=== PATIENT | female | born 1950 | race African-American/Black ===

== ENCOUNTER 2016-07-05 00:57 | Inpatient (IN) | payer OTHER ==
--- NOTE | 2016-07-05 02:02 | PDOC ---
History of Present Illness - General History Source: Patient Exam Limitations: No Limitations - History of Present Illness Initial Comments: 07/05/16 02:30 The patient is a 66 year old female with a significant past medical history of asthma, HTN, diabetes, and HLD who presents to the ED with complaints of shortness of breath since earlier today. The patient reports a sudden onset of sharp right arm pain that is radiating to her right shoulder around 6 pm earlier today. She reports she developed shortness of breath, coughing and wheezing. Patient reports her asthma symptoms typically flare up during this time of the year. Patient reports she is complaint with her medications. Denies fevers or chills. Denies palpitations. Denies abdominal pain, nausea, vomiting, or diarrhea. Denies any other symptoms. 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 Denies smoking or alcohol use. PMD: Dr. Harris <Portia Williamson - Last Filed: 07/05/16 02:29> <Nancy England - Last Filed: 07/06/16 06:27> - General Chief Complaint: Wheezing Stated Complaint: WHEEZING/ASTHMA Time Seen by Provider: 07/05/16 01:17 Past History <Portia Williamson - Last Filed: 07/05/16 02:29> - Past Medical History Asthma: Yes Diabetes: Yes HTN: Yes Hypercholesterolemia: Yes Suicide Attempt (Hx): No - Surgical History Abdominal Surgery: Yes (fibroids, btl) Appendectomy: Yes - Immunization History Immunization Up to Date: Yes - Psycho/Social/Smoking Cessation Hx Anxiety: Yes Suicidal Ideation: No Smoking Status: Yes Smoking History: Unknown if ever smoked Have you smoked in the past 12 months: No Number of Cigarettes Smoked Daily: 0 If you are a former smoker, when did you quit?: 15 YEARS Cigars Per Day: 0 Information on smoking cessation initiated: No Hx Alcohol Use: No Drug/Substance Use Hx: No Hx Substance Use Treatment: No <Nancy England - Last Filed: 07/06/16 06:27> - Past Medical History Allergies/Adverse Reactions: Allergies Allergy/AdvReac Type Severity Reaction Status Date / Time No Known Allergies Allergy Verified 07/05/16 01:18 Home Medications: Ambulatory Orders Albuterol 0.083% Nebulizer Aleksandra [Ventolin 0.083% Nebulizer Soln -] [facility] NEB QIDR #0 vial 06/13/13 Metformin HCl [Glucophage -] 1,000 mg PO BIDAC #0 tablet 06/13/13 Valsartan [Diovan] 320 mg PO DAILY #0 tablet 06/13/13 Olmesartan Medoxomil [Benicar -] 20 mg PO DAILY 01/03/14 Montelukast Na [Singulair -] 10 mg PO HS #30 tablet 01/12/14 Diazepam [Valium] 5 mg PO BID #12 tablet MDD 2 05/16/15 Oxycodone HCl/Acetaminophen [Percocet 5-325 mg Tablet] 1 - 2 tab PO Q6H PRN #16 tab MDD 4 05/16/15 Review of Systems - Review of Systems Able to Perform ROS?: Yes Comments:: 07/05/16 02:30 CONSTITUTIONAL: Absent: fever, chills, diaphoresis, generalized weakness, malaise, loss of appetite HEENT: Absent: rhinorrhea, nasal congestion, throat pain, throat swelling, difficulty swallowing, mouth swelling, ear pain, eye pain, visual Changes CARDIOVASCULAR: Absent: chest pain, syncope, palpitations, irregular heart rate, lightheadedness , peripheral edema RESPIRATORY: + shortness of breath, cough, wheezing Absent: dyspnea with exertion, orthopnea, wheezing, stridor, hemoptysis GASTROINTESTINAL: Absent: abdominal pain, abdominal distension, nausea, vomiting, diarrhea, constipation, melena, hematochezia GENITOURINARY: Absent: dysuria, frequency, urgency, hesitancy, hematuria, flank pain, genital pain MUSCULOSKELETAL: + arm pain Absent: joint swelling SKIN: Absent: rash, itching, pallor HEMATOLOGIC/IMMUNOLOGIC: Absent: easy bleeding, easy bruising, lymphadenopathy, frequent infections ENDOCRINE: Absent: unexplained weight gain, unexplained weight loss, heat intolerance, cold intolerance NEUROLOGIC: Absent: headache, focal weakness or paresthesias, dizziness, unsteady gait, seizure, mental status changes, bladder or bowel incontinence PSYCHIATRIC: Absent: anxiety, depression, suicidal or homicidal ideation, hallucinations. All Other Systems: Reviewed and Negative <Portia Williamson - Last Filed: 07/05/16 02:29> *Physical Exam - Vital Signs Last Vital Signs Temp Pulse Resp BP Pulse Ox 97.7 F 62 22 123/96 100 07/05/16 01:15 07/05/16 01:15 07/05/16 01:15 07/05/16 01:15 07/05/16 01:15 - Physical Exam Comments: 07/05/16 02:30 GENERAL: Well developed, well nourished. Awake and alert. No acute distress. HEENT: Normocephalic, atraumatic. PERRLA, EOMI. No conjunctival pallor. Sclera are non- icteric. Moist mucous membranes. Oropharynx is clear. NECK: Supple. Full ROM. No JVD. Carotid pulses 2+ and symmetric, without bruits. No thyromegaly. NCo lymphadenopathy. CARDIOVASCULAR: Regular rate and rhythm. No murmurs, rubs, or gallops. Distal pulses are 2+ and symmetric. PULMONARY: No evidence of respiratory distress. Lungs clear to auscultation bilaterally. No wheezing, rales or rhonchi. ABDOMINAL: Soft. Non-tender. Non-distended. No rebound or guarding. No organomegaly. Normoactive bowel sounds. MUSCULOSKELETAL Normal range of motion at all joints. No bony deformities or tenderness. No CVA tenderness. EXTREMITIES: No cyanosis. No clubbing. No edema. No calf tenderness. SKIN: Warm and dry. Normal capillary refill. No rashes. No jaundice. NEUROLOGICAL: Alert, awake, appropriate. Cranial nerves 2-12 intact. No deficits to light touch and temperature in face, upper extremities and lower extremities. No motor deficits in the in face, upper extremities and lower extremities. Normoreflexic in the upper and lower extremities. Normal speech. Toes are down- going bilaterally. Gait is normal without ataxia. PSYCHIATRIC: Cooperative. Good eye contact. Appropriate mood and affect. <Portia Williamson - Last Filed: 07/05/16 02:29> - Vital Signs Last Vital Signs Temp Pulse Resp BP Pulse Ox 97.7 F 62 22 123/96 100 07/05/16 01:15 07/05/16 01:15 07/05/16 01:15 07/05/16 01:15 07/05/16 01:15 <Nancy England - Last Filed: 07/06/16 06:27> Heart Score/ECG Review - History History: Moderately suspicious - Electrocardiogram EKG: Non specific repolarization disturbance - Age Age: 45-65 - Risk Factors Risk Factors Heart Score: Yes Hx Hypercholesterolemia, Yes Hx Hypertension, Yes Hx Diabetes, Yes Hx Obesity Based on the list above the patient has:: >/=3 risk factors or Hx atherosclerotic disease - Troponin Troponin: </= normal limit - Score Heart Score - Total: 5 <Nancy England - Last Filed: 07/06/16 06:27> ED Treatment Course - LABORATORY CBC & Chemistry Diagram: 07/05/16 05:57 07/05/16 05:57 <Nancy England - Last Filed: 07/06/16 06:27> Medical Decision Making - Medical Decision Making 07/05/16 06:05 Patient Name: Diana Renee THIS IS A PRELIMINARYREPORT FROM IMAGING GLACIOLOGIST EXAM: X-ray chest IMAGES: 2 INDICATION: Asthma DATE OF SERVICE: 2016-07-05 02 :37:02.0 COMPARISON: none FINDINGS: The cardiomediastinal silhouette is normal. The lungs are clear. The bones and soft tissues are normal IMPRESSION : Normal chest. THIS DOCUMENT HAS BEEN ELECTRONICALLY SIGNED 07/06/16 06:23 Pt admitted for SOB; she has a hx of asthma, but she also complains of right arm pain and CP. SHe has HTN and DM and HLD and she is morbidly obese and she is 66 yo. She will be admitted to telemetry. <Nancy England - Last Filed: 07/06/16 06:27> *DC/Admit/Observation/Transfer - Attestations Scribe Attestion: 07/05/16 02:30 Documentation prepared by Portia Williamson, acting as biomedical field service engineer for Nancy England MD <Portia Williamson - Last Filed: 07/05/16 02:29> - Discharge Dispostion Admit: Yes <Nancy England - Last Filed: 07/06/16 06:27> Diagnosis at time of Disposition: Asthma exacerbation, Chest pain, Right arm pain, Severe persistent asthma with exacerbation, Morbid exogenous obesity, Diabetes - Discharge Dispostion Condition at time of disposition: Stable - Referrals - Patient Instructions - Post Discharge Activity
[2016-07-05] MEDS ORDERED: ALBUTEROL SO4 2.5/IPRATROPIUM 0.5 INH SOL 3 ML VIAL.NEB. NEB ONE ×3 (02:47→19:23)
[2016-07-05] MEDS ORDERED: predniSONE 20 MG TABLET (UD) PO ONE (03:02)
[2016-07-05] MEDS ORDERED: predniSONE 20 MG TABLET (UD) ONE (03:18)
[2016-07-05 06:13] LABS: BASOPHIL 0.4 % (0-2.0); EOSINOPHIL 1.8 % (0-4.5); MCH 28.7 pg (25.7-33.7); MCHC 32.6 g/dl (32.0-36.0); MEAN CELL VOLUME 87.9 fl (80-96); MEAN PLT VOLUME 9.9 fl (7.5-11.1); PLATELET COUNT 171 K/MM3 (134-434); RDW 14.4 % (11.6-15.6); WHITE BLOOD COUNT 10.1 K/mm3 (4.0-10.0)
[2016-07-05 06:33] LABS: INR 1.06 (0.82-1.09); PROTHROMBIN TIME (PATIENT) 11.7 SEC (9.98-11.88)
[2016-07-05 06:40] LABS: ALBUMIN 3.7 g/dl (3.4-5.0); ANION GAP 9 (8-16); BILIRUBIN,TOTAL 0.5 mg/dL (0.2-1.0); CALCIUM 9.1 mg/dL (8.5-10.1); CO2 27 mmol/L (21-32); CREATININE 0.8 mg/dL (0.55-1.02); GLUCOSE,RANDOM 299 mg/dL (74-106); SGPT/ALT 21 U/L (12-78); TOT PROT 7.3 g/dl (6.4-8.2)
[2016-07-05 06:42] LABS: ALK PHOS 75 U/L (45-117); TROPONIN I < 0.02 ng/ml (0.00-0.05)
[2016-07-05 06:48] LABS: SGOT/AST 25 U/L (15-37)
[2016-07-05] MEDS: ALBUTEROL SO4 2.5/IPRATROPIUM 0.5 INH SOL 3 ML VIAL.NEB. NEB PRN ×2 (08:50→19:34)
[2016-07-05] MEDS ORDERED: OLMESARTAN MEDOXOMIL PO SCH (10:00)
[2016-07-05] MEDS ORDERED: methylPREDNISolone NA SUCC 125 MG/2 ML VIAL IVPB SCH (10:00)
[2016-07-05] MEDS ORDERED: HEPARIN NA (PORCINE) 5,000 UNITS/ML 1ML VIAL SQ SCH (10:00)
[2016-07-05] MEDS ORDERED: methylPREDNISolone NA SUCC 125 MG/2 ML VIAL IVPB ONE (10:15)
[2016-07-05] MEDS ORDERED: VALSARTAN 80 MG TABLET (UD) ONE (11:08)
[2016-07-05] MEDS ORDERED: HEPARIN NA (PORCINE) 5,000 UNITS/ML 1ML VIAL ONE (11:08)
[2016-07-05] MEDS ORDERED: INSULIN REGULAR HUMAN 100 UNITS/ML *VIAL ONE ×2 (11:10→17:19)
[2016-07-05] MEDS: VALSARTAN 160 MG TABLET (UD) PO SCH (11:10)
[2016-07-05] MEDS: INSULIN SLIDING SCALE (NOVOLOG) 1 VIAL SQ SCH ×3 (11:10→22:41)
[2016-07-05 12:15] VITALS: BMI 34.4
--- NOTE | 2016-07-05 13:04 | HP ---
CHIEF COMPLAINT: Tingling right arm PCP: Dr. Harris HISTORY OF PRESENT ILLNESS: Patient is a 66 year old female with a PMHx of HTN, DMII, and asthma who presents for right arm/shoulder pain and "tingling" sensation that radiates to the chest associated with shortness of breath that started yesterday evening. Patient reports she was unable to hold her cup from the pain, which prompted this hospital visit. She is unable to lift her arm fully without severe pain. She reports having similar episodes in the past but with her left arm for which she is going to physical therapy for. Patient then states her shortness of breath increased from the pain, which is related to her asthma. When evaluating the patient she began to have shortness of breath, wheezing and cough for which a DuoNeb, EKG, Steroids, and repeat cardiac enzymes were done. DuoNebs alleviated the shortness of breath soon after. Otherwise, patient denies fever, chills, nausea, vomiting, abdominal pain, dizziness. In the ED she was noted to have some wheezing and was given asthma medication. Her chest pain was evaluated with EKG which showed junctional rhythm at [address] or T-wave changes and no changes in comparison to the prior EKG of March 2010. Troponin 2 was negative. Chest x-ray showed no acute changes. ER course was notable for: (1) Chest x-ray (2) Duoneb (3) Prednisone Recent Travel: None PAST MEDICAL HISTORY: HTN, HLD, DMII, Asthma PAST SURGICAL HISTORY: Tubal Ligation Social History: Smoking: Denies Alcohol: Denies Drugs: Denies Family History: Mother- HTN and DM Allergies: No Known Allergies Allergy (Verified 07/05/16 01:18) HOME MEDICATIONS: Home Medications Medication Instructions Recorded Albuterol 0.083% Nebulizer Aleksandra 1 neb NEB QIDR #0 vial 06/13/13 [Ventolin 0.083% Nebulizer Soln -] Metformin HCl [Glucophage -] 1,000 mg PO BIDAC #0 tablet 06/13/13 Valsartan [Diovan] 320 mg PO DAILY #0 tablet 06/13/13 Olmesartan Medoxomil [Benicar -] 20 mg PO DAILY 01/03/14 Montelukast Na [Singulair -] 10 mg PO HS #30 tablet 01/12/14 Diazepam [Valium] 5 mg PO BID #12 tablet MDD 2 05/16/15 Oxycodone HCl/Acetaminophen 1 - 2 tab PO Q6H PRN #16 tab MDD 4 05/16/15 [Percocet 5-325 mg Tablet] REVIEW OF SYSTEMS CONSTITUTIONAL: Absent: fever, chills, diaphoresis, generalized weakness, malaise, loss of appetite, weight change HEENT: Absent: rhinorrhea, nasal congestion, throat pain, throat swelling, difficulty swallowing, mouth swelling, ear pain, eye pain, visual changes CARDIOVASCULAR: chest pain Absent: syncope, palpitations, irregular heart rate, lightheadedness, peripheral edema RESPIRATORY: cough, shortness of breath, wheezing Absent: dyspnea with exertion, orthopnea, stridor, hemoptysis GASTROINTESTINAL: Absent: abdominal pain, abdominal distension, nausea, vomiting, diarrhea, constipation, melena, hematochezia GENITOURINARY: Absent: dysuria, frequency, urgency, hesitancy, hematuria, flank pain, genital pain MUSCULOSKELETAL: back pain Absent: myalgia, arthralgia, joint swelling, neck pain SKIN: Absent: rash, itching, pallor HEMATOLOGIC/IMMUNOLOGIC: Absent: easy bleeding, easy bruising, lymphadenopathy, frequent infections ENDOCRINE: Absent: unexplained weight gain, unexplained weight loss, heat intolerance, cold intolerance NEUROLOGIC: Absent: headache, focal weakness or paresthesias, dizziness, unsteady gait, seizure, mental status changes, bladder or bowel incontinence PSYCHIATRIC: Absent: anxiety, depression, suicidal or homicidal ideation, hallucinations. PHYSICAL EXAMINATION Vital Signs - 24 hr 07/05/16 07/05/16 07/05/16 07:25 11:10 12:04 Temperature 98 F 98 F Pulse Rate 76 Pulse Rate [ 62 76 Apical] Respiratory 19 17 18 Rate Blood Pressure 141/85 Blood Pressure 120/69 141/85 [Left Arm] O2 Sat by Pulse 97 96 96 Oximetry (%) GENERAL: Awake, alert, and fully oriented. HEAD: Normal with no signs of trauma. EYES: PERRL, EOMI, sclera anicteric, conjunctival injections. EARS, NOSE, THROAT: Moist mucous membranes. NECK: Supple without lymphadenopathy, JVD, or masses. LUNGS: Scattered expiratory wheezing, L>R lung base with no crackles. No accessory muscle use. HEART: Regular rate and rhythm, normal S1 and S2 without murmur, rub or gallop. ABDOMEN: Soft, nontender, not distended, normoactive bowel sounds, no guarding, no rebound, no masses. MUSCULOSKELETAL: Decreased ROM of right shoulder with pain when elevating the right arm and with extension. UPPER EXTREMITIES: No peripheral edema. LOWER EXTREMITIES: Swelling of bilateral legs with no erythema or edema. Right cali tenderness upon palpation, NEUROLOGICAL: Cranial nerves II-XII intact. motor strength 5/5 throughout, sensory intact throughout. No cerebellar deficits. Normal speech. SKIN: Warm, dry, normal turgor, no rashes or lesions noted, normal capillary refill. Laboratory Results - last 24 hr 07/05/16 07/05/16 09:09 10:37 POC Glucometer [id number] Troponin I < 0.02 Chest X-ray (07/05/16): No acute pathology EKG (07/05/16): Junctional Rhythm @60 BPM, (-) ST-T changes ASSESSMENT/PLAN: Patient is a 66 year old female with a PMHx of HTN, DM II, and asthma who presents for right arm pain with tingling sensations and moderate asthma exacerbation. Patient admitted for further monitoring and management. Asthma Exacerbation -Continue DuoNeb Q4H PRN -Continue Singulair 10mg PO HS -Prednisone 40mg daily -Oxygen PRN Right Arm Pain and Numbness with Chest Pain -R/O neurological origin or event vs. cardiac origin vs Arthritis -Brain MRI ordered due to patients risk factors of stroke including HTN and DMII. -Right shoulder x-ray ordered -Troponins negative x3 -EKG tomorrow -Lipid panel ordered -ECHO ordered -Tylenol 650mg Q6H PRN for pain HTN -Continue Benicar 20mg daily -Continue Diovan 320mg daily DMII -ISS -BGM F/E/N -On no fluids -Electrolytes wnl -Sodium and diabetes controlled diet Prophylaxis -Lovenox 40mg Disposition -Awaiting MRI Visit type - Emergency Visit Emergency Visit: Yes ED Registration Date: 07/05/16 Care time: The patient presented to the Emergency Department on the above date and was hospitalized for further evaluation of their emergent condition. - New Patient This patient is new to me today: Yes Date on this admission: 07/05/16 - Critical Care Critical Care patient: No NIH Stroke Scale - Initial Evaluation Level of consciousness: Alert Ask patient the month and their age: Answers both correctly Ask patient to open & close eyes; make fist and let go: Obeys both correctly Best gaze (horizontal eye movement): Normal Visual field testing: No visual field loss Facial paresis (Show teeth/raise eyebrows/close eyes tight): Normal symmetrical movement Motor Function: Left Arm: Normal Motor Function: Right Arm: Normal (extends arm 90 (or 45) degrees for 10 seconds without drift Motor Function: Left Leg: Normal (extends leg 30 degrees for 5 seconds without drift) Motor Function: Right Leg: Normal (extends leg 30 degrees for 5 seconds without drift) Limb Ataxia: No ataxia Sensory(Use pinprick test arms,legs,trunk,face/side to side): Normal Best language (Describe picture, name items, read sentences): No Aphasia Dysarthria (read several words): Normal articulation Extinction and Inattention: No abnormality - Total Score NIH Stroke Scale Score: 0
--- NOTE | 2016-07-05 15:17 | PN ---
Teaching Attending Note Name of Resident: Gracie Ramos ATTENDING PHYSICIAN STATEMENT I saw and evaluated the patient. I reviewed the resident's note and discussed the case with the resident. I agree with the resident's findings and plan as documented. SUBJECTIVE: 66-year-old female with a history of asthma, hypertension, diabetes , and hyperlipidemia. Patient presents complaining of onset yesterday of shortness of breath, chest pain, and right shoulder pain with movement associated with tingling in the fingers. Patient was concerned about the right arm symptoms more than anything else so she came to the ED. In the ED she was noted to have some wheezing and was given asthma medication. Her chest pain was evaluated with EKG which showed junctional rhythm at [address] or T-wave changes and no changes in comparison to the prior EKG of March 2010. Troponin 2 was negative. Chest x-ray showed no acute changes. OBJECTIVE: Patient is awake, alert, and fully oriented. She continues to have some chest pain in the mid chest. She also is complaining of right shoulder pain which is exacerbated with elevating the right arm. She is unable to elevate her right arm above her shoulder due to severe pain with extension. Lungs are mostly clear with occasional scattered expiratory wheezes. Heart is regular rhythm without gallop or murmur. Abdomen is obese and benign. Extremities are without clubbing or cyanosis. There is no edema. There is mild right cail tenderness in the pretibial region on palpation. There are no cords or erythema. Detailed neurological examination shows normal mental status, normal cranial nerves, normal motor strength, sensation, no cerebellar deficits. Right arm elevation is limited by arthritic pain in the right shoulder. Laboratory studies are notable for negative troponin, glucose of 299, EKG with possibly junctional rhythm versus normal sinus rhythm at 60 without acute ischemic changes. Chest x-ray is unremarkable. ASSESSMENT AND PLAN: Patient presents with mild asthma exacerbation. She will be given prednisone 40 mg daily along with albuterol and ipratropium nebulizer treatment. Right shoulder pain and numbness in the right arm is consistent with osteoarthritis of the right shoulder. Right shoulder x-rays ordered. Patient will be given Tylenol as needed. Given the complaints of numbness and the multiple positive stroke risk factors, although the likely explanation for her right arm and shoulder symptoms are musculoskeletal in nature, MRI will be ordered to rule out acute neurological event. Patient will be treated with aspirin and a statin. DVT prophylaxis ordered.
[2016-07-05] MEDS ORDERED: LORAZEPAM CARPU-JECT 2 MG/ML DISP.SYRIN IVPUSH ONE (17:16)
[2016-07-05] MEDS ORDERED: ACETAMINOPHEN 325 MG TABLET (FP) PO PRN (17:43)
[2016-07-05] MEDS ORDERED: INSULIN (NOVOLOG) ASPART 100 UNITS/ML 10ML VIAL SQ ONE (18:57)
[2016-07-05 22:19] LABS: TROPONIN I < 0.02 ng/ml (0.00-0.05)
[2016-07-05] MEDS: MONTELUKAST NA 10 MG TABLET PO SCH (22:41)
[2016-07-06] MEDS: INSULIN SLIDING SCALE (NOVOLOG) 1 VIAL SQ SCH ×5 (06:29→23:06)
[2016-07-06 08:30] LABS: MCH 25.1 pg (25.7-33.7); MCHC 31.5 g/dl (32.0-36.0); MEAN CELL VOLUME 79.5 fl (80-96); MEAN PLT VOLUME 8.8 fl (7.5-11.1); PLATELET COUNT 277 K/MM3 (134-434); RDW 22.5 % (11.6-15.6); WHITE BLOOD COUNT 10.2 K/mm3 (4.0-10.0)
[2016-07-06] MEDS: VALSARTAN 160 MG TABLET (UD) PO SCH (09:41)
[2016-07-06] MEDS: ASPIRIN COATED 81 MG TABLET.EC PO SCH (09:41)
[2016-07-06] MEDS: ENOXAPARIN NA (PORCINE) 40 MG/0.4 ML DISP.SYRIN SQ SCH (09:41)
[2016-07-06] MEDS: predniSONE 20 MG TABLET (UD) PO SCH (09:41)
[2016-07-06 09:59] LABS: MCH 28.7 pg (25.7-33.7); MCHC 32.5 g/dl (32.0-36.0); MEAN CELL VOLUME 88.4 fl (80-96); MEAN PLT VOLUME 9.8 fl (7.5-11.1); PLATELET COUNT 192 K/MM3 (134-434); RDW 14.3 % (11.6-15.6)
[2016-07-06 10:28] LABS: CALCIUM 9.5 mg/dL (8.5-10.1); COCKROFT - GAULT 117.6145
[2016-07-06 10:30] LABS: CHOLESTEROL 267 mg/dL (50-200); LDL CHOLESTEROL (ONLY SJRH) 202 mg/dL (5-100)
--- NOTE | 2016-07-06 12:57 | PN ---
Physical Exam: SUBJECTIVE: Patient seen and examined. She complains of severe pain and numbness of her right arm. She is having difficulty moving the arm. Pain starts in her right neck. She denies recent trauma. She has chronic low back pain secondary to a pinched nerve. OBJECTIVE: Vital Signs Period Temp Pulse Resp BP Sys/Linares Pulse Ox Last 24 Hr 97.5 F-97.8 F 61-84 18-20 111-148/67-89 95-100 GENERAL: The patient is awake, alert, and fully oriented, in moderate distress. LUNGS: Few wheezes bilaterally. HEART: Regular rate and rhythm, S1, S2 without murmur, rub or gallop. ABDOMEN: Obese, soft, nontender, nondistended, normoactive bowel sounds, no guarding, no rebound, no hepatosplenomegaly, no masses. EXTREMITIES: 2+ pulses, warm, well-perfused, no edema. Tenderness over right upper arm, right shoulder and posterior right neck. Hand grasp decreased on right. Unable to raise right arm. Laboratory Results - last 24 hr 07/05/16 07/05/16 07/06/16 18:48 21:00 02:04 WBC RBC Hgb Hct MCV MCHC RDW Plt Count MPV Sodium Potassium Chloride Carbon Dioxide Anion Gap BUN Creatinine POC Glucometer > 400 306 Random Glucose Hemoglobin A1c % Calcium Creatine Kinase 109 Troponin I < 0.02 Triglycerides Cholesterol Total LDL Cholesterol HDL Cholesterol 07/06/16 07/06/16 07/06/16 06:05 07:10 09:45 WBC 10.2 H RBC 2.58 L D Hgb 6.5 L* D Hct 20.5 L D MCV 79.5 L MCHC 31.5 L RDW 22.5 H D Plt Count 277 D MPV 8.8 D Sodium 138 Potassium 4.1 Chloride 100 Carbon Dioxide 27 Anion Gap 11 BUN 23 H D Creatinine 1.0 D POC Glucometer 288 Random Glucose 341 H* Hemoglobin A1c % Calcium 9.5 Creatine Kinase Troponin I Triglycerides Cholesterol Total LDL Cholesterol HDL Cholesterol 07/06/16 07/06/16 07/06/16 09:45 09:45 09:46 WBC RBC Hgb Hct MCV MCHC RDW Plt Count MPV Sodium Potassium Chloride Carbon Dioxide Anion Gap BUN Creatinine POC Glucometer 317 Random Glucose Hemoglobin A1c % 9.7 H D Calcium Creatine Kinase Troponin I Triglycerides 190 H D Cholesterol 267 H D Total LDL Cholesterol 202 H HDL Cholesterol 62 H 07/06/16 10:00 WBC 15.0 H D RBC 4.53 D Hgb 13.0 D Hct 40.1 D MCV 88.4 MCHC 32.5 RDW 14.3 D Plt Count 192 D MPV 9.8 D Sodium Potassium Chloride Carbon Dioxide Anion Gap BUN Creatinine POC Glucometer Random Glucose Hemoglobin A1c % Calcium Creatine Kinase Troponin I Triglycerides Cholesterol Total LDL Cholesterol HDL Cholesterol Active Medications Generic Name Dose Route Start Last Admin Trade Name Freq PRN Reason Stop Dose Admin Acetaminophen 650 mg 07/05/16 17:43 07/06/16 09:40 Tylenol - PO 650 mg Q6H PRN Administration FEVER OR PAIN Albuterol/Ipratropium 1 amp 07/05/16 08:45 07/05/16 19:34 Duoneb - NEB 1 amp Q4H PRN Administration SHORTNESS OF BREATH Aspirin 81 mg 07/06/16 10:00 07/06/16 09:41 Ecotrin - PO 81 mg DAILY KRYSTLE Administration Enoxaparin Sodium 40 mg 07/06/16 10:00 07/06/16 09:41 Lovenox - SQ 40 mg DAILY KRYSTLE Administration Insulin Aspart 1 vial 07/06/16 06:00 07/06/16 09:50 Novolog Vial Sliding Scale - SQ 10 units Q4HPO KRYSTLE Administration Protocol Montelukast Sodium 10 mg 07/05/16 22:00 07/05/16 22:41 Singulair - PO 10 mg HS KRYSTLE Administration Prednisone 40 mg 07/06/16 10:00 07/06/16 09:41 Deltasone - PO 40 mg DAILY KRYSTLE Administration Valsartan 320 mg 07/05/16 10:00 07/06/16 09:41 Diovan - PO 320 mg DAILY KRYSTLE Administration ASSESSMENT/PLAN: This is a 66-year-old woman with a history of HTN, type 2 DM, asthma who presented to the ER with SOB and right arm pain. 1. Acute asthma exacerbation - Continue Prednisone, Singulair, DuoNeb as needed 2. Right arm pain and numbness - Possible cervical radiculopathy - X-rays show old deformity with progressive degenerative changes - Flexeril, Ultram as needed - MRI of C-spine 3. HTN -Continue Diovan 4. Type 2 diabetes mellitus - Continue Novolog sliding scale Visit type - Emergency Visit Emergency Visit: Yes ED Registration Date: 07/05/16 Care time: The patient presented to the Emergency Department on the above date and was hospitalized for further evaluation of their emergent condition. - New Patient This patient is new to me today: Yes Date on this admission: 07/06/16 - Critical Care Critical Care patient: No - Discharge Referral Referred to [facility] No
[2016-07-06] MEDS ORDERED: traMADol HCL 50 MG TABLET PO PRN (12:58)
[2016-07-06] MEDS ORDERED: LORAZEPAM CARPU-JECT 2 MG/ML DISP.SYRIN IVPUSH ONE (13:00)
[2016-07-06] MEDS ORDERED: CYCLOBENZAPRINE HCL 10 MG TABLET (FP) PO ONE (14:00)
[2016-07-06] MEDS: MONTELUKAST NA 10 MG TABLET PO SCH (23:03)
[2016-07-07] MEDS: INSULIN SLIDING SCALE (NOVOLOG) 1 VIAL SQ SCH ×6 (03:34→22:26)
--- NOTE | 2016-07-07 07:55 | EKG ---
Test Reason : Blood Pressure : / mmHG Vent. Rate : 060 BPM Atrial Rate : 060 BPM P-R Int : 000 ms QRS Dur : 080 ms QT Int : 420 ms P-R-T Axes : 000 058 094 degrees QTc Int : 420 ms POOR DATA QUALITY, INTERPRETATION MAY BE ADVERSELY AFFECTED LIKELY SINUS RHYTHM LOW VOLTAGE QRS SEPTAL INFARCT (CITED ON OR BEFORE 27-JUN-2009) ABNORMAL ECG WHEN COMPARED WITH ECG OF 22-MAR-2015 20:32, PREMATURE VENTRICULAR COMPLEXES ARE NO LONGER PRESENT Reconfirmed by POLI JEWELL, JOSE L ([id number]) on 07/07/2016 8:01:18 AM Referred By: Confirmed By:JOSE L ASHTON MD
--- NOTE | 2016-07-07 07:59 | EKG ---
Test Reason : Blood Pressure : / mmHG Vent. Rate : 062 BPM Atrial Rate : 062 BPM P-R Int : 152 ms QRS Dur : 094 ms QT Int : 412 ms P-R-T Axes : 071 080 099 degrees QTc Int : 418 ms SINUS RHYTHM WITH OCCASIONAL PREMATURE VENTRICULAR COMPLEXES SEPTAL INFARCT (CITED ON OR BEFORE 27-JUN-2009) ABNORMAL ECG WHEN COMPARED WITH ECG OF 05-JUL-2016 02:33, PREMATURE VENTRICULAR COMPLEXES ARE NOW PRESENT Confirmed by JOSE L ASHTON MD ([id number]) on 07/07/2016 7:58:32 AM Referred By: Evelina GANT Confirmed By:JOSE L ASHTON MD
[2016-07-07 08:18] LABS: BASOPHIL 0.4 % (0-2.0); EOSINOPHIL 0.2 % (0-4.5); MCH 28.9 pg (25.7-33.7); MCHC 32.8 g/dl (32.0-36.0); MEAN PLT VOLUME 9.5 fl (7.5-11.1); NEUTROPHILS 74.3 % (42.8-82.8); PLATELET COUNT 171 K/MM3 (134-434); RDW 14.4 % (11.6-15.6); WHITE BLOOD COUNT 12.8 K/mm3 (4.0-10.0)
[2016-07-07 08:46] LABS: CALCIUM 9.1 mg/dL (8.5-10.1)
[2016-07-07 08:47] LABS: COCKROFT - GAULT 147.016; CREATININE 0.8 mg/dL (0.55-1.02)
--- NOTE | 2016-07-07 10:28 | PN ---
Teaching Attending Note Name of Resident: Gracie Ramos ATTENDING PHYSICIAN STATEMENT I saw and evaluated the patient. I reviewed the resident's note and discussed the case with the resident. I agree with the resident's findings and plan as documented. SUBJECTIVE: Patient's right arm is better. No new complaints. OBJECTIVE: Vital Signs Period Temp Pulse Resp BP Sys/Linares Pulse Ox Last 24 Hr 97.7 F-98.1 F 65-89 16-18 105-153/44-86 98 LUNGS: Few wheezes bilaterally. HEART: Regular rate and rhythm, S1, S2 without murmur, rub or gallop. ABDOMEN: Obese, soft, nontender, nondistended, normoactive bowel sounds, no guarding, no rebound, no hepatosplenomegaly, no masses. EXTREMITIES: 2+ pulses, warm, well-perfused, no edema. ASSESSMENT AND PLAN: This is a 66-year-old woman with a history of HTN, type 2 DM, asthma who presented to the ER with SOB and right arm pain. 1. Acute asthma exacerbation - Continue Prednisone, Singulair, DuoNeb as needed 2. Right arm pain and numbness - Possible cervical radiculopathy - X-rays show old deformity with progressive degenerative changes - Flexeril, Ultram as needed - MRI of C-spine ordered 3. HTN -Continue Diovan 4. Type 2 diabetes mellitus - Continue Novolog sliding scale
[2016-07-07] MEDS: VALSARTAN 160 MG TABLET (UD) PO SCH ×2 (10:47→14:43)
[2016-07-07] MEDS: ASPIRIN COATED 81 MG TABLET.EC PO SCH (10:49)
[2016-07-07] MEDS: predniSONE 20 MG TABLET (UD) PO SCH (10:49)
[2016-07-07] MEDS: ENOXAPARIN NA (PORCINE) 40 MG/0.4 ML DISP.SYRIN SQ SCH ×2 (10:49→11:59)
[2016-07-07] MEDS: ALBUTEROL SO4 2.5/IPRATROPIUM 0.5 INH SOL 3 ML VIAL.NEB. NEB PRN ×3 (11:07→23:35)
--- NOTE | 2016-07-07 12:23 | PN ---
Progress Note (short form) - Note Progress Note: PULMONARY CONSULTATION DICTATED 07/07/16 IMP CHRONIC PERSISTENT ASTHMA WITH ACUTE EXACERBATION RECENT URI R SHOULDER PAIN LIKELY OSAS MORBID OBESITY HTN DM PLAN PREDNISONE TAPER INHALED BRONCHODILATORS MONITOR PEAK FLOW PFTS OUTPATIENT SLEEP STUDIES OUTPATIENT ANALGESICS CONSIDER ORTHOPEDIC EVALUATION DR BUTLER Problem List - Problems (1) Asthma exacerbation Code(s): J45.901 - UNSPECIFIED ASTHMA WITH (ACUTE) EXACERBATION (2) Chest pain Code(s): R07.9 - CHEST PAIN, UNSPECIFIED (3) Right arm pain Code(s): M79.601 - PAIN IN RIGHT ARM (4) Diabetes Code(s): E11.9 - TYPE 2 DIABETES MELLITUS WITHOUT COMPLICATIONS (5) Morbid exogenous obesity Code(s): E66.01 - MORBID (SEVERE) OBESITY DUE TO EXCESS CALORIES
[2016-07-07] MEDS: BUDESONIDE/FORMETEROL FUMARATE 160/4.5 mcg INHALER IH SCH ×2 (14:42→22:25)
--- NOTE | 2016-07-07 15:18 | PN ---
Physical Exam: SUBJECTIVE: Patient seen and examined by me at bedside. No overnight events noted. Patient offers no complaints and reports her right arm is much better today as well as her breathing. Otherwise, patient denies fever, chills, nausea , vomiting, abdominal pain, chest pain, palpitations, headaches. OBJECTIVE: Vital Signs Period Temp Pulse Resp BP Sys/Linares Pulse Ox Last 24 Hr 98.1 F-98.5 F 55-89 16-24 104-129/44-69 98-98 GENERAL: Awake, alert, and fully oriented. LUNGS: Scattered expiratory wheezing, L>R lung base with no crackles. No accessory muscle use. HEART: Regular rate and rhythm, normal S1 and S2 without murmur, rub or gallop. ABDOMEN: Soft, nontender, not distended, normoactive bowel sounds, no guarding, no rebound, no masses. MUSCULOSKELETAL: Decreased ROM of right shoulder with pain when elevating the right arm (improved) UPPER EXTREMITIES: No peripheral edema. LOWER EXTREMITIES: Swelling of bilateral legs with no erythema or edema. Laboratory Results - last 24 hr 07/06/16 07/06/16 07/07/16 16:53 23:05 03:33 WBC RBC Hgb Hct MCV MCHC RDW Plt Count MPV Neutrophils % Lymphocytes % Monocytes % Eosinophils % Basophils % Sodium Potassium Chloride Carbon Dioxide Anion Gap BUN Creatinine POC Glucometer 267 252 238 Random Glucose Calcium 07/07/16 07/07/16 07/07/16 05:45 07:10 07:10 WBC 12.8 H RBC 4.26 Hgb 12.3 Hct 37.5 MCV 88.0 MCHC 32.8 RDW 14.4 Plt Count 171 MPV 9.5 Neutrophils % 74.3 Lymphocytes % 20.6 Monocytes % 4.5 Eosinophils % 0.2 D Basophils % 0.4 Sodium 141 Potassium 4.1 Chloride 101 Carbon Dioxide 30 Anion Gap 10 BUN 19 H Creatinine 0.8 POC Glucometer 219 Random Glucose 227 H D Calcium 9.1 07/07/16 10:43 WBC RBC Hgb Hct MCV MCHC RDW Plt Count MPV Neutrophils % Lymphocytes % Monocytes % Eosinophils % Basophils % Sodium Potassium Chloride Carbon Dioxide Anion Gap BUN Creatinine POC Glucometer 271 Random Glucose Calcium Active Medications Generic Name Dose Route Start Last Admin Trade Name Freq PRN Reason Stop Dose Admin Acetaminophen 650 mg 07/05/16 17:43 07/06/16 09:40 Tylenol - PO 650 mg Q6H PRN Administration FEVER OR PAIN Albuterol/Ipratropium 1 amp 07/05/16 08:45 07/07/16 11:07 Duoneb - NEB 1 amp Q4H PRN Administration SHORTNESS OF BREATH Aspirin 81 mg 07/06/16 10:00 07/07/16 10:49 Ecotrin - PO 81 mg DAILY KRYSTLE Administration Budesonide/Formoterol Fumarate 2 puff 07/07/16 13:30 07/07/16 14:42 Symbicort 160/4.5mcg - IH 2 puff BID KRYSTLE Administration Enoxaparin Sodium 40 mg 07/06/16 10:00 07/07/16 11:59 Lovenox - SQ 40 mg DAILY KRYSTLE Administration Insulin Aspart 1 vial 07/06/16 06:00 07/07/16 14:40 Novolog Vial Sliding Scale - SQ 8 units Q4HPO KRYSTLE Administration Protocol Lorazepam 1 mg 07/06/16 13:00 Ativan Injection - IVPUSH 07/06/16 13:01 ONCE ONE Montelukast Sodium 10 mg 07/05/16 22:00 07/06/16 23:03 Singulair - PO 10 mg HS KRYSTLE Administration Prednisone 40 mg 07/06/16 10:00 07/07/16 10:49 Deltasone - PO 40 mg DAILY KRYSTLE Administration Tramadol HCl 50 mg 07/06/16 12:58 Ultram - PO Q6H PRN PAIN Valsartan 320 mg 07/05/16 10:00 07/07/16 10:47 Diovan - PO Not Given DAILY [facility] IMAGES: Chest X-ray (07/05/16): No acute pathology EKG (07/05/16): Junctional Rhythm @60 BPM, (-) ST-T changes ASSESSMENT/PLAN: Patient is a 66 year old female with a PMHx of HTN, DM II, and asthma who presents for right arm pain with tingling sensations and moderate asthma exacerbation. Patient admitted for further monitoring and management. Asthma Exacerbation -Continue DuoNeb Q4H PRN -Continue Singulair 10mg PO HS -Prednisone 40mg daily -Oxygen PRN -Pulmonology consult appreciated. Will begin Symbicort Right Arm Pain and Numbness with Chest Pain- improved -R/O neurological origin or event vs. cardiac origin vs Arthritis -Brain MRI negative -Right shoulder x-ray negative -Troponins negative x3 -Flexeril and Ultram given with significant relief -Tylenol 650mg Q6H PRN for pain HTN -Continue Benicar 20mg daily -Continue Diovan 320mg daily DMII -ISS -BGM F/E/N -On no fluids -Electrolytes wnl -Sodium and diabetes controlled diet Prophylaxis -Lovenox 40mg Disposition -Likely remain one more day. Patient continues to have wheezing and coughing. Visit type - Emergency Visit Emergency Visit: Yes ED Registration Date: 07/05/16 Care time: The patient presented to the Emergency Department on the above date and was hospitalized for further evaluation of their emergent condition. - New Patient This patient is new to me today: No - Critical Care Critical Care patient: No
[2016-07-07] MEDS ORDERED: PT OWN MED DRAWER 7, Y5N ONE ×2 (16:04→22:09)
--- NOTE | 2016-07-07 17:36 | CONS ---
DATE OF CONSULTATION: 07/07/2016 REFERRING PHYSICIAN: Giovanni Dove M.D. HISTORY OF PRESENT ILLNESS: The patient is a 66-year-old black female with a past medical history of chronic persistent asthma, type 2 diabetes mellitus, hypertension, history of smoking approximately 1 Port-A-Cath per day for approximately 3 years, quit 5 years ago. Admitted to [facility] with complaint of increasing shortness of breath, cough, bronchospasm, as well as right shoulder tingling sensation in the right chest and right arm. Patient thinks she had recent URI at which time as her symptoms worsened. She also complained of difficulty moving her right arm secondary to severe pain. She apparently has similar episodes in the past with the left arm. She went to physical therapy with improvement. Patient therefore has history of chronic asthma, use of inhaled bronchodilator a few times a week. She has been intubated. There is no history of occupational exposure to chemicals or fumes. Patient also complains of excessive daytime sleepiness. She does not know whether or not she snores. There is no history of recent travel. There is no history of hemoptysis. PAST MEDICAL HISTORY: Again, includes chronic asthma, type 2 diabetes mellitus, and hypertension. REVIEW OF SYSTEMS: Positive dyspnea. Positive cough. Positive bronchospasm. Positive right arm pain. Right shoulder pain and numbness. CURRENT MEDICATIONS: Include prednisone 40 mg daily, Tylenol, Diovan, Lovenox, DuoNeb, Singulair, Ecotrin, and Ultram. PHYSICAL EXAMINATION: General: The patient is an obese female, awake, alert, in no acute distress. Vital signs: She is currently afebrile. Blood pressure 110/53, respiratory rate 20, O2 saturation is 98%. HEENT: Head is normocephalic, atraumatic. Neck: Supple. Heart: Regular. S1, S2. Chest: Clear. Abdomen: Soft. Bowel sounds positive. Extremities: No cyanosis, edema. LABORATORY: WBC 12.8, hemoglobin 12.3, hematocrit 37.5, platelet count of 171,000. INR is 1.06. BUN 19, creatinine 0.8. Chest x-ray, no infiltrates, no effusions. IMPRESSION: 1. Chronic asthma mild exacerbation as the patient secondary to upper respiratory infection. 2. Right shoulder pain, possibly arthritic, possibly cervical. 3. Morbid obesity. 4. Likely obstructive sleep apnea syndrome. 5. Type 2 diabetes mellitus. 6. Hypertension. PLAN: Continue prednisone. Symbicort 2 puffs q.12 hours. PFTs as outpatient. Consider sleep studies as outpatient. Weight reduction. Consider orthopedic evaluation. JE BUTLER M.D. MARCELINO/[id number]
[2016-07-07] MEDS: MONTELUKAST NA 10 MG TABLET PO SCH (22:25)
[2016-07-08] MEDS: guaiFENesin/D-METHORPHAN HB 10 ML UNIT-DOSE CUPS PO PRN ×3 (01:02→22:26)
[2016-07-08] MEDS: INSULIN SLIDING SCALE (NOVOLOG) 1 VIAL SQ SCH ×5 (04:40→22:27)
[2016-07-08] MEDS: ALBUTEROL SO4 2.5/IPRATROPIUM 0.5 INH SOL 3 ML VIAL.NEB. NEB PRN (06:47)
[2016-07-08] MEDS ORDERED: INSULIN (NOVOLOG) ASPART 100 UNITS/ML 10ML VIAL ONE ×3 (07:01→18:53)
[2016-07-08 08:12] LABS: MCH 29.5 pg (25.7-33.7); MCHC 33.5 g/dl (32.0-36.0); MEAN CELL VOLUME 87.8 fl (80-96); MEAN PLT VOLUME 9.2 fl (7.5-11.1); PLATELET COUNT 160 K/MM3 (134-434); RDW 14.2 % (11.6-15.6); WHITE BLOOD COUNT 10.9 K/mm3 (4.0-10.0)
[2016-07-08] MEDS ORDERED: INSULIN DETEMIR 100 UNITS/ML MDV SQ ONE ×3 (09:02→18:53)
[2016-07-08] MEDS ORDERED: PT OWN MED DRAWER 7, Y5N ONE ×3 (09:24→21:28)
[2016-07-08] MEDS: ASPIRIN COATED 81 MG TABLET.EC PO SCH (09:28)
[2016-07-08] MEDS: ENOXAPARIN NA (PORCINE) 40 MG/0.4 ML DISP.SYRIN SQ SCH (09:28)
[2016-07-08] MEDS: predniSONE 20 MG TABLET (UD) PO SCH (09:28)
[2016-07-08] MEDS: BUDESONIDE/FORMETEROL FUMARATE 160/4.5 mcg INHALER IH SCH ×2 (09:28→22:27)
[2016-07-08] MEDS: VALSARTAN 160 MG TABLET (UD) PO SCH (09:28)
--- NOTE | 2016-07-08 11:51 | PN ---
Progress Note, Physician History of Present Illness: pulmonary alert,feeling better,less dyspneic,+cough - Current Medication List Current Medications: Active Medications Acetaminophen (Tylenol -) 650 mg PO Q6H PRN PRN Reason: FEVER OR PAIN Last Admin: 07/06/16 09:40 Dose: 650 mg Albuterol/Ipratropium (Duoneb -) 1 amp NEB Q4H PRN PRN Reason: SHORTNESS OF BREATH Last Admin: 07/08/16 06:47 Dose: 1 amp Aspirin (Ecotrin -) 81 mg PO DAILY [facility] Last Admin: 07/08/16 09:28 Dose: 81 mg Budesonide/Formoterol Fumarate (Symbicort 160/4.5mcg -) 2 puff IH BID [facility] Last Admin: 07/08/16 09:28 Dose: 2 puff Enoxaparin Sodium (Lovenox -) 40 mg SQ DAILY [facility] Last Admin: 07/08/16 09:28 Dose: 40 mg Guaifenesin (Robitussin Dm -) 5 ml PO Q4H PRN PRN Reason: COUGH Last Admin: 07/08/16 09:27 Dose: 5 ml Insulin Aspart (Novolog Vial Sliding Scale -) 1 vial SQ Q4HPO [facility] PRN Reason: Protocol Last Admin: 07/08/16 10:53 Dose: 8 units Lorazepam (Ativan Injection -) 1 mg IVPUSH ONCE ONE Stop: 07/06/16 13:01 Montelukast Sodium (Singulair -) 10 mg PO HS [facility] Last Admin: 07/07/16 22:25 Dose: 10 mg Prednisone (Deltasone -) 40 mg PO DAILY [facility] Last Admin: 07/08/16 09:28 Dose: 40 mg Tramadol HCl (Ultram -) 50 mg PO Q6H PRN PRN Reason: PAIN Valsartan (Diovan -) 320 mg PO DAILY [facility] Last Admin: 07/08/16 09:28 Dose: Not Given - Objective Vital Signs: Vital Signs Temperature 97.7 F 07/08/16 09:17 Pulse Rate 60 07/08/16 09:17 Respiratory Rate 24 07/08/16 09:17 Blood Pressure 107/65 07/08/16 09:17 O2 Sat by Pulse Oximetry (%) 95 07/07/16 21:00 Constitutional: Yes: Well Nourished, Calm Eyes: Yes: WNL HENT: Yes: WNL Neck: Yes: WNL Cardiovascular: Yes: Regular Rate and Rhythm, S1, S2 Respiratory: Yes: Wheezes (increased bettye wheezies) Gastrointestinal: Yes: Normal Bowel Sounds, Soft Extremities: Yes: WNL Edema: No Labs: CBC, BMP 07/08/16 07:00 07/07/16 07:10 INR, PTT INR 1.06 (0.82-1.09) 07/05/16 05:57 Problem List - Problems (1) Asthma exacerbation Code(s): J45.901 - UNSPECIFIED ASTHMA WITH (ACUTE) EXACERBATION (2) Chest pain Code(s): R07.9 - CHEST PAIN, UNSPECIFIED (3) Right arm pain Code(s): M79.601 - PAIN IN RIGHT ARM (4) Diabetes Code(s): E11.9 - TYPE 2 DIABETES MELLITUS WITHOUT COMPLICATIONS (5) Morbid exogenous obesity Code(s): E66.01 - MORBID (SEVERE) OBESITY DUE TO EXCESS CALORIES Assessment/Plan IMP CHRONIC PERSISTENT ASTHMA WITH ACUTE EXACERBATION RECENT URI R SHOULDER PAIN LIKELY OSAS MORBID OBESITY HTN DM PLAN INCREASE PREDNISONE TO 60 MG DAILY INHALED BRONCHODILATORS SPIRIVA MONITOR PEAK FLOW PFTS OUTPATIENT SLEEP STUDIES OUTPATIENT ANALGESICS DR BUTLER Problem List - Problems (1) Asthma exacerbation Code(s): J45.901 - UNSPECIFIED ASTHMA WITH (ACUTE) EXACERBATION (2) Chest pain Code(s): R07.9 - CHEST PAIN, UNSPECIFIED (3) Right arm pain Code(s): M79.601 - PAIN IN RIGHT ARM (4) Diabetes Code(s): E11.9 - TYPE 2 DIABETES MELLITUS WITHOUT COMPLICATIONS (5) Morbid exogenous obesity Code(s): E66.01 - MORBID (SEVERE) OBESITY DUE TO EXCESS CALORIES
[2016-07-08] MEDS ORDERED: predniSONE 20 MG TABLET (UD) PO SCH (11:52)
[2016-07-08] MEDS ORDERED: ALBUTEROL SO4 0.083% IH SOL 2.5 MG/3 ML VIAL.NEB. NEB PRN (11:52)
--- NOTE | 2016-07-08 13:42 | PN ---
Teaching Attending Note Name of Resident: Gracie Ramos ATTENDING PHYSICIAN STATEMENT I saw and evaluated the patient. I reviewed the resident's note and discussed the case with the resident. I agree with the resident's findings and plan as documented. SUBJECTIVE:continues to have dyspnea but improved. continues to have productive cough of white sputum. states she has not ambulated past bathroom. denies CP, fever,chills, N/V/C/D. claims medication compliance with diabetic meds. OBJECTIVE: Last Vital Signs Temp Pulse Resp BP Pulse Ox 97.7 F 72 24 114/57 95 07/08/16 09:17 07/08/16 12:17 07/08/16 12:17 07/08/16 12:17 07/07/16 21:00 General NAD CV S1 S2 RRR no murmur/rub/gallop Lungs wheezing diffuse upper lobes, no crackles ABdomen obese soft NT/ND ASSESSMENT AND PLAN: 66 yo F with PMH HTN, type 2 DM, asthma who presented to the ER with SOB and right arm pain. 1. Acute asthma exacerbation- overall improved however pulmonary evaluated and wanted to increase prednisone today and monitor. also started spiriva. will need outpatient PFT and pulmonary follow up. 2. Right arm pain and numbness- Brain MRI negative. MRI c-spine pending. symptoms resolved. possibly due to steroid for asthma. cont flexeril, ultram. 3. DM- A1c 9.7. start levemir 5 units this AM. diabetic teaching on insulin use. monitor sugars. 4. HTN-controlled. Continue Diovan 5. Morbid obesity- BMI 41. bariatric referral as outpatient 6. DVT ppx- lovenox 7. d/c planning tomorrow pending improvement in breathing
--- NOTE | 2016-07-08 14:12 | PN ---
Physical Exam: SUBJECTIVE: Patient seen and examined by me at bedside. No overnight events noted. Patient reports she still has some short of breath but is much better than yesterday. She complains of a productive cough with white sputum. Patient also states her right arm is much better and is able to move it around more. Otherwise, patient denies fever, chills, nausea, vomiting, abdominal pain , chest pain, palpitations. OBJECTIVE: Vital Signs Period Temp Pulse Resp BP Sys/Linares Pulse Ox Last 24 Hr 97.5 F-98.3 F 60-72 18-24 102-116/57-69 95 GENERAL: Awake, alert, and fully oriented. LUNGS: Scattered expiratory wheezing with no crackles. No accessory muscle use. HEART: Regular rate and rhythm, normal S1 and S2 without murmur, rub or gallop. ABDOMEN: Soft, nontender, not distended, normoactive bowel sounds, no guarding, no rebound, no masses. MUSCULOSKELETAL: Improving range of motion of right arm LOWER EXTREMITIES: Nonpitting edema and swelling of bilateral lower legs. Laboratory Results - last 24 hr 07/05/16 07/05/16 07/05/16 16:59 21:09 22:39 WBC RBC Hgb Hct MCV MCHC RDW Plt Count MPV POC Glucometer > 400 490 416 07/07/16 07/07/16 07/07/16 14:39 17:46 21:19 WBC RBC Hgb Hct MCV MCHC RDW Plt Count MPV POC Glucometer 289 302 333 07/08/16 07/08/16 07/08/16 06:01 07:00 10:52 WBC 10.9 H RBC 4.33 Hgb 12.8 Hct 38.1 MCV 87.8 MCHC 33.5 RDW 14.2 Plt Count 160 MPV 9.2 POC Glucometer 239 297 Active Medications Generic Name Dose Route Start Last Admin Trade Name Freq PRN Reason Stop Dose Admin Acetaminophen 650 mg 07/05/16 17:43 07/06/16 09:40 Tylenol - PO 650 mg Q6H PRN Administration FEVER OR PAIN Albuterol Sulfate 1 amp 07/08/16 11:52 Ventolin 0.083% Nebulizer Soln - NEB Q4H PRN SHORT OF BREATH/WHEEZING Aspirin 81 mg 07/06/16 10:00 07/08/16 09:28 Ecotrin - PO 81 mg DAILY KRYSTLE Administration Budesonide/Formoterol Fumarate 2 puff 07/07/16 13:30 07/08/16 09:28 Symbicort 160/4.5mcg - IH 2 puff BID KRYSTLE Administration Enoxaparin Sodium 40 mg 07/06/16 10:00 07/08/16 09:28 Lovenox - SQ 40 mg DAILY KRYSTLE Administration Guaifenesin 5 ml 07/08/16 00:28 07/08/16 09:27 Robitussin Dm - PO 5 ml Q4H PRN Administration COUGH Insulin Aspart 1 vial 07/08/16 16:30 Novolog Vial Sliding Scale - SQ ACHS [facility] Protocol Lorazepam 1 mg 07/06/16 13:00 Ativan Injection - IVPUSH 07/06/16 13:01 ONCE ONE Montelukast Sodium 10 mg 07/05/16 22:00 07/07/16 22:25 Singulair - PO 10 mg HS KRYSTLE Administration Prednisone 60 mg 07/08/16 11:52 Deltasone - PO DAILY [facility] Tiotropium [place] 1 puff 07/08/16 12:00 Spiriva - IH DAILY KRYSTLE Tramadol HCl 50 mg 07/06/16 12:58 Ultram - PO Q6H PRN PAIN Valsartan 320 mg 07/05/16 10:00 07/08/16 09:28 Diovan - PO Not Given DAILY [facility] IMAGES: Chest X-ray (07/05/16): No acute pathology EKG (07/05/16): Junctional Rhythm @60 BPM, (-) ST-T changes ASSESSMENT/PLAN: Patient is a 66 year old female with a PMHx of HTN, DM II, and asthma who presents for right arm pain with tingling sensations and moderate asthma exacerbation. Patient admitted for further monitoring and management. Asthma Exacerbation -Continues to have worsening wheezing -Prednisone increased to 60mg daily, as per Pulmonology -Continue Symbicort for inhaled corticosteroids and long acting B2 agonist -Begin Spiriva for long acting anticholinergic bronchodilater -Continue DuoNeb Q4H PRN -Continue Singulair 10mg PO HS -Oxygen PRN Right Arm Pain and Numbness with Chest Pain- improved -Improving likely secondary to steroids. -R/O neurological origin or event vs. cardiac origin vs Arthritis -Brain MRI negative -Right shoulder x-ray negative -Troponins negative x3 -Flexeril and Ultram given with significant relief -Tylenol 650mg Q6H PRN for pain -Physical therapy HTN -Continue Benicar 20mg daily -Continue Diovan 320mg daily DMII -A1C 9.7% -Continues to have increasing glucose levels -Started on Levemir 5 units in the morning -ISS -BGM F/E/N -On no fluids -Electrolytes wnl -Sodium and diabetes controlled diet Prophylaxis -Lovenox 40mg Disposition -Wheezing increased. Scheduled for C-spine today Visit type - Emergency Visit Emergency Visit: Yes ED Registration Date: 07/05/16 Care time: The patient presented to the Emergency Department on the above date and was hospitalized for further evaluation of their emergent condition. - New Patient This patient is new to me today: No - Critical Care Critical Care patient: No
[2016-07-08] MEDS: TIOTROPIUM BROMIDE 18 MCG/INH (DEVICE W/ 5 CAPSULES) IH SCH (14:29)
[2016-07-08] MEDS: MONTELUKAST NA 10 MG TABLET PO SCH (22:27)
[2016-07-09] MEDS: INSULIN SLIDING SCALE (NOVOLOG) 1 VIAL SQ SCH ×2 (06:46→11:50)
[2016-07-09 08:23] LABS: MCH 29.1 pg (25.7-33.7); MEAN CELL VOLUME 88.2 fl (80-96); MEAN PLT VOLUME 9.4 fl (7.5-11.1); PLATELET COUNT 147 K/MM3 (134-434); RDW 14.1 % (11.6-15.6); WHITE BLOOD COUNT 11.3 K/mm3 (4.0-10.0)
[2016-07-09] MEDS: INSULIN DETEMIR 100 UNITS/ML MDV SQ SCH ×2 (08:43→10:00)
[2016-07-09] MEDS ORDERED: PT OWN MED DRAWER 7, Y5N ONE (09:12)
[2016-07-09] MEDS: VALSARTAN 160 MG TABLET (UD) PO SCH (09:19)
[2016-07-09] MEDS: ASPIRIN COATED 81 MG TABLET.EC PO SCH (09:20)
[2016-07-09] MEDS: guaiFENesin/D-METHORPHAN HB 10 ML UNIT-DOSE CUPS PO PRN (09:20)
[2016-07-09] MEDS: BUDESONIDE/FORMETEROL FUMARATE 160/4.5 mcg INHALER IH SCH (09:21)
[2016-07-09] MEDS: TIOTROPIUM BROMIDE 18 MCG/INH (DEVICE W/ 5 CAPSULES) IH SCH (09:24)
--- NOTE | 2016-07-09 10:23 | PN ---
Teaching Attending Note Name of Resident: Gracie Ramos ATTENDING PHYSICIAN STATEMENT I saw and evaluated the patient. I reviewed the resident's note and discussed the case with the resident. I agree with the resident's findings and plan as documented. SUBJECTIVE:states breathing has improved. cough resolved. denies Cp, SOB,fever, chills, N/V/C/D, no numbness OBJECTIVE: Last Vital Signs Temp Pulse Resp BP Pulse Ox 98.0 F 60 20 125/72 98 07/09/16 06:47 07/09/16 06:47 07/09/16 06:47 07/09/16 06:47 07/08/16 21:00 General NAD CV S1 S2 RRR no murmur/rub/gallop Lungs wheezing diffuse upper lobes, no crackles ABdomen obese soft NT/ND ASSESSMENT AND PLAN: 66 yo F with PMH HTN, type 2 DM, asthma who presented to the ER with SOB and right arm pain. 1. Acute asthma exacerbation- improved. on prednisone 60mg. will titrate down by 10mg every 3 days. evalaution by pulmonary once down to 20mg for further instruction on titration. on spiriva. educated this is maintenance and needs to be taken daily despite symptoms. will need outpatient PFT and pulmonary follow up. 2. Right arm pain and numbness- Brain MRI negative. unable to do MRI cspine due to pt does not fit in machine. symptoms now resolved likely due to steroid use. cont PT outpatient. consider open MRI as outpatient if symptoms return. 3. DM- A1c 9.7. sugars improved. will d/c on levemir 5 units AM. and iss. educated on need to monitor sugars closely. need to f/u with PMD in 2-3 days for further adjustment to insulin. stressed importance of glucose control and symptoms of hypoglycemia to monitor for. will need A1c testing in 3 months 4. HTN-controlled. Continue Diovan 5. reduced EF- no hx of cardiac event, unknown recent echo. will need to follow up with PMD for referral to cardiology if this is new finding. last echo here performed in 2013. on arb/asa no signs of volume overload. 6. Morbid obesity- BMI 41. bariatric referral as outpatient, stressed importance of lifestyle modifications and that she may benefit from bariatric surgery. 7. DVT ppx- lovenox 8. d/c home with medication changes as instructed. stressed importance of medication compliance and appropriate follow up. all questions answered. verbalized understanding and agreement.
[2016-07-09 10:31] VITALS: BP 114/70; PULSE 64; TEMP 98.2
--- NOTE | 2016-07-09 10:37 | DS ---
Physical Exam: SUBJECTIVE: Patient seen and examined by me at bedside. Patient reports feeling much better today and has no difficulty breathing. She still complains of a cough and would like a nebulizer. She states her arm is much better and is able to move it around without difficulty or pain. Otherwise, patient denies fever, chills, nausea, vomiting, abdominal pain, chest pain, palpitations, headaches. OBJECTIVE: Vital Signs Period Temp Pulse Resp BP Sys/Linares Pulse Ox Last 24 Hr 98.0 F-98.4 F 60-73 20-24 114-150/57-89 98-98 PHYSICAL EXAM GENERAL: Awake, alert, and fully oriented. LUNGS: Expiratory wheezing in bilateral upper bases with no crackles. No accessory muscle use. HEART: Regular rate and rhythm, normal S1 and S2 without murmur, rub or gallop. ABDOMEN: Soft, nontender, not distended, normoactive bowel sounds, no guarding, no rebound, no masses. MUSCULOSKELETAL: Improving range of motion of right arm LOWER EXTREMITIES: Swelling of bilateral lower legs. LABS Laboratory Results - last 24 hr 07/08/16 07/08/16 07/08/16 10:52 17:29 17:31 WBC RBC Hgb Hct MCV MCHC RDW Plt Count MPV POC Glucometer 297 413 446 07/08/16 07/09/16 07/09/16 22:25 06:43 07:30 WBC 11.3 H RBC 4.20 Hgb 12.2 Hct 37.0 MCV 88.2 MCHC 33.0 RDW 14.1 Plt Count 147 MPV 9.4 POC Glucometer 300 215 07/09/16 08:20 WBC RBC Hgb Hct MCV MCHC RDW Plt Count MPV POC Glucometer 204 IMAGES: Chest X-ray (07/05/16): No acute pathology Right Shoulder X-ray (07/05/16): No acute fracture or dislocation BRAIN MRI (07/05/16): No ischemia, infarct, or hemorrhage EKG (07/05/16): Junctional Rhythm @60 BPM, (-) ST-T changes HOSPITAL COURSE: Patient is a 66 year old female with a PMHx of HTN, DM II, and asthma who presented for right arm pain with tingling sensations and moderate asthma exacerbation. Patient reports the shortness of breath and cough began within 24 hours of presentation and believes it's asthma exacerbation. She reports only taking albuterol and has no other medications. She states she has been using the inhaler more often. Patient also reports having severe right arm pain to the point she could not carry a cup, which prompted this hospital visit. Patient admitted for asthma exacerbation and right arm pain to rule out cardiac or neurological origin. MRI of the brain was negative, troponins were negative and EKG revealed no infarction. Patient was given DuoNeb with significant relief of symptoms. However, her arm pain was still persistent. Shoulder X-ray was done and negative for any fractures or dislocations. Patient was started on Prednisone by pulmonology for her asthma exacerbation, which helped with her right arm symptoms. Patient was scheduled for a C-Spine MRI to rule out radiculopathy but was unable to be done due to her size. However , patient was given one dose of Ultram and Flexeril and had relief of symptoms. Yesterday, patient's wheezing increased and her prednisone was increased from 40mg to 60mg. Patient was started on Spiriva and Symbicort by pulmonology. Patient's symptoms improved significantly today. Patient was also found to have an A1C of 9.7% during her hospital course and was placed on Levemir 5 units in the morning. Had a long discussion on diet and weight loss. Patient was informed that a Glucometer will be prescribed as well as a novolog pen and Levemir. Patient was instructed on how to use it and to keep a log of her glucose readings. Patient was also recommended to follow up with the general repairer, PCP, and bariatrics doctor. A course of Prednisone was also sent over and for her to complete it as instructed. Patient stable for discharge. Date of Admission:07/05/16 Date of Discharge: 07/09/16 Minutes to complete discharge: 45 Discharge Summary Reason For Visit: ASTHMA, RIGHT ARM PAIN Current Active Problems Asthma exacerbation (Acute) Chest pain (Acute) Right arm pain (Acute) Severe persistent asthma with exacerbation (Acute) Diabetes (Chronic) Morbid exogenous obesity (Chronic) Condition: Stable - Instructions Diet, Activity, Other Instructions: -You were admitted for asthma exacerbation and right arm pain. -You will need to follow up with your Photostat Operator, Dr. Pulido, for a pulmonary function test -You are started on two new medications, Spiriva and Symbicort. You should take those medications everyday regardless if you are feeling good. -You will be taking steroids and a prescription will be sent. Once you start taking 20mg for three days, you should see the general repairer, Dr. Pulido -Your arm pain might be due to arthritis or a problem with your back. You will need to make an appointment with your primary care doctor and schedule an open MRI done as well as physical therapy. Take Tylenol as needed for the pain. -A packet will be sent with you about nutrition and diet. It is very important you maintain a healthy diet and exercise. A referral for Bariatrics will be given to you in the packer dried beef for Dr. Malagon. -You will also be prescribed a Glucometer with strips to check your sugars three times a day. Document your sugars and the amount the insulin you take three times a day. Bring this log with you to your next doctors appointment. You will also take long acting insulin (levemir) 5 units every morning when you wake up. You will also be sent home with an insulin sliding scale pen. Please follow up with your primary care doctor by thursday (07/14/16) for adjustment -If you have severe shortness of breath, return to the emergency department. Prednisone instructions: 6 10mg tablets once a day for three days then 5 10mg tables once a day for three days then 4 10mg tablets once a day for three days then 3 10mg tablets once a day for three days then 2 10mg tablets once a day for three days then 1 10mg tablet once a day for three days Insulin Sliding Scale Instruction: Blood Sugar Level Dose to administer in Units <200 0 201-250 2 251-300 4 301-350 6 351-400 8 >400 10 Referrals: Saurabh Harris MD [Primary Care Provider] - Ruel Pulido MD [Staff Physician] - Adán Malagon MD [Staff Physician] - Disposition: HOME - Home Medications Comprehensive Discharge Medication List: Ambulatory Orders Albuterol 0.083% Nebulizer Aleksandra [Ventolin 0.083% Nebulizer Soln -] 1 neb NEB QIDR #0 vial 06/13/13 Metformin HCl [Glucophage -] 1,000 mg PO BIDAC #0 tablet 06/13/13 Valsartan [Diovan] 320 mg PO DAILY #0 tablet 06/13/13 Olmesartan Medoxomil [Benicar -] 20 mg PO DAILY 01/03/14 Montelukast Na [Singulair -] 10 mg PO HS #30 tablet 01/12/14 Diazepam [Valium] 5 mg PO BID #12 tablet MDD 2 05/16/15 Oxycodone HCl/Acetaminophen [Percocet 5-325 mg Tablet] 1 - 2 tab PO Q6H PRN #16 tab MDD 4 05/16/15 Budesonide/Formeterol Fumarate [SYMBICORT 160/4.5mcg -] 2 puff IH BID #1 inhaler 07/09/16 Insulin (Levemir) [Levemir Vial] 5 units SQ ACBK #1 ml 07/09/16 Insulin Sliding Scale [Novolog Vial Sliding Scale -] 2 units SQ ACHS #1 pen Miscellaneous Medical Supply [Glucometer Device] 1 each .ROUTE ASDIR #1 kit Miscellaneous Medical Supply [Glucometer Test Strips #100] 1 each .ROUTE ASDIR # 1 box 07/09/16 Tiotropium [place] [Spiriva] 1 puff IH DAILY #1 inh 07/09/16 This patient is new to me today: No Emergency Visit: Yes ED Registration Date: 07/05/16 Care time: The patient presented to the Emergency Department on the above date and was hospitalized for further evaluation of their emergent condition. Critical Care patient: No - Discharge Referral Referred to [facility] Med P.C.: No
[2016-07-09] MEDS ORDERED: INSULIN (NOVOLOG) ASPART 100 UNITS/ML 10ML VIAL ONE (11:47)
[2016-07-09] MEDS: ENOXAPARIN NA (PORCINE) 40 MG/0.4 ML DISP.SYRIN SQ SCH (11:48)
== END 2016-07-09 11:54 | disposition home or self-care (01) | DRG 202 ==
LOC: JERFT 00:57 → JERBED 07:05 → UNDOADMIN 07:17 → J5S 20:58
PROVIDERS: ADMIT Internal Medicine; ATTEND Internal Medicine
DX: J45.51 Severe persistent asthma with (acute) exacerbation (principal); Z68.41 Body mass index [BMI] 40.0-44.9, adult; E66.01 Morbid (severe) obesity due to excess calories; I10 Essential (primary) hypertension; E11.9 Type 2 diabetes mellitus without complications; Z87.891 Personal history of nicotine dependence; E78.5 Hyperlipidemia, unspecified; R07.89 Other chest pain; M19.011 Primary osteoarthritis, right shoulder; G47.33 Obstructive sleep apnea (adult) (pediatric)
CPT/HCPCS: 36415; 70551-TC; 71020-TC; 73030-TC-RT; 80048; 80053; 80061; 82550; 83036; 83721; 83880; 84484; 85025; 85027; 85610; 93005; 93010; 93306-TC; 93971-TC; 94640; 97116-GP; 97161; 99284-25; J1644

== ENCOUNTER → 2016-07-19 | Emergency (ER) | payer OTHER ==
[~2016-07-19] MED LIST: ALBUTEROL SO4 2.5/IPRATROPIUM 0.5 INH SOL 3 ML VIAL.NEB. NEB ONE; DEXAMETHASONE SOD PHOSPHATE 10 MG/1 ML VIAL ONE; FUROSEMIDE 40 MG/4 ML INJECTABLE VIAL IVPB SCH; FUROSEMIDE 40 MG/4 ML INJECTABLE VIAL IVPUSH ONE; FUROSEMIDE 40 MG/4 ML INJECTABLE VIAL ONE; MAGNESIUM SULF 50% (8.12 MEQ/2 ML-1 GM VIAL) IVPB ONE; MAGNESIUM SULF 50% (8.12 MEQ/2 ML-1 GM VIAL) ONE; OXYCODONE/APAP 5/325MG COMBO TABLET ONE; OXYCODONE/APAP 5/325MG COMBO TABLET PO ONE
[2016-07-19 04:06] VITALS: BMI 36.5
--- NOTE | 2016-07-19 04:41 | PDOC ---
History of Present Illness - General History Source: Patient Exam Limitations: No Limitations - History of Present Illness Initial Comments: 07/19/16 04:56 The patient is a 66 year old female with a significant past medical history of asthma, HTN, diabetes, and HLD who presents to the ED with complains of shortness of breath for several weeks. The patient was recently seen in the ED on 07/05/16 for similar symptoms. Patient reports progressively worsening shortness of breath, wheezing and cough since her last ED visit. Patient states her symptoms feel similar to an asthma exacerbation. Denies fevers or chills. Denies nausea, vomiting, or diarrhea. Denies dysuria or changes in urinary output. Denies palpitations. Denies headache. Denies any other symptoms. 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 Denies smoking, alcohol, or drug use. PMD: Dr. Harris <Portia Williamson - Last Filed: 07/19/16 04:55> <Nancy England - Last Filed: 07/20/16 02:11> - General Chief Complaint: Shortness of Breath Stated Complaint: DIFFICULTY BREATHING Time Seen by Provider: 07/19/16 04:09 Past History <Portia Williamson - Last Filed: 07/19/16 04:55> - Past Medical History Asthma: Yes Diabetes: Yes HTN: Yes Hypercholesterolemia: Yes Suicide Attempt (Hx): No - Surgical History Abdominal Surgery: Yes (fibroids, btl) Appendectomy: Yes - Immunization History Immunization Up to Date: Yes - Psycho/Social/Smoking Cessation Hx Anxiety: Yes Suicidal Ideation: No Smoking Status: Yes Smoking History: Never smoked Have you smoked in the past 12 months: No Number of Cigarettes Smoked Daily: 0 If you are a former smoker, when did you quit?: 15 YEARS Cigars Per Day: 0 Information on smoking cessation initiated: No Hx Alcohol Use: No Drug/Substance Use Hx: No Substance Use Type: None Hx Substance Use Treatment: No <Nancy England - Last Filed: 07/20/16 02:11> - Past Medical History Allergies/Adverse Reactions: Allergies Allergy/AdvReac Type Severity Reaction Status Date / Time No Known Allergies Allergy Verified 07/19/16 04:04 Home Medications: Ambulatory Orders Valsartan [Diovan] 320 mg PO DAILY #0 tablet 06/13/13 Olmesartan Medoxomil [Benicar -] 20 mg PO DAILY 01/03/14 Aspirin Coated [Ecotrin -] 81 mg PO DAILY tab 07/09/16 Budesonide/Formeterol Fumarate [SYMBICORT 160/4.5mcg -] 2 puff IH BID #1 inhaler 07/09/16 Insulin (Levemir) [Levemir Flexpen -] 5 units SQ AM #1 pen 07/09/16 Insulin Aspart [Novolog Flexpen] See Protocol SQ TIDCM #1 insuln.pen 07/09/16 Miscellaneous Medical Supply [Glucometer Device] 1 each .ROUTE ASDIR #1 kit Miscellaneous Medical Supply [Glucometer Test Strips #100] 1 each .ROUTE ASDIR # 1 box 07/09/16 Prednisone 10 mg PO ONCE #63 tablet 07/09/16 Tiotropium [place] [Spiriva] 1 puff IH DAILY #1 inh 07/09/16 Albuterol 0.083% Nebulizer Aleksandra [Ventolin 0.083% Nebulizer Soln -] 1 neb NEB Q6H PRN #30 vial 07/19/16 Albuterol Sulfate 0.5% [Ventolin 0.5% Nebulizing Soln. -] 1 neb IH QID PRN #30 vial 07/19/16 Albuterol Sulfate Inhaler - [Ventolin HFA Inhaler -] 1 - 2 inh PO Q4H PRN #1 inhaler 07/19/16 Prednisone [Deltasone -] 40 mg PO DAILY #8 tablet 07/19/16 Review of Systems - Review of Systems Able to Perform ROS?: Yes Comments:: 07/19/16 04:56 CONSTITUTIONAL: Absent: fever, chills, diaphoresis, generalized weakness, malaise, loss of appetite HEENT: Absent: rhinorrhea, nasal congestion, throat pain, throat swelling, difficulty swallowing, mouth swelling, ear pain, eye pain, visual Changes CARDIOVASCULAR: Absent: chest pain, syncope, palpitations, irregular heart rate, lightheadedness , peripheral edema RESPIRATORY: + shortness of breath, cough, wheezing Absent: dyspnea with exertion, orthopnea, stridor, hemoptysis GASTROINTESTINAL: Absent: abdominal pain, abdominal distension, nausea, vomiting, diarrhea, constipation, melena, hematochezia GENITOURINARY: Absent: dysuria, frequency, urgency, hesitancy, hematuria, flank pain, genital pain MUSCULOSKELETAL: Absent: myalgia, arthralgia, joint swelling SKIN: Absent: rash, itching, pallor HEMATOLOGIC/IMMUNOLOGIC: Absent: easy bleeding, easy bruising, lymphadenopathy, frequent infections ENDOCRINE: Absent: unexplained weight gain, unexplained weight loss, heat intolerance, cold intolerance NEUROLOGIC: Absent: headache, focal weakness or paresthesias, dizziness, unsteady gait, seizure, mental status changes, bladder or bowel incontinence PSYCHIATRIC: Absent: anxiety, depression, suicidal or homicidal ideation, hallucinations. All Other Systems: Reviewed and Negative <Portia Williamson - Last Filed: 07/19/16 04:55> *Physical Exam - Vital Signs Last Vital Signs Temp Pulse Resp BP Pulse Ox 98.3 F 109 H 24 130/71 97 07/19/16 04:04 07/19/16 04:04 07/19/16 04:04 07/19/16 04:04 07/19/16 04:04 - Physical Exam Comments: 07/19/16 04:56 GENERAL: Well developed, well nourished. Awake and alert. No acute distress. HEENT: Normocephalic, atraumatic. PERRLA, EOMI. No conjunctival pallor. Sclera are non- icteric. Moist mucous membranes. Oropharynx is clear. NECK: Supple. Full ROM. No JVD. Carotid pulses 2+ and symmetric, without bruits. No thyromegaly. NCo lymphadenopathy. CARDIOVASCULAR: Regular rate and rhythm. No murmurs, rubs, or gallops. Distal pulses are 2+ and symmetric. PULMONARY: + crackles and rales throughout ABDOMINAL: Soft. Non-tender. Non-distended. No rebound or guarding. No organomegaly. Normoactive bowel sounds. MUSCULOSKELETAL Normal range of motion at all joints. No bony deformities or tenderness. No CVA tenderness. EXTREMITIES: + pitting edema in the lower extremity bilaterally. No cyanosis. No clubbing. No calf tenderness. SKIN: Warm and dry. Normal capillary refill. No rashes. No jaundice. NEUROLOGICAL: Alert, awake, appropriate. Cranial nerves 2-12 intact. No deficits to light touch and temperature in face, upper extremities and lower extremities. No motor deficits in the in face, upper extremities and lower extremities. Normoreflexic in the upper and lower extremities. Normal speech. Toes are down- going bilaterally. Gait is normal without ataxia. PSYCHIATRIC: Cooperative. Good eye contact. Appropriate mood and affect. <Portia Williamson - Last Filed: 07/19/16 04:55> - Vital Signs Last Vital Signs Temp Pulse Resp BP Pulse Ox 98.3 F 109 H 24 130/71 97 07/19/16 04:04 07/19/16 04:04 07/19/16 04:04 07/19/16 04:04 07/19/16 04:04 <Nancy England - Last Filed: 07/20/16 02:11> ED Treatment Course - LABORATORY CBC & Chemistry Diagram: 07/19/16 05:25 07/19/16 05:25 - RADIOLOGY Radiology Studies Ordered: Category Date Time Status CHEST X-RAY PORTABLE* [RAD] Stat Radiology 07/19/16 03:40 Taken <Nancy England - Last Filed: 07/20/16 02:11> Medical Decision Making - Medical Decision Making 07/19/16 06:54 Pt come with SOB. Tachycardia, rales bilaterally, crackles bilaterally. Pt has a low BP. I treated with lasix 20mg, and albuterol IV. Pt was given steroids in the ambulance en route to the ER. However in the ER she has awful breath sounds bilaterally. She whinks it is due tot he pollen. She has pitting edema of the legs bilaterally. Pt was placed on BiPAP for comfort. Pt has a slightly elevated WBC count. She has a BNP of only 21. Pt has normal chemistries, exceot for uncontrolled blood sugar. She will be admitted for her SOB and for a pulmonology consult. Pt's CXR shows cardiomegaly and congestive changes bilaterally; however CXR is a portable. Hospitalist is requesting a PA lateral before they consider admitting the patient. Pt will be signed out to the day team. <Nancy England - Last Filed: 07/20/16 02:11> *DC/Admit/Observation/Transfer - Attestations Scribe Attestion: 07/19/16 04:56 Documentation prepared by Portia Williamson, acting as medical instrument technician for Nancy England MD <Portia Williamson - Last Filed: 07/19/16 04:55> <Nancy England - Last Filed: 07/20/16 02:11> Diagnosis at time of Disposition: Asthma, Bronchitis - Discharge Dispostion Disposition: HOME Condition at time of disposition: Improved - Prescriptions Prescriptions: Prednisone [Deltasone -] 40 mg PO DAILY #8 tablet Albuterol 0.083% Nebulizer Aleksandra [Ventolin 0.083% Nebulizer Soln -] 1 neb NEB Q6H PRN #30 vial PRN Reason: Shortness Of Breath Albuterol Sulfate 0.5% [Ventolin 0.5% Nebulizing Soln. -] 1 neb IH QID PRN #30 vial PRN Reason: Shortness Of Breath Albuterol Sulfate Inhaler - [Ventolin HFA Inhaler -] 1 - 2 inh PO Q4H PRN #1 inhaler PRN Reason: Shortness Of Breath - Referrals Referrals: Saurabh Harris MD [Primary Care Provider] - - Patient Instructions Printed Discharge Instructions: DI for Asthma -- Adult, DI for Acute Bronchitis Additional Instructions: Return to the emergency department immediately with ANY new, persistent or worsening symptoms. You MUST call and follow up with your doctor tomorrow for further evaluation of your symptoms. Results were discussed with you. Please make sure your doctor reviews the results of your emergency evaluation. If you had any xrays during your visit, it was read preliminarily by myself, a Radiologist will review it and if there are any additional findings we will call you. Print Language: MALTESE
[2016-07-19 05:38] LABS: BASOPHIL 0.6 % (0-2.0); EOSINOPHIL 0.8 % (0-4.5); MCH 28.4 pg (25.7-33.7); MCHC 32.4 g/dl (32.0-36.0); MEAN CELL VOLUME 87.6 fl (80-96); MEAN PLT VOLUME 9.7 fl (7.5-11.1); NEUTROPHILS 83.4 % (42.8-82.8); PLATELET COUNT 163 K/MM3 (134-434); RDW 14.3 % (11.6-15.6); WHITE BLOOD COUNT 10.3 K/mm3 (4.0-10.0)
[2016-07-19 05:39] LABS: URINE APPEARANCE SLCLOUDY; URINE BILIRUBIN NEGATIVE (NEGATIVE); URINE BLOOD NEGATIVE (NEGATIVE); URINE COLOR YELLOW; URINE GLUCOSE (UA) 3+ (NEGATIVE); URINE KETONE TRACE (NEGATIVE); URINE LEUK ESTERASE NEGATIVE (NEGATIVE); URINE NITRITE NEGATIVE (NEGATIVE); URINE PROTEIN NEGATIVE (NEGATIVE); URINE UROBILINOGEN NEGATIVE E.U./dl (0.2-1.0)
[2016-07-19 05:59] LABS: INR 0.96 (0.82-1.09); PROTHROMBIN TIME (PATIENT) 10.6 SEC (9.98-11.88)
[2016-07-19 06:22] LABS: ALBUMIN 3.9 g/dl (3.4-5.0); ANION GAP 13 (8-16); BILIRUBIN,TOTAL 0.4 mg/dL (0.2-1.0); CALCIUM 9.4 mg/dL (8.5-10.1); CO2 25 mmol/L (21-32); SGOT/AST 12 U/L (15-37); SGPT/ALT 22 U/L (12-78); TOT PROT 7.1 g/dl (6.4-8.2)
[2016-07-19 06:24] LABS: ALK PHOS 71 U/L (45-117); TROPONIN I < 0.02 ng/ml (0.00-0.05)
[2016-07-19 06:26] LABS: GLUCOSE,RANDOM 341 mg/dL (74-106)
--- NOTE | 2016-07-19 09:24 | PDOC ---
*Physical Exam - Vital Signs Last Vital Signs Temp Pulse Resp BP Pulse Ox 98.2 F 79 20 125/68 97 07/19/16 07:10 07/19/16 07:10 07/19/16 07:10 07/19/16 07:10 07/19/16 07:10 ED Treatment Course - LABORATORY CBC & Chemistry Diagram: 07/19/16 05:25 07/19/16 05:25 - ADDITIONAL ORDERS Additional order review: Laboratory Results 07/19/16 07/19/16 07/19/16 05:25 05:25 05:25 INR 0.96 Sodium 136 Potassium 3.9 Chloride 98 Carbon Dioxide 25 Anion Gap 13 BUN 16 Creatinine 1.0 D Creat Clearance w eGFR 55.82 Random Glucose 341 H* D Calcium 9.4 Total Bilirubin 0.4 AST 12 L D ALT 22 Alkaline Phosphatase 71 Creatine Kinase 74 Troponin I < 0.02 B-Natriuretic Peptide 21.28 Total Protein 7.1 Albumin 3.9 Urine Color Urine Appearance Urine pH Urine Protein Urine Glucose (UA) Urine Ketones Urine Blood Urine Nitrite Urine Bilirubin Urine Urobilinogen Ur Leukocyte Esterase 07/19/16 05:25 INR Sodium Potassium Chloride Carbon Dioxide Anion Gap BUN Creatinine Creat Clearance w eGFR Random Glucose Calcium Total Bilirubin AST ALT Alkaline Phosphatase Creatine Kinase Troponin I B-Natriuretic Peptide Total Protein Albumin Urine Color Yellow Urine Appearance Slcloudy Urine pH 5.0 Urine Protein Negative Urine Glucose (UA) 3+ H Urine Ketones Trace H Urine Blood Negative Urine Nitrite Negative Urine Bilirubin Negative Urine Urobilinogen Negative Ur Leukocyte Esterase Negative 07/19/16 05:25 RBC 4.56 MCV 87.6 MCHC 32.4 RDW 14.3 MPV 9.7 Neutrophils % 83.4 H Lymphocytes % 13.2 D Monocytes % 2.0 L Eosinophils % 0.8 D Basophils % 0.6 - Medications Given in the ED: ED Medications Discontinued Medications Generic Name Dose Route Start Last Admin Trade Name Freq PRN Reason Stop Dose Admin Furosemide 40 mg 07/19/16 04:41 07/19/16 05:01 Lasix Injection - IVPUSH 07/19/16 04:42 Not Given ONCE ONE Magnesium Sulfate 2 gm 07/19/16 06:49 07/19/16 07:09 Magnesium Sulfate IVPB 07/19/16 06:50 2 gm ONCE ONE Administration Medical Decision Making - Medical Decision Making 07/19/16 09:24 The pt was signed out to me from Dr. England at approximately 7am 66y F hx of asthma htn, dm, hl, presents with sob/cough productive of whiish sputum for appprox 1-2 weeks. Pt denies any fever/chills, nasal congestion, chest pain. Pt does note that her sypmtoms are worse during the spring/seasonal changes. On exam the pt in n oacute distress with wheezing b/l, with scant rales. Pts labs reviewed unremarkable. pt feeling improved vitals normal sat normal. suspect her sypmtoms secondary to bronchitis/asthma exacerbation. will dc the pt with pmd fu return precautions were discussed. PMD: Dr. Harris I discussed the physical exam findings, ancillary test results and final diagnoses with the patient. I answered all of the patient's questions. The patient was satisfied with the care received and felt comfortable with the discharge plan and treatment plan. The patient will call their primary care physician within 24 hours to arrange follow-up and will return to the Emergency Department with any new, persistent or worsening symptoms. *DC/Admit/Observation/Transfer Diagnosis at time of Disposition: Bronchitis Asthma Qualifiers: Asthma severity: unspecified severity Asthma complication type: with acute exacerbation Qualified Code(s): J45.901 - Unspecified asthma with (acute) exacerbation - Discharge Dispostion Disposition: HOME Condition at time of disposition: Improved Admit: No - Prescriptions Prescriptions: Prednisone [Deltasone -] 40 mg PO DAILY #8 tablet Albuterol 0.083% Nebulizer Aleksandra [Ventolin 0.083% Nebulizer Soln -] 1 neb NEB Q6H PRN #30 vial PRN Reason: Shortness Of Breath Albuterol Sulfate 0.5% [Ventolin 0.5% Nebulizing Soln. -] 1 neb IH QID PRN #30 vial PRN Reason: Shortness Of Breath Albuterol Sulfate Inhaler - [Ventolin HFA Inhaler -] 1 - 2 inh PO Q4H PRN #1 inhaler PRN Reason: Shortness Of Breath - Referrals Referrals: Saurabh Harris MD [Primary Care Provider] - - Patient Instructions Printed Discharge Instructions: DI for Asthma -- Adult, DI for Acute Bronchitis Additional Instructions: Return to the emergency department immediately with ANY new, persistent or worsening symptoms. You MUST call and follow up with your doctor tomorrow for further evaluation of your symptoms. Results were discussed with you. Please make sure your doctor reviews the results of your emergency evaluation. If you had any xrays during your visit, it was read preliminarily by myself, a Radiologist will review it and if there are any additional findings we will call you. Print Language: [place]ESE
[2016-07-19 09:42] VITALS: BP 144/88; PULSE 78; TEMP 97.9
--- NOTE | 2016-07-19 15:26 | EKG ---
Test Reason : Blood Pressure : / mmHG Vent. Rate : 076 BPM Atrial Rate : 076 BPM P-R Int : 168 ms QRS Dur : 078 ms QT Int : 392 ms P-R-T Axes : 115 044 088 degrees QTc Int : 441 ms POOR DATA QUALITY, INTERPRETATION MAY BE ADVERSELY AFFECTED NORMAL SINUS RHYTHM LOW VOLTAGE QRS SEPTAL INFARCT (CITED ON OR BEFORE 27-JUN-2009) ABNORMAL ECG WHEN COMPARED WITH ECG OF 06-JUL-2016 10:53, PREMATURE VENTRICULAR COMPLEXES ARE NO LONGER PRESENT Confirmed by MERY JEWELL, EMILIANO ([id number]) on 07/19/2016 3:26:24 PM Referred By: Confirmed By:EMILIANO ORDONEZ MD
== END | disposition home or self-care (01) ==
LOC: JER 03:39
PROC: 3E033GC Introduction of Other Therapeutic Substance into Peripheral Vein, Percutaneous Approach (ICD-10-PCS; principal; 2016-07-19)
DX: J45.901 Unspecified asthma with (acute) exacerbation (principal); I10 Essential (primary) hypertension; E11.9 Type 2 diabetes mellitus without complications; E78.5 Hyperlipidemia, unspecified; F41.9 Anxiety disorder, unspecified; Z79.82 Long term (current) use of aspirin; Z79.4 Long term (current) use of insulin
CPT/HCPCS: 36415; 71010-TC; 71020-TC; 80053; 81003; 82550; 83880; 84484; 85025; 85610; 93005; 93010; 99283-25

== ENCOUNTER 2016-08-20 23:59 | Emergency (ER) | payer OTHER ==
[2016-08-21 00:06] VITALS: TEMP 97.6; BMI 44.3
[2016-08-21] MEDS ORDERED: ASPIRIN 81 MG CHEWABLE TABLETS PO ONE (00:16)
--- NOTE | 2016-08-21 00:16 | PDOC ---
History of Present Illness - General History Source: Patient Exam Limitations: No Limitations - History of Present Illness Initial Comments: 08/21/16 00:29 The patient is a 66 year old female with significant past medical history of hypertension, hyperlipidemia, diabetes, and asthma who presents to the ED for midsternal chest pain prior to arrival. Patient reports she was in her usual state of health when she developed chest pain, which she describes as nonradiating, 10/10, and sharp radiating down the left arm. She reports associated SOB. Denies lightheadedness, diaphoresis, jaw pain, leg swelling, nausea, or vomiting. States she does not follow up with cardio. The patient denies fever, chills, cough, abdominal pain, and diarrhea. Allergies: NKDA Social History: No alcohol, tobacco, or drug use reported. Past Surgical History: appendectomy, tubal ligation PCP: Dr. Saurabh Harris <Corrie Dunbar - Last Filed: 08/21/16 04:34> - General History Source: Patient <Tommy Rangel - Last Filed: 08/21/16 05:02> - General Chief Complaint: Chest Pain Stated Complaint: CHEST PAIN Time Seen by Provider: 08/21/16 00:12 Past History <Corrie Dunbar - Last Filed: 08/21/16 04:34> - Past Medical History Asthma: Yes Diabetes: Yes HTN: Yes Hypercholesterolemia: Yes Suicide Attempt (Hx): No - Surgical History Abdominal Surgery: Yes (fibroids, TUBAL LIGATION) Appendectomy: Yes - Immunization History Immunization Up to Date: Yes - Psycho/Social/Smoking Cessation Hx Anxiety: No Suicidal Ideation: No Smoking Status: Yes Smoking History: Never smoked Have you smoked in the past 12 months: No Number of Cigarettes Smoked Daily: 0 If you are a former smoker, when did you quit?: 15 YEARS Cigars Per Day: 0 Information on smoking cessation initiated: No Hx Alcohol Use: No Drug/Substance Use Hx: No Substance Use Type: None Hx Substance Use Treatment: No <Tommy Rangel - Last Filed: 08/21/16 05:02> - Past Medical History Allergies/Adverse Reactions: Allergies Allergy/AdvReac Type Severity Reaction Status Date / Time No Known Allergies Allergy Verified 08/21/16 03:29 Home Medications: Ambulatory Orders Valsartan [Diovan] 320 mg PO DAILY #0 tablet 06/13/13 Olmesartan Medoxomil [Benicar -] 20 mg PO DAILY 01/03/14 Aspirin Coated [Ecotrin -] 81 mg PO DAILY tab 07/09/16 Budesonide/Formeterol Fumarate [SYMBICORT 160/4.5mcg -] 2 puff IH BID #1 inhaler 07/09/16 Insulin (Levemir) [Levemir Flexpen -] 5 units SQ AM #1 pen 07/09/16 Insulin Aspart [Novolog Flexpen] See Protocol SQ TIDCM #1 insuln.pen 07/09/16 Miscellaneous Medical Supply [Glucometer Device] 1 each .ROUTE ASDIR #1 kit Miscellaneous Medical Supply [Glucometer Test Strips #100] 1 each .ROUTE ASDIR # 1 box 07/09/16 Tiotropium [place] [Spiriva] 1 puff IH DAILY #1 inh 07/09/16 Albuterol 0.083% Nebulizer Aleksandra [Ventolin 0.083% Nebulizer Soln -] 1 neb NEB Q6H PRN #30 vial 07/19/16 Albuterol Sulfate 0.5% [Ventolin 0.5% Nebulizing Soln. -] 1 neb IH QID PRN #30 vial 07/19/16 Albuterol Sulfate Inhaler - [Ventolin HFA Inhaler -] 1 - 2 inh PO Q4H PRN #1 inhaler 07/19/16 Clindamycin HCl [Cleocin HCl] 300 mg PO Q8H #30 capsule 08/09/16 Oxycodone HCl/Acetaminophen [Percocet 5-325 mg Tablet] 1 tab PO Q6H PRN #8 tablet MDD 4 tab 08/09/16 Review of Systems - Review of Systems Able to Perform ROS?: Yes Comments:: 08/21/16 00:30 CONSTITUTIONAL: Absent: fever, no chills, no fatigue EYES: Absent: visual changes ENT: Absent: ear pain, no sore throat CARDIOVASCULAR: +chest pain radiating down left arm Absent: no palpitations RESPIRATORY: +SOB Absent: cough GI: Absent: abdominal pain, no nausea, no vomiting, no constipation, no diarrhea GENITOURINARY: Absent: dysuria, no frequency, no hematuria MUSCULOSKELETAL: Absent: back pain, no arthralgia SKIN: Absent: rash NEURO: Absent: headache <Corrie Dunbar - Last Filed: 08/21/16 04:34> *Physical Exam - Vital Signs Last Vital Signs Temp Pulse Resp BP Pulse Ox 97.6 F 91 H 18 155/82 100 08/21/16 00:04 08/21/16 00:04 08/21/16 00:04 08/21/16 00:04 08/21/16 00:04 - Physical Exam Comments: 08/21/16 00:30 GENERAL: Well-appearing, well-nourished. No apparent distress. HEENT: Normocephalic, atraumatic. PERRL, EOM intact. CARDIOVASCULAR: Regular rate and rhythm. No murmurs, rubs, or gallops. Distal pulses are 2+ and symmetric. PULMONARY: No evidence of respiratory distress. Decreased breath sounds bilaterally. No wheezing, rales or rhonchi. No conversational dyspnea. No retractions. ABDOMEN: Soft, non-distended, non-tender. EXTREMITIES: Normal ROM in all four extremities. No gross deformities. SKIN: Warm, dry. No rash NEUROLOGICAL: No focal neurological deficits. <Corrie Dunbar - Last Filed: 08/21/16 04:34> - Vital Signs Last Vital Signs Temp Pulse Resp BP Pulse Ox 97.6 F 91 H 18 155/82 100 08/21/16 00:04 08/21/16 00:04 08/21/16 00:04 08/21/16 00:04 08/21/16 00:04 <Tommy Rangel - Last Filed: 08/21/16 05:02> Heart Score/ECG Review - ECG Impressions Comment:: 08/21/16 00:30 NSR @73bpm Low voltage QRS Cannot r/o anteroseptal infarct, age undetermined Abnormal ECG 08/21/16 04:34 NSR @65bpm Low voltage QRS Cannot r/o anteroseptal infarct, age undetermined Abnormal ECG <Corrie Dunbar - Last Filed: 08/21/16 04:34> ED Treatment Course - LABORATORY CBC & Chemistry Diagram: 08/21/16 00:35 08/21/16 04:01 <Corrie Dunbar - Last Filed: 08/21/16 04:34> - LABORATORY CBC & Chemistry Diagram: 08/21/16 00:35 08/21/16 04:01 <Tommy Rangel - Last Filed: 08/21/16 05:02> Medical Decision Making - Medical Decision Making 08/21/16 05:01 Dr. Rangel: The scribe's documentation has been prepared under my direction and personally reviewed by me in its entirery. I confirm that the note above accurately reflects all work, treatment, procedures, and medical decision making performed by me. <Tommy Rangel - Last Filed: 08/21/16 05:02> *DC/Admit/Observation/Transfer - Attestations Scribe Attestion: 08/21/16 00:31 Documentation prepared by Corrie Dunbar, acting as medical office assistant for Tommy Rangel MD/DO. <Corrie Dunbar - Last Filed: 08/21/16 04:34> - Discharge Dispostion Admit: No <Tommy Rangel - Last Filed: 08/21/16 05:02> Diagnosis at time of Disposition: Chest pain - Discharge Dispostion Disposition: HOME Condition at time of disposition: Stable - Referrals Referrals: Saurabh Harris MD [Primary Care Provider] - Adán Blanton MD [Staff Physician] - - Patient Instructions Printed Discharge Instructions: DI for Chest Pain Additional Instructions: Please follow up with your doctor or the doctor referred to you here in the ER. Continue all your medications. REturn if any problems
[2016-08-21] MEDS ORDERED: NITROGLYCERIN 2% OINTMENT - 1GM PACKET TD ONE ×2 (00:17→00:36)
[2016-08-21] MEDS ORDERED: ALBUTEROL SO4 0.083% IH SOL 2.5 MG/3 ML VIAL.NEB. NEB ONE (00:27)
[2016-08-21] MEDS ORDERED: ASPIRIN 81 MG CHEWABLE TABLETS ONE (00:36)
[2016-08-21 00:44] LABS: BASOPHIL 0.9 % (0-2.0); EOSINOPHIL 2.4 % (0-4.5); MCH 28.3 pg (25.7-33.7); MCHC 32.4 g/dl (32.0-36.0); MEAN CELL VOLUME 87.3 fl (80-96); MEAN PLT VOLUME 9.3 fl (7.5-11.1); NEUTROPHILS 69.2 % (42.8-82.8); PLATELET COUNT 192 K/MM3 (134-434); RDW 14.4 % (11.6-15.6); WHITE BLOOD COUNT 8.8 K/mm3 (4.0-10.0)
[2016-08-21 01:05] LABS: INR 1.02 (0.82-1.09); PROTHROMBIN TIME (PATIENT) 11.2 SEC (9.98-11.88)
[2016-08-21 01:15] LABS: ALBUMIN 3.2 g/dl (3.4-5.0); ANION GAP 8 (8-16); BILIRUBIN,TOTAL 0.6 mg/dL (0.2-1.0); CALCIUM 8.8 mg/dL (8.5-10.1); CO2 30 mmol/L (21-32); SGPT/ALT 19 U/L (12-78)
[2016-08-21 01:18] LABS: ALK PHOS 79 U/L (45-117); TROPONIN I 0.02 ng/ml (0.00-0.05)
[2016-08-21 01:19] LABS: MAGNESIUM 1.9 mg/dL (1.8-2.4); SGOT/AST 19 U/L (15-37)
[2016-08-21 01:21] LABS: GLUCOSE,RANDOM 305 mg/dL (74-106)
[2016-08-21] MEDS ORDERED: INSULIN REGULAR HUMAN 100 UNITS/ML *VIAL SQ ONE (01:41)
[2016-08-21 03:13] VITALS: BP 186/82; PULSE 72
[2016-08-21 04:29] LABS: ANION GAP 8 (8-16); CALCIUM 9.4 mg/dL (8.5-10.1); CO2 29 mmol/L (21-32); CREATININE 0.8 mg/dL (0.55-1.02); GLUCOSE,RANDOM 256 mg/dL (74-106)
[2016-08-21 04:32] LABS: TROPONIN I 0.02 ng/ml (0.00-0.05)
[2016-08-21] MEDS ORDERED: IBUPROFEN 400 MG TABLET (FP) PO ONE (05:08)
--- NOTE | 2016-08-21 13:09 | EKG ---
Test Reason : Blood Pressure : / mmHG Vent. Rate : 073 BPM Atrial Rate : 073 BPM P-R Int : 148 ms QRS Dur : 088 ms QT Int : 410 ms P-R-T Axes : 082 076 045 degrees QTc Int : 451 ms NORMAL SINUS RHYTHM LOW VOLTAGE QRS CANNOT RULE OUT ANTEROSEPTAL INFARCT (CITED ON OR BEFORE 27-JUN-2009) ABNORMAL ECG WHEN COMPARED WITH ECG OF 19-JUL-2016 05:17, QUESTIONABLE CHANGE IN INITIAL FORCES OF ANTERIOR LEADS NONSPECIFIC T WAVE ABNORMALITY NO LONGER EVIDENT IN LATERAL LEADS Confirmed by SANJUANA RHODES MD ([id number]) on 08/21/2016 1:08:52 PM Referred By: Confirmed By:SANJUANA RHODES MD
--- NOTE | 2016-08-21 15:45 | EKG ---
Test Reason : Blood Pressure : / mmHG Vent. Rate : 065 BPM Atrial Rate : 065 BPM P-R Int : 148 ms QRS Dur : 086 ms QT Int : 428 ms P-R-T Axes : 023 046 068 degrees QTc Int : 445 ms NORMAL SINUS RHYTHM LOW VOLTAGE QRS CANNOT RULE OUT ANTEROSEPTAL INFARCT (CITED ON OR BEFORE 27-JUN-2009) ABNORMAL ECG WHEN COMPARED WITH ECG OF 21-AUG-2016 00:07, NO SIGNIFICANT CHANGE WAS FOUND Confirmed by SANJUANA RHODES MD ([id number]) on 08/21/2016 3:44:45 PM Referred By: Confirmed By:SANJUANA RHODES MD
== END 2016-08-21 05:06 | disposition home or self-care (01) ==
LOC: JER 23:59
PROC: 3E0F7GC Introduction of Other Therapeutic Substance into Respiratory Tract, Via Natural or Artificial Opening (ICD-10-PCS; principal; 2016-08-20)
PROC: 3E033VG Introduction of Insulin into Peripheral Vein, Percutaneous Approach (ICD-10-PCS; 2016-08-20)
DX: R07.89 Other chest pain (principal); J45.909 Unspecified asthma, uncomplicated; I10 Essential (primary) hypertension; E11.9 Type 2 diabetes mellitus without complications; Z79.4 Long term (current) use of insulin; E78.00 Pure hypercholesterolemia, unspecified
CPT/HCPCS: 36415; 71010-TC; 80048; 80053; 82550; 83735; 84484; 85025; 85610; 93005; 93010; 99283-25

== ENCOUNTER 2016-08-22 11:59 | Emergency (ER) | payer OTHER ==
[2016-08-22 12:07] VITALS: BMI 35.4
--- NOTE | 2016-08-22 12:29 | PDOC ---
Attending Attestation - Resident Resident Name: Giovanni Cross - HPI HPI: 08/22/16 14:18 Pt presents to the ED complaining of a two day history of back and chest pain that is worse with movement of her arms or twisting movements of the chest. - Physicial Exam PE: 08/22/16 14:23 Patient appears comfortable on exam. EKG is normal. - Medical Decision Making 08/22/16 14:24 Pt presents to the ED complaining of a two day history of chest pain made worse with twisting movements of the chest. No signs of ischemia on the EKG. Troponin negative. Presents to the ED again today after coming yesterday because the pain is persistent. Troponin is negative again today. Pain is very atypical of ACS, and is most likely muscular. Will give pain control and discharge home.
[2016-08-22] MEDS ORDERED: KETOROLAC TROMETHAMINE 30 MG/1 ML VIAL IVPUSH ONE (12:37)
--- NOTE | 2016-08-22 12:48 | PDOC ---
History of Present Illness - General Chief Complaint: Chest Pain Stated Complaint: CHEST PAIN Time Seen by Provider: 08/22/16 12:09 History Source: Patient Exam Limitations: No Limitations - History of Present Illness Initial Comments: 08/22/16 12:40 The patient is a 66F with a PMH of HTN, hyperlipidemia, DM, and asthma who is presenting to the ED with back pain which radiates to her chest and arms. The patient presented to the ED yesterday with the same complaints. A workup was negative and she was discharged. She states the pain started 1 week ago and has been gradual in onset and worsening since it's onset. She was watching her grandchildren when this pain started. She describes the pain as originating in her back and then radiating to her chest and down her L arm. She describes the pain as sharp, with no alleviating factors except leaning forward. This pain has never happened before. She has a boyfriend who was sick with pneumonia and she has been [place] the prison a lot recently. ROS+: sweating, night sweats (baseline), SOB, CP, cough w/ white sputum production, numbness/tingling in feet (baseline) ROS-: palpitations, fever, chills, nausea, vomiting, weight change, change in appetite, rash, dysuria, vaginal discharge, hematochezia, throat pain, sinuses, headache Social: Does not smoke, drink, use drugs Allergies: NKDA Past History - Past Medical History Allergies/Adverse Reactions: Allergies Allergy/AdvReac Type Severity Reaction Status Date / Time No Known Allergies Allergy Verified 08/22/16 12:04 Home Medications: Ambulatory Orders Valsartan [Diovan] 320 mg PO DAILY #0 tablet 06/13/13 Olmesartan Medoxomil [Benicar -] 20 mg PO DAILY 01/03/14 Aspirin Coated [Ecotrin -] 81 mg PO DAILY tab 07/09/16 Budesonide/Formeterol Fumarate [SYMBICORT 160/4.5mcg -] 2 puff IH BID #1 inhaler 07/09/16 Insulin (Levemir) [Levemir Flexpen -] 5 units SQ AM #1 pen 07/09/16 Insulin Aspart [Novolog Flexpen] See Protocol SQ TIDCM #1 insuln.pen 07/09/16 Miscellaneous Medical Supply [Glucometer Device] 1 each .ROUTE ASDIR #1 kit Miscellaneous Medical Supply [Glucometer Test Strips #100] 1 each .ROUTE ASDIR # 1 box 07/09/16 Tiotropium [place] [Spiriva] 1 puff IH DAILY #1 inh 07/09/16 Albuterol 0.083% Nebulizer Aleksandra [Ventolin 0.083% Nebulizer Soln -] 1 neb NEB Q6H PRN #30 vial 07/19/16 Albuterol Sulfate 0.5% [Ventolin 0.5% Nebulizing Soln. -] 1 neb IH QID PRN #30 vial 07/19/16 Albuterol Sulfate Inhaler - [Ventolin HFA Inhaler -] 1 - 2 inh PO Q4H PRN #1 inhaler 07/19/16 Clindamycin HCl [Cleocin HCl] 300 mg PO Q8H #30 capsule 08/09/16 Oxycodone HCl/Acetaminophen [Percocet 5-325 mg Tablet] 1 tab PO Q6H PRN #8 tablet MDD 4 tab 08/09/16 Ibuprofen 800 mg PO TID #30 tablet 08/21/16 Asthma: Yes Diabetes: Yes (niddm) HTN: Yes Hypercholesterolemia: Yes Suicide Attempt (Hx): No - Surgical History Abdominal Surgery: Yes (fibroids, TUBAL LIGATION) Appendectomy: Yes - Immunization History Immunization Up to Date: Yes - Psycho/Social/Smoking Cessation Hx Anxiety: No Suicidal Ideation: No Smoking Status: Yes Smoking History: Never smoked Have you smoked in the past 12 months: No Number of Cigarettes Smoked Daily: 0 If you are a former smoker, when did you quit?: 15 YEARS Cigars Per Day: 0 Information on smoking cessation initiated: No Hx Alcohol Use: No Drug/Substance Use Hx: No Substance Use Type: None Hx Substance Use Treatment: No Review of Systems - Review of Systems Able to Perform ROS?: Yes Is the patient limited Somali proficient: No Constitutional: Yes: Diaphoresis (baseline), Night Sweats (baseline). No: Chills, Fever, Loss of Appetite, Unintentional Wgt. Loss HEENTM: No: Throat Pain, Throat Swelling Respiratory: Yes: Cough, Productive cough (white sputum) Cardiac (ROS): Yes: Chest Pain. No: Palpitations ABD/GI: No: Nausea, Vomiting : No: Burning, Dysuria, Discharge, Frequency Musculoskeletal: Yes: Back Pain (L scapula) Integumentary: No: Bruising, Rash Neurological: Yes: Numbness, Tingling. No: Headache *Physical Exam - Vital Signs Last Vital Signs Temp Pulse Resp BP Pulse Ox 98.3 F 73 16 129/73 98 08/22/16 12:04 08/22/16 12:13 08/22/16 12:13 08/22/16 12:13 08/22/16 12:13 Heart Score/ECG Review - History History: Slightly suspicious - Electrocardiogram EKG: Normal - Age Age: 45-65 - Risk Factors Risk Factors Heart Score: Yes Hx Hypercholesterolemia, Yes Hx Hypertension, Yes Hx Diabetes, No Smoking History - Troponin Troponin: </= normal limit - ECG Intrepretation Rhythm: Regular Rhythm - [place]: Normal - ECG Impressions Normal ECG: Yes Non-specific ST Elevation: No Ischemic Changes: No ED Treatment Course - LABORATORY CBC & Chemistry Diagram: 08/22/16 12:55 08/22/16 12:55 - RADIOLOGY Radiology Studies Ordered: Category Date Time Status CHEST PA & LAT [RAD] Stat Radiology 08/22/16 12:37 Ordered Medical Decision Making - Medical Decision Making 08/22/16 12:49 Patient is a 66F with a PMH of HTN, hyperlipidemia, DM, and asthma who presents for a second day to the ED with CP. The pain starts in her back and radiates to her chest and down her L arm. On the differential is viral pericarditis, pneumonia, ACS. I have ordered an EKG, CBC, CMP, and toradol. 08/22/16 13:54 Patient's EKG does not show an DEBORAH. It is low voltage but does not show anything concerning. All labs WNL including troponins. I checked on the patient and she states that she feels much better after the toradol. 08/22/16 13:56 CXR shows no acute process. 08/22/16 14:43 Spoken with patient, she will fill the script that was sent yesterday and she is ready for discharge. *DC/Admit/Observation/Transfer Diagnosis at time of Disposition: Back pain - Discharge Dispostion Disposition: HOME Condition at time of disposition: Improved Admit: No - Patient Instructions Additional Instructions: Please return if symptoms change, worsen, or other symptoms arise. Please fill prescription, take it as needed and as prescribed. - Attestations Physician Attestion: 08/22/16 14:46 I, Dr. Giovanni Cross, attest that this document has been prepared under my direction and personally reviewed by me in its entirety. I further attest, that it accurately reflects all work, treatment, procedures and medical decision -making performed by me.
[2016-08-22 13:06] LABS: MCH 28.5 pg (25.7-33.7); MCHC 32.6 g/dl (32.0-36.0); MEAN CELL VOLUME 87.3 fl (80-96); MEAN PLT VOLUME 9.1 fl (7.5-11.1); PLATELET COUNT 191 K/MM3 (134-434); RDW 14.5 % (11.6-15.6); WHITE BLOOD COUNT 7.7 K/mm3 (4.0-10.0)
[2016-08-22 13:30] LABS: ALBUMIN 3.1 g/dl (3.4-5.0); ANION GAP 8 (8-16); BILIRUBIN,TOTAL 0.4 mg/dL (0.2-1.0); CALCIUM 8.7 mg/dL (8.5-10.1); CO2 28 mmol/L (21-32); CREATININE 0.7 mg/dL (0.55-1.02); GLUCOSE,RANDOM 257 mg/dL (74-106); SGOT/AST 13 U/L (15-37); SGPT/ALT 16 U/L (12-78); TOT PROT 6.2 g/dl (6.4-8.2)
[2016-08-22 13:31] LABS: ALK PHOS 74 U/L (45-117)
[2016-08-22] MEDS ORDERED: OXYCODONE/APAP 5/325MG COMBO TABLET PO ONE (14:03)
[2016-08-22] MEDS ORDERED: OXYCODONE/APAP 5/325MG COMBO TABLET ONE (14:16)
[2016-08-22 15:05] VITALS: BP 131/73; PULSE 62; TEMP 98.6
--- NOTE | 2016-08-27 14:54 | EKG ---
Test Reason : Blood Pressure : / mmHG Vent. Rate : 072 BPM Atrial Rate : 072 BPM P-R Int : 156 ms QRS Dur : 080 ms QT Int : 400 ms P-R-T Axes : 085 060 063 degrees QTc Int : 438 ms NORMAL SINUS RHYTHM LOW VOLTAGE QRS SEPTAL INFARCT (CITED ON OR BEFORE 27-JUN-2009) ABNORMAL ECG WHEN COMPARED WITH ECG OF 21-AUG-2016 04:08, QUESTIONABLE CHANGE IN INITIAL FORCES OF ANTERIOR LEADS Confirmed by MCKENNA FERRARI MD ([id number]) on 08/27/2016 2:54:13 PM Referred By: Confirmed By:MCKENNA FERRARI MD
== END 2016-08-22 15:08 | disposition home or self-care (01) ==
LOC: JER 11:59
PROC: 3E0333Z Introduction of Anti-inflammatory into Peripheral Vein, Percutaneous Approach (ICD-10-PCS; principal; 2016-08-22)
DX: R07.89 Other chest pain (principal); I10 Essential (primary) hypertension; E11.9 Type 2 diabetes mellitus without complications; Z79.4 Long term (current) use of insulin; E78.5 Hyperlipidemia, unspecified; J45.909 Unspecified asthma, uncomplicated
CPT/HCPCS: 36415; 71020-TC; 80053; 84484; 85027; 93005; 93010; 96374; 99282-25

== ENCOUNTER 2016-11-18 16:01 | Emergency (ER) | payer OTHER ==
[2016-11-18 16:05] VITALS: BP 160/75; PULSE 81; TEMP 98.3; BMI 35.4
--- NOTE | 2016-11-18 17:58 | PDOC ---
History of Present Illness - General Chief Complaint: Pain, Acute Stated Complaint: LT SIDE PAIN/Flank Time Seen by Provider: 11/18/16 17:51 - History of Present Illness Initial Comments: 11/18/16 17:55 Patient is a 66 y.o. female with a PMH of Asthma, HTN and NIDDM who presents with 2 day h/o of R sided flank pain that radiates into her groin. Patient notes she was [place] when she first noticed the "sharp, 11/18" pain. Patient states Motrin provided no relief and she cannot identify any triggering factors. Patient endorses nausea but denies any vomiting, chest pain , shortness of breath, fevers or chills. NKDA Surgical: Tubal Ligation, Appendectomy (childhood) Social: denies nicotine, denies alcohol, denies recreational drug use PMD: Dr. Montes Past History - Past Medical History Allergies/Adverse Reactions: Allergies Allergy/AdvReac Type Severity Reaction Status Date / Time No Known Allergies Allergy Verified 11/18/16 16:05 Home Medications: Ambulatory Orders Valsartan [Diovan] 320 mg PO DAILY #0 tablet 06/13/13 Olmesartan Medoxomil [Benicar -] 20 mg PO DAILY 01/03/14 Budesonide/Formeterol Fumarate [SYMBICORT 160/4.5mcg -] 2 puff IH BID #1 inhaler 07/09/16 Miscellaneous Medical Supply [Glucometer Device] 1 each .ROUTE ASDIR #1 kit Miscellaneous Medical Supply [Glucometer Test Strips #100] 1 each .ROUTE ASDIR # 1 box 07/09/16 Tiotropium [place] [Spiriva] 1 puff IH DAILY #1 inh 07/09/16 Albuterol 0.083% Nebulizer Aleksandra [Ventolin 0.083% Nebulizer Soln -] 1 neb NEB Q6H PRN #30 vial 07/19/16 Albuterol Sulfate 0.5% [Ventolin 0.5% Nebulizing Soln. -] 1 neb IH QID PRN #30 vial 07/19/16 Albuterol Sulfate Inhaler - [Ventolin HFA Inhaler -] 1 - 2 inh PO Q4H PRN #1 inhaler 07/19/16 Clindamycin HCl [Cleocin HCl] 300 mg PO Q8H #30 capsule 08/09/16 Oxycodone HCl/Acetaminophen [Percocet 5-325 mg Tablet] 1 tab PO Q6H PRN #8 tablet MDD 4 tab 08/09/16 Ibuprofen 800 mg PO TID #30 tablet 08/21/16 Asthma: Yes Diabetes: Yes HTN: Yes Hypercholesterolemia: Yes - Surgical History Abdominal Surgery: Yes (fibroids, TUBAL LIGATION) Appendectomy: Yes - Immunization History Immunization Up to Date: Yes - Suicide/Smoking/Psychosocial Hx Smoking Status: Yes Smoking History: Never smoked Have you smoked in the past 12 months: No Number of Cigarettes Smoked Daily: 0 If you are a former smoker, when did you quit?: 15 YEARS Cigars Per Day: 0 Information on smoking cessation initiated: No Hx Alcohol Use: No Drug/Substance Use Hx: No Substance Use Type: None Hx Substance Use Treatment: No Review of Systems - Review of Systems Constitutional: No: Chills, Fever Cardiac (ROS): No: Chest Pain, Lightheadedness, Palpitations ABD/GI: Yes: Constipated, Nausea. No: Diarrhea, Vomiting : No: Burning, Dysuria All Other Systems: Reviewed and Negative *Physical Exam - Vital Signs Last Vital Signs Temp Pulse Resp BP Pulse Ox 98.3 F 81 19 160/75 99 11/18/16 16:04 11/18/16 16:04 11/18/16 16:04 11/18/16 16:04 11/18/16 16:04 - Physical Exam General Appearance: Yes: Nourished, Obese Neck: positive: Trachea midline, Supple Respiratory/Chest: positive: Lungs Clear, Normal Breath Sounds, Dullness Cardiovascular: positive: Regular Rhythm, S1, S2 Gastrointestinal/Abdominal: positive: Normal Bowel Sounds, Tender (Diffuse Abdominal TTP), Soft, Other (Positive Sonographic Wells's) Musculoskeletal: positive: CVA Tenderness (R). negative: CVA Tenderness (L) Neurologic: positive: Fully Oriented, Alert ED Treatment Course - LABORATORY CBC & Chemistry Diagram: 11/18/16 18:30 11/18/16 18:30 Medical Decision Making - Medical Decision Making 11/18/16 17:59 Patient is a 66 y.o. female who presents with acute onset on R sided flank pain. Initial DDx includes ovarian torsion vs. cholelithiasis/cholecystitis vs. nephrolithiasis PLAN: 1. CBC, CMP 2. UA 3. Lipase 4. Bedside U/S 5. Pain control with Dilaudid 11/18/16 19:02 CBC shows no leukocytosis. Bedside U/S shows no nephrolithiasis, no hydronephrosis, no appreciable cholelithiasis, normal sized CBD CMP pending - possible CT Abdomen/Pelvis Patient signed out to Dr. Amandeep Gannon (EM Resident) and Dr. Kat Guan 11/18/16 19:09 *DC/Admit/Observation/Transfer Diagnosis at time of Disposition: Abdominal pain - Referrals Referrals: Saurabh Harris MD [Primary Care Provider] -
[2016-11-18] MEDS ORDERED: HYDROmorphone HCL CARPU-JECT 1 MG/1 ML DISP.SYRIN IVPUSH ONE (18:09)
[2016-11-18] MEDS ORDERED: SODIUM CHLORIDE 0.9% 1000 ML INFUS.BAG IV ONE (18:10)
[2016-11-18 18:44] LABS: EOSINOPHIL 1.1 % (0-4.5); MCHC 33.2 g/dl (32.0-36.0); MEAN CELL VOLUME 87.4 fl (80-96); MEAN PLT VOLUME 10.5 fl (7.5-11.1); NEUTROPHILS 63.8 % (42.8-82.8); PLATELET COUNT 182 K/MM3 (134-434); RDW 15.1 % (11.6-15.6); WHITE BLOOD COUNT 8.8 K/mm3 (4.0-10.0)
[2016-11-18 18:45] LABS: URINE APPEARANCE CLOUDY; URINE BILIRUBIN NEGATIVE (NEGATIVE); URINE BLOOD NEGATIVE (NEGATIVE); URINE COLOR YELLOW; URINE GLUCOSE (UA) 3+ (NEGATIVE); URINE KETONE TRACE (NEGATIVE); URINE NITRITE NEGATIVE (NEGATIVE); URINE UROBILINOGEN NEGATIVE mg/dL (0.2-1.0)
[2016-11-18] MEDS ORDERED: HYDROmorphone HCL CARPU-JECT 2 MG/1 ML DISP.SYRIN ONE (18:45)
[2016-11-18 18:49] LABS: URINE PROTEIN 2+ (NEGATIVE)
[2016-11-18 18:55] LABS: URINE BACTERIA RARE /hpf (NONE SEEN); URINE HYALINE CAST 2 /lpf; URINE MUCUS RARE; URINE RBC 1 /hpf (0-3); URINE WBC 1 /hpf (3-5)
--- NOTE | 2016-11-18 19:16 | PDOC ---
*Physical Exam - Vital Signs Last Vital Signs Temp Pulse Resp BP Pulse Ox 98.3 F 81 19 160/75 99 11/18/16 16:04 11/18/16 16:04 11/18/16 16:04 11/18/16 16:04 11/18/16 16:04 - Physical Exam Comments: 11/18/16 19:49 General Appearance: Nourished. No Apparent Distress Neck: No Cervical Lymphadenopathy Respiratory/Chest: Lungs Clear, Normal Breath Sounds. No Crackles, Rales, Rhonchi, Wheezing Cardiovascular: Regular Rhythm, Regular Rate. No Murmur, Gallops, Rubs Gastrointestinal/Abdominal: Normal Bowel Sounds, Soft. Diffuse tenderness to palpation. No Guarding, Rebound, Musculoskeletal: No CVA Tenderness Extremity: Normal Capillary Refill Integumentary: Normal Color, Dry, Warm Neurologic: Fully Oriented, Alert, Normal Mood/Affect, Normal Response, ED Treatment Course - LABORATORY CBC & Chemistry Diagram: 11/18/16 18:30 11/18/16 18:30 - ADDITIONAL ORDERS Additional order review: Laboratory Results 11/18/16 18:02 Urine Color Yellow Urine Appearance Cloudy Urine pH 5.0 Urine Protein 2+ H Urine Glucose (UA) 3+ H Urine Ketones Trace H Urine Blood Negative Urine Nitrite Negative Urine Bilirubin Negative Urine Urobilinogen Negative Urine RBC 1 Urine WBC 1 Ur Epithelial Cells Moderate Urine Bacteria Rare Hyaline Casts 2 Urine Mucus Rare 11/18/16 18:30 RBC 4.63 MCV 87.4 MCHC 33.2 RDW 15.1 MPV 10.5 D Neutrophils % 63.8 Lymphocytes % 27.6 D Monocytes % 6.5 Eosinophils % 1.1 Basophils % 1.0 - Medications Given in the ED: ED Medications Discontinued Medications Generic Name Dose Route Start Last Admin Trade Name Freq PRN Reason Stop Dose Admin Hydromorphone HCl 0.5 mg 11/18/16 18:09 11/18/16 18:50 Dilaudid Injection - IVPUSH 11/18/16 18:10 0.5 mg ONCE ONE Administration Sodium Chloride 1,000 ml 11/18/16 18:10 11/18/16 18:36 Normal Saline - IV 11/18/16 18:11 1,000 ml ONCE ONE Administration Progress Note - Progress Note Progress Note: Received sign out from Dr. Birch. The patient is a 66 year old female with a history of Asthma, HTN and NIDDM who presents with 2 day h/o of R sided flank pain that radiates into her groin. Labs are currently pending. CT abdomen pelvis after lab results are back. Dispo pending ct. *DC/Admit/Observation/Transfer Diagnosis at time of Disposition: Abdominal pain - Referrals Referrals: Saurabh Harris MD [Primary Care Provider] - - Patient Instructions - Post Discharge Activity
[2016-11-18 19:30] LABS: ALBUMIN 3.8 g/dl (3.4-5.0); ANION GAP 9 (8-16); CALCIUM 9.4 mg/dL (8.5-10.1); CO2 27 mmol/L (21-32); CREATININE 1.1 mg/dL (0.55-1.02); GLUCOSE,RANDOM 195 mg/dL (74-106); SGPT/ALT 22 U/L (12-78)
[2016-11-18 19:33] LABS: TOT PROT 7.6 g/dl (6.4-8.2)
[2016-11-18 19:34] LABS: ALK PHOS 84 U/L (45-117); BILIRUBIN,TOTAL 0.7 mg/dL (0.2-1.0); SGOT/AST 39 U/L (15-37)
[2016-11-18 22:22] LABS: URINE LEUK ESTERASE Negative (NEGATIVE)
--- NOTE | 2016-11-19 02:04 | PDOC ---
Attending Attestation - Resident Resident Name: Glenroy Gannon - ED Attending Attestation I have performed the following: I have examined & evaluated the patient, The case was reviewed & discussed with the resident, I agree w/resident's findings & plan, Exceptions are as noted - HPI HPI: 11/19/16 02:03 1 day of right sided abd pain with no fever,no cills,no diarrhea,no vomiting - Physicial Exam PE: 11/19/16 02:04 obese 66 yo female p/w right sided abdpain HEENT wnl lungs cta b/l cvs [id number] abdominal exam- protuberant, pain to palpation in right suprapubic area neruo ambulatory,alert and conversant - Medical Decision Making 11/19/16 02:07 ct scan of abd/pelvis -no acute abdominal pathology labs reviewed,normal cbc,no UTI,chemistry revealed [id number] pt discharged to follow up with PCP
--- NOTE | 2016-11-19 02:10 | PDOC ---
*Physical Exam - Vital Signs Last Vital Signs Temp Pulse Resp BP Pulse Ox 98.3 F 81 19 160/75 99 11/18/16 16:04 11/18/16 16:04 11/18/16 16:04 11/18/16 16:04 11/18/16 16:04 ED Treatment Course - LABORATORY CBC & Chemistry Diagram: 11/18/16 18:30 11/18/16 18:30 - ADDITIONAL ORDERS Additional order review: Laboratory Results 11/19/16 11/18/16 11/18/16 00:20 18:30 18:30 Sodium 136 Potassium 5.2 H D Chloride 100 Carbon Dioxide 27 Anion Gap 9 BUN 16 D Creatinine 1.1 H D Creat Clearance w eGFR 50.01 Random Glucose 195 H D Lactic Acid 1.1 1.1 Calcium 9.4 Total Bilirubin 0.7 D AST 39 H D ALT 22 D Alkaline Phosphatase 84 Total Protein 7.6 D Albumin 3.8 D Lipase 95 Urine Color Urine Appearance Urine pH Ur Specific [place] Urine Protein Urine Glucose (UA) Urine Ketones Urine Blood Urine Nitrite Urine Bilirubin Urine Urobilinogen Ur Leukocyte Esterase Urine RBC Urine WBC Ur Epithelial Cells Urine Bacteria Hyaline Casts Urine Mucus 11/18/16 18:02 Sodium Potassium Chloride Carbon Dioxide Anion Gap BUN Creatinine Creat Clearance w eGFR Random Glucose Lactic Acid Calcium Total Bilirubin AST ALT Alkaline Phosphatase Total Protein Albumin Lipase Urine Color Yellow Urine Appearance Cloudy Urine pH 5.0 Ur Specific [place] 1.020 Urine Protein 2+ H Urine Glucose (UA) 3+ H Urine Ketones Trace H Urine Blood Negative Urine Nitrite Negative Urine Bilirubin Negative Urine Urobilinogen Negative Ur Leukocyte Esterase Negative Urine RBC 1 Urine WBC 1 Ur Epithelial Cells Moderate Urine Bacteria Rare Hyaline Casts 2 Urine Mucus Rare 11/18/16 18:30 RBC 4.63 MCV 87.4 MCHC 33.2 RDW 15.1 MPV 10.5 D Neutrophils % 63.8 Lymphocytes % 27.6 D Monocytes % 6.5 Eosinophils % 1.1 Basophils % 1.0 - RADIOLOGY Radiology Studies Ordered: Category Date Time Status ABDOMEN & PELVIS CT WITH CONTR [CT] Stat CT Scan 11/18/16 19:40 Completed TRANSVAGINAL ULTRASOUND US [US] Stat Ultrasound 11/19/16 00:03 Taken - Medications Given in the ED: ED Medications Discontinued Medications Generic Name Dose Route Start Last Admin Trade Name Freq PRN Reason Stop Dose Admin Hydromorphone HCl 0.5 mg 11/18/16 18:09 11/18/16 18:50 Dilaudid Injection - IVPUSH 11/18/16 18:10 0.5 mg ONCE ONE Administration Sodium Chloride 1,000 ml 11/18/16 18:10 11/18/16 18:36 Normal Saline - IV 11/18/16 18:11 1,000 ml ONCE ONE Administration *DC/Admit/Observation/Transfer Diagnosis at time of Disposition: Abdominal pain Qualifiers: Abdominal location: right lower quadrant Qualified Code(s): R10.31 - Right lower quadrant pain; R10.31 - Right lower quadrant pain - Discharge Dispostion Disposition: HOME Condition at time of disposition: Stable - Referrals Referrals: Saurabh Harris MD [Primary Care Provider] - - Patient Instructions Printed Discharge Instructions: DI for Abdominal Pain-Adult Additional Instructions: please follow up with your primary physician - Post Discharge Activity
== END 2016-11-19 02:23 | disposition home or self-care (01) ==
LOC: JER 16:01
PROC: 3E033NZ Introduction of Analgesics, Hypnotics, Sedatives into Peripheral Vein, Percutaneous Approach (ICD-10-PCS; principal; 2016-11-18)
PROC: 3E0337Z Introduction of Electrolytic and Water Balance Substance into Peripheral Vein, Percutaneous Approach (ICD-10-PCS; 2016-11-18)
DX: R10.31 Right lower quadrant pain (principal); I10 Essential (primary) hypertension; E11.9 Type 2 diabetes mellitus without complications; E78.00 Pure hypercholesterolemia, unspecified; J45.909 Unspecified asthma, uncomplicated
CPT/HCPCS: 36415; 74177-TC; 76830-TC; 80053; 81003; 81015; 83605; 83690; 85025; 99282-25; 99283-25

== ENCOUNTER 2016-11-19 11:25 | Emergency (ER) | payer OTHER ==
[2016-11-19 11:59] VITALS: BMI 37.5
[2016-11-19] MEDS ORDERED: traMADol HCL 50 MG TABLET PO ONE (12:07)
[2016-11-19] MEDS ORDERED: LIDOCAINE 5% TOPICAL PATCH TP ONE (12:08)
[2016-11-19] MEDS ORDERED: traMADol HCL 50 MG TABLET ONE (12:16)
[2016-11-19] MEDS ORDERED: LIDOCAINE 5% TOPICAL PATCH ONE (12:17)
--- NOTE | 2016-11-19 12:25 | PDOC ---
History of Present Illness - General History Source: Patient - History of Present Illness Timing/Duration: reports: constant Quality: reports: severe Abdominal Pain Onset Location: reports: flank <KrystinAutumn - Last Filed: 11/19/16 18:35> <Poonam Garcia - Last Filed: 11/21/16 07:24> - General Chief Complaint: Pain, Acute Stated Complaint: ABD PAIN Time Seen by Provider: 11/19/16 11:48 Past History - Past Medical History Asthma: Yes Diabetes: Yes HTN: Yes Hypercholesterolemia: Yes - Surgical History Abdominal Surgery: Yes (fibroids, TUBAL LIGATION) Appendectomy: Yes - Immunization History Immunization Up to Date: Yes - Suicide/Smoking/Psychosocial Hx Smoking Status: Yes Smoking History: Former smoker Have you smoked in the past 12 months: No Number of Cigarettes Smoked Daily: 0 If you are a former smoker, when did you quit?: 15 YEARS Cigars Per Day: 0 Information on smoking cessation initiated: No Hx Alcohol Use: No Drug/Substance Use Hx: No Substance Use Type: None Hx Substance Use Treatment: No <Autumn Mcclelland - Last Filed: 11/19/16 18:35> <Poonam Garcia - Last Filed: 11/21/16 07:24> - Past Medical History Allergies/Adverse Reactions: Allergies Allergy/AdvReac Type Severity Reaction Status Date / Time No Known Allergies Allergy Verified 11/19/16 11:59 Home Medications: Ambulatory Orders Valsartan [Diovan] 320 mg PO DAILY #0 tablet 06/13/13 Olmesartan Medoxomil [Benicar -] 20 mg PO DAILY 01/03/14 Budesonide/Formeterol Fumarate [SYMBICORT 160/4.5mcg -] 2 puff IH BID #1 inhaler 07/09/16 Miscellaneous Medical Supply [Glucometer Device] 1 each .ROUTE ASDIR #1 kit Miscellaneous Medical Supply [Glucometer Test Strips #100] 1 each .ROUTE ASDIR # 1 box 07/09/16 Tiotropium [place] [Spiriva] 1 puff IH DAILY #1 inh 07/09/16 Albuterol 0.083% Nebulizer Aleksandra [Ventolin 0.083% Nebulizer Soln -] 1 neb NEB Q6H PRN #30 vial 07/19/16 Albuterol Sulfate 0.5% [Ventolin 0.5% Nebulizing Soln. -] 1 neb IH QID PRN #30 vial 07/19/16 Albuterol Sulfate Inhaler - [Ventolin HFA Inhaler -] 1 - 2 inh PO Q4H PRN #1 inhaler 07/19/16 Clindamycin HCl [Cleocin HCl] 300 mg PO Q8H #30 capsule 08/09/16 Oxycodone HCl/Acetaminophen [Percocet 5-325 mg Tablet] 1 tab PO Q6H PRN #8 tablet MDD 4 tab 08/09/16 Ibuprofen 800 mg PO TID #30 tablet 08/21/16 Oxycodone HCl/Acetaminophen [Percocet 5-325 mg Tablet] 1 tab PO Q4H #20 tablet MDD 6 tabs 11/19/16 Review of Systems - Review of Systems Constitutional: No: Chills, Fever ABD/GI: Yes: Nausea. No: Constipated, Diarrhea, Vomiting : Yes: Flank Pain. No: Dysuria, Hematuria <Autumn Mcclelland - Last Filed: 11/19/16 18:35> *Physical Exam - Vital Signs Last Vital Signs Temp Pulse Resp BP Pulse Ox 98.2 F 74 18 115/68 97 11/19/16 11:25 11/19/16 11:25 11/19/16 11:25 11/19/16 11:25 11/19/16 11:25 - Physical Exam General Appearance: Yes: Appropriately Dressed, Mild Distress HEENT: positive: Normal Voice Neck: positive: Supple Respiratory/Chest: negative: Respiratory Distress Gastrointestinal/Abdominal: positive: Tender (to R flank and R mid back ), Soft Extremity: positive: Normal Inspection Integumentary: positive: Dry, Warm Neurologic: positive: Fully Oriented, Alert, Normal Mood/Affect <Autumn Mcclelland - Last Filed: 11/19/16 18:35> - Vital Signs Last Vital Signs Temp Pulse Resp BP Pulse Ox 97.9 F 79 16 113/68 95 11/19/16 19:07 11/19/16 19:07 11/19/16 19:07 11/19/16 19:07 11/19/16 19:07 <Poonam Garcia - Last Filed: 11/21/16 07:24> ED Treatment Course - LABORATORY CBC & Chemistry Diagram: 11/19/16 16:28 11/19/16 16:28 <Autumn Mcclelland - Last Filed: 11/19/16 18:35> - LABORATORY CBC & Chemistry Diagram: 11/19/16 16:28 11/19/16 16:28 - ADDITIONAL ORDERS Additional order review: 11/19/16 16:28 RBC 4.75 MCV 87.5 MCHC 32.5 RDW 15.1 MPV 10.1 Neutrophils % 63.1 Lymphocytes % 27.8 Monocytes % 6.4 Eosinophils % 1.8 Basophils % 0.9 - Medications Given in the ED: ED Medications Discontinued Medications Generic Name Dose Route Start Last Admin Trade Name Afia PRN Reason Stop Dose Admin Hydromorphone HCl 1 mg 11/19/16 17:27 11/19/16 18:13 Dilaudid Injection - IVPB 11/19/16 17:28 1 mg ONCE ONE Administration Lidocaine 1 patch 11/19/16 12:08 11/19/16 12:15 Lidoderm Patch - TP 11/19/16 12:09 1 patch ONCE ONE Administration Morphine Sulfate 4 mg 11/19/16 14:05 11/19/16 14:13 Morphine Injection - IM 11/19/16 14:06 4 mg ONCE ONE Administration Ondansetron HCl 4 mg 11/19/16 18:51 11/19/16 18:50 Zofran Injection IVPUSH 11/19/16 18:52 4 mg ONCE ONE Administration Tramadol HCl 50 mg 11/19/16 12:07 11/19/16 12:15 Ultram - PO 11/19/16 12:08 50 mg ONCE ONE Administration <Poonam Garcia - Last Filed: 11/21/16 07:24> Medical Decision Making - Medical Decision Making 11/19/16 12:15 66-year-old morbidly obese female, history of edu-fmeodef-otluwalci diabetes, hypertension, asthma, fibroids, chronic LBP, who presents with severe right flank pain that started 3 days ago, and associated with nausea. No vomiting, dysuria, hematuria, change in bowel movements, fever or chills. Patient was seen in ED last night and had unremarkable labs with normal transvaginal ultrasound and CT with IV contrast. 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 Unclear source of pain at this time as workup including ultrasound and CT last night in ED were unremarkable. Will repeat labs at this time and discuss further management with ED attending 11/19/16 17:39 Labs unremarkable. Pt continues to v/o pain. Do not see need for imaging today in ED as recent imaging negative. If unable to control pain, will discuss w/ admitting team 11/19/16 17:43 11/19/16 17:43 11/19/16 18:40 Pt reports improvement with dilaudid and states she feels well enough to be discharged. Will dc with pain control and encourage PMD follow-up this week 11/19/16 18:41 <Autumn Mcclelland - Last Filed: 11/19/16 18:35> *DC/Admit/Observation/Transfer <Autumn Mcclelland - Last Filed: 11/19/16 18:35> - Attestations Physician Attestion: I reviewed the case with the mid-level practitioner and agree with the mid- level practitioner's assessment, diagnosis and disposition. <Poonam Garcia - Last Filed: 11/21/16 07:24> Diagnosis at time of Disposition: Flank pain - Discharge Dispostion Disposition: HOME Condition at time of disposition: Improved - Prescriptions Prescriptions: Oxycodone HCl/Acetaminophen [Percocet 5-325 mg Tablet] 1 tab PO Q4H #20 tablet MDD 6 tabs - Referrals Referrals: Saurabh Harris MD [Primary Care Provider] - - Patient Instructions Printed Discharge Instructions: DI for Flank Pain Additional Instructions: The cause of your right side pain is unclear at this time as extensive workup did not reveal clear source Take medication as prescribed and follow-up with your PMD
[2016-11-19] MEDS ORDERED: morphine CARPU-JECT 4 MG/1 ML DISP.SYRIN IM ONE (14:05)
[2016-11-19] MEDS ORDERED: morphine CARPU-JECT 2 MG/1 ML DISP.SYRIN ONE (14:10)
[2016-11-19 16:42] LABS: BASOPHIL 0.9 % (0-2.0); EOSINOPHIL 1.8 % (0-4.5); MCH 28.4 pg (25.7-33.7); MCHC 32.5 g/dl (32.0-36.0); MEAN CELL VOLUME 87.5 fl (80-96); MEAN PLT VOLUME 10.1 fl (7.5-11.1); NEUTROPHILS 63.1 % (42.8-82.8); PLATELET COUNT 162 K/MM3 (134-434); RDW 15.1 % (11.6-15.6); WHITE BLOOD COUNT 7.5 K/mm3 (4.0-10.0)
[2016-11-19 17:08] LABS: ALBUMIN 3.7 g/dl (3.4-5.0); ANION GAP 8 (8-16); BILIRUBIN,TOTAL 0.9 mg/dL (0.2-1.0); CALCIUM 9.5 mg/dL (8.5-10.1); CO2 29 mmol/L (21-32); CREATININE 0.8 mg/dL (0.55-1.02); GLUCOSE,RANDOM 158 mg/dL (74-106); SGPT/ALT 20 U/L (12-78); TOT PROT 7.3 g/dl (6.4-8.2)
[2016-11-19 17:09] LABS: ALK PHOS 82 U/L (45-117)
[2016-11-19 17:12] LABS: SGOT/AST 22 U/L (15-37)
[2016-11-19] MEDS ORDERED: HYDROmorphone HCL CARPU-JECT 2 MG/1 ML DISP.SYRIN IVPB ONE (17:27)
[2016-11-19 17:31] LABS: URINE APPEARANCE SLCLOUDY; URINE BILIRUBIN NEGATIVE (NEGATIVE); URINE BLOOD NEGATIVE (NEGATIVE); URINE COLOR YELLOW; URINE GLUCOSE (UA) 3+ (NEGATIVE); URINE KETONE 1+ (NEGATIVE); URINE NITRITE NEGATIVE (NEGATIVE); URINE PROTEIN NEGATIVE (NEGATIVE); URINE UROBILINOGEN NEGATIVE mg/dL (0.2-1.0)
[2016-11-19] MEDS ORDERED: HYDROmorphone HCL CARPU-JECT 1 MG/1 ML DISP.SYRIN ONE (18:10)
[2016-11-19] MEDS ORDERED: ONDANSETRON 4 MG/2 ML VIAL IVPUSH ONE (18:51)
[2016-11-19] MEDS ORDERED: ONDANSETRON 4 MG/2 ML VIAL ONE (18:52)
[2016-11-19 19:08] VITALS: BP 113/68; PULSE 79; TEMP 97.9
[2016-11-19 20:29] LABS: URINE LEUK ESTERASE Negative (NEGATIVE)
[2016-11-19] MEDS ORDERED: LIDOCAINE PATCH REMOVAL MC SCH (22:00)
== END 2016-11-19 19:08 | disposition home or self-care (01) ==
LOC: JER 11:25
PROC: 3E033NZ Introduction of Analgesics, Hypnotics, Sedatives into Peripheral Vein, Percutaneous Approach (ICD-10-PCS; principal; 2016-11-19)
PROC: 3E033GC Introduction of Other Therapeutic Substance into Peripheral Vein, Percutaneous Approach (ICD-10-PCS; 2016-11-19)
PROC: 3E023NZ Introduction of Analgesics, Hypnotics, Sedatives into Muscle, Percutaneous Approach (ICD-10-PCS; 2016-11-19)
DX: R10.9 Unspecified abdominal pain (principal); I10 Essential (primary) hypertension; E11.9 Type 2 diabetes mellitus without complications; J45.909 Unspecified asthma, uncomplicated; E78.00 Pure hypercholesterolemia, unspecified; Z87.891 Personal history of nicotine dependence
CPT/HCPCS: 36415; 80053; 81003; 85025; 99283-25

== ENCOUNTER 2016-11-28 03:10 | Emergency (ER) | payer OTHER ==
--- NOTE | 2016-11-28 03:18 | PDOC ---
History of Present Illness - General Chief Complaint: Pain Stated Complaint: ABDOMINAL PAIN Time Seen by Provider: 11/28/16 03:12 History Source: Patient - History of Present Illness Initial Comments: 11/28/16 03:25 66 year old female history soi-bjrafek-gdvrsfnzh diabetes, hypertension, asthma , fibroids, chronic LBP, who presents with reports intermittent right flank pain severe in nature radiating to the right groin. Denies urinary symptoms, vomiting and diarrhea. Denies fever. Patient reports slight nausea. Past History - Past Medical History Allergies/Adverse Reactions: Allergies Allergy/AdvReac Type Severity Reaction Status Date / Time No Known Allergies Allergy Verified 11/28/16 03:18 Home Medications: Ambulatory Orders Valsartan [Diovan] 320 mg PO DAILY #0 tablet 06/13/13 Olmesartan Medoxomil [Benicar -] 20 mg PO DAILY 01/03/14 Budesonide/Formeterol Fumarate [SYMBICORT 160/4.5mcg -] 2 puff IH BID #1 inhaler 07/09/16 Miscellaneous Medical Supply [Glucometer Device] 1 each .ROUTE ASDIR #1 kit Miscellaneous Medical Supply [Glucometer Test Strips #100] 1 each .ROUTE ASDIR # 1 box 07/09/16 Tiotropium [place] [Spiriva] 1 puff IH DAILY #1 inh 07/09/16 Albuterol 0.083% Nebulizer Aleksandra [Ventolin 0.083% Nebulizer Soln -] 1 neb NEB Q6H PRN #30 vial 07/19/16 Albuterol Sulfate 0.5% [Ventolin 0.5% Nebulizing Soln. -] 1 neb IH QID PRN #30 vial 07/19/16 Albuterol Sulfate Inhaler - [Ventolin HFA Inhaler -] 1 - 2 inh PO Q4H PRN #1 inhaler 07/19/16 Clindamycin HCl [Cleocin HCl] 300 mg PO Q8H #30 capsule 08/09/16 Oxycodone HCl/Acetaminophen [Percocet 5-325 mg Tablet] 1 tab PO Q6H PRN #8 tablet MDD 4 tab 08/09/16 Ibuprofen 800 mg PO TID #30 tablet 08/21/16 Oxycodone HCl/Acetaminophen [Percocet 5-325 mg Tablet] 1 tab PO Q4H #20 tablet MDD 6 tabs 11/19/16 Asthma: Yes Diabetes: Yes HTN: Yes Hypercholesterolemia: Yes - Surgical History Abdominal Surgery: Yes (fibroids, TUBAL LIGATION) Appendectomy: Yes - Immunization History Immunization Up to Date: Yes - Suicide/Smoking/Psychosocial Hx Smoking Status: Yes Smoking History: Never smoked Have you smoked in the past 12 months: No Number of Cigarettes Smoked Daily: 0 If you are a former smoker, when did you quit?: 15 YEARS Cigars Per Day: 0 Information on smoking cessation initiated: No Hx Alcohol Use: No Drug/Substance Use Hx: No Substance Use Type: None Hx Substance Use Treatment: No Review of Systems - Review of Systems Able to Perform ROS?: Yes Is the patient limited Georgian proficient: No Constitutional: No: Symptoms Reported, See HPI, Chills, Diaphoresis, Fever, Loss of Appetite, Malaise, Night Sweats, Weakness, Weight Stable, Unintentional Wgt. Loss, Unexplained wgt Loss, Other ABD/GI: Yes: Nausea. No: Symptoms Reported, See HPI, Abdominal Distended, Abd. Pain w/ defecation, Blood Streaked Bowels, Constipated, Diarrhea, Difficulty Swallowing, Poor Appetite, Poor Fluid Intake, Rectal Bleeding, Vomiting, Indigestion, Abdominal cramping, Tarry Stools, Other : Yes: Flank Pain (right ). No: Symptoms Reported, See HPI, Burning, Dysuria , Discharge, Frequency, Hematuria, Incontinence, Pain, Urgency, Testicular Mass , Testicular Swelling, Lesions, Testicular Pain, Other *Physical Exam - Vital Signs Last Vital Signs Temp Pulse Resp BP Pulse Ox 98.0 F 66 18 136/90 99 11/28/16 03:13 11/28/16 03:13 11/28/16 03:13 11/28/16 03:13 11/28/16 03:13 - Physical Exam General Appearance: Yes: Appropriately Dressed Cardiovascular: positive: Regular Rhythm, Regular Rate Gastrointestinal/Abdominal: positive: Normal Bowel Sounds, Tender (right side/ groin tenderness), Soft Musculoskeletal: positive: CVA Tenderness (R) Extremity: positive: Normal Inspection, Normal Range of Motion Integumentary: positive: Normal Color, Dry, Warm Neurologic: positive: Fully Oriented, Alert, Normal Mood/Affect ED Treatment Course - LABORATORY CBC & Chemistry Diagram: 11/28/16 03:50 11/28/16 02:50 Medical Decision Making - Medical Decision Making 11/28/16 05:51 a: ABDOMINAL PAIN p: MESENTERIC ADENITIS: ctap CBC CMP UA UCX *DC/Admit/Observation/Transfer Diagnosis at time of Disposition: Mesenteric lymphadenitis - Discharge Dispostion Disposition: HOME - Referrals Referrals: Saurabh Harris MD [Primary Care Provider] - Call tomorrow - Patient Instructions Printed Discharge Instructions: DI for Mesenteric Adenitis-Adult Additional Instructions: DRINK PLENTY OF FLUIDS GIVE IBUPROFEN EVERY 6 HOURS NEEDED FOR PAIN.
[2016-11-28 03:34] VITALS: BP 136/90; PULSE 66; TEMP 98; BMI 37.5
[2016-11-28] MEDS ORDERED: KETOROLAC TROMETHAMINE 30 MG/1 ML VIAL IVPUSH ONE (03:40)
[2016-11-28] MEDS ORDERED: METOCLOPRAMIDE HCL INJECTION 10 MG/2 ML VIAL IVPUSH ONE (03:40)
[2016-11-28] MEDS ORDERED: SODIUM CHLORIDE 0.9% 1000 ML INFUS.BAG IV ONE (03:40)
[2016-11-28] MEDS ORDERED: KETOROLAC TROMETHAMINE 30 MG/1 ML VIAL ONE (03:46)
[2016-11-28] MEDS ORDERED: METOCLOPRAMIDE HCL INJECTION 10 MG/2 ML VIAL ONE (03:46)
--- NOTE | 2016-11-28 04:43 | PDOC ---
*Physical Exam - Vital Signs Last Vital Signs Temp Pulse Resp BP Pulse Ox 98.0 F 66 18 136/90 99 11/28/16 03:13 11/28/16 03:13 11/28/16 03:13 11/28/16 03:13 11/28/16 03:13 ED Treatment Course - Medications Given in the ED: ED Medications Discontinued Medications Generic Name Dose Route Start Last Admin Trade Name Freq PRN Reason Stop Dose Admin Ketorolac Tromethamine 30 mg 11/28/16 03:40 11/28/16 04:04 Toradol Injection - IVPUSH 11/28/16 03:41 30 mg ONCE ONE Administration Metoclopramide HCl 10 mg 11/28/16 03:40 11/28/16 04:04 Reglan Injection - IVPUSH 11/28/16 03:41 10 mg ONCE ONE Administration Sodium Chloride 1,000 ml 11/28/16 03:40 11/28/16 04:04 Normal Saline - IV 11/28/16 03:41 1,000 ml ONCE ONE Administration Medical Decision Making - Medical Decision Making 11/28/16 04:42 agree with care from EMERSON Guan
[2016-11-28 05:14] LABS: BASOPHIL 0.7 % (0-2.0); EOSINOPHIL 2.8 % (0-4.5); MCH 28.8 pg (25.7-33.7); MCHC 33.1 g/dl (32.0-36.0); MEAN PLT VOLUME 10.5 fl (7.5-11.1); NEUTROPHILS 63.2 % (42.8-82.8); PLATELET COUNT 171 K/MM3 (134-434); RDW 14.6 % (11.6-15.6); WHITE BLOOD COUNT 7.1 K/mm3 (4.0-10.0)
[2016-11-28 05:14] LABS: URINE APPEARANCE CLOUDY; URINE BILIRUBIN NEGATIVE (NEGATIVE); URINE BLOOD NEGATIVE (NEGATIVE); URINE COLOR YELLOW; URINE GLUCOSE (UA) 3+ (NEGATIVE); URINE KETONE NEGATIVE (NEGATIVE); URINE NITRITE NEGATIVE (NEGATIVE); URINE PROTEIN NEGATIVE (NEGATIVE); URINE UROBILINOGEN NEGATIVE mg/dL (0.2-1.0)
[2016-11-28 05:37] LABS: ALBUMIN 3.7 g/dl (3.4-5.0); ALK PHOS 75 U/L (45-117); ANION GAP 11 (8-16); BILIRUBIN,TOTAL 0.5 mg/dL (0.2-1.0); CALCIUM 9.4 mg/dL (8.5-10.1); CO2 28 mmol/L (21-32); CREATININE 0.9 mg/dL (0.55-1.02); GLUCOSE,RANDOM 220 mg/dL (74-106); SGOT/AST 13 U/L (15-37); SGPT/ALT 18 U/L (12-78); TOT PROT 6.6 g/dl (6.4-8.2)
[2016-11-28 09:01] LABS: URINE LEUK ESTERASE Negative (NEGATIVE)
== END 2016-11-28 06:09 | disposition home or self-care (01) ==
LOC: JER 03:10
PROC: 3E0333Z Introduction of Anti-inflammatory into Peripheral Vein, Percutaneous Approach (ICD-10-PCS; principal; 2016-11-28)
PROC: 3E033GC Introduction of Other Therapeutic Substance into Peripheral Vein, Percutaneous Approach (ICD-10-PCS; 2016-11-28)
DX: I88.0 Nonspecific mesenteric lymphadenitis (principal); I10 Essential (primary) hypertension; E11.9 Type 2 diabetes mellitus without complications; Z79.84 Long term (current) use of oral hypoglycemic drugs; E78.00 Pure hypercholesterolemia, unspecified; J45.909 Unspecified asthma, uncomplicated; M54.5 Low back pain; G89.29 Other chronic pain
CPT/HCPCS: 36415; 74176-TC; 80053; 81003; 85025; 87086; 96374; 96375; 99282-25

== ENCOUNTER 2016-12-24 09:30 | Day surgery (SDC) | payer OTHER ==
[2016-12-17 19:10] VITALS: BMI 34.4
[2016-12-24] MEDS ORDERED: PROPOFOL 20 ML ONE ×2 (09:51)
[2016-12-24 09:59] VITALS: TEMP 97.6
[2016-12-24 11:33] VITALS: BP 113/76; PULSE 75
--- NOTE | 2016-12-29 13:54 | PATH ---
Surgical Pathology Report Patient Name: [facility]. Rec. #: [id number] /Age/Gender: 1950 (Age: 66) / F Account: [id number] Location: Taken: 12/24/2016 Received: 12/24/2016 Reported: 12/29/2016 Physicians: Britney Cifuentes M.D. Specimen(s) Received CECAL VALVE Clinical History Rule out colon cancer Lipomatous valve Final Diagnosis CECAL VALVE, BIOPSY: COLONIC MUCOSA SHOWING MILD SURFACE HYPERPLASTIC CHANGE AND BENIGN/REACTIVE LYMPHOID AGGREGATE. Electronically Signed Barbie Correa M.D. Gross Description Received in formalin, labeled "cecal valve" is a lopez, irregular portion of soft tissue measuring 0.3 cm. in greatest dimension. The specimen is submitted in toto in one cassette. 12/25/201612/25/2016
== END 2016-12-24 11:30 | disposition home or self-care (01) ==
LOC: FASU-ENDO 09:30
PROVIDERS: ATTEND Internal Medicine Gastroenterology
PROC: 0DBC8ZX Excision of Ileocecal Valve, Via Natural or Artificial Opening Endoscopic, Diagnostic (ICD-10-PCS; principal; 2016-12-24 10:25)
DX: Z12.11 Encounter for screening for malignant neoplasm of colon (principal); K57.30 Diverticulosis of large intestine without perforation or abscess without bleeding; K64.2 Third degree hemorrhoids; K63.89 Other specified diseases of intestine
CPT/HCPCS: 88305-TC

== ENCOUNTER 2017-07-30 01:08 | Inpatient (IN) | payer OTHER ==
--- NOTE | 2017-07-30 01:15 | PDOC ---
History of Present Illness - General History Source: Patient, Old Records Exam Limitations: No Limitations - History of Present Illness Initial Comments: 07/30/17 01:33 The patient is a 67 year old female brought via EMS from home, with a significant past medical history of HTN, HLD, asthma and diabetes, who presents to the emergency department complaining of shortness of breath for the last couple of days that has exacerbated today. She reports that she has been hospitalized before for her asthma exacerbation but denies any history of intubation. She denies any steroid use. EMS gave the patient 2 breathing treatments on route to the ED. The patient notes that she has been using nebulizers at home. She also reports cough with white phlegm production, chest tightness and sore throat associated with her chief complaints. The patient denies headache or dizziness. Denies fever, chills, nausea, vomiting , diarrhea and constipation. Allergies: None Past surgical history: Fibroid removal and tubal ligation. Social History: No alcohol, tobacco or drug use reported <Tommy Hutchinson - Last Filed: 07/30/17 01:33> <Manjula Guardado - Last Filed: 07/30/17 01:42> - General Stated Complaint: SHORTNESS OF BREATH Time Seen by Provider: 07/30/17 01:14 Past History <Tommy Hutchinson - Last Filed: 07/30/17 01:33> - Past Medical History Asthma: Yes Cancer: No Cardiac Disorders: No CVA: No COPD: No CHF: No Dementia: No Diabetes: Yes GI Disorders: Yes (pain) Disorders: No HTN: Yes Hypercholesterolemia: Yes Liver Disease: No Seizures: No Thyroid Disease: No - Surgical History Abdominal Surgery: Yes (fibroids, TUBAL LIGATION) Appendectomy: Yes Cardiac Surgery: No Cholecystectomy: No Lung Surgery: No Neurologic Surgery: No Orthopedic Surgery: No - Immunization History Immunization Up to Date: Yes - Suicide/Smoking/Psychosocial Hx Smoking Status: Yes Smoking History: Former smoker Have you smoked in the past 12 months: No Number of Cigarettes Smoked Daily: 0 If you are a former smoker, when did you quit?: 15 YEARS Cigars Per Day: 0 Hx Alcohol Use: No Drug/Substance Use Hx: No Substance Use Type: None Hx Substance Use Treatment: No <Manjula Guardado - Last Filed: 07/30/17 01:42> - Past Medical History Allergies/Adverse Reactions: Allergies Allergy/AdvReac Type Severity Reaction Status Date / Time No Known Allergies Allergy Verified 07/30/17 01:19 Home Medications: Ambulatory Orders Budesonide/Formeterol Fumarate [SYMBICORT 160/4.5mcg -] 2 puff IH BID #1 inhaler 07/09/16 Tiotropium [place] [Spiriva] 1 puff IH DAILY #1 inh 07/09/16 Albuterol Sulfate Inhaler - [Ventolin HFA Inhaler -] 1 - 2 inh PO Q4H PRN #1 inhaler 07/19/16 Atorvastatin Ca [Lipitor] 1 tab PO DAILY 12/17/16 Sitagliptin Phosphate [Januvia] 100 mg PO DAILY 12/17/16 Review of Systems - Review of Systems Able to Perform ROS?: Yes Comments:: 07/30/17 01:26 GENERAL/CONSTITUTIONAL: No fever or chills. No weakness. HEAD, EYES, EARS, NOSE AND THROAT: (+) Sore throat. No change in vision. No ear pain or discharge. GASTROINTESTINAL: No nausea, vomiting, diarrhea or constipation. GENITOURINARY: No dysuria, frequency, or change in urination. CARDIOVASCULAR: (+) chest pain and shortness of breath. RESPIRATORY: (+) cough, wheezing. No hemoptysis. MUSCULOSKELETAL: No joint or muscle swelling or pain. No neck or back pain. SKIN: No rash NEUROLOGIC: No headache, vertigo, loss of consciousness, or change in strength/ sensation. ENDOCRINE: No increased thirst. No abnormal weight change. HEMATOLOGIC/LYMPHATIC: No anemia, easy bleeding, or history of blood clots. ALLERGIC/IMMUNOLOGIC: No hives or skin allergy. <Tommy Hutchinson - Last Filed: 07/30/17 01:33> *Physical Exam - Vital Signs Last Vital Signs Temp Pulse Resp BP Pulse Ox 97.9 F 73 24 110/75 100 07/30/17 01:19 07/30/17 01:19 07/30/17 01:19 07/30/17 01:19 07/30/17 01:19 - Physical Exam Comments: 07/30/17 01:27 Constitutional: Awake, alert, oriented. No acute distress. Head: Normocephalic. Atraumatic Eyes: PERRL. EOMI. Conjunctivae are not pale. ENT: Mucous membranes are moist and intact. Posterior pharynx without exudates or erythema. Uvula midline. Neck: Supple. Full ROM. No lymphadenopathy. Cardiovascular: Regular rate. Regular rhythm. S1, S2 regular. Distal pulses are 2+ and symmetric. Pulmonary/Chest: (+) Coarse breath sounds, ronchi wheezing. Abdominal: Soft and non-distended. There is no tenderness. No rebound, guarding or rigidity. No organomegaly. No palpable masses. Good bowel sounds. Back: No CVA tenderness. Musculoskeletal: No edema. No cyanosis. No clubbing. Full range of motion in all extremities. Nocalf tenderness. Radial/pedal pulses are intact and 2+ bilaterally Skin: Skin is warm and dry. No petechiae. No purpura. Neurological: Alert and oriented to person, place, and time. Cranial nerves II -XII are grossly intact. Normal speech. Strength is grossly symmetric. No sensory deficits. Psychiatric: Good eye contact. Normal interaction, affect and behavior. <Tommy Hutchinson - Last Filed: 07/30/17 01:33> Medical Decision Making - Medical Decision Making 07/30/17 01:29 a/p: 67yo female with SOB since thursday -feels similar to asthma exacerbation -using nebs/inhalers at home without relief -no fevers, but has a cough that is productive -diffuse wheezing, rhonchi on exam -received 2 duonebs in the field and 10 decadron -still with a productive cough, will send labs, ekg, cxr - will moniotor and reasesess 07/30/17 01:41 pt will be signed out to the oncoming ED physician pending labs, ekg, cxr - re- evaluation <Manjula Guardado - Last Filed: 07/30/17 01:42> *DC/Admit/Observation/Transfer - Attestations Scribe Attestion: 07/30/17 01:28 Documentation prepared by Tommy Hutchinson, acting as medical driver for Manjula Guardado DO <Tommy Hutchinson - Last Filed: 07/30/17 01:33> - Attestations Physician Attestion: 07/30/17 01:31 I, Dr. Manjula Guardado, DO, attest that this document has been prepared under my direction and personally reviewed by me in its entirety. I further attest, that it accurately reflects all work, treatment, procedures and medical decision -making performed by me. <Manjula Guardado - Last Filed: 07/30/17 01:42> Diagnosis at time of Disposition: Morbid exogenous obesity, Chest pain, Asthma exacerbation
[2017-07-30] MEDS ORDERED: SODIUM CHLORIDE 0.9% 1000 ML INFUS.BAG IV ONE (01:21)
[2017-07-30] MEDS ORDERED: ALBUTEROL SO4 2.5/IPRATROPIUM 0.5 INH SOL 3 ML VIAL.NEB. NEB ONE ×5 (01:21→09:42)
[2017-07-30] MEDS ORDERED: AZITHROMYCIN IVPB 500 MG in DEXTROSE 5%-WATER - 250 ML IVPB ONE (01:22)
[2017-07-30] MEDS ORDERED: MAGNESIUM SULF 50% (8.12 MEQ/2 ML-1 GM VIAL) IVPB ONE (01:22)
[2017-07-30] MEDS ORDERED: DEXAMETHASONE SOD PHOSPHATE 10 MG/1 ML VIAL ONE (01:23)
[2017-07-30 01:32] VITALS: BMI 34.4
[2017-07-30 01:59] LABS: BASO % 1.2 % (0-2.0); EOS % 3.7 % (0-4.5); HEMATOCRIT 37.3 % (32.4-45.2); HEMOGLOBIN 12.3 GM/dL (10.7-15.3); LYMPH % 30.1 % (8-40); MEAN CELL VOLUME 87.9 fl (80-96); MEAN PLT VOLUME 9.5 fl (7.5-11.1); MONO % 7.4 % (3.8-10.2); NEUT % 57.6 % (42.8-82.8); PLATELET COUNT 186 K/MM3 (134-434); RBC 4.24 M/mm3 (3.60-5.2); RDW 13.7 % (11.6-15.6); VENOUS PC02 48.3 mmHg (38-52); VENOUS PH 7.31 (7.32-7.42); VENOUS PO2 47.6 mmHg (28-48); WHITE BLOOD COUNT 9.1 K/mm3 (4.0-10.0)
[2017-07-30] MEDS ORDERED: MAGNESIUM 1GM/D5W - 1 GM/100 ML IVPB IVPB ONE (02:00)
[2017-07-30] MEDS ORDERED: AZITHROMYCIN IVPB 250 ML IVPB ONE (02:00)
[2017-07-30 02:30] LABS: ALBUMIN 3.3 g/dl (3.4-5.0); ANION GAP 7 (8-16); BILIRUBIN,TOTAL 0.4 mg/dL (0.2-1.0); BLOOD UREA NITROGEN 13 mg/dL (7-18); CALCIUM 9.1 mg/dL (8.5-10.1); CHLORIDE 100 mmol/L (98-107); CO2 29 mmol/L (21-32); GLUCOSE,RANDOM 309 mg/dL (74-106); SGPT/ALT 20 U/L (12-78); SODIUM 136 mmol/L (136-145); TOT PROT 7.1 g/dl (6.4-8.2)
[2017-07-30 02:33] LABS: ALK PHOS 85 U/L (45-117)
[2017-07-30 02:55] LABS: POTASSIUM 4.1 mmol/L (3.5-5.1); SGOT/AST 19 U/L (15-37)
[2017-07-30] MEDS ORDERED: ALBUTEROL SO4 2.5/IPRATROPIUM 0.5 INH SOL 3 ML VIAL.NEB. NEB STA (03:02)
--- NOTE | 2017-07-30 04:16 | PDOC ---
*Physical Exam - Vital Signs Last Vital Signs Temp Pulse Resp BP Pulse Ox 97.9 F 73 24 110/75 100 07/30/17 01:19 07/30/17 01:19 07/30/17 01:19 07/30/17 01:19 07/30/17 01:19 ED Treatment Course - LABORATORY CBC & Chemistry Diagram: 07/30/17 01:46 07/30/17 01:46 - ADDITIONAL ORDERS Additional order review: Laboratory Results 07/30/17 07/30/17 01:46 01:46 VBG pH 7.31 L POC VBG pCO2 48.3 POC VBG pO2 47.6 Mixed VBG HCO3 23.7 Sodium 136 Potassium 4.1 Chloride 100 Carbon Dioxide 29 Anion Gap 7 L BUN 13 Creatinine 1.0 Creat Clearance w eGFR 55.64 Random Glucose 309 H* Calcium 9.1 Magnesium 2.0 Total Bilirubin 0.4 AST 19 ALT 20 Alkaline Phosphatase 85 Creatine Kinase 117 Troponin I < 0.02 Total Protein 7.1 Albumin 3.3 L 07/30/17 01:46 RBC 4.24 MCV 87.9 MCHC 33.0 RDW 13.7 MPV 9.5 Neutrophils % 57.6 Lymphocytes % 30.1 Monocytes % 7.4 Eosinophils % 3.7 Basophils % 1.2 - Medications Given in the ED: ED Medications Discontinued Medications Generic Name Dose Route Start Last Admin Trade Name Afia PRN Reason Stop Dose Admin Albuterol/Ipratropium 1 amp 07/30/17 01:21 07/30/17 02:03 Duoneb - NEB 07/30/17 01:22 1 amp ONCE ONE Administration Albuterol/Ipratropium 1 amp 07/30/17 03:02 07/30/17 03:18 Duoneb - NEB 07/30/17 03:03 1 amp ONCE STA Administration Azithromycin 500 mg/ Dextrose 250 mls @ 250 mls/hr 07/30/17 01:22 07/30/17 02 :27 IVPB 07/30/17 02:21 250 mls/hr ONCE ONE Administration Magnesium Sulfate 1 gm 07/30/17 01:22 07/30/17 02:06 Magnesium Sulfate IVPB 07/30/17 01:23 1 gm ONCE ONE Administration Sodium Chloride 1,000 ml 07/30/17 01:21 07/30/17 02:03 Normal Saline - IV 07/30/17 01:22 1,000 ml ONCE ONE Administration *DC/Admit/Observation/Transfer Diagnosis at time of Disposition: Morbid exogenous obesity, Chest pain, Asthma exacerbation - Discharge Dispostion Condition at time of disposition: Stable Decision to Admit order: Yes - Referrals Referrals: Saurabh Harris MD [Primary Care Provider] - - Patient Instructions - Post Discharge Activity
--- NOTE | 2017-07-30 05:02 | PN ---
Teaching Attending Note Name of Resident: Min Roberts ATTENDING PHYSICIAN STATEMENT I saw and evaluated the patient. I reviewed the resident's note and discussed the case with the resident. I agree with the resident's findings and plan as documented. SUBJECTIVE: Patient is a 67 year old female brought via EMS from home, with a significant past medical history of HTN, HLD, asthma and diabetes, who presents to the emergency department complaining of shortness of breath for the last couple of days that has exacerbated today. She says her windows at home are being replaced and that she inhaled a lot of dust. She reports that she has been hospitalized before for her asthma exacerbation but denies any history of intubation. She denies any steroid use. EMS gave the patient 2 breathing treatments on route to the ED. The patient notes that she has been using nebulizers at home. She also reports cough with yellow sputum, chest tightness and sore throat. OBJECTIVE: Alert and in mild respiratory distress; wheezing. Vital Signs Period Temp Pulse Resp BP Sys/Linares Pulse Ox Last 24 Hr 97.9 F 73 24 110/75 100 HEENT: No Jaundice, eye redness or discharge, PERRLA, EOMI. Normocephalic, atraumatic. External ears are normal and hearing is grossly intact. No nasal discharge. Neck: Supple, nontender. No palpable adenopathy or thyromegaly. No JVD Chest: Prolonged expiration. Diminished breath sounds and expiratory wheezing. Clear to percussion. Heart: Regular. No S3, rub or murmur Abdomen: Not distended, soft, nontender and no HSM. No rebound or guarding. Normoactive bowel sounds. Ext: Peripheral pulses intact. Left leg edema. Skin: Warm and dry. No petechiae, rash or ecchymosis. Neuro: Alert. Oriented x3. CN 2-12 grossly intact. Sensation grossly intact in all four extremities and DTR are symmetric. Home Medications Medication Instructions Recorded Budesonide/Formeterol Fumarate 2 puff IH BID #1 inhaler 07/09/16 [SYMBICORT 160/4.5mcg -] Tiotropium [place] [Spiriva] 1 puff IH DAILY #1 inh 07/09/16 Albuterol Sulfate Inhaler - 1 - 2 inh PO Q4H PRN #1 inhaler 07/19/16 [Ventolin HFA Inhaler -] Atorvastatin Ca [Lipitor] 1 tab PO DAILY 12/17/16 Sitagliptin Phosphate [Januvia] 100 mg PO DAILY 12/17/16 Abnormal Lab Results 07/30/17 07/30/17 01:46 01:46 VBG pH 7.31 L Anion Gap 7 L Random Glucose 309 H* Albumin 3.3 L ASSESSMENT AND PLAN: 1. Asthma Exacerbation - Likely precipitated by environmental irritants. However CXR shows possible RLL infiltrate. Will treat with Duoneb q4 hours, Dulera q 12 hours, Spiriva q 12 hours round the clock for first 24 hours and PRN thereafter. Solumedrol 60mg q 8hours. IV Rocephin and Azithromycin. Will get an EKG. 2. DM - Implement sliding scale insulin for better glucose control. 3. Left leg edema - Will get left leg doppler. 4. DVT prophylaxis - Heparin 5000u sq tid. 5. Advance directives - Full code
--- NOTE | 2017-07-30 06:28 | HP ---
CHIEF COMPLAINT: SOB PCP: Dr. Montes HISTORY OF PRESENT ILLNESS: The patient is a 67 yo f w/ PMH HTN, HLD, Asthma, DM who comes into the ED c/o a 5 day hx of progressive cough, sore throat and SOB. The patient was in her usual state of health until 5 days ago, when the windows in her apartment were changed. Since then, she developed a cough and sore throat, then progressive SOB. The cough is productive of yellow sputum. The SOB is associated with a chest tightness. The patient has been compliant with her home medications which have not provided her any relief. She endorses being hospitalized last year for an asthma exacerbation, but denies ever being intubated. Patient denies chest pain, headaches, fever, chills. Patient received 2 nebulizers and 10mg decadron from EMS. ER course was notable for: (1) duonebs x4 (2) magnesium x1 (3) cxr with possible consolidation on the right and congestive changes b/l Recent Travel: none PAST MEDICAL HISTORY: see hpi PAST SURGICAL HISTORY: Tubal ligation appendectomy Social History: Smoking: former smoker, quit 15 yrs ago Alcohol: denies Drugs: denies Family History: non-contributory Allergies No Known Allergies Allergy (Verified 07/30/17 01:19) HOME MEDICATIONS: Home Medications Medication Instructions Recorded Budesonide/Formeterol Fumarate 2 puff IH BID #1 inhaler 07/09/16 [SYMBICORT 160/4.5mcg -] Tiotropium [place] [Spiriva] 1 puff IH DAILY #1 inh 07/09/16 Albuterol Sulfate Inhaler - 1 - 2 inh PO Q4H PRN #1 inhaler 07/19/16 [Ventolin HFA Inhaler -] Atorvastatin Ca [Lipitor] 1 tab PO DAILY 12/17/16 Sitagliptin Phosphate [Januvia] 100 mg PO DAILY 12/17/16 REVIEW OF SYSTEMS CONSTITUTIONAL: Absent: fever, chills, diaphoresis, generalized weakness, malaise, loss of appetite, weight change HEENT: Absent: rhinorrhea, nasal congestion, throat pain, throat swelling, difficulty swallowing, mouth swelling, ear pain, eye pain, visual changes CARDIOVASCULAR: Absent: chest pain, syncope, palpitations, irregular heart rate, lightheadedness , peripheral edema RESPIRATORY: Absent: orthopnea, stridor, hemoptysis GASTROINTESTINAL: Absent: abdominal pain, abdominal distension, nausea, vomiting, diarrhea, constipation, melena, hematochezia GENITOURINARY: Absent: dysuria, frequency, urgency, hesitancy, hematuria, flank pain, genital pain MUSCULOSKELETAL: Absent: myalgia, arthralgia, joint swelling, back pain, neck pain SKIN: Absent: rash, itching, pallor HEMATOLOGIC/IMMUNOLOGIC: Absent: easy bleeding, easy bruising, lymphadenopathy, frequent infections ENDOCRINE: Absent: unexplained weight gain, unexplained weight loss, heat intolerance, cold intolerance NEUROLOGIC: Absent: headache, focal weakness or paresthesias, dizziness, unsteady gait, seizure, mental status changes, bladder or bowel incontinence PSYCHIATRIC: Absent: anxiety, depression, suicidal or homicidal ideation, hallucinations. PHYSICAL EXAMINATION Vital Signs - 24 hr 07/30/17 01:19 Temperature 97.9 F Pulse Rate 73 Respiratory 24 Rate Blood Pressure 110/75 O2 Sat by Pulse 100 Oximetry (%) GENERAL: Awake, alert, and fully oriented, in no acute distress. HEAD: Normal with no signs of trauma. EYES: Pupils equal, round and reactive to light, extraocular movements intact, sclera anicteric, conjunctiva clear. No lid lag. EARS, NOSE, THROAT: oropharynx clear without exudates. Moist mucous membranes. NECK: Normal range of motion, supple without lymphadenopathy, JVD, or masses. LUNGS: Breath sounds equal, decreased air entry bilaterally with scant expiratory wheezes in all lung arango. HEART: Regular rate and rhythm, normal S1 and S2 without murmur, rub or gallop. ABDOMEN: Soft, nontender, not distended, normoactive bowel sounds, no guarding, no rebound, no masses. No hepatomegaly or splenomegaly. LOWER EXTREMITIES: 2+ pulses, warm, well-perfused. No calf tenderness. 1+ edema on LLE. NEUROLOGICAL: Cranial nerves II-X intact. Normal speech. PSYCHIATRIC: Cooperative. Good eye contact. Appropriate mood and affect. SKIN: Warm, dry, normal turgor, no rashes or lesions noted, normal capillary refill. Laboratory Results - last 24 hr 07/30/17 07/30/17 07/30/17 01:46 01:46 01:46 WBC 9.1 RBC 4.24 Hgb 12.3 Hct 37.3 MCV 87.9 MCH 29.0 MCHC 33.0 RDW 13.7 Plt Count 186 MPV 9.5 Absolute Neuts (auto) 5.2 Neutrophils % 57.6 Lymphocytes % 30.1 Monocytes % 7.4 Eosinophils % 3.7 Basophils % 1.2 Nucleated RBC % 0 VBG pH 7.31 L POC VBG pCO2 48.3 POC VBG pO2 47.6 Mixed VBG HCO3 23.7 Sodium 136 Potassium 4.1 Chloride 100 Carbon Dioxide 29 Anion Gap 7 L BUN 13 Creatinine 1.0 Creat Clearance w eGFR 55.64 Random Glucose 309 H* Calcium 9.1 Magnesium 2.0 Total Bilirubin 0.4 AST 19 ALT 20 Alkaline Phosphatase 85 Creatine Kinase 117 Troponin I < 0.02 Total Protein 7.1 Albumin 3.3 L ASSESSMENT/PLAN: The patient is a 67 yo f w/ PMH Asthma and DM who comes in complaining of a 5 day history of progressive cough, ,sore throat, chest pain and SOB. #SOB and cough likely 2/2 acute asthma exacerbation in the setting of possible atypical pneumonia. -CXR with some congestive changes which may represent atypical infection -Cough productive of yellow sputum -duonebs standing Q4h -solu-medrol 60mg Q8H -azithromycin 500mg daily -rocephin 1g daily #DM -tight glycemic control needed in the setting of steriod use -BGM ACHS -ISS ACHS #FEN -no fluids indicated -lytes WNL -diabetic diet #prophy -heparin SQ 5k units TID #Dispo -admit for observation Visit type - Emergency Visit Emergency Visit: Yes ED Registration Date: 07/30/17 Care time: The patient presented to the Emergency Department on the above date and was hospitalized for further evaluation of their emergent condition. - New Patient This patient is new to me today: Yes Date on this admission: 07/30/17 - Critical Care Critical Care patient: No Hospitalist Screening - Colonoscopy Questionnaire Colonoscopy Questionnaire: Colonoscopy Questionnaire - Patient: 50 - 75 years old and never had a screening colonoscopy: Unknown History of colon or rectal polyps, or CA: Unknown History of IBD, Crohn's disease or UC: Unknown History of abdominal radiation therapy as a child: Unknown - Relative: 1 with colon or rectal CA, or polyps at age 60 or younger: Unknown Colon or rectal CA diagnosed at age 45 or younger: Unknown Multiple relatives with colon or rectal CA: Unknown - Outcome: Screening Result: Negative Screen
[2017-07-30] MEDS ORDERED: ALBUTEROL SO4 2.5/IPRATROPIUM 0.5 INH SOL 3 ML VIAL.NEB. NEB SCH (06:30)
[2017-07-30] MEDS ORDERED: cefTRIAXone SODIUM 1 GM VIAL ONE (06:50)
[2017-07-30] MEDS ORDERED: methylPREDNISolone NA SUCC 40 MG/1 ML VIAL ONE (06:50)
[2017-07-30] MEDS ORDERED: HEPARIN NA (PORCINE) 5,000 UNITS/ML 1ML VIAL ONE (06:50)
[2017-07-30] MEDS: HEPARIN NA (PORCINE) 5,000 UNITS/ML 1ML VIAL SQ SCH ×3 (07:00→22:24)
[2017-07-30] MEDS: CEFTRIAXONE 1 GM in DEXTROSE 5%-WATER - 50 ML IVPB SCH (07:00)
[2017-07-30] MEDS: methylPREDNISolone NA SUCC 125 MG/2 ML VIAL IVPUSH SCH ×3 (07:00→22:26)
[2017-07-30] MEDS: INSULIN SLIDING SCALE (NOVOLOG) 1 VIAL SQ SCH ×4 (08:05→22:35)
--- NOTE | 2017-07-30 09:12 | PN ---
Teaching Attending Note Name of Resident: Nilda Thompson ATTENDING PHYSICIAN STATEMENT I saw and evaluated the patient. I reviewed the resident's note and discussed the case with the resident. I agree with the resident's findings and plan as documented. SUBJECTIVE: Patient continues to wheeze, feels better. OBJECTIVE: Vital Signs Temperature 97.7 F 07/30/17 06:35 Pulse Rate 84 07/30/17 06:35 Respiratory Rate 16 07/30/17 06:35 Blood Pressure 107/56 07/30/17 06:35 O2 Sat by Pulse Oximetry (%) 97 07/30/17 06:35 CBCD WBC 9.1 K/mm3 (4.0-10.0) 07/30/17 01:46 RBC 4.24 M/mm3 (3.60-5.2) 07/30/17 01:46 Hgb 12.3 GM/dL (10.7-15.3) 07/30/17 01:46 Hct 37.3 % (32.4-45.2) 07/30/17 01:46 MCV 87.9 fl (80-96) 07/30/17 01:46 MCHC 33.0 g/dl (32.0-36.0) 07/30/17 01:46 RDW 13.7 % (11.6-15.6) 07/30/17 01:46 Plt Count 186 K/MM3 (134-434) 07/30/17 01:46 MPV 9.5 fl (7.5-11.1) 07/30/17 01:46 CMP Sodium 136 mmol/L (136-145) 07/30/17 01:46 Potassium 4.1 mmol/L (3.5-5.1) 07/30/17 01:46 Chloride 100 mmol/L (98-107) 07/30/17 01:46 Carbon Dioxide 29 mmol/L (21-32) 07/30/17 01:46 Anion Gap 7 (8-16) L 07/30/17 01:46 BUN 13 mg/dL (7-18) 07/30/17 01:46 Creatinine 1.0 mg/dL (0.55-1.02) 07/30/17 01:46 Creat Clearance w eGFR 55.64 (>60) 07/30/17 01:46 Random Glucose 309 mg/dL (74-106) H* 07/30/17 01:46 Calcium 9.1 mg/dL (8.5-10.1) 07/30/17 01:46 Total Bilirubin 0.4 mg/dL (0.2-1.0) 07/30/17 01:46 AST 19 U/L (15-37) 07/30/17 01:46 ALT 20 U/L (12-78) 07/30/17 01:46 Alkaline Phosphatase 85 U/L (45-117) 07/30/17 01:46 Total Protein 7.1 g/dl (6.4-8.2) 07/30/17 01:46 Albumin 3.3 g/dl (3.4-5.0) L 07/30/17 01:46 CARDIAC ENZYMES Creatine Kinase 117 IU/L (26-192) 07/30/17 01:46 Troponin I < 0.02 ng/ml (0.00-0.05) 07/30/17 01:46 Current Medications Generic Name Dose Route Start Last Admin Trade Name Afia PRN Reason Stop Dose Admin Albuterol/Ipratropium 1 amp 07/30/17 10:00 Duoneb - NEB Q4HPO KRYSTLE Atorvastatin Calcium 40 mg 07/30/17 22:00 Lipitor - PO HS KRYSTLE Budesonide/Formoterol Fumarate 2 puff 07/30/17 10:00 Symbicort 160/4.5mcg - IH BID KRYSTLE Heparin Sodium (Porcine) 5,000 unit 07/30/17 06:30 07/30/17 07:00 Heparin - SQ 5,000 unit TID KRYSTLE Administration Azithromycin 250 mg/ Dextrose 250 mls @ 250 mls/hr 07/31/17 00:00 IVPB DAILY@0000 KRYSTLE Ceftriaxone Sodium 1 gm/ 50 mls @ 100 mls/hr 07/30/17 06:45 07/30/17 07:00 Dextrose IVPB 100 mls/hr DAILY [facility] Administration Protocol Insulin Aspart 1 vial 07/30/17 07:00 07/30/17 08:05 Novolog Vial Sliding Scale - SQ Not Given ACHS [facility] Protocol Methylprednisolone Sodium Succinate 60 mg 07/30/17 06:15 07/30/17 07:00 Solu-Medrol - IVPUSH 60 mg TID KRYSTLE Administration Tiotropium [place] 1 puff 07/30/17 10:00 Spiriva - IH DAILY [facility] Home Medications Medication Instructions Recorded Budesonide/Formeterol Fumarate 2 puff IH BID #1 inhaler 07/09/16 [SYMBICORT 160/4.5mcg -] Tiotropium [place] [Spiriva] 1 puff IH DAILY #1 inh 07/09/16 Albuterol Sulfate Inhaler - 1 - 2 inh PO Q4H PRN #1 inhaler 07/19/16 [Ventolin HFA Inhaler -] Atorvastatin Ca [Lipitor] 1 tab PO DAILY 12/17/16 Sitagliptin Phosphate [Januvia] 100 mg PO DAILY 12/17/16 PE: as per resident's note Chest: positive for expiratory wheeze BL ASSESSMENT AND PLAN: he patient is a 67 yo f w/ PMH Asthma and DM who comes in complaining of a 5 day history of progressive cough, ,sore throat, chest pain and SOB. #Acute exacerbation of Asthma continue spiriva, solu medrol IV 60mg q8h, symbicort, zithro IV, Rocephin IV #DM: BGms and Sliding scale #HLD : On lipitor continue DVT Px: heparin SQ #Dispo: will change to inpatient
[2017-07-30] MEDS: ALBUTEROL SO4 2.5/IPRATROPIUM 0.5 INH SOL 3 ML VIAL.NEB. NEB SCH ×4 (09:46→21:23)
[2017-07-30] MEDS ORDERED: INSULIN (NOVOLOG) ASPART 100 UNITS/ML 10ML VIAL ONE ×2 (11:33→20:13)
--- NOTE | 2017-07-30 11:46 | EKG ---
Test Reason : Blood Pressure : / mmHG Vent. Rate : 080 BPM Atrial Rate : 080 BPM P-R Int : 158 ms QRS Dur : 100 ms QT Int : 390 ms P-R-T Axes : 041 055 081 degrees QTc Int : 449 ms NORMAL SINUS RHYTHM LOW VOLTAGE QRS SEPTAL INFARCT (CITED ON OR BEFORE 27-JUN-2009) ABNORMAL ECG WHEN COMPARED WITH ECG OF 30-JUL-2017 01:44, SINUS RHYTHM HAS REPLACED JUNCTIONAL RHYTHM Confirmed by SANJUANA RHODES MD ([id number]) on 07/30/2017 11:46:11 AM Referred By: JOSE COLLINS DR Confirmed By:SANJUANA RHODES MD
--- NOTE | 2017-07-30 11:51 | EKG ---
Test Reason : Blood Pressure : / mmHG Vent. Rate : 075 BPM Atrial Rate : 074 BPM P-R Int : 000 ms QRS Dur : 086 ms QT Int : 388 ms P-R-T Axes : 000 058 097 degrees QTc Int : 433 ms POOR DATA QUALITY, INTERPRETATION MAY BE ADVERSELY AFFECTED SINUS RHYTHM LOW VOLTAGE QRS SEPTAL INFARCT (CITED ON OR BEFORE 27-JUN-2009) ABNORMAL ECG Confirmed by CARMELO JEWELL, SANJUANA ([id number]) on 07/30/2017 11:51:38 AM Referred By: Confirmed By:SANJUANA RHODES MD
[2017-07-30] MEDS: BUDESONIDE/FORMETEROL FUMARATE 160/4.5 mcg INHALER IH SCH ×2 (17:28→22:26)
[2017-07-30] MEDS: TIOTROPIUM BROMIDE 18 MCG CAPSULES IH SCH (17:29)
--- NOTE | 2017-07-30 17:46 | PN ---
Physical Exam: SUBJECTIVE: Patient seen and examined at bedside. States that her windows were replaced recently, causing increased amount of dust which exacerbated her asthma. It is worse in the summertime. Pt does peak flow at home with her aid, but does not know her baseline. As per pt, she has had an aid at home over the past two weeks d/t dizziness with ambulation. Still with productive cough. Otherwise, denies FUENTES, fever, chills, chest pain, or changes in urinary or bowel function. OBJECTIVE: Vital Signs Period Temp Pulse Resp BP Sys/Linares Pulse Ox Last 24 Hr 97.7 F-97.9 F 73-84 16-24 107-120/56-78 97-100 GENERAL: The patient is awake, alert, and fully oriented, in no acute distress. HEAD: Normal with no signs of trauma. EYES: PERRL, extraocular movements intact, sclera anicteric, conjunctiva clear. ENT: Ears normal, nares patent, oropharynx clear without exudates, moist mucous membranes. NECK: Trachea midline, supple. LUNGS: +with air entry, however diffuse wheezes. without crackles or rhonchi. no accessory m usage. HEART: Regular rate and rhythm, S1, S2 without murmur, rub or gallop. ABDOMEN: Soft, obese, nontender, nondistended, normoactive bowel sounds, no guarding, no rebound EXTREMITIES: 2+ pt pulses, warm, well-perfused, +diffuse tenderness - LLE NEUROLOGICAL: Cranial nerves II through XII grossly intact. 5/5 motor strength in upper and lower extremities. diminished sensation in lower extremities PSYCH: Normal mood, normal affect. SKIN: Warm, dry, normal turgor Laboratory Results - last 24 hr 07/30/17 07/30/17 07/30/17 01:46 01:46 01:46 WBC 9.1 RBC 4.24 Hgb 12.3 Hct 37.3 MCV 87.9 MCH 29.0 MCHC 33.0 RDW 13.7 Plt Count 186 MPV 9.5 Absolute Neuts (auto) 5.2 Neutrophils % 57.6 Lymphocytes % 30.1 Monocytes % 7.4 Eosinophils % 3.7 Basophils % 1.2 Nucleated RBC % 0 VBG pH 7.31 L POC VBG pCO2 48.3 POC VBG pO2 47.6 Mixed VBG HCO3 23.7 Sodium 136 Potassium 4.1 Chloride 100 Carbon Dioxide 29 Anion Gap 7 L BUN 13 Creatinine 1.0 Creat Clearance w eGFR 55.64 POC Glucometer Random Glucose 309 H* Calcium 9.1 Magnesium 2.0 Total Bilirubin 0.4 AST 19 ALT 20 Alkaline Phosphatase 85 Creatine Kinase 117 Troponin I < 0.02 Total Protein 7.1 Albumin 3.3 L Active Medications Generic Name Dose Route Start Last Admin Trade Name Freq PRN Reason Stop Dose Admin Albuterol/Ipratropium 1 amp 07/30/17 10:00 07/30/17 15:00 Duoneb - NEB 1 amp Q4HPO KRYSTLE Administration Atorvastatin Calcium 40 mg 07/30/17 22:00 Lipitor - PO HS KRYSTLE Budesonide/Formoterol Fumarate 2 puff 07/30/17 10:00 07/30/17 17:28 Symbicort 160/4.5mcg - IH 2 puff BID KRYSTLE Administration Heparin Sodium (Porcine) 5,000 unit 07/30/17 06:30 07/30/17 14:55 Heparin - SQ 5,000 unit TID KRYSTLE Administration Azithromycin 250 mg/ Dextrose 250 mls @ 250 mls/hr 07/31/17 00:00 IVPB DAILY@0000 KRYSTLE Ceftriaxone Sodium 1 gm/ 50 mls @ 100 mls/hr 07/30/17 06:45 07/30/17 07:00 Dextrose IVPB 100 mls/hr DAILY [facility] Administration Protocol Insulin Aspart 1 vial 07/30/17 07:00 07/30/17 17:30 Novolog Vial Sliding Scale - SQ 10 unit ACHS K[facility]STLE Administration Protocol Methylprednisolone Sodium Succinate 60 mg 07/30/17 06:15 07/30/17 14:55 Solu-Medrol - IVPUSH 60 mg TID KRYSTLE Administration Tiotropium [place] 1 puff 07/30/17 10:00 07/30/17 17:29 Spiriva - IH 1 puff DAILY [facility]LE Administration TESTS 07/30/17: CXR: since 08/12/16, weaker inspiration with prominent mediastinum and central congestive changes 07/30/17: Duplex: no evidence of DVT in LLE ASSESSMENT/PLAN: 67 y/o F w/ PMH Asthma and DM who presents with five day history of progressive cough, ,sore throat, chest pain and SOB. #Acute asthma exacerbation -triggered by dust, summer weather, allergies -currently sat high 90's without NC 02 -continue duonebs q4h -solu-medrol 60mg IVP TID -continue spiriva 1 puff IH daily -symbicort 2 puff IH BID -monitor peak flow #CAP -pt currently does not meet sepsis, no tachy, afebrile, without white count -continue CAP tx: zithromax 250mg IVPB qd, rocephin 1g IVPB qd (Day1) #DM -tight glycemic control d/t steroid use -BGM ACHS -ISS ACHS #F/E/N -no fluids indicated -continue to follow lytes -diabetic diet #PPX -heparin SQ 5000 U SQ TID #Dispo -changed to inpatient status Visit type - Emergency Visit Emergency Visit: No - New Patient This patient is new to me today: Yes Date on this admission: 07/30/17 - Critical Care Critical Care patient: No
[2017-07-30] MEDS ORDERED: INSULIN (NOVOLOG) ASPART 100 UNITS/ML 10ML VIAL SQ ONE (20:04)
[2017-07-30] MEDS ORDERED: PT OWN MED DRAWER 7, Y5N ONE (21:18)
[2017-07-30 22:02] LABS: ANION GAP 13 (8-16); BLOOD UREA NITROGEN 30 mg/dL (7-18); CALCIUM 9.2 mg/dL (8.5-10.1); CHLORIDE 98 mmol/L (98-107); CO2 24 mmol/L (21-32); CREATININE 1.6 mg/dL (0.55-1.02); SODIUM 135 mmol/L (136-145)
[2017-07-30 22:06] LABS: POTASSIUM 4.3 mmol/L (3.5-5.1)
[2017-07-30 22:08] LABS: GLUCOSE,RANDOM 424 mg/dL (74-106)
[2017-07-30] MEDS: ATORVASTATIN CA 40 MG TABLET (FP) PO SCH (22:24)
[2017-07-30] MEDS: SODIUM CHLORIDE 1,000 ML IV SCH (22:35)
[2017-07-31] MEDS: AZITHROMYCIN IVPB 250 MG in DEXTROSE 5%-WATER - 250 ML IVPB SCH ×2 (00:16→23:52)
[2017-07-31] MEDS: ALBUTEROL SO4 2.5/IPRATROPIUM 0.5 INH SOL 3 ML VIAL.NEB. NEB SCH ×3 (03:05→10:55)
[2017-07-31] MEDS: INSULIN SLIDING SCALE (NOVOLOG) 1 VIAL SQ SCH ×4 (06:24→21:50)
[2017-07-31] MEDS: methylPREDNISolone NA SUCC 125 MG/2 ML VIAL IVPUSH SCH (06:25)
[2017-07-31] MEDS: HEPARIN NA (PORCINE) 5,000 UNITS/ML 1ML VIAL SQ SCH ×3 (06:26→21:50)
[2017-07-31 07:49] LABS: BASO % 0.1 % (0-2.0); HEMATOCRIT 34.7 % (32.4-45.2); HEMOGLOBIN 11.4 GM/dL (10.7-15.3); LYMPH % 5.6 % (8-40); MCH 28.8 pg (25.7-33.7); MCHC 32.8 g/dl (32.0-36.0); MEAN CELL VOLUME 87.8 fl (80-96); MEAN PLT VOLUME 10.5 fl (7.5-11.1); MONO % 1.9 % (3.8-10.2); NEUT % 92.4 % (42.8-82.8); PLATELET COUNT 190 K/MM3 (134-434); RBC 3.95 M/mm3 (3.60-5.2); RDW 13.7 % (11.6-15.6)
[2017-07-31 08:30] LABS: ANION GAP 12 (8-16); BLOOD UREA NITROGEN 31 mg/dL (7-18); CALCIUM 9.1 mg/dL (8.5-10.1); CHLORIDE 99 mmol/L (98-107); CO2 26 mmol/L (21-32); CREATININE 1.1 mg/dL (0.55-1.02); POTASSIUM 4.5 mmol/L (3.5-5.1); SODIUM 137 mmol/L (136-145)
[2017-07-31 08:43] LABS: GLUCOSE,RANDOM 380 mg/dL (74-106)
[2017-07-31 09:01] LABS: PLATELET ESTIMATE NORMAL
[2017-07-31] MEDS ORDERED: cefTRIAXone SODIUM 1 GM VIAL ONE (09:28)
[2017-07-31] MEDS ORDERED: DEXTROSE 5%-WATER - 50 ML IVPB ONE (09:29)
[2017-07-31] MEDS: BUDESONIDE/FORMETEROL FUMARATE 160/4.5 mcg INHALER IH SCH ×2 (09:30→21:49)
[2017-07-31] MEDS: TIOTROPIUM BROMIDE 18 MCG CAPSULES IH SCH (09:30)
[2017-07-31] MEDS: CEFTRIAXONE 1 GM in DEXTROSE 5%-WATER - 50 ML IVPB SCH (09:31)
[2017-07-31] MEDS ORDERED: methylPREDNISolone NA SUCC 125 MG/2 ML VIAL IVPUSH SCH (10:45)
[2017-07-31 11:59] LABS: PHOSPHOROUS 3.6 mg/dL (2.5-4.9)
[2017-07-31 12:04] LABS: MAGNESIUM 2.4 mg/dL (1.8-2.4)
[2017-07-31] MEDS: SODIUM CHLORIDE 1,000 ML IV SCH ×2 (12:22→22:02)
--- NOTE | 2017-07-31 13:09 | PN ---
Progress Note (short form) - Note Progress Note: PULMONARY CONSULTATION DICTATED 07/31/17 IMP CHRONIC PERSISTENT ASTHMA WITH ACUTE EXACERBATION HTN DM HLD LIKELY OSAS OBESITY PLAN IV STEROIDS INHALED BRONCHODILATORS,INHALED STEROIDS O2 MONITOR PEAK FLOW PFTS OUTPATIENT FORMAL SLEEP STUDIES OUTPATIENT SLEEP SCREEN CONSIDER DISCONTINUE ABX DR BUTLER Problem List - Problems (1) Asthma exacerbation Code(s): J45.901 - UNSPECIFIED ASTHMA WITH (ACUTE) EXACERBATION (2) Morbid exogenous obesity Code(s): E66.01 - MORBID (SEVERE) OBESITY DUE TO EXCESS CALORIES (3) Diabetes Code(s): E11.9 - TYPE 2 DIABETES MELLITUS WITHOUT COMPLICATIONS Qualifiers: Diabetes mellitus type: type 2 Diabetes mellitus nursing home insulin use: without vermin exterminator use Diabetes mellitus complication status: without complication Qualified Code(s): E11.9 - Type 2 diabetes mellitus without complications (4) HTN (hypertension) Code(s): I10 - ESSENTIAL (PRIMARY) HYPERTENSION
--- NOTE | 2017-07-31 13:16 | PN ---
<Nilda Thompson - Last Filed: 07/31/17 16:53> Physical Exam: SUBJECTIVE: Patient seen and examined at bedside. Overnight, pt with peak flow 250, 280. States that she feels well with less wheezing. Visited by son this AM. Has been OOB. Denies FUENTES, fever, chills, or changes in urinary or bowel function. OBJECTIVE: Vital Signs Period Temp Pulse Resp BP Sys/Linares Pulse Ox Last 24 Hr 97.6 F-98.3 F 72-85 20-20 113-147/60-80 96-96 GENERAL: Pleasant. awake, alert, and fully oriented, in no acute distress. HEAD: Normal with no signs of trauma. EYES: PERRL, extraocular movements intact, sclera anicteric, conjunctiva clear. ENT: Ears normal, nares patent, oropharynx clear without exudates, moist mucous membranes. NECK: Trachea midline, supple. LUNGS:+good air entry, still with wheezing however improved from yesterday HEART: Regular rate and rhythm, S1, S2 without murmur, rub or gallop. ABDOMEN: Soft, obese, nontender, nondistended, normoactive bowel sounds, no guarding, no rebound EXTREMITIES: 2+ pt pulses, warm, well-perfused, no edema. NEUROLOGICAL: Cranial nerves II through XII grossly intact. 5/5 motor strength in upper and lower extremities. PSYCH: Normal mood, normal affect. SKIN: Warm, dry, normal turgor Laboratory Results 07/31/17 07/31/17 06:16 06:16 WBC 15.0 H D Hgb 11.4 Hct 34.7 Plt Count 190 Sodium 137 Potassium 4.5 Chloride 99 Carbon Dioxide 26 BUN 31 H Creatinine 1.1 H Random Glucose 380 H* Active Medications Generic Name Dose Route Start Last Admin Trade Name Freq PRN Reason Stop Dose Admin Albuterol Sulfate 1 amp 07/31/17 13:11 Ventolin 0.083% Nebulizer Soln - NEB Q4H PRN SHORT OF BREATH/WHEEZING Atorvastatin Calcium 40 mg 07/30/17 22:00 07/30/17 22:24 Lipitor - PO 40 mg HS KRYSTLE Administration Budesonide/Formoterol Fumarate 2 puff 07/30/17 10:00 07/31/17 09:30 Symbicort 160/4.5mcg - IH 2 puff BID KRYSTLE Administration Heparin Sodium (Porcine) 5,000 unit 07/30/17 06:30 07/31/17 06:26 Heparin - SQ 5,000 unit TID KRYSTLE Administration Azithromycin 250 mg/ Dextrose 250 mls @ 250 mls/hr 07/31/17 00:00 07/31/17 00 :16 IVPB 250 mls/hr DAILY@0000 KRYSTLE Administration Ceftriaxone Sodium 1 gm/ 50 mls @ 100 mls/hr 07/30/17 06:45 07/31/17 09:31 Dextrose IVPB 100 mls/hr DAILY KRYSTLE Administration Protocol Sodium Chloride 1,000 mls @ 100 mls/hr 07/30/17 22:30 07/31/17 12:22 Normal Saline - IV 100 mls/hr ASDIR KRYSTLE Administration Insulin Aspart 1 vial 07/30/17 07:00 07/31/17 12:21 Novolog Vial Sliding Scale - SQ 10 unit ACHS KRYSTLE Administration Protocol Methylprednisolone Sodium Succinate 40 mg 07/31/17 15:00 Solu-Medrol - IVPUSH Q6H-IV KRYSTLE Tiotropium [place] 1 puff 07/30/17 10:00 07/31/17 09:30 Spiriva - IH 1 puff DAILY KRYSTLE Administration TESTS 07/30/17: CXR: since 08/12/16, weaker inspiration with prominent mediastinum and central congestive changes 07/30/17: Duplex: no evidence of DVT in LLE ASSESSMENT/PLAN: 67 y/o F w/ PMH Asthma and DM who presents with five day history of progressive cough, ,sore throat, chest pain and SOB. #Acute asthma exacerbation -improving, with better air entry today. less wheezing -currently sat high 90's without NC 02 -continue duonebs q4h -solu-medrol 40mg IVP TID (tapered from 60 TID) -continue spiriva 1 puff IH daily -symbicort 2 puff IH BID -monitor peak flow -Pulm on board: Dr. Pulido #CAP -continue CAP tx: zithromax 250mg IVPB qd, rocephin 1g IVPB qd (Day2) #DM -tight glycemic control d/t steroid use -BGM ACHS -ISS ACHS #F/E/N -no fluids indicated -continue to follow lytes -diabetic diet #PPX -heparin SQ 5000 U SQ TID #Dispo continued monitoring on med-surg will need outpt sleep study, PFTs Visit type - Emergency Visit Emergency Visit: No - New Patient This patient is new to me today: No - Critical Care Critical Care patient: No <Manuel Cabrera - Last Filed: 07/31/17 19:36> Physical Exam: Agree with the resident's plan. appreciate pulmonary consult, will taper steroid dose form 60-->40mg Vital Signs Temperature 97.7 F 07/31/17 18:00 Pulse Rate 82 07/31/17 18:00 Respiratory Rate 20 07/31/17 18:00 Blood Pressure 104/65 07/31/17 18:00 O2 Sat by Pulse Oximetry (%) 97 07/31/17 10:00 CBCD WBC 15.0 K/mm3 (4.0-10.0) H D 07/31/17 06:16 RBC 3.95 M/mm3 (3.60-5.2) 07/31/17 06:16 Hgb 11.4 GM/dL (10.7-15.3) 07/31/17 06:16 Hct 34.7 % (32.4-45.2) 07/31/17 06:16 MCV 87.8 fl (80-96) 07/31/17 06:16 MCHC 32.8 g/dl (32.0-36.0) 07/31/17 06:16 RDW 13.7 % (11.6-15.6) 07/31/17 06:16 Plt Count 190 K/MM3 (134-434) 07/31/17 06:16 MPV 10.5 fl (7.5-11.1) D 07/31/17 06:16 CMP Sodium 137 mmol/L (136-145) 07/31/17 06:16 Potassium 4.5 mmol/L (3.5-5.1) 07/31/17 06:16 Chloride 99 mmol/L (98-107) 07/31/17 06:16 Carbon Dioxide 26 mmol/L (21-32) 07/31/17 06:16 Anion Gap 12 (8-16) 07/31/17 06:16 BUN 31 mg/dL (7-18) H 07/31/17 06:16 Creatinine 1.1 mg/dL (0.55-1.02) H 07/31/17 06:16 Creat Clearance w eGFR 49.85 (>60) 07/31/17 06:16 Random Glucose 380 mg/dL (74-106) H* 07/31/17 06:16 Calcium 9.1 mg/dL (8.5-10.1) 07/31/17 06:16 Total Bilirubin 0.4 mg/dL (0.2-1.0) 07/30/17 01:46 AST 19 U/L (15-37) 07/30/17 01:46 ALT 20 U/L (12-78) 07/30/17 01:46 Alkaline Phosphatase 85 U/L (45-117) 07/30/17 01:46 Total Protein 7.1 g/dl (6.4-8.2) 07/30/17 01:46 Albumin 3.3 g/dl (3.4-5.0) L 07/30/17 01:46 CARDIAC ENZYMES Creatine Kinase 117 IU/L (26-192) 07/30/17 01:46 Troponin I < 0.02 ng/ml (0.00-0.05) 07/30/17 01:46 Current Medications Generic Name Dose Route Start Last Admin Trade Name Freq PRN Reason Stop Dose Admin Albuterol Sulfate 1 amp 07/31/17 13:11 07/31/17 16:27 Ventolin 0.083% Nebulizer Soln - NEB 1 amp Q4H PRN Administration SHORT OF BREATH/WHEEZING Atorvastatin Calcium 40 mg 07/30/17 22:00 07/30/17 22:24 Lipitor - PO 40 mg HS KRYSTLE Administration Budesonide/Formoterol Fumarate 2 puff 07/30/17 10:00 07/31/17 09:30 Symbicort 160/4.5mcg - IH 2 puff BID KRYSTLE Administration Heparin Sodium (Porcine) 5,000 unit 07/30/17 06:30 07/31/17 14:39 Heparin - SQ 5,000 unit TID KRYSTLE Administration Azithromycin 250 mg/ Dextrose 250 mls @ 250 mls/hr 07/31/17 00:00 07/31/17 00 :16 IVPB 250 mls/hr DAILY@0000 KRYSTLE Administration Ceftriaxone Sodium 1 gm/ 50 mls @ 100 mls/hr 07/30/17 06:45 07/31/17 09:31 Dextrose IVPB 100 mls/hr DAILY KRYSTLE Administration Protocol Sodium Chloride 1,000 mls @ 100 mls/hr 07/30/17 22:30 07/31/17 12:22 Normal Saline - IV 100 mls/hr ASDIR KRYSTLE Administration Insulin Aspart 1 vial 07/30/17 07:00 07/31/17 17:06 Novolog Vial Sliding Scale - SQ 10 unit ACHS KRYSTLE Administration Protocol Methylprednisolone Sodium Succinate 40 mg 07/31/17 15:00 07/31/17 14:39 Solu-Medrol - IVPUSH 40 mg Q6H-IV KRYSTLE Administration Tiotropium [place] 1 puff 07/30/17 10:00 07/31/17 09:30 Spiriva - IH 1 puff DAILY KRYSTLE Administration Home Medications Medication Instructions Recorded Budesonide/Formeterol Fumarate 2 puff IH BID #1 inhaler 07/09/16 [SYMBICORT 160/4.5mcg -] Tiotropium [place] [Spiriva] 1 puff IH DAILY #1 inh 07/09/16 Albuterol Sulfate Inhaler - 1 - 2 inh PO Q4H PRN #1 inhaler 07/19/16 [Ventolin HFA Inhaler -] Atorvastatin Ca [Lipitor] 1 tab PO DAILY 12/17/16 Sitagliptin Phosphate [Januvia] 100 mg PO DAILY 12/17/16
--- NOTE | 2017-07-31 13:30 | CONS ---
DATE OF CONSULTATION: 07/31/2017 REFERRING PHYSICIAN: Manuel Cabrera MD HISTORY: The patient is a 67-year-old black female with a past medical history of chronic asthma for approximately 10 years maintained on albuterol inhaler, hyperlipidemia, hypertension, diabetes, morbid obesity, likely obstructive sleep apnea, nonsmoker admitted to [facility] with the complaint of increasing shortness of breath, cough, and bronchospasm. The patient states that she was doing well until recently when they started cleaning windows. She states the dust increase caused her to have increasing shortness of breath and bronchospasm. Despite taking her inhalers, the symptoms worsened at which time she presented to the emergency room. In the ER, she was treated with inhaled bronchodilators and steroids and transferred up to the medical floor for further management. The patient, as stated before, has a history of chronic asthma. She states that she uses her inhaled bronchodilator on a daily basis and has frequent nocturnal symptoms. She is not maintained on inhaled corticosteroids. She has never been intubated, but she has been hospitalized in the past secondary to asthma exacerbation. She denies any history of occupational exposure to chemicals or fumes. There is no history of smoking. There is no history of substance abuse. She also states that she is a heavy snorer and has daytime sleepiness, and she occasionally wakes up at nighttime gasping for air. She denies any history of DVT or PE in the past. There is no history of hemoptysis. PAST MEDICAL HISTORY: Again, includes hypertension, hyperlipidemia, asthma, diabetes, likely obstructive sleep apnea. MEDICATIONS: Prior to admission include Symbicort, Spiriva, , Lipitor, and Januvia. Current medications include Symbicort, Solu-Medrol, Zithromax, ceftriaxone, heparin, Spiriva, DuoNeb, normal saline, Lipitor, and NovoLog. REVIEW OF SYSTEMS: Positive for shortness of breath, positive for cough, positive for bronchospasm, positive orthopnea. No fever, no chills, no hemoptysis, no abdominal pain. PHYSICAL EXAMINATION: General: The patient is an obese female awake and alert in no acute distress. Vital Signs: She is afebrile. Blood pressure 124/68, respiratory rate 20. HEENT: Normocephalic and atraumatic. Neck: Supple. Heart: Regular with S1, S2. Chest: Bilateral expiratory and inspiratory wheezes throughout. Abdomen: Soft. Bowel sounds are positive. Extremities: There is some mild edema. No cyanosis. LABORATORIES: WBC 15, hemoglobin 11.4, hematocrit 34.7 with a platelet count of 190,000. Venous blood gas: PH 7.31, PCO2 of 48, PO2 of 47. Chemistry: BUN 31, creatinine 1.1. Chest x-ray reveals no infiltrates and no effusions. Poor inspiratory effort. Duplex lower extremities: No evidence of DVT. IMPRESSION: 1. Chronic asthma with acute exacerbation likely secondary to inhalation of dust. 2. Obesity. 3. Hypertension. 4. Diabetes. 5. Likely obstructive sleep apnea. PLAN: IV steroids. Inhaled bronchodilators. Supplemental O2. Monitor peak flow. PFP as an outpatient. Sleep study as an outpatient. We will also order sleep screen while in the hospital. DVT prophylaxis. JE BUTLER M.D. [id number]
[2017-07-31] MEDS: methylPREDNISolone NA SUCC 40 MG/1 ML VIAL IVPUSH SCH ×2 (14:39→21:51)
[2017-07-31] MEDS: ALBUTEROL SO4 0.083% IH SOL 2.5 MG/3 ML VIAL.NEB. NEB PRN ×2 (16:27→23:38)
[2017-07-31] MEDS ORDERED: PT OWN MED DRAWER 7, Y5N ONE ×2 (21:41→23:05)
[2017-07-31] MEDS ORDERED: INSULIN (NOVOLOG) ASPART 100 UNITS/ML 10ML VIAL ONE (21:43)
[2017-07-31] MEDS: ATORVASTATIN CA 40 MG TABLET (FP) PO SCH (21:49)
[2017-08-01] MEDS: methylPREDNISolone NA SUCC 40 MG/1 ML VIAL IVPUSH SCH ×4 (02:38→21:30)
[2017-08-01] MEDS: INSULIN SLIDING SCALE (NOVOLOG) 1 VIAL SQ SCH ×4 (06:25→21:35)
[2017-08-01] MEDS: HEPARIN NA (PORCINE) 5,000 UNITS/ML 1ML VIAL SQ SCH ×3 (06:26→21:30)
[2017-08-01] MEDS: ALBUTEROL SO4 0.083% IH SOL 2.5 MG/3 ML VIAL.NEB. NEB PRN (07:01)
[2017-08-01 07:34] LABS: BASO % 0.2 % (0-2.0); HEMATOCRIT 34.4 % (32.4-45.2); HEMOGLOBIN 11.4 GM/dL (10.7-15.3); LYMPH % 4.2 % (8-40); MCHC 33.1 g/dl (32.0-36.0); MEAN CELL VOLUME 87.6 fl (80-96); MEAN PLT VOLUME 10.1 fl (7.5-11.1); MONO % 2.4 % (3.8-10.2); NEUT % 93.2 % (42.8-82.8); PLATELET COUNT 189 K/MM3 (134-434); RBC 3.92 M/mm3 (3.60-5.2); RDW 13.7 % (11.6-15.6); WHITE BLOOD COUNT 16.9 K/mm3 (4.0-10.0)
[2017-08-01 08:11] LABS: BLOOD UREA NITROGEN 34 mg/dL (7-18); CHLORIDE 103 mmol/L (98-107); POTASSIUM 4.5 mmol/L (3.5-5.1); SODIUM 137 mmol/L (136-145)
[2017-08-01 08:16] LABS: ANION GAP 10 (8-16); CALCIUM 8.8 mg/dL (8.5-10.1); CO2 24 mmol/L (21-32); CREATININE 1.1 mg/dL (0.55-1.02)
[2017-08-01 08:43] LABS: GLUCOSE,RANDOM 339 mg/dL (74-106)
[2017-08-01 09:14] LABS: MAGNESIUM 2.3 mg/dL (1.8-2.4); PHOSPHOROUS 3.6 mg/dL (2.5-4.9)
[2017-08-01] MEDS ORDERED: PT OWN MED DRAWER 7, Y5N ONE ×3 (10:34→23:32)
[2017-08-01] MEDS ORDERED: cefTRIAXone SODIUM 1 GM VIAL ONE (10:34)
[2017-08-01] MEDS ORDERED: DEXTROSE 5%-WATER - 50 ML IVPB ONE (10:35)
[2017-08-01] MEDS: CEFTRIAXONE 1 GM in DEXTROSE 5%-WATER - 50 ML IVPB SCH (10:37)
--- NOTE | 2017-08-01 10:37 | PN ---
Physical Exam: SUBJECTIVE: Patient seen and examined Patient is improving continues coughing OBJECTIVE: Vital Signs Temperature 97.8 F 08/01/17 06:00 Pulse Rate 73 08/01/17 06:00 Respiratory Rate 20 08/01/17 06:00 Blood Pressure 118/71 08/01/17 06:00 O2 Sat by Pulse Oximetry (%) 96 07/31/17 21:00 GENERAL: The patient is awake, alert, and fully oriented, in no acute distress. HEAD: Normal with no signs of trauma. EYES: PERRL, extraocular movements intact, sclera anicteric, conjunctiva clear. ENT: Ears normal, oropharynx clear without exudates, moist mucous membranes. NECK: Trachea midline, full range of motion, supple. LUNGS: Breath sounds equal continues to wheeze but improving, positive for cough . no accessory muscle use. HEART: Regular rate and rhythm, S1, S2 without murmur, rub or gallop. ABDOMEN: Soft, nontender, nondistended, normoactive bowel sounds, no guarding, no rebound, no hepatosplenomegaly, no masses. EXTREMITIES: 2+ pulses, warm, well-perfused, no edema. NEUROLOGICAL: Cranial nerves II through XII grossly intact. Normal speech, gait is stable . PSYCH: Normal mood, normal affect. SKIN: Warm, dry, normal turgor, no rashes or lesions noted CBCD WBC 16.9 K/mm3 (4.0-10.0) H 08/01/17 06:30 RBC 3.92 M/mm3 (3.60-5.2) 08/01/17 06:30 Hgb 11.4 GM/dL (10.7-15.3) 08/01/17 06:30 Hct 34.4 % (32.4-45.2) 08/01/17 06:30 MCV 87.6 fl (80-96) 08/01/17 06:30 MCHC 33.1 g/dl (32.0-36.0) 08/01/17 06:30 RDW 13.7 % (11.6-15.6) 08/01/17 06:30 Plt Count 189 K/MM3 (134-434) 08/01/17 06:30 MPV 10.1 fl (7.5-11.1) 08/01/17 06:30 CMP Sodium 137 mmol/L (136-145) 08/01/17 06:30 Potassium 4.5 mmol/L (3.5-5.1) 08/01/17 06:30 Chloride 103 mmol/L (98-107) 08/01/17 06:30 Carbon Dioxide 24 mmol/L (21-32) 08/01/17 06:30 Anion Gap 10 (8-16) 08/01/17 06:30 BUN 34 mg/dL (7-18) H 08/01/17 06:30 Creatinine 1.1 mg/dL (0.55-1.02) H 08/01/17 06:30 Creat Clearance w eGFR 49.85 (>60) 08/01/17 06:30 Random Glucose 339 mg/dL (74-106) H* 08/01/17 06:30 Calcium 8.8 mg/dL (8.5-10.1) 08/01/17 06:30 Total Bilirubin 0.4 mg/dL (0.2-1.0) 07/30/17 01:46 AST 19 U/L (15-37) 07/30/17 01:46 ALT 20 U/L (12-78) 07/30/17 01:46 Alkaline Phosphatase 85 U/L (45-117) 07/30/17 01:46 Total Protein 7.1 g/dl (6.4-8.2) 07/30/17 01:46 Albumin 3.3 g/dl (3.4-5.0) L 07/30/17 01:46 CARDIAC ENZYMES Creatine Kinase 117 IU/L (26-192) 07/30/17 01:46 Troponin I < 0.02 ng/ml (0.00-0.05) 07/30/17 01:46 Current Medications Generic Name Dose Route Start Last Admin Trade Name Freq PRN Reason Stop Dose Admin Albuterol Sulfate 1 amp 07/31/17 13:11 08/01/17 07:01 Ventolin 0.083% Nebulizer Soln - NEB 1 amp Q4H PRN Administration SHORT OF BREATH/WHEEZING Atorvastatin Calcium 40 mg 07/30/17 22:00 07/31/17 21:49 Lipitor - PO 40 mg HS KRYSTLE Administration Budesonide/Formoterol Fumarate 2 puff 07/30/17 10:00 07/31/17 21:49 Symbicort 160/4.5mcg - IH 2 puff BID KRYSTLE Administration Heparin Sodium (Porcine) 5,000 unit 07/30/17 06:30 08/01/17 06:26 Heparin - SQ 5,000 unit TID KRYSTLE Administration Azithromycin 250 mg/ Dextrose 250 mls @ 250 mls/hr 07/31/17 00:00 07/31/17 23 :52 IVPB 250 mls/hr DAILY@0000 KRYSTLE Administration Ceftriaxone Sodium 1 gm/ 50 mls @ 100 mls/hr 07/30/17 06:45 07/31/17 09:31 Dextrose IVPB 100 mls/hr DAILY KRYSTLE Administration Protocol Sodium Chloride 1,000 mls @ 100 mls/hr 07/30/17 22:30 07/31/17 22:02 Normal Saline - IV 100 mls/hr ASDIR KRYSTLE Administration Insulin Aspart 1 vial 07/30/17 07:00 08/01/17 06:25 Novolog Vial Sliding Scale - SQ 8 unit ACHS KRYSTLE Administration Protocol Methylprednisolone Sodium Succinate 40 mg 07/31/17 15:00 08/01/17 02:38 Solu-Medrol - IVPUSH 40 mg Q6H-IV KRYSTLE Administration Tiotropium [place] 1 puff 07/30/17 10:00 07/31/17 09:30 Spiriva - IH 1 puff DAILY KRYSTLE Administration Home Medications Medication Instructions Recorded Budesonide/Formeterol Fumarate 2 puff IH BID #1 inhaler 07/09/16 [SYMBICORT 160/4.5mcg -] Tiotropium [place] [Spiriva] 1 puff IH DAILY #1 inh 07/09/16 Albuterol Sulfate Inhaler - 1 - 2 inh PO Q4H PRN #1 inhaler 07/19/16 [Ventolin HFA Inhaler -] Atorvastatin Ca [Lipitor] 1 tab PO DAILY 12/17/16 Sitagliptin Phosphate [Januvia] 100 mg PO DAILY 12/17/16 ASSESSMENT AND PLAN: he patient is a 67 yo f w/ PMH Asthma and DM who comes in complaining of a 5 day history of progressive cough, ,sore throat, chest pain and SOB. #Acute exacerbation of Asthma continues but improving spiriva, solu medrol IV 60mg q8h, symbicort, zithro IV, Rocephin IV, will add Robitussin since coughing #DM: BGms and Sliding scale #HLD : On lipitor continue DVT Px: heparin SQ #Dispo: will change to inpatient Visit type - Emergency Visit Emergency Visit: Yes ED Registration Date: 07/30/17 Care time: The patient presented to the Emergency Department on the above date and was hospitalized for further evaluation of their emergent condition. - New Patient This patient is new to me today: No - Critical Care Critical Care patient: No - Discharge Referral Referred to [facility] No
[2017-08-01] MEDS: BUDESONIDE/FORMETEROL FUMARATE 160/4.5 mcg INHALER IH SCH ×2 (10:40→21:29)
[2017-08-01] MEDS: TIOTROPIUM BROMIDE 18 MCG CAPSULES IH SCH (10:40)
[2017-08-01 11:02] LABS: PLATELET ESTIMATE ADEQUATE
[2017-08-01] MEDS ORDERED: INSULIN (NOVOLOG) ASPART 100 UNITS/ML 10ML VIAL ONE (11:45)
--- NOTE | 2017-08-01 13:41 | PN ---
Progress Note (short form) - Note Progress Note: PULMONARY States breathing is better today. Less cough and wheezing. Vital Signs Period Temp Pulse Resp BP Sys/Linares Pulse Ox Last 24 Hr 97.4 F-98.1 F 71-85 20-20 103-137/56-95 96-96 Gen: NAD at rest Heart: RRR Lung: scattered wheezes, distant breath sounds Abd: soft, nontender Ext: no edema CBC, BMP 08/01/17 06:30 08/01/17 06:30 Active Medications Albuterol Sulfate (Ventolin 0.083% Nebulizer Soln -) 1 amp NEB Q4H PRN PRN Reason: SHORT OF BREATH/WHEEZING Last Admin: 08/01/17 07:01 Dose: 1 amp Atorvastatin Calcium (Lipitor -) 40 mg PO HS KRYSTLE Last Admin: 07/31/17 21:49 Dose: 40 mg Budesonide/Formoterol Fumarate (Symbicort 160/4.5mcg -) 2 puff IH BID KRYSTLE Last Admin: 08/01/17 10:40 Dose: 2 puff Heparin Sodium (Porcine) (Heparin -) 5,000 unit SQ TID KRYSTLE Last Admin: 08/01/17 06:26 Dose: 5,000 unit Azithromycin 250 mg/ Dextrose 250 mls @ 250 mls/hr IVPB DAILY@0000 KRYSTLE Last Admin: 07/31/17 23:52 Dose: 250 mls/hr Ceftriaxone Sodium 1 gm/ (Dextrose) 50 mls @ 100 mls/hr IVPB DAILY KRYSTLE; Protocol Last Admin: 08/01/17 10:37 Dose: 100 mls/hr Sodium Chloride (Normal Saline -) 1,000 mls @ 100 mls/hr IV ASDIR KRYSTLE Last Admin: 07/31/17 22:02 Dose: 100 mls/hr Insulin Aspart (Novolog Vial Sliding Scale -) 1 vial SQ ACHS KRYSTLE; Protocol Last Admin: 08/01/17 11:41 Dose: 10 unit Methylprednisolone Sodium Succinate (Solu-Medrol -) 40 mg IVPUSH Q6H-IV KRYSTLE Last Admin: 08/01/17 09:00 Dose: 40 mg Tiotropium [place] (Spiriva -) 1 puff IH DAILY KRYSTLE Last Admin: 08/01/17 10:40 Dose: 1 puff A/P Acute Asthma Exacerbation Morbid Obesity Likely Obstructive Sleep Apnea HTN DM Hyperlipidemia - will decrease medrol to q8h - inhaled bronchodilators - monitor peak flow - O2 to keep SpO2 >90% - outpt PFTs, PSG - DVT prophylaxis
[2017-08-01] MEDS ORDERED: guaiFENesin/CODEINE 5 ML UNIT-DOSE CUPS PO ONE (20:49)
[2017-08-01] MEDS ORDERED: guaiFENesin 200 MG/10 ML 10 ML UNIT-DOSE CUPS PO ONE (20:52)
[2017-08-01] MEDS: ATORVASTATIN CA 40 MG TABLET (FP) PO SCH (21:31)
[2017-08-02] MEDS: AZITHROMYCIN IVPB 250 MG in DEXTROSE 5%-WATER - 250 ML IVPB SCH ×2 (00:03→23:31)
[2017-08-02] MEDS: SODIUM CHLORIDE 1,000 ML IV SCH (00:03)
[2017-08-02] MEDS: methylPREDNISolone NA SUCC 40 MG/1 ML VIAL IVPUSH SCH ×3 (02:59→18:10)
[2017-08-02] MEDS: INSULIN SLIDING SCALE (NOVOLOG) 1 VIAL SQ SCH ×4 (06:05→22:09)
[2017-08-02] MEDS: HEPARIN NA (PORCINE) 5,000 UNITS/ML 1ML VIAL SQ SCH ×3 (06:06→22:09)
[2017-08-02] MEDS ORDERED: DEXTROSE 5%-WATER - 50 ML IVPB ONE (08:34)
[2017-08-02] MEDS ORDERED: cefTRIAXone SODIUM 1 GM VIAL ONE (08:34)
[2017-08-02] MEDS ORDERED: PT OWN MED DRAWER 7, Y5N ONE ×4 (09:57→23:25)
[2017-08-02] MEDS: CEFTRIAXONE 1 GM in DEXTROSE 5%-WATER - 50 ML IVPB SCH (10:02)
[2017-08-02] MEDS: BUDESONIDE/FORMETEROL FUMARATE 160/4.5 mcg INHALER IH SCH ×2 (10:03→22:18)
[2017-08-02] MEDS: TIOTROPIUM BROMIDE 18 MCG CAPSULES IH SCH (10:04)
[2017-08-02] MEDS: guaiFENesin/CODEINE 5 ML UNIT-DOSE CUPS PO PRN ×2 (10:15→22:10)
[2017-08-02] MEDS: ALBUTEROL SO4 0.083% IH SOL 2.5 MG/3 ML VIAL.NEB. NEB PRN ×2 (11:35→16:30)
--- NOTE | 2017-08-02 12:03 | PN ---
Progress Note (short form) - Note Progress Note: PULMONARY States breathing is slightly better today but still with cough and wheezing. Peak flow done at bedside 140, best personal 200. Vital Signs Period Temp Pulse Resp BP Sys/Linares Pulse Ox Last 24 Hr 98.0 F-98.2 F 61-73 20-20 128-142/53-91 96 Gen: NAD at rest Heart: RRR Lung: scattered wheezes, distant breath sounds Abd: soft, nontender Ext: no edema CBC, BMP 08/01/17 06:30 08/01/17 06:30 Active Medications Albuterol Sulfate (Ventolin 0.083% Nebulizer Soln -) 1 amp NEB Q4H PRN PRN Reason: SHORT OF BREATH/WHEEZING Last Admin: 08/01/17 07:01 Dose: 1 amp Atorvastatin Calcium (Lipitor -) 40 mg PO HS KRYSTLE Last Admin: 08/01/17 21:31 Dose: 40 mg Budesonide/Formoterol Fumarate (Symbicort 160/4.5mcg -) 2 puff IH BID KRYSTLE Last Admin: 08/02/17 10:03 Dose: 2 puff Guaifenesin/Codeine Phosphate (Robitussin Ac -) 5 ml PO TID PRN PRN Reason: COUGH Last Admin: 08/02/17 10:15 Dose: 5 ml Heparin Sodium (Porcine) (Heparin -) 5,000 unit SQ TID KRYSTLE Last Admin: 08/02/17 06:06 Dose: 5,000 unit Azithromycin 250 mg/ Dextrose 250 mls @ 250 mls/hr IVPB DAILY@0000 KRYSTLE Last Admin: 08/02/17 00:03 Dose: 250 mls/hr Ceftriaxone Sodium 1 gm/ (Dextrose) 50 mls @ 100 mls/hr IVPB DAILY KRYSTLE; Protocol Last Admin: 08/02/17 10:02 Dose: 100 mls/hr Sodium Chloride (Normal Saline -) 1,000 mls @ 100 mls/hr IV ASDIR KRYSTLE Last Admin: 08/02/17 00:03 Dose: 100 mls/hr Insulin Aspart (Novolog Vial Sliding Scale -) 1 vial SQ ACHS KRYSTLE; Protocol Last Admin: 08/02/17 11:59 Dose: 10 unit Methylprednisolone Sodium Succinate (Solu-Medrol -) 40 mg IVPUSH Q6H-IV KRYSTLE Last Admin: 08/02/17 10:03 Dose: 40 mg Tiotropium [place] (Spiriva -) 1 puff IH DAILY KRYSTLE Last Admin: 08/02/17 10:04 Dose: 1 puff A/P Acute Asthma Exacerbation Morbid Obesity Likely Obstructive Sleep Apnea HTN DM Hyperlipidemia - will decrease medrol to q8h - inhaled bronchodilators - monitor peak flow - O2 to keep SpO2 >90% - outpt PFTs, PSG - DVT prophylaxis
--- NOTE | 2017-08-02 13:16 | PN ---
<Nilda Thompson - Last Filed: 08/02/17 18:21> Physical Exam: SUBJECTIVE: Patient seen and examined at bedside. Overnight, no acute events. Afebrile. Today, pt c/o continued productive cough with white sputum. Denies FUENTES , fever, chills, chest pain, or changes in urinary or bowel function. OBJECTIVE: Vital Signs Period Temp Pulse Resp BP Sys/Linares Pulse Ox Last 24 Hr 98.0 F-98.2 F 61-73 20-20 128-142/53-91 96 GENERAL: The patient is sitting up in bed. awake, alert, and fully oriented, in no acute distress. HEAD: Normal with no signs of trauma. EYES: PERRL, extraocular movements intact, sclera anicteric, conjunctiva clear. ENT: Ears normal, nares patent, oropharynx clear without exudates NECK: Trachea midline, full range of motion, supple. LUNGS: +good air entry, with wheezes b/l. intermittent cough HEART: Regular rate and rhythm, S1, S2 without murmur, rub or gallop. ABDOMEN: Soft, nontender, nondistended, normoactive bowel sounds, no guarding EXTREMITIES: 2+ pt pulses, warm, well-perfused, no edema. NEUROLOGICAL: Cranial nerves II through XII grossly intact. PSYCH: Normal mood, normal affect. SKIN: Warm, dry, normal turgor Laboratory Results - last 24 hr 08/01/17 08/01/17 08/02/17 16:21 21:34 06:04 POC Glucometer 348 332 326 08/02/17 11:56 POC Glucometer 365 Active Medications Generic Name Dose Route Start Last Admin Trade Name Freq PRN Reason Stop Dose Admin Albuterol Sulfate 1 amp 07/31/17 13:11 08/01/17 07:01 Ventolin 0.083% Nebulizer Soln - NEB 1 amp Q4H PRN Administration SHORT OF BREATH/WHEEZING Atorvastatin Calcium 40 mg 07/30/17 22:00 08/01/17 21:31 Lipitor - PO 40 mg HS KRYSTLE Administration Budesonide/Formoterol Fumarate 2 puff 07/30/17 10:00 08/02/17 10:03 Symbicort 160/4.5mcg - IH 2 puff BID KRYSTLE Administration Guaifenesin/Codeine Phosphate 5 ml 08/02/17 09:49 06/24/18 10:15 Robitussin Ac - PO 5 ml TID PRN Administration COUGH Heparin Sodium (Porcine) 5,000 unit 07/30/17 06:30 08/02/17 06:06 Heparin - SQ 5,000 unit TID KRYSTLE Administration Azithromycin 250 mg/ Dextrose 250 mls @ 250 mls/hr 07/31/17 00:00 08/02/17 00 :03 IVPB 250 mls/hr DAILY@0000 KRYSTLE Administration Ceftriaxone Sodium 1 gm/ 50 mls @ 100 mls/hr 07/30/17 06:45 08/02/17 10:02 Dextrose IVPB 100 mls/hr DAILY KRYSTLE Administration Protocol Sodium Chloride 1,000 mls @ 100 mls/hr 07/30/17 22:30 08/02/17 00:03 Normal Saline - IV 100 mls/hr ASDIR KRYSTLE Administration Insulin Aspart 1 vial 07/30/17 07:00 08/02/17 11:59 Novolog Vial Sliding Scale - SQ 10 unit ACHS KRYSTLE Administration Protocol Methylprednisolone Sodium Succinate 40 mg 08/02/17 18:00 Solu-Medrol - IVPUSH Q8H KRYSTLE Tiotropium [place] 1 puff 07/30/17 10:00 08/02/17 10:04 Spiriva - IH 1 puff DAILY KRYSTLE Administration TESTS 07/30/17: CXR: since 08/12/16, weaker inspiration with prominent mediastinum and central congestive changes 07/30/17: Duplex: no evidence of DVT in LLE ASSESSMENT/PLAN: 67 y/o F w/ PMH Asthma and DM who presents with five day history of progressive cough, ,sore throat, chest pain and SOB. #Acute asthma exacerbation -continue duonebs 1 amp q4h PRN -solu-medrol 40mg IVP q8h, continue taper as sx improve -continue spiriva 1 puff IH daily -symbicort 2 puff IH BID -robitussin AC 5ml PO TID PRN for cough -monitor peak flow -Pulm on board: Dr. Pulido #CAP -continue CAP tx: zithromax 250mg IVPB qd, rocephin 1g IVPB qd (Day4) #HLD -continue lipitor 40mg PO qHS #DM -tight glycemic control d/t steroid use -BGM ACHS -ISS ACHS #F/E/N -no fluids indicated -continue to follow lytes -diabetic diet #PPX -heparin SQ 5000 U SQ TID #Dispo continued monitoring on med-surg will need outpt sleep study, PFTs sleep screen Visit type - Emergency Visit Emergency Visit: No - New Patient This patient is new to me today: No - Critical Care Critical Care patient: No <Manuel Cabrera - Last Filed: 08/02/17 19:21> Physical Exam: Patient continues to wheeze and cough. will Add Robitussin AC for cough. will continue to taper her Solumedrol. Vital Signs Temperature 98.3 F 08/02/17 18:55 Pulse Rate 58 L 08/02/17 18:55 Respiratory Rate 22 08/02/17 18:55 Blood Pressure 140/79 08/02/17 18:55 O2 Sat by Pulse Oximetry (%) 96 08/02/17 09:00 CBCD WBC 16.9 K/mm3 (4.0-10.0) H 08/01/17 06:30 RBC 3.92 M/mm3 (3.60-5.2) 08/01/17 06:30 Hgb 11.4 GM/dL (10.7-15.3) 08/01/17 06:30 Hct 34.4 % (32.4-45.2) 08/01/17 06:30 MCV 87.6 fl (80-96) 08/01/17 06:30 MCHC 33.1 g/dl (32.0-36.0) 08/01/17 06:30 RDW 13.7 % (11.6-15.6) 08/01/17 06:30 Plt Count 189 K/MM3 (134-434) 08/01/17 06:30 MPV 10.1 fl (7.5-11.1) 08/01/17 06:30 CMP Sodium 137 mmol/L (136-145) 08/01/17 06:30 Potassium 4.5 mmol/L (3.5-5.1) 08/01/17 06:30 Chloride 103 mmol/L (98-107) 08/01/17 06:30 Carbon Dioxide 24 mmol/L (21-32) 08/01/17 06:30 Anion Gap 10 (8-16) 08/01/17 06:30 BUN 34 mg/dL (7-18) H 08/01/17 06:30 Creatinine 1.1 mg/dL (0.55-1.02) H 08/01/17 06:30 Creat Clearance w eGFR 49.85 (>60) 08/01/17 06:30 Random Glucose 339 mg/dL (74-106) H* 08/01/17 06:30 Calcium 8.8 mg/dL (8.5-10.1) 08/01/17 06:30 Total Bilirubin 0.4 mg/dL (0.2-1.0) 07/30/17 01:46 AST 19 U/L (15-37) 07/30/17 01:46 ALT 20 U/L (12-78) 07/30/17 01:46 Alkaline Phosphatase 85 U/L (45-117) 07/30/17 01:46 Total Protein 7.1 g/dl (6.4-8.2) 07/30/17 01:46 Albumin 3.3 g/dl (3.4-5.0) L 07/30/17 01:46 CARDIAC ENZYMES Creatine Kinase 117 IU/L (26-192) 07/30/17 01:46 Troponin I < 0.02 ng/ml (0.00-0.05) 07/30/17 01:46 Current Medications Generic Name Dose Route Start Last Admin Trade Name Freq PRN Reason Stop Dose Admin Albuterol Sulfate 1 amp 07/31/17 13:11 08/02/17 16:30 Ventolin 0.083% Nebulizer Soln - NEB 1 amp Q4H PRN Administration SHORT OF BREATH/WHEEZING Atorvastatin Calcium 40 mg 07/30/17 22:00 08/01/17 21:31 Lipitor - PO 40 mg HS KRYSTLE Administration Budesonide/Formoterol Fumarate 2 puff 07/30/17 10:00 08/02/17 10:03 Symbicort 160/4.5mcg - IH 2 puff BID KRYSTLE Administration Guaifenesin/Codeine Phosphate 5 ml 08/02/17 09:49 08/02/17 10:15 Robitussin Ac - PO 5 ml TID PRN Administration COUGH Heparin Sodium (Porcine) 5,000 unit 07/30/17 06:30 08/02/17 14:00 Heparin - SQ 5,000 unit TID KRYSTLE Administration Azithromycin 250 mg/ Dextrose 250 mls @ 250 mls/hr 07/31/17 00:00 08/02/17 00 :03 IVPB 250 mls/hr DAILY@0000 KRYSTLE Administration Ceftriaxone Sodium 1 gm/ 50 mls @ 100 mls/hr 07/30/17 06:45 08/02/17 10:02 Dextrose IVPB 100 mls/hr DAILY KRYSTLE Administration Protocol Insulin Aspart 1 vial 07/30/17 07:00 08/02/17 17:49 Novolog Vial Sliding Scale - SQ 10 unit ACHS KRYSTLE Administration Protocol Methylprednisolone Sodium Succinate 40 mg 08/02/17 18:00 08/02/17 18:10 Solu-Medrol - IVPUSH 40 mg Q8H KRYSTLE Administration Tiotropium [place] 1 puff 07/30/17 10:00 08/02/17 10:04 Spiriva - IH 1 puff DAILY KRYSTLE Administration Home Medications Medication Instructions Recorded Budesonide/Formeterol Fumarate 2 puff IH BID #1 inhaler 07/09/16 [SYMBICORT 160/4.5mcg -] Tiotropium [place] [Spiriva] 1 puff IH DAILY #1 inh 07/09/16 Albuterol Sulfate Inhaler - 1 - 2 inh PO Q4H PRN #1 inhaler 07/19/16 [Ventolin HFA Inhaler -] Atorvastatin Ca [Lipitor] 1 tab PO DAILY 12/17/16 Sitagliptin Phosphate [Januvia] 100 mg PO DAILY 12/17/16
[2017-08-02] MEDS ORDERED: INSULIN (NOVOLOG) ASPART 100 UNITS/ML 10ML VIAL ONE (21:46)
[2017-08-02] MEDS: ATORVASTATIN CA 40 MG TABLET (FP) PO SCH (22:09)
[2017-08-03] MEDS: methylPREDNISolone NA SUCC 40 MG/1 ML VIAL IVPUSH SCH ×3 (01:30→18:36)
[2017-08-03] MEDS: INSULIN SLIDING SCALE (NOVOLOG) 1 VIAL SQ SCH ×4 (06:13→22:26)
[2017-08-03] MEDS: HEPARIN NA (PORCINE) 5,000 UNITS/ML 1ML VIAL SQ SCH ×3 (06:13→22:24)
[2017-08-03 07:41] LABS: BASO % 0.2 % (0-2.0); HEMATOCRIT 35.4 % (32.4-45.2); HEMOGLOBIN 11.7 GM/dL (10.7-15.3); LYMPH % 5.2 % (8-40); MCH 28.9 pg (25.7-33.7); MCHC 33.2 g/dl (32.0-36.0); MEAN CELL VOLUME 87.1 fl (80-96); MEAN PLT VOLUME 9.6 fl (7.5-11.1); MONO % 2.7 % (3.8-10.2); NEUT % 91.9 % (42.8-82.8); PLATELET COUNT 160 K/MM3 (134-434); RBC 4.06 M/mm3 (3.60-5.2); RDW 14.2 % (11.6-15.6); WHITE BLOOD COUNT 14.9 K/mm3 (4.0-10.0)
[2017-08-03 08:15] LABS: ANION GAP 7 (8-16); BLOOD UREA NITROGEN 30 mg/dL (7-18); CALCIUM 8.5 mg/dL (8.5-10.1); CHLORIDE 107 mmol/L (98-107); CO2 27 mmol/L (21-32); CREATININE 1.2 mg/dL (0.55-1.02); POTASSIUM 4.4 mmol/L (3.5-5.1); SODIUM 141 mmol/L (136-145)
[2017-08-03 08:26] LABS: GLUCOSE,RANDOM 314 mg/dL (74-106)
[2017-08-03 08:53] LABS: MAGNESIUM 2.7 mg/dL (1.8-2.4)
[2017-08-03 09:05] LABS: PHOSPHOROUS 3.5 mg/dL (2.5-4.9)
[2017-08-03] MEDS ORDERED: DEXTROSE 5%-WATER - 50 ML IVPB ONE (10:01)
[2017-08-03] MEDS ORDERED: cefTRIAXone SODIUM 1 GM VIAL ONE (10:01)
[2017-08-03] MEDS: TIOTROPIUM BROMIDE 18 MCG CAPSULES IH SCH (10:11)
[2017-08-03] MEDS: CEFTRIAXONE 1 GM in DEXTROSE 5%-WATER - 50 ML IVPB SCH (10:14)
[2017-08-03] MEDS: BUDESONIDE/FORMETEROL FUMARATE 160/4.5 mcg INHALER IH SCH ×2 (10:30→22:23)
[2017-08-03] MEDS ORDERED: PT OWN MED DRAWER 7, Y5N ONE ×2 (11:29→19:57)
[2017-08-03] MEDS ORDERED: INSULIN (NOVOLOG) ASPART 100 UNITS/ML 10ML VIAL ONE ×2 (11:30→19:56)
[2017-08-03] MEDS: guaiFENesin/CODEINE 5 ML UNIT-DOSE CUPS PO PRN ×2 (11:34→19:07)
[2017-08-03 11:45] LABS: PLATELET ESTIMATE ADEQUATE
--- NOTE | 2017-08-03 12:13 | PN ---
Progress Note (short form) - Note Progress Note: Breathing is slightly better today but still with cough and wheezing. Peak flow done at bedside 200, almost at baseline. Intake & Output 07/31/17 08/01/17 08/02/17 08/03/17 23:59 23:59 23:59 23:59 Intake Total 3650 2240 2700 250 Balance 3650 2240 2700 250 Last Vital Signs Temp Pulse Resp BP Pulse Ox 98.0 F 60 20 128/66 95 08/03/17 05:45 08/03/17 09:00 08/03/17 09:00 08/03/17 09:00 08/03/17 09:00 Active Medications Albuterol Sulfate (Ventolin 0.083% Nebulizer Soln -) 1 amp NEB Q4H PRN PRN Reason: SHORT OF BREATH/WHEEZING Last Admin: 08/02/17 16:30 Dose: 1 amp Atorvastatin Calcium (Lipitor -) 40 mg PO HS [facility] Last Admin: 08/02/17 22:09 Dose: 40 mg Budesonide/Formoterol Fumarate (Symbicort 160/4.5mcg -) 2 puff IH BID [facility] Last Admin: 08/03/17 10:30 Dose: 2 puff Guaifenesin/Codeine Phosphate (Robitussin Ac -) 5 ml PO TID PRN PRN Reason: COUGH Last Admin: 08/03/17 11:34 Dose: 5 ml Heparin Sodium (Porcine) (Heparin -) 5,000 unit SQ TID [facility] Last Admin: 08/03/17 06:13 Dose: 5,000 unit Azithromycin 250 mg/ Dextrose 250 mls @ 250 mls/hr IVPB DAILY@0000 [facility] Last Admin: 08/02/17 23:31 Dose: 250 mls/hr Ceftriaxone Sodium 1 gm/ (Dextrose) 50 mls @ 100 mls/hr IVPB DAILY [facility]; Protocol Last Admin: 08/03/17 10:14 Dose: 100 mls/hr Insulin Aspart (Novolog Vial Sliding Scale -) 1 vial SQ ACHS [facility]; Protocol Last Admin: 08/03/17 11:37 Dose: 8 unit Methylprednisolone Sodium Succinate (Solu-Medrol -) 40 mg IVPUSH Q8H [facility] Last Admin: 08/03/17 10:12 Dose: 40 mg Tiotropium [place] (Spiriva -) 1 puff IH DAILY [facility] Last Admin: 08/03/17 10:11 Dose: 1 puff Gen: NAD at rest Heart: RRR Lung: scattered wheezes, distant breath sounds Abd: soft, nontender Ext: no edema Laboratory Results - last 24 hr 08/01/17 08/02/17 08/02/17 11:37 11:56 17:14 WBC RBC Hgb Hct MCV MCH MCHC RDW Plt Count MPV Absolute Neuts (auto) Total Counted Neutrophils % Neutrophils % (Manual) Band Neutrophils % Lymphocytes % Lymphocytes % (Manual) Monocytes % Monocytes % (Manual) Eosinophils % Basophils % Nucleated RBC % Metamyelocytes Platelet Estimate Platelet Comment Sodium Potassium Chloride Carbon Dioxide Anion Gap BUN Creatinine Creat Clearance w eGFR POC Glucometer 408 365 376 Random Glucose Calcium Phosphorus Magnesium 08/02/17 08/03/17 08/03/17 22:08 06:12 07:00 WBC 14.9 H RBC 4.06 Hgb 11.7 Hct 35.4 MCV 87.1 MCH 28.9 MCHC 33.2 RDW 14.2 Plt Count 160 MPV 9.6 Absolute Neuts (auto) 13.7 Total Counted 100 Neutrophils % 91.9 H Neutrophils % (Manual) 88.0 H Band Neutrophils % 3.0 Lymphocytes % 5.2 L D Lymphocytes % (Manual) 5.0 L D Monocytes % 2.7 L Monocytes % (Manual) 3 L Eosinophils % 0.0 Basophils % 0.2 Nucleated RBC % 0 Metamyelocytes 1 D Platelet Estimate Adequate Platelet Comment Few large platelets Sodium Potassium Chloride Carbon Dioxide Anion Gap BUN Creatinine Creat Clearance w eGFR POC Glucometer 396 337 Random Glucose Calcium Phosphorus Magnesium 08/03/17 07:00 WBC RBC Hgb Hct MCV MCH MCHC RDW Plt Count MPV Absolute Neuts (auto) Total Counted Neutrophils % Neutrophils % (Manual) Band Neutrophils % Lymphocytes % Lymphocytes % (Manual) Monocytes % Monocytes % (Manual) Eosinophils % Basophils % Nucleated RBC % Metamyelocytes Platelet Estimate Platelet Comment Sodium 141 Potassium 4.4 Chloride 107 Carbon Dioxide 27 Anion Gap 7 L BUN 30 H Creatinine 1.2 H Creat Clearance w eGFR 45.09 POC Glucometer Random Glucose 314 H* Calcium 8.5 Phosphorus 3.5 Magnesium 2.7 H A/P Acute Asthma Exacerbation Morbid Obesity Likely Obstructive Sleep Apnea HTN DM Hyperlipidemia - Medrol Q8h, anticipate taper or change to Prednsione tomorrow depending on symptoms/PEF - inhaled bronchodilators - monitor peak flow - O2 to keep SpO2 >90% - outpt PFTs, PSG - DVT prophylaxis Dr Garber
--- NOTE | 2017-08-03 19:41 | PN ---
Physical Exam: SUBJECTIVE: Patient seen and examined at bedside. Overnight, afebrile. OOB, however with mild HEREDIA. Today, pt with improved cough. Denies FUENTES, fever, chills, or changes in urinary or bowel function. OBJECTIVE: Vital Signs Period Temp Pulse Resp BP Sys/Linares Pulse Ox Last 24 Hr 97.9 F-98.1 F 55-67 20-22 125-155/66-94 95-96 GENERAL: The patient is pleasant. awake, alert, and fully oriented, in no acute distress. HEAD: Normal with no signs of trauma. EYES: PERRL, extraocular movements intact, sclera anicteric, conjunctiva clear. ENT: Ears normal, nares patent, oropharynx clear without exudates, moist mucous membranes. NECK: Trachea midline, supple. LUNGS: +good air entry, still with scattered wheezes however improved. + intermittent cough. no accessory m usage HEART: Regular rate and rhythm, S1, S2 without murmur, rub or gallop. ABDOMEN: Soft, obese, nontender, nondistended, normoactive bowel sounds, no guarding EXTREMITIES: 2+ pt pulses, warm, well-perfused, no edema. NEUROLOGICAL: Cranial nerves II through XII grossly intact. PSYCH: Normal mood, normal affect. SKIN: Warm, dry, normal turgor Laboratory Results - last 24 hr 08/03/17 08/03/17 08/03/17 07:00 07:00 11:36 WBC 14.9 H RBC 4.06 Hgb 11.7 Hct 35.4 MCV 87.1 MCH 28.9 MCHC 33.2 RDW 14.2 Plt Count 160 MPV 9.6 Absolute Neuts (auto) 13.7 Total Counted 100 Neutrophils % 91.9 H Neutrophils % (Manual) 88.0 H Band Neutrophils % 3.0 Lymphocytes % 5.2 L D Lymphocytes % (Manual) 5.0 L D Monocytes % 2.7 L Monocytes % (Manual) 3 L Eosinophils % 0.0 Basophils % 0.2 Nucleated RBC % 0 Metamyelocytes 1 D Platelet Estimate Adequate Platelet Comment Few large platelets Sodium 141 Potassium 4.4 Chloride 107 Carbon Dioxide 27 Anion Gap 7 L BUN 30 H Creatinine 1.2 H Creat Clearance w eGFR 45.09 POC Glucometer 327 Random Glucose 314 H* Calcium 8.5 Phosphorus 3.5 Magnesium 2.7 H Active Medications Generic Name Dose Route Start Last Admin Trade Name Freq PRN Reason Stop Dose Admin Albuterol Sulfate 1 amp 07/31/17 13:11 08/02/17 16:30 Ventolin 0.083% Nebulizer Soln - NEB 1 amp Q4H PRN Administration SHORT OF BREATH/WHEEZING Atorvastatin Calcium 40 mg 07/30/17 22:00 08/02/17 22:09 Lipitor - PO 40 mg HS KRYSTLE Administration Budesonide/Formoterol Fumarate 2 puff 07/30/17 10:00 08/03/17 10:30 Symbicort 160/4.5mcg - IH 2 puff BID KRYSTLE Administration Guaifenesin/Codeine Phosphate 5 ml 08/02/17 09:49 08/03/17 19:07 Robitussin Ac - PO 5 ml TID PRN Administration COUGH Heparin Sodium (Porcine) 5,000 unit 07/30/17 06:30 08/03/17 14:22 Heparin - SQ 5,000 unit TID KRYSTLE Administration Azithromycin 250 mg/ Dextrose 250 mls @ 250 mls/hr 07/31/17 00:00 08/02/17 23 :31 IVPB 250 mls/hr DAILY@0000 KRYSTLE Administration Ceftriaxone Sodium 1 gm/ 50 mls @ 100 mls/hr 07/30/17 06:45 08/03/17 10:14 Dextrose IVPB 100 mls/hr DAILY KRYSTLE Administration Protocol Insulin Aspart 1 vial 07/30/17 07:00 08/03/17 18:35 Novolog Vial Sliding Scale - SQ 4 unit ACHS KRYSTLE Administration Protocol Methylprednisolone Sodium Succinate 40 mg 08/02/17 18:00 08/03/17 18:36 Solu-Medrol - IVPUSH 40 mg Q8H KRYSTLE Administration Tiotropium [place] 1 puff 07/30/17 10:00 08/03/17 10:11 Spiriva - IH 1 puff DAILY KRYSTLE Administration TESTS 07/30/17: CXR: since 08/12/16, weaker inspiration with prominent mediastinum and central congestive changes 07/30/17: Duplex: no evidence of DVT in LLE ASSESSMENT/PLAN: 67 y/o F w/ PMH Asthma and DM who presents with five day history of progressive cough, ,sore throat, chest pain and SOB. #Acute asthma exacerbation -continue duonebs 1 amp q4h PRN -solu-medrol 40mg IVP q8h -if continues to improve, may send home on prednisone taper tomorrow -continue spiriva 1 puff IH daily -symbicort 2 puff IH BID -robitussin AC 5ml PO TID PRN for cough -monitor peak flow -Pulm on board: Dr. Pulido #CAP -continue CAP tx: zithromax 250mg IVPB qd, rocephin 1g IVPB qd (Day5) -tomorrow can d/c zithromax and place on ceftin for 5 additional day course. #HLD -continue lipitor 40mg PO qHS #DM -tight glycemic control d/t steroid use -BGM ACHS -ISS ACHS #F/E/N -no fluids indicated -continue to follow lytes -diabetic diet #PPX -heparin SQ 5000 U SQ TID #Dispo continued monitoring on med-surg will need outpt sleep study, PFTs sleep screen if continues to improve and with good peak flow, can send home tomorrow on [id number], prednisone taper Visit type - Emergency Visit Emergency Visit: No - New Patient This patient is new to me today: No - Critical Care Critical Care patient: No
[2017-08-03] MEDS: ALBUTEROL SO4 0.083% IH SOL 2.5 MG/3 ML VIAL.NEB. NEB PRN (21:49)
[2017-08-03] MEDS: ATORVASTATIN CA 40 MG TABLET (FP) PO SCH (22:23)
[2017-08-04] MEDS: AZITHROMYCIN IVPB 250 MG in DEXTROSE 5%-WATER - 250 ML IVPB SCH (00:05)
[2017-08-04] MEDS: methylPREDNISolone NA SUCC 40 MG/1 ML VIAL IVPUSH SCH ×2 (01:19→09:34)
[2017-08-04] MEDS: HEPARIN NA (PORCINE) 5,000 UNITS/ML 1ML VIAL SQ SCH (06:58)
[2017-08-04] MEDS: INSULIN SLIDING SCALE (NOVOLOG) 1 VIAL SQ SCH ×2 (06:58→11:38)
[2017-08-04 07:20] LABS: BASO % 0.3 % (0-2.0); HEMOGLOBIN 11.5 GM/dL (10.7-15.3); LYMPH % 5.3 % (8-40); MCH 29.2 pg (25.7-33.7); MCHC 33.9 g/dl (32.0-36.0); MEAN CELL VOLUME 86.2 fl (80-96); MEAN PLT VOLUME 9.8 fl (7.5-11.1); MONO % 2.7 % (3.8-10.2); NEUT % 91.7 % (42.8-82.8); PLATELET COUNT 159 K/MM3 (134-434); RBC 3.94 M/mm3 (3.60-5.2); RDW 13.7 % (11.6-15.6); WHITE BLOOD COUNT 13.2 K/mm3 (4.0-10.0)
[2017-08-04 07:36] LABS: ANION GAP 6 (8-16); BLOOD UREA NITROGEN 29 mg/dL (7-18); CALCIUM 8.6 mg/dL (8.5-10.1); CHLORIDE 105 mmol/L (98-107); CO2 28 mmol/L (21-32); CREATININE 1.1 mg/dL (0.55-1.02); POTASSIUM 4.3 mmol/L (3.5-5.1); SODIUM 139 mmol/L (136-145)
[2017-08-04 08:13] LABS: GLUCOSE,RANDOM 357 mg/dL (74-106)
[2017-08-04 08:32] LABS: MAGNESIUM 2.7 mg/dL (1.8-2.4); PHOSPHOROUS 3.7 mg/dL (2.5-4.9)
[2017-08-04 08:47] VITALS: BP 118/52; PULSE 54; TEMP 97.9
[2017-08-04] MEDS ORDERED: PT OWN MED DRAWER 7, Y5N ONE (09:26)
[2017-08-04] MEDS ORDERED: DEXTROSE 5%-WATER - 50 ML IVPB ONE (09:27)
[2017-08-04] MEDS ORDERED: cefTRIAXone SODIUM 1 GM VIAL ONE (09:27)
[2017-08-04] MEDS: CEFTRIAXONE 1 GM in DEXTROSE 5%-WATER - 50 ML IVPB SCH (09:34)
[2017-08-04] MEDS: TIOTROPIUM BROMIDE 18 MCG CAPSULES IH SCH (09:35)
[2017-08-04] MEDS: BUDESONIDE/FORMETEROL FUMARATE 160/4.5 mcg INHALER IH SCH (09:35)
[2017-08-04] MEDS: guaiFENesin/CODEINE 5 ML UNIT-DOSE CUPS PO PRN (09:48)
[2017-08-04 11:15] LABS: ANISOCYTOSIS 1+; MACROCYTOSIS 0; PLATELET ESTIMATE NORMAL
[2017-08-04] MEDS ORDERED: INSULIN (NOVOLOG) ASPART 100 UNITS/ML 10ML VIAL ONE (11:36)
--- NOTE | 2017-08-04 12:13 | PN ---
Progress Note (short form) - Note Progress Note: Breathing overall improved. Peak flow done at bedside 220, at baseline. Intake & Output 08/01/17 08/02/17 08/03/17 08/04/17 23:59 23:59 23:59 23:59 Intake Total 2240 2700 1270 1030 Balance 2240 2700 1270 1030 Last Vital Signs Temp Pulse Resp BP Pulse Ox 97.9 F 54 L 20 118/52 96 08/04/17 08:00 08/04/17 08:00 08/04/17 08:00 08/04/17 08:00 08/04/17 08:00 Active Medications Albuterol Sulfate (Ventolin 0.083% Nebulizer Soln -) 1 amp NEB Q4H PRN PRN Reason: SHORT OF BREATH/WHEEZING Last Admin: 08/03/17 21:49 Dose: 1 amp Atorvastatin Calcium (Lipitor -) 40 mg PO HS [facility] Last Admin: 08/03/17 22:23 Dose: 40 mg Budesonide/Formoterol Fumarate (Symbicort 160/4.5mcg -) 2 puff IH BID [facility] Last Admin: 08/04/17 09:35 Dose: 2 puff Guaifenesin/Codeine Phosphate (Robitussin Ac -) 5 ml PO TID PRN PRN Reason: COUGH Last Admin: 08/04/17 09:48 Dose: 5 ml Heparin Sodium (Porcine) (Heparin -) 5,000 unit SQ TID [facility] Last Admin: 08/04/17 06:58 Dose: 5,000 unit Azithromycin 250 mg/ Dextrose 250 mls @ 250 mls/hr IVPB DAILY@0000 [facility] Last Admin: 08/04/17 00:05 Dose: 250 mls/hr Ceftriaxone Sodium 1 gm/ (Dextrose) 50 mls @ 100 mls/hr IVPB DAILY [facility]; Protocol Last Admin: 08/04/17 09:34 Dose: 100 mls/hr Insulin Aspart (Novolog Vial Sliding Scale -) 1 vial SQ ACHS [facility]; Protocol Last Admin: 08/04/17 11:38 Dose: 10 unit Methylprednisolone Sodium Succinate (Solu-Medrol -) 40 mg IVPUSH Q8H [facility] Last Admin: 08/04/17 09:34 Dose: 40 mg Tiotropium [place] (Spiriva -) 1 puff IH DAILY [facility] Last Admin: 08/04/17 09:35 Dose: 1 puff Gen: NAD at rest Heart: RRR Lung: scattered rhonchi, distant breath sounds Abd: soft, nontender Ext: no edema Laboratory Results - last 24 hr 08/03/17 08/03/17 08/03/17 11:36 17:43 22:25 WBC RBC Hgb Hct MCV MCH MCHC RDW Plt Count MPV Absolute Neuts (auto) Neutrophils % Neutrophils % (Manual) Band Neutrophils % Lymphocytes % Lymphocytes % (Manual) Monocytes % Monocytes % (Manual) Eosinophils % Eosinophils % (Manual) Basophils % Basophils % (Manual) Myelocytes % (Man) Promyelocytes % (Man) Blast Cells % (Manual) Nucleated RBC % Metamyelocytes Hypochromia Platelet Estimate Polychromasia Poikilocytosis Anisocytosis Microcytosis Macrocytosis Sodium Potassium Chloride Carbon Dioxide Anion Gap BUN Creatinine Creat Clearance w eGFR POC Glucometer 327 349 405 Random Glucose Calcium Phosphorus Magnesium 08/04/17 08/04/17 08/04/17 06:15 06:15 06:57 WBC 13.2 H RBC 3.94 Hgb 11.5 Hct 34.0 MCV 86.2 MCH 29.2 MCHC 33.9 RDW 13.7 Plt Count 159 MPV 9.8 Absolute Neuts (auto) 12.1 Neutrophils % 91.7 H Neutrophils % (Manual) 89.8 H Band Neutrophils % 1.0 Lymphocytes % 5.3 L Lymphocytes % (Manual) 6.1 L D Monocytes % 2.7 L Monocytes % (Manual) 0 L D Eosinophils % 0.0 Eosinophils % (Manual) 0.0 Basophils % 0.3 Basophils % (Manual) 0.0 Myelocytes % (Man) 3 H D Promyelocytes % (Man) 0 Blast Cells % (Manual) 0 Nucleated RBC % 0 Metamyelocytes 0 D Hypochromia 0 Platelet Estimate Normal Polychromasia 0 Poikilocytosis 0 Anisocytosis 1+ Microcytosis 1+ Macrocytosis 0 Sodium 139 Potassium 4.3 Chloride 105 Carbon Dioxide 28 Anion Gap 6 L BUN 29 H Creatinine 1.1 H Creat Clearance w eGFR 49.85 POC Glucometer 348 Random Glucose 357 H* Calcium 8.6 Phosphorus 3.7 Magnesium 2.7 H 08/04/17 11:31 WBC RBC Hgb Hct MCV MCH MCHC RDW Plt Count MPV Absolute Neuts (auto) Neutrophils % Neutrophils % (Manual) Band Neutrophils % Lymphocytes % Lymphocytes % (Manual) Monocytes % Monocytes % (Manual) Eosinophils % Eosinophils % (Manual) Basophils % Basophils % (Manual) Myelocytes % (Man) Promyelocytes % (Man) Blast Cells % (Manual) Nucleated RBC % Metamyelocytes Hypochromia Platelet Estimate Polychromasia Poikilocytosis Anisocytosis Microcytosis Macrocytosis Sodium Potassium Chloride Carbon Dioxide Anion Gap BUN Creatinine Creat Clearance w eGFR POC Glucometer 357 Random Glucose Calcium Phosphorus Magnesium A/P Acute Asthma Exacerbation Morbid Obesity Likely Obstructive Sleep Apnea HTN DM Hyperlipidemia - Prednsione taper - inhaled bronchodilators - O2 to keep SpO2 >90% - outpt PFTs, PSG - D/C home Dr Garber
--- NOTE | 2017-08-04 15:35 | PN ---
Teaching Attending Note Name of Resident: Nilda Thompson ATTENDING PHYSICIAN STATEMENT I saw and evaluated the patient. I reviewed the resident's note and discussed the case with the resident. I agree with the resident's findings and plan as documented. SUBJECTIVE: Patient is feeling better, less wheezing , no HEREDIA on ambulation. less cough today on robitussin Ac OBJECTIVE: Vital Signs Temperature 97.9 F 08/04/17 08:00 Pulse Rate 54 L 08/04/17 08:00 Respiratory Rate 20 08/04/17 08:00 Blood Pressure 118/52 08/04/17 08:00 O2 Sat by Pulse Oximetry (%) 96 08/04/17 10:00 CBCD WBC 13.2 K/mm3 (4.0-10.0) H 08/04/17 06:15 RBC 3.94 M/mm3 (3.60-5.2) 08/04/17 06:15 Hgb 11.5 GM/dL (10.7-15.3) 08/04/17 06:15 Hct 34.0 % (32.4-45.2) 08/04/17 06:15 MCV 86.2 fl (80-96) 08/04/17 06:15 MCHC 33.9 g/dl (32.0-36.0) 08/04/17 06:15 RDW 13.7 % (11.6-15.6) 08/04/17 06:15 Plt Count 159 K/MM3 (134-434) 08/04/17 06:15 MPV 9.8 fl (7.5-11.1) 08/04/17 06:15 CMP Sodium 139 mmol/L (136-145) 08/04/17 06:15 Potassium 4.3 mmol/L (3.5-5.1) 08/04/17 06:15 Chloride 105 mmol/L (98-107) 08/04/17 06:15 Carbon Dioxide 28 mmol/L (21-32) 08/04/17 06:15 Anion Gap 6 (8-16) L 08/04/17 06:15 BUN 29 mg/dL (7-18) H 08/04/17 06:15 Creatinine 1.1 mg/dL (0.55-1.02) H 08/04/17 06:15 Creat Clearance w eGFR 49.85 (>60) 08/04/17 06:15 Random Glucose 357 mg/dL (74-106) H* 08/04/17 06:15 Calcium 8.6 mg/dL (8.5-10.1) 08/04/17 06:15 Total Bilirubin 0.4 mg/dL (0.2-1.0) 07/30/17 01:46 AST 19 U/L (15-37) 07/30/17 01:46 ALT 20 U/L (12-78) 07/30/17 01:46 Alkaline Phosphatase 85 U/L (45-117) 07/30/17 01:46 Total Protein 7.1 g/dl (6.4-8.2) 07/30/17 01:46 Albumin 3.3 g/dl (3.4-5.0) L 07/30/17 01:46 CARDIAC ENZYMES Creatine Kinase 117 IU/L (26-192) 07/30/17 01:46 Troponin I < 0.02 ng/ml (0.00-0.05) 07/30/17 01:46 Home Medications Medication Instructions Recorded Budesonide/Formeterol Fumarate 2 puff IH BID #1 inhaler 07/09/16 [SYMBICORT 160/4.5mcg -] Tiotropium [place] [Spiriva] 1 puff IH DAILY #1 inh 07/09/16 Albuterol Sulfate Inhaler - 1 - 2 inh PO Q4H PRN #1 inhaler 07/19/16 [Ventolin HFA Inhaler -] Atorvastatin Ca [Lipitor] 1 tab PO DAILY 12/17/16 Sitagliptin Phosphate [Januvia] 100 mg PO DAILY 12/17/16 Cefuroxime [place]etil [Ceftin -] 500 mg PO Q12H #8 tablet 08/04/17 Guaifenesin AC [Robitussin AC -] 5 ml PO Q6H PRN #1 bottle MDD 20 ml 08/04/17 Insulin Detemir [Levemir Flextouch] 15 unit SQ DAILY #3 syringe 08/04/17 Montelukast Sodium [Singulair] 10 mg PO HS #30 tablet 08/04/17 Prednisone 10 mg PO DAILY #30 tab.ds.pk 08/04/17 PE: Chest: mild wheeze, better air entry. mild cough ASSESSMENT AND PLAN: The patient is a 67 yo f w/ PMHx Asthma and DM who comes in complaining of a 5 day history of progressive cough, ,sore throat, chest pain and SOB. #Acute exacerbation of Asthma improved continue home spiriva, Prednisone 12 taper day 40mg x3, 30mg x3, 30mg x3, 10mg x3, symbicort, completed zithro IV, Rocephin IV will continue 4 more days of ceftin ,added Robitussin ac for coughing since it's helping. Patient was advised not to drive or operate any machinary. as per patient does not drive. Also added Shanta #DM:continue with [place]anto and follow with #HLD : On lipitor continue Discharge patient home.
--- NOTE | 2017-08-04 17:19 | DS ---
Physical Exam: SUBJECTIVE: Patient seen and examined at bedside. No acute events overnight; pt ambulatory with Sp02 96%. Today, pt able to ambulate without HEREDIA. States that her cough has improved. Peak flow above 200. Dispo plan discussed at length with pt. Questions answered. Denies FUENTES, fever, chills, SOB, or changes in urinary or bowel function. OBJECTIVE: Vital Signs Period Temp Pulse Resp BP Sys/[place] Pulse Ox Last 24 Hr 97.7 F-98.1 F 52-55 20-20 118-154/52-94 96-96 PHYSICAL EXAM GENERAL: The patient is pleasant. awake, alert, and fully oriented, in no acute distress. HEAD: Normal with no signs of trauma. EYES: PERRL, extraocular movements intact, sclera anicteric, conjunctiva clear. ENT: Ears normal, nares patent, oropharynx clear without exudates, moist mucous membranes. NECK: Trachea midline, supple. LUNGS: + good air entry. mild wheezes appreciated b/l HEART: Regular rate and rhythm, S1, S2 without murmur, rub or gallop. ABDOMEN: Soft, obese, nontender, nondistended, normoactive bowel sounds, no guarding, no rebound EXTREMITIES: 2+ pt pulses, warm, well-perfused, no edema. NEUROLOGICAL: Cranial nerves II through XII grossly intact. Ambulating well PSYCH: Normal mood, normal affect. SKIN: Warm, dry, normal turgor LABS 07/30/17 07/31/17 07/31/17 01:46 06:16 06:16 WBC 9.1 15.0 H D Hgb 11.4 Hct 34.7 Plt Count 190 Sodium 137 Potassium 4.5 Chloride 99 Carbon Dioxide 26 BUN 31 H Creatinine 1.1 H 08/01/17 08/01/17 08/04/17 06:30 06:30 06:15 WBC 16.9 H 13.2 H Hgb 11.4 11.5 Hct 34.4 34.0 Plt Count 189 159 Sodium 137 Potassium 4.5 Chloride 103 Carbon Dioxide 24 BUN 34 H Creatinine 1.1 H 08/04/17 08/04/17 08/04/17 06:15 06:57 11:31 Sodium 139 Potassium 4.3 Chloride 105 Carbon Dioxide 28 BUN 29 H Creatinine 1.1 H POC Glucometer 348 357 Random Glucose 357 H* Calcium 8.6 Phosphorus 3.7 Magnesium 2.7 H Blood glucose 08/02/17 08/02/17 08/02/17 06:04 11:56 17:14 POC Glucometer 326 365 376 08/02/17 08/03/17 08/03/17 22:08 06:12 11:36 POC Glucometer 396 337 327 08/03/17 08/03/17 08/04/17 17:43 22:25 06:15 POC Glucometer 349 405 08/04/17 08/04/17 06:57 11:31 POC Glucometer 348 357 TESTS 07/30/17: CXR: since 08/12/16, weaker inspiration with prominent mediastinum and central congestive changes 07/30/17: Duplex: no evidence of DVT in [facility]PITAL COURSE: Date of Admission:07/30/17 Date of Discharge: 08/04/17 Admission diagnosis: Asthma exacerbation Pt is a 67 y/o F w/ PMH HTN, HLD, Asthma, DM who came to the ED c/o a 5 day hx of progressive cough, sore throat and SOB. The patient was in her usual state of health until 5 days prior, when the windows in her apartment were changed. Since then, she developed a cough and sore throat, followed by progressive SOB. Pt's cough was productive of yellow sputum and her SOB was a/w chest tightness. She has been compliant with her home medications which did not provide her any relief. She endorsed being hospitalized last year for an asthma exacerbation, but denied ever being intubated. Patient received 2 nebulizers and 10mg decadron from EMS. Admitted for asthma exacerbation likely 2/2 dust, allergens. While pt was in the hospital, she was maintained on a solumedrol taper, from 60 mg IVP TID, and prior to d/c, 40mg IVP q8h. Pt showed progressive improvement, as her air entry improved greatly, and her wheezing decreased. She is d/c on prednisone taper (40mg x 3 days, 30mg x 3 days, 20mg x 3days, 10mg x 3 days) . Pt peak flow was monitored and on d/c she is at her baseline of ~200. During this time, she was also continued on spiriva 1 puff IH daily, symbicort 2 puff IH BID, as well as robitussin AC 5ml PO TID PRN for cough. Pt seen by pulm and recommended outpt sleep study, PFTs. Pt also tx for community acquired PNA during stay with rocephin 1g IVPB qd and zithromax 250 mg IVPB for five day course. Will d/c on ceftin 500mg PO BID for 4 additional day tx. Concerning pt's DM, she was covered during stay with insulin sliding scale. Will go home continued on Januvia home med, as well as levemir 15U SQ in AM. Discussed at length w/pt. Agreed with plan. Will see Dr. Chavarria as well tomorrow for continued DM follow-up. Pt given paper rx for prednisone taper, and other meds sent to pharmacy. Pharmacy called concerning robitussin AC order , however without response. Will continue to call back. Minutes to complete discharge: 48 Discharge Summary Reason For Visit: EXACERBATION OF ASTHMA Condition: Stable - Instructions Diet, Activity, Other Instructions: You were in the hospital because you had an exacerbation of your asthma. While you were in the hospital, you were treated with IV steroids. You were also found to have pneumonia. For this reason, you were treated with IV antibiotics. Your visit You were seen by the pulmonary and medicine teams Medications Continue your home medications (symbicort,spiriva, albuterol). We have added the followin) A prednisone (steroid) taper: -Take 40mg (4 pills) for three days starting tomorrow (08/05, 08/06, 08/07) -Take 30 mg (3 pills) for the following three days (08/08, 08/09, 08/10) -Take 20 mg (2 pills) for the following three days (08/11, 08/12, 08/13) -Take 10 mg (1 pill) for the following three days (08/14, 7, 08/16) Do not abruptly stop your prednisone taper. Complete until the end as explained above 2) Start to take singulair 10mg at night every day. This is for your asthma. 3) Antibiotics for Pneumonia: Please take the antibiotic, Ceftin 500mg (1 tab) twice a day for four days starting tomorrow. 4) Robitussin AC- you may take 5ml every six hours only as needed for your cough. Be careful as this can make you drowsy. Do NOT drive or operate machinery 4) Diabetes regimen -You may continue Januvia 100mg daily -We have added: -Levemir 15 units in the morning -Please take this while you are on the prednisone taper since your sugars have been elevated. Tomorrow, please follow up with parole hearing officer (diabetes doctor) , Dr. Chavarria. He will decide whether you still need this. Please call his office to make an appointment. Care -Do not stop your steroids abruptly -Try to avoid dust, allergens, and any asthma triggers -avoid driving, or operating heavy machinery when using Robitussin as it can cause drowsiness Follow-up Please follow up with the following physicians upon discharge: -Dr. Montes - your primary care doctor - 1 week -Dr. Cahvarria - an parole hearing officer/diabetes doctor -tomorrow, 08/05/17 -Dr. Pulido - a pulmonary doctor/lung doctor - 1 week. He will talk to you about pulmonary function testing and outpatient sleep studies If you develop shortness of breath, or chest pain, please go to the hospital. Referrals: Ruel Pulido MD [Staff Physician] - 1 Week Saurabh Harris MD [Primary Care Provider] - 1 Week Berenice Rojas MD [Staff Physician] - 08/05/17 Disposition: VNS/HOME HEALTH CARE - Home Medications Comprehensive Discharge Medication List: Ambulatory Orders Budesonide/Formeterol Fumarate [SYMBICORT 160/4.5mcg -] 2 puff IH BID #1 inhaler 07/09/16 Tiotropium [place] [Spiriva] 1 puff IH DAILY #1 inh 07/09/16 Albuterol Sulfate Inhaler - [Ventolin HFA Inhaler -] 1 - 2 inh PO Q4H PRN #1 inhaler 07/19/16 Atorvastatin Ca [Lipitor] 1 tab PO DAILY 12/17/16 Sitagliptin Phosphate [Januvia] 100 mg PO DAILY 12/17/16 Cefuroxime Axetil [Ceftin -] 500 mg PO Q12H #8 tablet 08/04/17 Guaifenesin AC [Robitussin AC -] 5 ml PO Q6H PRN #1 bottle MDD 20 ml 08/04/17 Insulin Detemir [Levemir Flextouch] 15 unit SQ DAILY #3 syringe 08/04/17 Montelukast Sodium [Singulair] 10 mg PO HS #30 tablet 08/04/17 Prednisone 10 mg PO DAILY #30 tab.ds.pk 08/04/17 This patient is new to me today: No Emergency Visit: No Critical Care patient: No - Discharge Referral Referred to [facility] No
== END 2017-08-04 13:55 | disposition home health service (06) | DRG 194 ==
LOC: JER 01:08 → JERBED 04:16 → UNDOADMOB 04:21 → OBSVTOIN 10:49 → J5S 14:00
PROVIDERS: ADMIT Internal Medicine; ATTEND Internal Medicine
DX: J18.9 Pneumonia, unspecified organism (principal); J45.901 Unspecified asthma with (acute) exacerbation; Z87.891 Personal history of nicotine dependence; I10 Essential (primary) hypertension; E78.5 Hyperlipidemia, unspecified; E11.9 Type 2 diabetes mellitus without complications; E66.01 Morbid (severe) obesity due to excess calories; G47.33 Obstructive sleep apnea (adult) (pediatric); Z68.34 Body mass index [BMI] 34.0-34.9, adult; Z79.4 Long term (current) use of insulin
CPT/HCPCS: 36415; 71045-TC-FY; 80048; 80053; 82550; 82803; 82947; 82962; 83735; 84100; 84484; 85025; 93005; 93010; 93971-TC; 94150; 94640; 99281-25; G0378; J1644; J7030; J7620

== ENCOUNTER → 2017-11-17 | Day surgery (SDC) | payer MEDICARE, OTHER ==
--- NOTE | 2017-11-20 14:25 | PATH ---
Cytology Non-Gynecological Report Patient Name: DWIGHT FIERRO [facility]. Rec. #: [id number] /Age/Gender: 1950 (Age: 67) / F Account: [id number] Location: RADIOLOGY INTER Taken: 11/17/2017 Received: 11/17/2017 Reported: 11/18/2017 Physicians: Gustabo Oconnell M.D. Specimen(s) Received LEFT THYROID FNA Clinical History Left thyroid nodule, 1.21 x 0.54 x 1.10 cm Final Diagnosis THYROID, LEFT, FINE NEEDLE ASPIRATION: SATISFACTORY FOR EVALUATION. BETHESDA CLASS II: BENIGN. CYTOLOGIC FINDINGS ARE CONSISTENT WITH A BENIGN FOLLICULAR NODULE. SMALL FOLLICULAR CELLS, SCANT COLLOID, AND FEW MACROPHAGES PRESENT. Electronically Signed Britney Whiteside M.D. Gross Description Received are eight direct smears, four of which are air-dried and Diff-Quik stained, and four of which are alcohol fixed and Pap stained. Also received is 20 ml of bloody formalin from which one cellblock is prepared.
== END | disposition home or self-care (01) ==
LOC: JRADIR 09:24
PROVIDERS: ATTEND Internal Medicine Endocrinology, Diabetes & Metabolism
PROC: 0G9G3ZX Drainage of Left Thyroid Gland Lobe, Percutaneous Approach, Diagnostic (ICD-10-PCS; principal; 2017-11-17)
DX: E04.1 Nontoxic single thyroid nodule (principal)
CPT/HCPCS: 76942; 88173; 88305-TC

== ENCOUNTER 2018-03-10 11:23 | Inpatient (IN) | payer MEDICARE, OTHER ==
[2018-03-10] MEDS ORDERED: ALBUTEROL SO4 2.5/IPRATROPIUM 0.5 INH SOL 3 ML VIAL.NEB. NEB ONE ×3 (11:37→19:21)
[2018-03-10] MEDS ORDERED: DEXAMETHASONE SOD PHOSPHATE 10 MG/1 ML VIAL ONE (11:37)
--- NOTE | 2018-03-10 11:58 | PDOC ---
*Physical Exam - Vital Signs Last Vital Signs Temp Pulse Resp BP Pulse Ox 98.3 F 78 16 102/68 100 03/10/18 11:25 03/10/18 11:25 03/10/18 11:25 03/10/18 11:25 03/10/18 11:25 ED Treatment Course - LABORATORY CBC & Chemistry Diagram: 03/11/18 06:40 03/11/18 06:40 Medical Decision Making - Medical Decision Making 03/10/18 11:58 68 yo F presenting with shortness of breath and wheezing (+) cough Given Decadron and Nebs x 2 Pt continues to wheeze Laboratory Tests 03/10/18 03/10/18 12:20 12:20 WBC 8.6 Hgb 12.9 Hct 37.6 Plt Count 155 BUN 19 H Creatinine 1.1 EKG - NSR rate of 84 bpm, axis nml, no st elevation or depression, t wave flattening diffusely, inversion v5, v6 Persistently wheezing and short of breath Will place on observation Pt seen by Midlevel Provider under my direct supervision Pt interviewed and examined Ancillary studies reviewed I agree with plan as outlined by Midlevel Provider 03/10/18 13:49 *DC/Admit/Observation/Transfer Diagnosis at time of Disposition: Asthma - Discharge Dispostion Condition at time of disposition: Stable - Referrals - Patient Instructions - Post Discharge Activity
--- NOTE | 2018-03-10 11:59 | PDOC ---
History of Present Illness - General Chief Complaint: Asthma Stated Complaint: Asthma Time Seen by Provider: 03/10/18 11:53 History Source: Patient Exam Limitations: No Limitations - History of Present Illness Initial Comments: 03/10/18 15:12 Patient is a 68-year-old female with past medical history of asthma, hypertension, hyperlipidemia, none since and diabetes, who presents to the emergency department today for an asthma exacerbation. Patient states that she has been wheezing more than usual and she had an upper respiratory infection about a week ago. She states that she went to be seen by her primary care doctor today who called an ambulance at his office because of her shortness of breath. Patient received 2 Combivent and 10 mg of Decadron in route to the hospital by EMS. Patient reports some relief of symptoms after the medication. Denies fevers, chills, chest pain, congestion, nausea, vomiting, diarrhea, weakness and dizziness. Patient has been hospitalized for her asthma in the past. Patient has never been intubated. Past History - Travel Traveled outside of the country in the last 30 days: No Close contact w/someone who was outside of country & ill: No - Past Medical History Allergies/Adverse Reactions: Allergies Allergy/AdvReac Type Severity Reaction Status Date / Time No Known Allergies Allergy Verified 03/10/18 11:37 Home Medications: Ambulatory Orders Budesonide/Formeterol Fumarate [SYMBICORT 160/4.5mcg -] 2 puff IH BID #1 inhaler 07/09/16 Tiotropium [place] [Spiriva] 1 puff IH DAILY #1 inh 07/09/16 Albuterol Sulfate Inhaler - [Ventolin HFA Inhaler -] 1 - 2 inh PO Q4H PRN #1 inhaler 07/19/16 Atorvastatin Ca [Lipitor] 1 tab PO DAILY 12/17/16 Sitagliptin Phosphate [Januvia] 100 mg PO DAILY 12/17/16 Cefuroxime Axetil [Ceftin -] 500 mg PO Q12H #8 tablet 08/04/17 Guaifenesin AC [Robitussin AC -] 5 ml PO Q6H PRN #1 bottle MDD 20 ml 08/04/17 Insulin Detemir [Levemir Flextouch] 15 unit SQ DAILY #3 syringe 08/04/17 Montelukast Sodium [Singulair] 10 mg PO HS #30 tablet 08/04/17 Prednisone 10 mg PO DAILY #30 tab.ds.pk 08/04/17 Anemia: No Asthma: Yes Cancer: No Cardiac Disorders: No CVA: No COPD: No CHF: No Dementia: No Diabetes: Yes GI Disorders: No Disorders: No HTN: Yes Hypercholesterolemia: Yes Liver Disease: No Seizures: No Thyroid Disease: No - Surgical History Abdominal Surgery: Yes (fibroids, TUBAL LIGATION) Appendectomy: Yes Cardiac Surgery: No Cholecystectomy: No Lung Surgery: No Neurologic Surgery: No Orthopedic Surgery: No - Immunization History Immunization Up to Date: Yes - Suicide/Smoking/Psychosocial Hx Smoking Status: Yes Smoking History: Unknown if ever smoked Have you smoked in the past 12 months: No Number of Cigarettes Smoked Daily: 0 If you are a former smoker, when did you quit?: 15 YEARS Cigars Per Day: 0 Information on smoking cessation initiated: No Hx Alcohol Use: No Drug/Substance Use Hx: No Substance Use Type: None Hx Substance Use Treatment: No Review of Systems - Review of Systems Able to Perform ROS?: Yes Comments:: 03/10/18 14:50 CONSTITUTIONAL: Absent: fever, chills, diaphoresis, generalized weakness, malaise, loss of appetite HEENT: Absent: rhinorrhea, nasal congestion, throat pain, throat swelling, difficulty swallowing, mouth swelling, ear pain, eye pain, visual Changes CARDIOVASCULAR: Absent: chest pain, loss of consciousness, palpitations, irregular heart rate, peripheral edema RESPIRATORY: Present: wheezing, shortness of breath Absent: cough, dyspnea with exertion, orthopnea, stridor, hemoptysis GASTROINTESTINAL: Absent: abdominal pain, abdominal distension, nausea, vomiting, diarrhea, constipation, melena, hematochezia GENITOURINARY: Absent: dysuria, frequency, urgency, hesitancy, hematuria, flank pain, genital pain MUSCULOSKELETAL: Absent: myalgia, arthralgia, joint swelling SKIN: Absent: rash, itching, pallor HEMATOLOGIC/IMMUNOLOGIC: Absent: easy bleeding, easy bruising, lymphadenopathy, frequent infections ENDOCRINE: Absent: unexplained weight gain, unexplained weight loss, heat intolerance, cold intolerance NEUROLOGIC: Absent: headache, focal weakness or paresthesias, dizziness, unsteady gait, seizure, mental status changes, bladder or bowel incontinence PSYCHIATRIC: Absent: anxiety, depression, suicidal or homicidal ideation, hallucinations. Is the patient limited Sinhala proficient: No *Physical Exam - Vital Signs Last Vital Signs Temp Pulse Resp BP Pulse Ox 98.3 F 78 16 102/68 100 03/10/18 11:25 03/10/18 11:25 03/10/18 11:25 03/10/18 11:25 03/10/18 11:25 - Physical Exam Comments: 03/10/18 14:50 GENERAL: Well developed, well nourished. Awake and alert. No acute distress. HEENT: Normocephalic, atraumatic. PERRLA, EOMI. No conjunctival pallor. Sclera are non- icteric. Moist mucous membranes. Oropharynx is clear. NECK: Supple. Full ROM. No JVD. Carotid pulses 2+ and symmetric, without bruits. No thyromegaly. No lymphadenopathy. CARDIOVASCULAR: Regular rate and rhythm. No murmurs, rubs, or gallops. Distal pulses are 2+ and symmetric. PULMONARY: No evidence of respiratory distress. Lungs with diffuse expiratory wheezing b/ l. No rales or rhonchi. ABDOMINAL: Soft. Non-tender. Non-distended. No rebound or guarding. No organomegaly. Normoactive bowel sounds. MUSCULOSKELETAL Normal range of motion at all joints. No bony deformities or tenderness. No CVA tenderness. EXTREMITIES: No cyanosis. No clubbing. No edema. No calf tenderness. SKIN: Warm and dry. Normal capillary refill. No rashes. No jaundice. NEUROLOGICAL: Alert, awake, appropriate. Cranial nerves 2-12 intact. No deficits to light touch and temperature in face, upper extremities and lower extremities. No motor deficits in the in face, upper extremities and lower extremities. Normoreflexic in the upper and lower extremities. Normal speech. Toes are down- going bilaterally. Gait is normal without ataxia. PSYCHIATRIC: Cooperative. Good eye contact. Appropriate mood and affect. Moderate Sedation - Procedure Monitoring Vital Signs: Procedure Monitoring Vital Signs Temperature 98.3 F 03/10/18 11:25 Pulse Rate 78 03/10/18 11:25 Respiratory Rate 16 03/10/18 11:25 Blood Pressure 102/68 03/10/18 11:25 O2 Sat by Pulse Oximetry (%) 100 03/10/18 11:25 ED Treatment Course - LABORATORY CBC & Chemistry Diagram: 03/10/18 12:20 03/10/18 12:20 Medical Decision Making - Medical Decision Making 03/10/18 15:15 Patient is a 68-year-old female past medical history of diabetes, asthma, hypertension and hyperlipidemia who presents for an asthma exacerbation starting yesterday. On exam patient with expiratory wheezing throughout all lung arango. Patient reports that it is hard to take a deep breath and she does not feel like she couldn't catch her breath. Chest x-ray is negative for acute pathology. Rapid flu is negative. 2 more DuoNeb's and mag given in the emergency department for her asthma exacerbation. Patient reports still feeling tight despite all medical intervention. O2 saturation remains high. Given patient's history, and how the patient is feeling we'll place patient in observation Primary care doctor is Dr. Serrano. Will page the hospitalist staff. 03/10/18 15:[address] Bar, PG-Y1. Will accept the case under observation under Dr. Ford *DC/Admit/Observation/Transfer Diagnosis at time of Disposition: Asthma Qualifiers: Asthma severity: moderate Asthma persistence: persistent Asthma complication type: uncomplicated Qualified Code(s): J45.40 - Moderate persistent asthma, uncomplicated - Discharge Dispostion Condition at time of disposition: Stable Decision to Admit order: Yes - Referrals - Patient Instructions - Post Discharge Activity
[2018-03-10] MEDS: ALBUTEROL SO4 2.5/IPRATROPIUM 0.5 INH SOL 3 ML VIAL.NEB. NEB SCH ×3 (12:17→20:50)
[2018-03-10 12:37] LABS: BASO % 0.6 % (0-2.0); EOS % 2.4 % (0-4.5); HEMATOCRIT 37.6 % (32.4-45.2); HEMOGLOBIN 12.9 GM/dL (10.7-15.3); LYMPH % 20.7 % (8-40); MCH 31.3 pg (25.7-33.7); MCHC 34.4 g/dl (32.0-36.0); MEAN CELL VOLUME 90.8 fl (80-96); MEAN PLT VOLUME 10.4 fl (7.5-11.1); MONO % 3.5 % (3.8-10.2); NEUT % 72.8 % (42.8-82.8); PLATELET COUNT 155 K/MM3 (134-434); RBC 4.14 M/mm3 (3.60-5.2); RDW 14.7 % (11.6-15.6); WHITE BLOOD COUNT 8.6 K/mm3 (4.0-10.0)
[2018-03-10 13:02] LABS: ALBUMIN 3.8 g/dl (3.4-5.0); ALK PHOS 72 U/L (45-117); ANION GAP 9 MMOL/L (8-16); BILIRUBIN,TOTAL 0.4 mg/dL (0.2-1); BLOOD UREA NITROGEN 19 mg/dL (7-18); CHLORIDE 105 mmol/L (98-107); CO2 26 mmol/L (21-32); CREATININE 1.1 mg/dL (0.55-1.3); GLUCOSE,RANDOM 278 mg/dL (74-106); POTASSIUM 3.8 mmol/L (3.5-5.1); SGOT/AST 12 U/L (15-37); SGPT/ALT 17 U/L (13-61); SODIUM 140 mmol/L (136-145); TOT PROT 6.9 g/dl (6.4-8.2)
[2018-03-10] MEDS ORDERED: MAGNESIUM SULF 50% (8.12 MEQ/2 ML-1 GM VIAL) IVPB ONE (13:41)
[2018-03-10] MEDS ORDERED: MAGNESIUM 1GM/D5W - 1 GM/100 ML IVPB IVPB ONE (13:52)
--- NOTE | 2018-03-10 16:19 | PN ---
Teaching Attending Note Name of Resident: Natalya Bar ATTENDING PHYSICIAN STATEMENT I saw and evaluated the patient. I reviewed the resident's note and discussed the case with the resident. I agree with the resident's findings and plan as documented. SUBJECTIVE: Patient is a 68 year old female with past medical history of HLD, DM, and asthma presented with worsening shortness of breath and wheezing that started few days ago. denies any fever or chills, no nausea or vomiting. OBJECTIVE: Vital Signs Temperature 98.3 F 03/10/18 11:25 Pulse Rate 76 03/10/18 15:21 Respiratory Rate 18 03/10/18 15:21 Blood Pressure 98/60 03/10/18 15:21 O2 Sat by Pulse Oximetry (%) 97 03/10/18 15:21 GENERAL: The patient is awake, alert, and fully oriented, in no acute distress. HEAD: Normal with no signs of trauma. EYES: PERRL, extraocular movements intact, sclera anicteric, conjunctiva clear. ENT: Ears normal, oropharynx clear without exudates, moist mucous membranes. NECK: Trachea midline, full range of motion, supple. LUNGS: Breath sounds equal continues to wheeze but improving, positive for cough . no accessory muscle use. HEART: Regular rate and rhythm, S1, S2 without murmur, rub or gallop. ABDOMEN: Soft, nontender, nondistended, normoactive bowel sounds, no guarding, no rebound, no hepatosplenomegaly, no masses. EXTREMITIES: 2+ pulses, warm, well-perfused, no edema. NEUROLOGICAL: Cranial nerves II through XII grossly intact. Normal speech, gait is stable . PSYCH: Normal mood, normal affect. SKIN: Warm, dry, normal turgor, no rashes or lesions noted CBCD WBC 8.6 K/mm3 (4.0-10.0) 03/10/18 12:20 RBC 4.14 M/mm3 (3.60-5.2) 03/10/18 12:20 Hgb 12.9 GM/dL (10.7-15.3) 03/10/18 12:20 Hct 37.6 % (32.4-45.2) 03/10/18 12:20 MCV 90.8 fl (80-96) 03/10/18 12:20 MCHC 34.4 g/dl (32.0-36.0) 03/10/18 12:20 RDW 14.7 % (11.6-15.6) 03/10/18 12:20 Plt Count 155 K/MM3 (134-434) 03/10/18 12:20 MPV 10.4 fl (7.5-11.1) 03/10/18 12:20 CMP Sodium 140 mmol/L (136-145) 03/10/18 12:20 Potassium 3.8 mmol/L (3.5-5.1) 03/10/18 12:20 Chloride 105 mmol/L (98-107) 03/10/18 12:20 Carbon Dioxide 26 mmol/L (21-32) 03/10/18 12:20 Anion Gap 9 MMOL/L (8-16) 03/10/18 12:20 BUN 19 mg/dL (7-18) H 03/10/18 12:20 Creatinine 1.1 mg/dL (0.55-1.3) 03/10/18 12:20 Creat Clearance w eGFR 49.69 (>60) 03/10/18 12:20 Random Glucose 278 mg/dL (74-106) H 03/10/18 12:20 Calcium 9.0 mg/dL (8.5-10.1) 03/10/18 12:20 Total Bilirubin 0.4 mg/dL (0.2-1) 03/10/18 12:20 AST 12 U/L (15-37) L 03/10/18 12:20 ALT 17 U/L (13-61) 03/10/18 12:20 Alkaline Phosphatase 72 U/L (45-117) 03/10/18 12:20 Total Protein 6.9 g/dl (6.4-8.2) 03/10/18 12:20 Albumin 3.8 g/dl (3.4-5.0) 03/10/18 12:20 Home Medications Medication Instructions Recorded Budesonide/Formeterol Fumarate 2 puff IH BID #1 inhaler 07/09/16 [SYMBICORT 160/4.5mcg -] Tiotropium [place] [Spiriva] 1 puff IH DAILY #1 inh 07/09/16 Albuterol Sulfate Inhaler - 1 - 2 inh PO Q4H PRN #1 inhaler 07/19/16 [Ventolin HFA Inhaler -] Atorvastatin Ca [Lipitor] 1 tab PO DAILY 12/17/16 Sitagliptin Phosphate [Januvia] 100 mg PO DAILY 12/17/16 Cefuroxime Axetil [Ceftin -] 500 mg PO Q12H #8 tablet 08/04/17 Guaifenesin AC [Robitussin AC -] 5 ml PO Q6H PRN #1 bottle MDD 20 ml 08/04/17 Insulin Detemir [Levemir Flextouch] 15 unit SQ DAILY #3 syringe 08/04/17 Montelukast Sodium [Singulair] 10 mg PO HS #30 tablet 08/04/17 Prednisone 10 mg PO DAILY #30 tab.ds.pk 08/04/17 ASSESSMENT AND PLAN: The patient is a 67 yo f w/ PMHx Asthma and DM who comes in complaining of a 5 day history of progressive cough, ,sore throat, chest pain and SOB. #Acute exacerbation of Asthma: on neb, treatments, zthromax, solumedrol iv , pulm consult. #DM:continue with levemir and Januvia and follow with #HLD : On lipitor continue DVT Px: heparin sq
[2018-03-10] MEDS ORDERED: ALBUTEROL SO4 2.5/IPRATROPIUM 0.5 INH SOL 3 ML VIAL.NEB. NEB PRN (16:37)
[2018-03-10] MEDS ORDERED: predniSONE 20 MG TABLET (UD) PO ONE (16:41)
--- NOTE | 2018-03-10 16:43 | HP ---
CHIEF COMPLAINT: shortness of breath PCP:Dr. Harris HISTORY OF PRESENT ILLNESS: Patient is a 68 year old female with past medical history of HLD, DM, and asthma presented with worsening shortness of breath and wheezing that started few days ago. Patient reported having rhinorrhea with clear discharge, nasal congestion and productive cough of white sputum since 1 week ago. No fever or chills, no medications taken. For the last 3 days, patient noted worsening of SOB with wheezing. Patient was seen at her PCP's office today, was noted to be in distress and was brought to the ED. Patient was given Combivent x2 and Decadron by paramedics. Of note, patient last took her maintenance medications ( Symbicort, Montelukast, Albuterol IH) last Thursday as she ran out. Denies headache, dizziness, fever, chills, chest pain, palpitations, abdominal pain, diarrhea, constipation, urinary symptoms. ER course was notable for: (1)Duonebs x2 (2)CXR: no active pulmonary disease (3) Recent Travel:denies PAST MEDICAL HISTORY: hyperlipidemia DM Asthma PAST SURGICAL HISTORY: Appendectomy Tubal ligation Social History: Smoking:previous smoker, quit 15 years ago Alcohol:denies Drugs: denies Family History: Noncontributory Allergies No Known Allergies Allergy (Verified 03/10/18 11:37) HOME MEDICATIONS: Home Medications Medication Instructions Recorded Budesonide/Formeterol Fumarate 2 puff IH BID #1 inhaler 07/09/16 [SYMBICORT 160/4.5mcg -] Tiotropium [place] [Spiriva] 1 puff IH DAILY #1 inh 07/09/16 Albuterol Sulfate Inhaler - 1 - 2 inh PO Q4H PRN #1 inhaler 07/19/16 [Ventolin HFA Inhaler -] Atorvastatin Ca [Lipitor] 1 tab PO DAILY 12/17/16 Sitagliptin Phosphate [Januvia] 100 mg PO DAILY 12/17/16 Cefuroxime Axetil [Ceftin -] 500 mg PO Q12H #8 tablet 08/04/17 Guaifenesin AC [Robitussin AC -] 5 ml PO Q6H PRN #1 bottle MDD 20 ml 08/04/17 Insulin Detemir [Levemir Flextouch] 15 unit SQ DAILY #3 syringe 08/04/17 Montelukast Sodium [Singulair] 10 mg PO HS #30 tablet 08/04/17 Prednisone 10 mg PO DAILY #30 tab.ds.pk 08/04/17 REVIEW OF SYSTEMS CONSTITUTIONAL: Absent: fever, chills, diaphoresis, generalized weakness, malaise, loss of appetite, weight change HEENT: Absent: rhinorrhea, nasal congestion, throat pain, throat swelling, difficulty swallowing, mouth swelling, ear pain, eye pain, visual changes CARDIOVASCULAR: Absent: chest pain, syncope, palpitations, irregular heart rate, lightheadedness , peripheral edema RESPIRATORY: Absent: cough, shortness of breath, dyspnea with exertion, orthopnea, wheezing, stridor, hemoptysis GASTROINTESTINAL: Absent: abdominal pain, abdominal distension, nausea, vomiting, diarrhea, constipation, melena, hematochezia GENITOURINARY: Absent: dysuria, frequency, urgency, hesitancy, hematuria, flank pain, genital pain MUSCULOSKELETAL: Absent: myalgia, arthralgia, joint swelling, back pain, neck pain SKIN: Absent: rash, itching, pallor HEMATOLOGIC/IMMUNOLOGIC: Absent: easy bleeding, easy bruising, lymphadenopathy, frequent infections ENDOCRINE: Absent: unexplained weight gain, unexplained weight loss, heat intolerance, cold intolerance NEUROLOGIC: Absent: headache, focal weakness or paresthesias, dizziness, unsteady gait, seizure, mental status changes, bladder or bowel incontinence PSYCHIATRIC: Absent: anxiety, depression, suicidal or homicidal ideation, hallucinations. PHYSICAL EXAMINATION Vital Signs - 24 hr 03/10/18 03/10/18 11:25 15:21 Temperature 98.3 F Pulse Rate 78 Pulse Rate [ 76 Right Radial] Respiratory 16 18 Rate Blood Pressure 102/68 Blood Pressure 98/60 [Right Arm] O2 Sat by Pulse 100 97 Oximetry (%) GENERAL: Awake, alert, and fully oriented, in no acute distress, saturating 98% on room air. EYES:PERRLa, EOMI, sclera anicteric, conjunctiva clear. EARS, NOSE, THROAT: Ears normal, nares patent, oropharynx clear without exudates. Moist mucous membranes. NECK: Normal range of motion, supple without lymphadenopathy, JVD, or masses. LUNGS: +diffuse wheezing bilaterally, decreased breath sounds on both bases HEART: Regular rate and rhythm, normal S1 and S2 without murmur, rub or gallop. ABDOMEN: Soft, nontender, not distended, normoactive bowel sounds. MUSCULOSKELETAL: Normal range of motion at all joints. No bony deformities or tenderness. UPPER EXTREMITIES: 2+ pulses, warm, well-perfused. No peripheral edema. LOWER EXTREMITIES: 2+ pulses, warm, well-perfused. No peripheral edema. NEUROLOGICAL: Cranial nerves II-XII intact. Normal speech. Normal gait. PSYCHIATRIC: Cooperative. Good eye contact. Appropriate mood and affect. SKIN: Warm, dry, normal turgor, no rashes or lesions. Laboratory Results - last 24 hr 03/10/18 03/10/18 03/10/18 12:20 12:20 14:00 WBC 8.6 RBC 4.14 Hgb 12.9 Hct 37.6 MCV 90.8 MCH 31.3 MCHC 34.4 RDW 14.7 Plt Count 155 MPV 10.4 Absolute Neuts (auto) 6.3 Neutrophils % 72.8 D Lymphocytes % 20.7 D Monocytes % 3.5 L Eosinophils % 2.4 D Basophils % 0.6 Nucleated RBC % 0 Sodium 140 Potassium 3.8 Chloride 105 Carbon Dioxide 26 Anion Gap 9 BUN 19 H Creatinine 1.1 Creat Clearance w eGFR 49.69 Random Glucose 278 H Calcium 9.0 Total Bilirubin 0.4 AST 12 L ALT 17 Alkaline Phosphatase 72 Total Protein 6.9 Albumin 3.8 Influenza A (Rapid) Negative Influenza B (Rapid) Negative ASSESSMENT/PLAN: Patient is a 68 year old female with past medical history of HLD, DM, and asthma presented with worsening shortness of breath and wheezing that started few days ago. #SOB likely 2/2 asthma exacerbation -likely 2/2 URTI, flu swab negative -Duonebs RQID and q6h -Prednisone 40mg daily -continue Symbicort -continue Singulair 10mg Po HS -Peak flow daily -Pulmonology (Dr. Pulido) consulted. #Hyperlipidemia -continue home Atorvastatin 40mg daily #DM -Hold home Januvia -Insulin sliding scale -BGM ACHs #FEN -Not on any standing fluids -Electrolytes wnl, routine bmp monitoring -Diabetic/Sodium controlled diet #Prophylaxis -Lovenox 40mg sq daily #Disposition -full code -obs Visit type - Emergency Visit Emergency Visit: Yes ED Registration Date: 03/10/18 Care time: The patient presented to the Emergency Department on the above date and was hospitalized for further evaluation of their emergent condition. - New Patient This patient is new to me today: Yes Date on this admission: 03/10/18 - Critical Care Critical Care patient: No
[2018-03-10] MEDS ORDERED: predniSONE 20 MG TABLET (UD) ONE (18:26)
--- NOTE | 2018-03-10 19:09 | EKG ---
Test Reason : Blood Pressure : / mmHG Vent. Rate : 084 BPM Atrial Rate : 084 BPM P-R Int : 150 ms QRS Dur : 086 ms QT Int : 400 ms P-R-T Axes : 061 048 098 degrees QTc Int : 472 ms NORMAL SINUS RHYTHM LOW VOLTAGE QRS NONSPECIFIC T WAVE ABNORMALITY PROLONGED QT ABNORMAL ECG WHEN COMPARED WITH ECG OF 30-JUL-2017 09:37, NO SIGNIFICANT CHANGE WAS FOUND Confirmed by VEGA JEWELL, MCKENNA ([id number]) on 03/10/2018 7:08:57 PM Referred By: Confirmed By:MCKENNA FERRARI MD
[2018-03-10 20:49] VITALS: BMI 39.4
[2018-03-10] MEDS: methylPREDNISolone NA SUCC 125 MG/2 ML VIAL IVPB SCH (21:04)
[2018-03-10] MEDS: INSULIN SLIDING SCALE (NOVOLOG) 1 VIAL SQ SCH (21:04)
[2018-03-10] MEDS ORDERED: predniSONE 20 MG TABLET (UD) PO SCH (22:00)
[2018-03-10] MEDS: ATORVASTATIN CA 40 MG TABLET (FP) PO SCH (22:39)
[2018-03-10] MEDS: BUDESONIDE/FORMETEROL FUMARATE 160/4.5 mcg INHALER IH SCH (22:39)
[2018-03-10] MEDS: MONTELUKAST NA 10 MG TABLET PO SCH (22:39)
[2018-03-10] MEDS ORDERED: INSULIN (NOVOLOG) ASPART 100 UNITS/ML 10ML VIAL SQ ONE (22:57)
[2018-03-11] MEDS ORDERED: guaiFENesin/D-M SUGAR-FREE/ACLHOL-FREE 118 ML BOTTLE PO ONE (02:24)
[2018-03-11] MEDS: methylPREDNISolone NA SUCC 125 MG/2 ML VIAL IVPB SCH (04:27)
[2018-03-11] MEDS: INSULIN SLIDING SCALE (NOVOLOG) 1 VIAL SQ SCH ×4 (06:20→21:30)
[2018-03-11] MEDS ORDERED: INSULIN (LEVEMIR) 100 UNITS/ML UNITS SQ SCH (07:00)
[2018-03-11 07:43] LABS: BASO % 0.3 % (0-2.0); HEMATOCRIT 36.6 % (32.4-45.2); HEMOGLOBIN 12.3 GM/dL (10.7-15.3); MCHC 33.5 g/dl (32.0-36.0); MEAN CELL VOLUME 89.5 fl (80-96); MEAN PLT VOLUME 10.2 fl (7.5-11.1); MONO % 0.8 % (3.8-10.2); NEUT % 90.9 % (42.8-82.8); PLATELET COUNT 176 K/MM3 (134-434); RDW 14.7 % (11.6-15.6)
[2018-03-11] MEDS: ALBUTEROL SO4 2.5/IPRATROPIUM 0.5 INH SOL 3 ML VIAL.NEB. NEB SCH ×4 (07:45→21:05)
[2018-03-11 08:16] LABS: ALBUMIN 3.7 g/dl (3.4-5.0); ALK PHOS 75 U/L (45-117); ANION GAP 9 MMOL/L (8-16); BILIRUBIN,TOTAL 0.5 mg/dL (0.2-1); BLOOD UREA NITROGEN 31 mg/dL (7-18); CALCIUM 9.1 mg/dL (8.5-10.1); CHLORIDE 101 mmol/L (98-107); CO2 25 mmol/L (21-32); CREATININE 1.3 mg/dL (0.55-1.3); MAGNESIUM 2.6 mg/dL (1.8-2.4); PHOSPHOROUS 3.3 mg/dL (2.5-4.9); POTASSIUM 4.2 mmol/L (3.5-5.1); SGOT/AST 9 U/L (15-37); SGPT/ALT 16 U/L (13-61); SODIUM 135 mmol/L (136-145); TOT PROT 7.2 g/dl (6.4-8.2)
[2018-03-11 08:26] LABS: GLUCOSE,RANDOM 324 mg/dL (74-106)
[2018-03-11] MEDS ORDERED: PATIENT'S OWN MEDICATION (NON-FORMULARY) (Insulin Detemir [Levemir Flextouch] 15 UNIT) SQ SCH (10:00)
[2018-03-11] MEDS ORDERED: TIOTROPIUM BROMIDE 2.5 MCG (SPIRIVA) RESPIMAT INHALER IH SCH (10:00)
[2018-03-11] MEDS ORDERED: predniSONE 20 MG TABLET (UD) PO SCH (10:00)
[2018-03-11] MEDS: ENOXAPARIN NA (PORCINE) 40 MG/0.4 ML DISP.SYRIN SQ SCH (10:12)
[2018-03-11] MEDS: BUDESONIDE/FORMETEROL FUMARATE 160/4.5 mcg INHALER IH SCH ×2 (10:12→21:20)
[2018-03-11] MEDS ORDERED: INSULIN (NOVOLOG) ASPART 100 UNITS/ML 10ML VIAL ONE (11:12)
--- NOTE | 2018-03-11 11:42 | CON.PULM ---
Consult Consult Specialty:: PULMONARY Referred by:: Dr. Cabrera Reason for Consultation:: asthma exacerbation - History of Present Illness Chief Complaint: shortness of breath History of Present Illness: 68yo female with h/o hyperlipidemia, DM, asthma diagnosed as an adult who was sent from her PMD for worsening shortness of breath x 4 days. Denies chest pain but with chest tightness. +cough productive of white sputum and wheezing. She feels she was triggered by the cold air. No fevers, chills or sweats. She is maintained on Symbicort, singulair and albuterol at home. She is hospitalized about once a year for asthma and on prednisone about once a year. Never intubated. She is a former smoker, quit about 10 years ago. - History Source History Provided By: Patient, Medical Record Limitations to Obtaining History: No Limitations - Past Medical History Cardio/Vascular: Yes: HTN Pulmonary: Yes: Asthma ...LMP: 04/10/01 ...: No Endocrine: Yes: Diabetes Mellitus - Past Surgical History Past Surgical History: Yes: Stent (cardiac stent several years ago), Tubal Ligation - Alcohol/Substance Use Hx Alcohol Use: No - Smoking History Smoking history: Former smoker Have you smoked in the past 12 months: No Aproximately how many cigarettes per day: 0 If you are a former smoker, when did you quit?: 15 YEARS Home Medications - Allergies Allergies/Adverse Reactions: Allergies Allergy/AdvReac Type Severity Reaction Status Date / Time No Known Allergies Allergy Verified 03/10/18 11:37 - Home Medications Home Medications: Ambulatory Orders Budesonide/Formeterol Fumarate [SYMBICORT 160/4.5mcg -] 2 puff IH BID #1 inhaler 07/09/16 Tiotropium [place] [Spiriva] 1 puff IH DAILY #1 inh 07/09/16 Albuterol Sulfate Inhaler - [Ventolin HFA Inhaler -] 1 - 2 inh PO Q4H PRN #1 inhaler 07/19/16 Atorvastatin Ca [Lipitor] 1 tab PO DAILY 12/17/16 Sitagliptin Phosphate [Januvia] 100 mg PO DAILY 12/17/16 Cefuroxime Axetil [Ceftin -] 500 mg PO Q12H #8 tablet 08/04/17 Guaifenesin AC [Robitussin AC -] 5 ml PO Q6H PRN #1 bottle MDD 20 ml 08/04/17 Montelukast Sodium [Singulair] 10 mg PO HS #30 tablet 08/04/17 Prednisone 10 mg PO DAILY #30 tab.ds.pk 08/04/17 Review of Systems - Review of Systems Constitutional: denies: Chills, Fever Eyes: denies: Recent Change in Vision HENT: reports: Nasal Congestion. denies: Throat Pain Neck: denies: Stiffness, Tenderness Cardiovascular: reports: Shortness of Breath. denies: Chest Pain, Palpitations Respiratory: reports: Cough, SOB on Exertion, Wheezing. denies: Hemoptysis Gastrointestinal: denies: Abdominal Pain, Nausea, Vomiting Genitourinary: denies: Dysuria, Hematuria Neurological: denies: Dizziness, Headache Endocrine: denies: Unexplained Weight Loss Physical Exam Vital Sings: Vital Signs Temperature 97.5 F L 03/11/18 09:50 Pulse Rate 81 03/11/18 09:50 Respiratory Rate 20 03/11/18 09:50 Blood Pressure 127/57 L 03/11/18 09:50 O2 Sat by Pulse Oximetry (%) 100 03/10/18 20:30 Constitutional: Yes: Calm Eyes: Yes: Conjunctiva Clear, EOM Intact HENT: Yes: Atraumatic, Normocephalic Neck: Yes: Supple, Trachea Midline Cardiovascular: Yes: Regular Rate and Rhythm Respiratory: Yes: Rhonchi, Wheezes ...Clubbing: No Gastrointestinal: Yes: Normal Bowel Sounds, Soft. 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
[2018-03-11 11:50] LABS: URINE APPEARANCE Clear; URINE BILIRUBIN Negative (<2.0 mg/dL); URINE COLOR Yellow; URINE GLUCOSE (UA) 2+ (NEGATIVE); URINE KETONE Negative (NEGATIVE); URINE LEUK ESTERASE Negative (NEGATIVE); URINE NITRITE Negative (NEGATIVE); URINE PROTEIN Negative (NEGATIVE); URINE UROBILINOGEN 0.2 mg/dL (0.2-1.0)
--- NOTE | 2018-03-11 14:34 | PN ---
Physical Exam: SUBJECTIVE: Patient seen and examined at bedside this morning. No acute events overnight. Patient reports feeling better today, saturating well on room air and able to ambulate without need for oxygen. Denies fever, chills, headache, dizziness, chest pain, abdominal pain, diarrhea, urinary symptoms. OBJECTIVE: Vital Signs Period Temp Pulse Resp BP Sys/[place] Pulse Ox Last 24 Hr 97.5 F-98.3 F 63-81 18-22 98-129/57-69 95-100 GENERAL: Awake, alert, and fully oriented, in no acute distress, saturating 98% on room air. EYES:PERRLa, EOMI, sclera anicteric, conjunctiva clear. EARS, NOSE, THROAT: Ears normal, nares patent, oropharynx clear without exudates. Moist mucous membranes. NECK: Normal range of motion, supple without lymphadenopathy, JVD, or masses. LUNGS: +scattered wheezes bilaterally HEART: Regular rate and rhythm, normal S1 and S2 without murmur, rub or gallop. ABDOMEN: Soft, nontender, not distended, normoactive bowel sounds. UPPER EXTREMITIES: 2+ pulses, warm, well-perfused. No peripheral edema. LOWER EXTREMITIES: 2+ pulses, warm, well-perfused. No peripheral edema. NEUROLOGICAL: Cranial nerves II-XII intact. Normal speech. Gait not observed. PSYCHIATRIC: Cooperative. Good eye contact. Appropriate mood and affect. SKIN: Warm, dry, normal turgor, no rashes or lesions. Laboratory Results - last 24 hr 03/10/18 03/10/18 03/10/18 14:00 20:39 22:38 WBC RBC Hgb Hct MCV MCH MCHC RDW Plt Count MPV Absolute Neuts (auto) Neutrophils % Lymphocytes % Monocytes % Eosinophils % Basophils % Nucleated RBC % Sodium Potassium Chloride Carbon Dioxide Anion Gap BUN Creatinine Creat Clearance w eGFR POC Glucometer 480 424 Random Glucose Calcium Phosphorus Magnesium Total Bilirubin AST ALT Alkaline Phosphatase Total Protein Albumin Urine Color Urine Appearance Urine pH Ur Specific [place] Urine Protein Urine Glucose (UA) Urine Ketones Urine Blood Urine Nitrite Urine Bilirubin Urine Urobilinogen Ur Leukocyte Esterase Influenza A (Rapid) Negative Influenza B (Rapid) Negative 03/11/18 03/11/18 03/11/18 06:14 06:40 06:40 WBC 13.0 H RBC 4.10 Hgb 12.3 Hct 36.6 MCV 89.5 MCH 30.0 MCHC 33.5 RDW 14.7 Plt Count 176 MPV 10.2 Absolute Neuts (auto) 11.8 H Neutrophils % 90.9 H Lymphocytes % 8.0 D Monocytes % 0.8 L Eosinophils % 0.0 D Basophils % 0.3 Nucleated RBC % 0 Sodium 135 L Potassium 4.2 Chloride 101 Carbon Dioxide 25 Anion Gap 9 BUN 31 H Creatinine 1.3 Creat Clearance w eGFR 40.98 POC Glucometer 329 Random Glucose 324 H* Calcium 9.1 Phosphorus 3.3 Magnesium 2.6 H Total Bilirubin 0.5 AST 9 L ALT 16 Alkaline Phosphatase 75 Total Protein 7.2 Albumin 3.7 Urine Color Urine Appearance Urine pH Ur Specific [place] Urine Protein Urine Glucose (UA) Urine Ketones Urine Blood Urine Nitrite Urine Bilirubin Urine Urobilinogen Ur Leukocyte Esterase Influenza A (Rapid) Influenza B (Rapid) 03/11/18 03/11/18 10:10 11:16 WBC RBC Hgb Hct MCV MCH MCHC RDW Plt Count MPV Absolute Neuts (auto) Neutrophils % Lymphocytes % Monocytes % Eosinophils % Basophils % Nucleated RBC % Sodium Potassium Chloride Carbon Dioxide Anion Gap BUN Creatinine Creat Clearance w eGFR POC Glucometer 381 Random Glucose Calcium Phosphorus Magnesium Total Bilirubin AST ALT Alkaline Phosphatase Total Protein Albumin Urine Color Yellow Urine Appearance Clear Urine pH 5.0 Ur Specific [place] 1.010 Urine Protein Negative Urine Glucose (UA) 2+ H Urine Ketones Negative Urine Blood Negative Urine Nitrite Negative Urine Bilirubin Negative Urine Urobilinogen 0.2 Ur Leukocyte Esterase Negative Influenza A (Rapid) Influenza B (Rapid) Active Medications Generic Name Dose Route Start Last Admin Trade Name Freq PRN Reason Stop Dose Admin Albuterol Sulfate 1 amp 03/11/18 11:42 Ventolin 0.083% Nebulizer Soln - NEB Q4H PRN SHORT OF BREATH/WHEEZING Albuterol/Ipratropium 1 amp 03/10/18 20:00 03/11/18 11:49 Duoneb - NEB 1 amp RQID KRYSTLE Administration Atorvastatin Calcium 40 mg 03/10/18 22:00 03/10/18 22:39 Lipitor - PO 40 mg HS KRYSTLE Administration Budesonide/Formoterol Fumarate 2 puff 03/10/18 22:00 03/11/18 10:12 Symbicort 160/4.5mcg - IH 2 puff BID KRYSTLE Administration Enoxaparin Sodium 40 mg 03/11/18 10:00 03/11/18 10:12 Lovenox - SQ 40 mg DAILY KRYSTLE Administration Insulin Aspart 1 vial 03/10/18 22:00 03/11/18 11:18 Novolog Vial Sliding Scale - SQ 10 units ACHS KRYSTLE Administration Protocol Methylprednisolone Sodium Succinate 40 mg 03/11/18 18:00 Solu-Medrol - IVPB Q8H-IV KRYSTLE Montelukast Sodium 10 mg 03/10/18 22:00 03/10/18 22:39 Singulair - PO 10 mg HS KRYSTLE Administration ASSESSMENT/PLAN: Patient is a 68 year old female with past medical history of HLD, DM, and asthma presented with worsening shortness of breath and wheezing that started few days ago. #SOB likely 2/2 asthma exacerbation -likely 2/2 URTI, flu swab negative -Duonebs RQID and q6h -IV Solu-medrol 40 q8 -continue Symbicort -continue Singulair 10mg Po HS -Peak flow daily -Pulmonology (Dr. Nicholson) consulted. -If continues to improve, can likely change steroids to PO prednisone 40mg daily in the morning -Taper as outpatient. #Hyperlipidemia -continue home Atorvastatin 40mg daily #DM -Hold home Januvia -Insulin sliding scale -BGM ACHS #FEN -Not on any standing fluids -Electrolytes wnl, routine bmp monitoring -Diabetic/Sodium controlled diet #Prophylaxis -Lovenox 40mg sq daily #Disposition -full code -med-surg Visit type - Emergency Visit Emergency Visit: Yes ED Registration Date: 03/10/18 Care time: The patient presented to the Emergency Department on the above date and was hospitalized for further evaluation of their emergent condition. - New Patient This patient is new to me today: No - Critical Care Critical Care patient: No
--- NOTE | 2018-03-11 17:05 | PN ---
Teaching Attending Note Name of Resident: Natalya Bar ATTENDING PHYSICIAN STATEMENT I saw and evaluated the patient. I reviewed the resident's note and discussed the case with the resident. I agree with the resident's findings and plan as documented. SUBJECTIVE: Patient is feeling better , no fever or chills, no nausea or vomiting. OBJECTIVE: Vital Signs Temperature 98.0 F 03/11/18 14:28 Pulse Rate 85 03/11/18 14:28 Respiratory Rate 20 03/11/18 14:28 Blood Pressure 138/76 03/11/18 14:28 O2 Sat by Pulse Oximetry (%) 95 03/11/18 08:00 GENERAL: The patient is awake, alert, and fully oriented, in no acute distress. HEAD: Normal with no signs of trauma. EYES: PERRL, extraocular movements intact, sclera anicteric, conjunctiva clear. ENT: Ears normal, oropharynx clear without exudates, moist mucous membranes. NECK: Trachea midline, full range of motion, supple. LUNGS: Breath sounds equal continues to wheeze but improving, positive for cough . no accessory muscle use. HEART: Regular rate and rhythm, S1, S2 without murmur, rub or gallop. ABDOMEN: Soft, nontender, nondistended, normoactive bowel sounds, no guarding, no rebound, no hepatosplenomegaly, no masses. EXTREMITIES: 2+ pulses, warm, well-perfused, no edema. NEUROLOGICAL: Cranial nerves II through XII grossly intact. Normal speech, gait is stable . PSYCH: Normal mood, normal affect. SKIN: Warm, dry, normal turgor, no rashes or lesions noted CBCD WBC 13.0 K/mm3 (4.0-10.0) H 03/11/18 06:40 RBC 4.10 M/mm3 (3.60-5.2) 03/11/18 06:40 Hgb 12.3 GM/dL (10.7-15.3) 03/11/18 06:40 Hct 36.6 % (32.4-45.2) 03/11/18 06:40 MCV 89.5 fl (80-96) 03/11/18 06:40 MCHC 33.5 g/dl (32.0-36.0) 03/11/18 06:40 RDW 14.7 % (11.6-15.6) 03/11/18 06:40 Plt Count 176 K/MM3 (134-434) 03/11/18 06:40 MPV 10.2 fl (7.5-11.1) 03/11/18 06:40 CMP Sodium 135 mmol/L (136-145) L 03/11/18 06:40 Potassium 4.2 mmol/L (3.5-5.1) 03/11/18 06:40 Chloride 101 mmol/L (98-107) 03/11/18 06:40 Carbon Dioxide 25 mmol/L (21-32) 03/11/18 06:40 Anion Gap 9 MMOL/L (8-16) 03/11/18 06:40 BUN 31 mg/dL (7-18) H 03/11/18 06:40 Creatinine 1.3 mg/dL (0.55-1.3) 03/11/18 06:40 Creat Clearance w eGFR 40.98 (>60) 03/11/18 06:40 Random Glucose 324 mg/dL (74-106) H* 03/11/18 06:40 Calcium 9.1 mg/dL (8.5-10.1) 03/11/18 06:40 Total Bilirubin 0.5 mg/dL (0.2-1) 03/11/18 06:40 AST 9 U/L (15-37) L 03/11/18 06:40 ALT 16 U/L (13-61) 03/11/18 06:40 Alkaline Phosphatase 75 U/L (45-117) 03/11/18 06:40 Total Protein 7.2 g/dl (6.4-8.2) 03/11/18 06:40 Albumin 3.7 g/dl (3.4-5.0) 03/11/18 06:40 Current Medications Generic Name Dose Route Start Last Admin Trade Name Freq PRN Reason Stop Dose Admin Albuterol Sulfate 1 amp 03/11/18 11:42 Ventolin 0.083% Nebulizer Soln - NEB Q4H PRN SHORT OF BREATH/WHEEZING Albuterol/Ipratropium 1 amp 03/10/18 20:00 03/11/18 15:09 Duoneb - NEB 1 amp RQID KRYSTLE Administration Atorvastatin Calcium 40 mg 03/10/18 22:00 03/10/18 22:39 Lipitor - PO 40 mg HS KRYSTLE Administration Budesonide/Formoterol Fumarate 2 puff 03/10/18 22:00 03/11/18 10:12 Symbicort 160/4.5mcg - IH 2 puff BID KRYSTLE Administration Enoxaparin Sodium 40 mg 03/11/18 10:00 03/11/18 10:12 Lovenox - SQ 40 mg DAILY KRYSTLE Administration Insulin Aspart 1 vial 03/10/18 22:00 03/11/18 11:18 Novolog Vial Sliding Scale - SQ 10 units ACHS KRYSTLE Administration Protocol Methylprednisolone Sodium Succinate 40 mg 03/11/18 18:00 Solu-Medrol - IVPB Q8H-IV KRYSTLE Montelukast Sodium 10 mg 03/10/18 22:00 03/10/18 22:39 Singulair - PO 10 mg HS KRYSTLE Administration Home Medications Medication Instructions Recorded Budesonide/Formeterol Fumarate 2 puff IH BID #1 inhaler 07/09/16 [SYMBICORT 160/4.5mcg -] Tiotropium [place] [Spiriva] 1 puff IH DAILY #1 inh 07/09/16 Albuterol Sulfate Inhaler - 1 - 2 inh PO Q4H PRN #1 inhaler 07/19/16 [Ventolin HFA Inhaler -] Atorvastatin Ca [Lipitor] 1 tab PO DAILY 12/17/16 Sitagliptin Phosphate [Januvia] 100 mg PO DAILY 12/17/16 Cefuroxime Axetil [Ceftin -] 500 mg PO Q12H #8 tablet 08/04/17 Guaifenesin AC [Robitussin AC -] 5 ml PO Q6H PRN #1 bottle MDD 20 ml 08/04/17 Montelukast Sodium [Singulair] 10 mg PO HS #30 tablet 08/04/17 Prednisone 10 mg PO DAILY #30 tab.ds.pk 08/04/17 ASSESSMENT AND PLAN: The patient is a 67 yo f w/ PMHx Asthma and DM who comes in complaining of a 5 day history of progressive cough, ,sore throat, chest pain and SOB. #Acute exacerbation of Asthma: on neb, treatments, zthromax, solumedrol iv will reduce the dose to 40mg IV q8, pulm consult. #DM:continue with levemir and Januvia and follow with , sliding scale with coverage #HLD : On lipitor continue DVT Px: heparin sq
[2018-03-11] MEDS: methylPREDNISolone NA SUCC 40 MG/1 ML VIAL IVPB SCH (17:37)
[2018-03-11] MEDS: MONTELUKAST NA 10 MG TABLET PO SCH (21:19)
[2018-03-11] MEDS: ATORVASTATIN CA 40 MG TABLET (FP) PO SCH (21:19)
[2018-03-12] MEDS: methylPREDNISolone NA SUCC 40 MG/1 ML VIAL IVPB SCH ×2 (01:45→09:58)
[2018-03-12] MEDS: INSULIN SLIDING SCALE (NOVOLOG) 1 VIAL SQ SCH ×4 (06:29→21:40)
[2018-03-12 07:46] LABS: HEMATOCRIT 35.6 % (32.4-45.2); HEMOGLOBIN 11.9 GM/dL (10.7-15.3); MCH 30.2 pg (25.7-33.7); MCHC 33.5 g/dl (32.0-36.0); MEAN CELL VOLUME 90.1 fl (80-96); MEAN PLT VOLUME 10.3 fl (7.5-11.1); PLATELET COUNT 165 K/MM3 (134-434); RBC 3.95 M/mm3 (3.60-5.2); RDW 14.5 % (11.6-15.6); WHITE BLOOD COUNT 16.2 K/mm3 (4.0-10.0)
[2018-03-12 08:17] LABS: ANION GAP 9 MMOL/L (8-16); BLOOD UREA NITROGEN 40 mg/dL (7-18); CALCIUM 9.3 mg/dL (8.5-10.1); CHLORIDE 101 mmol/L (98-107); CO2 27 mmol/L (21-32); CREATININE 1.1 mg/dL (0.55-1.3); MAGNESIUM 2.8 mg/dL (1.8-2.4); PHOSPHOROUS 3.7 mg/dL (2.5-4.9); POTASSIUM 4.8 mmol/L (3.5-5.1); SODIUM 137 mmol/L (136-145)
[2018-03-12] MEDS ORDERED: guaiFENesin/D-M SUGAR-FREE/ACLHOL-FREE 118 ML BOTTLE PO PRN (08:17)
[2018-03-12] MEDS: ALBUTEROL SO4 2.5/IPRATROPIUM 0.5 INH SOL 3 ML VIAL.NEB. NEB SCH ×4 (08:40→21:00)
[2018-03-12 09:46] LABS: GLUCOSE,RANDOM 305 mg/dL (74-106)
[2018-03-12] MEDS: BUDESONIDE/FORMETEROL FUMARATE 160/4.5 mcg INHALER IH SCH ×2 (09:56→21:41)
[2018-03-12] MEDS: ENOXAPARIN NA (PORCINE) 40 MG/0.4 ML DISP.SYRIN SQ SCH (09:58)
--- NOTE | 2018-03-12 11:22 | PN ---
Teaching Attending Note Name of Resident: Natalya Bar ATTENDING PHYSICIAN STATEMENT I saw and evaluated the patient. I reviewed the resident's note and discussed the case with the resident. I agree with the resident's findings and plan as documented. SUBJECTIVE: Patient continues to cough. OBJECTIVE: Vital Signs Temperature 97.9 F 03/12/18 09:12 Pulse Rate 102 H 03/12/18 10:01 Respiratory Rate 20 03/12/18 09:12 Blood Pressure 114/63 03/12/18 09:12 O2 Sat by Pulse Oximetry (%) 99 03/12/18 10:01 GENERAL: The patient is awake, alert, and fully oriented, in no acute distress. HEAD: Normal with no signs of trauma. EYES: PERRL, extraocular movements intact, sclera anicteric, conjunctiva clear. ENT: Ears normal, oropharynx clear without exudates, moist mucous membranes. NECK: Trachea midline, full range of motion, supple. LUNGS: positive for rhonchi, positive for cough . no accessory muscle use. HEART: Regular rate and rhythm, S1, S2 without murmur, rub or gallop. ABDOMEN: Soft, nontender, nondistended, normoactive bowel sounds, no guarding, no rebound, no hepatosplenomegaly, no masses. EXTREMITIES: 2+ pulses, warm, well-perfused, no edema. NEUROLOGICAL: Cranial nerves II through XII grossly intact. Normal speech, gait is stable . PSYCH: Normal mood, normal affect. SKIN: Warm, dry, normal turgor, no rashes or lesions noted CBCD WBC 16.2 K/mm3 (4.0-10.0) H 03/12/18 06:00 RBC 3.95 M/mm3 (3.60-5.2) 03/12/18 06:00 Hgb 11.9 GM/dL (10.7-15.3) 03/12/18 06:00 Hct 35.6 % (32.4-45.2) 03/12/18 06:00 MCV 90.1 fl (80-96) 03/12/18 06:00 MCHC 33.5 g/dl (32.0-36.0) 03/12/18 06:00 RDW 14.5 % (11.6-15.6) 03/12/18 06:00 Plt Count 165 K/MM3 (134-434) 03/12/18 06:00 MPV 10.3 fl (7.5-11.1) 03/12/18 06:00 CMP Sodium 137 mmol/L (136-145) 03/12/18 06:00 Potassium 4.8 mmol/L (3.5-5.1) 03/12/18 06:00 Chloride 101 mmol/L (98-107) 03/12/18 06:00 Carbon Dioxide 27 mmol/L (21-32) 03/12/18 06:00 Anion Gap 9 MMOL/L (8-16) 03/12/18 06:00 BUN 40 mg/dL (7-18) H 03/12/18 06:00 Creatinine 1.1 mg/dL (0.55-1.3) 03/12/18 06:00 Creat Clearance w eGFR 49.69 (>60) 03/12/18 06:00 Random Glucose 305 mg/dL (74-106) H* 03/12/18 06:00 Calcium 9.3 mg/dL (8.5-10.1) 03/12/18 06:00 Total Bilirubin 0.5 mg/dL (0.2-1) 03/11/18 06:40 AST 9 U/L (15-37) L 03/11/18 06:40 ALT 16 U/L (13-61) 03/11/18 06:40 Alkaline Phosphatase 75 U/L (45-117) 03/11/18 06:40 Total Protein 7.2 g/dl (6.4-8.2) 03/11/18 06:40 Albumin 3.7 g/dl (3.4-5.0) 03/11/18 06:40 Current Medications Generic Name Dose Route Start Last Admin Trade Name Freq PRN Reason Stop Dose Admin Albuterol Sulfate 1 amp 03/11/18 11:42 Ventolin 0.083% Nebulizer Soln - NEB Q4H PRN SHORT OF BREATH/WHEEZING Albuterol/Ipratropium 1 amp 03/10/18 20:00 03/12/18 08:40 Duoneb - NEB 1 amp RQID KRYSTLE Administration Atorvastatin Calcium 40 mg 03/10/18 22:00 03/11/18 21:19 Lipitor - PO 40 mg HS KRYSTLE Administration Budesonide/Formoterol Fumarate 2 puff 01/30/19 22:00 03/12/18 09:56 Symbicort 160/4.5mcg - IH 2 puff BID KRYSTLE Administration Enoxaparin Sodium 40 mg 03/11/18 10:00 03/12/18 09:58 Lovenox - SQ 40 mg DAILY KRYSTLE Administration Guaifenesin 5 ml 03/12/18 08:17 03/12/18 09:59 Diabetic Tussin Dm - PO 5 ml Q6H PRN Administration COUGH Insulin Aspart 1 vial 03/10/18 22:00 03/12/18 06:29 Novolog Vial Sliding Scale - SQ 8 units ACHS KRYSTLE Administration Protocol Methylprednisolone Sodium Succinate 40 mg 03/11/18 18:00 03/12/18 09:58 Solu-Medrol - IVPB 40 mg Q8H-IV KRYSTLE Administration Montelukast Sodium 10 mg 03/10/18 22:00 03/11/18 21:19 Singulair - PO 10 mg HS KRYSTLE Administration Home Medications Medication Instructions Recorded Tiotropium [place] [Spiriva] 1 puff IH DAILY #1 inh 07/09/16 Albuterol Sulfate Inhaler - 1 - 2 inh PO Q4H PRN #1 inhaler 07/19/16 [Ventolin HFA Inhaler -] Atorvastatin Ca [Lipitor] 1 tab PO DAILY 12/17/16 Sitagliptin Phosphate [Januvia] 100 mg PO DAILY 12/17/16 Guaifenesin AC [Robitussin AC -] 5 ml PO Q6H PRN #1 bottle MDD 20 ml 08/04/17 Budesonide/Formeterol Fumarate 2 puff IH BID #1 inhaler 03/12/18 [SYMBICORT 160/4.5mcg -] Montelukast Sodium [Singulair] 10 mg PO HS #30 tablet 03/12/18 ASSESSMENT AND PLAN: The patient is a 67 yo f w/ PMHx Asthma and DM who comes in complaining of a 5 day history of progressive cough, ,sore throat, chest pain and SOB. #Acute exacerbation of Asthma: on neb, treatments, zthromax, solumedrol iv will reduce the dose to 40mg IV q8, pulm consult. will start robitussin AC since patient is coughing. #DM:continue with levemir and Januvia and follow with , sliding scale with coverage #HLD : On lipitor continue DVT Px: heparin sq
[2018-03-12] MEDS ORDERED: CODEINE SO4 30 MG TABLET PO SCH (11:30)
--- NOTE | 2018-03-12 13:06 | PN ---
Physical Exam: SUBJECTIVE: Patient seen and examined at bedside this morning. No acute events overnight. Patient reports productive cough which kept her up last night. But denies dyspnea, chest pain, fever, chills. OBJECTIVE: Vital Signs Period Temp Pulse Resp BP Sys/Linares Pulse Ox Last 24 Hr 97.6 F-98.2 F 56-102 19-20 101-138/63-76 95-99 GENERAL: Awake, alert, and fully oriented, in no acute distress, saturating 98% on room air. EYES:PERRLa, EOMI, sclera anicteric, conjunctiva clear. EARS, NOSE, THROAT: Ears normal, nares patent, oropharynx clear without exudates. Moist mucous membranes. NECK: Normal range of motion, supple without lymphadenopathy, JVD, or masses. LUNGS: +scattered wheezes bilaterally HEART: Regular rate and rhythm, normal S1 and S2 without murmur, rub or gallop. ABDOMEN: Soft, nontender, not distended, normoactive bowel sounds. UPPER EXTREMITIES: 2+ pulses, warm, well-perfused. No peripheral edema. LOWER EXTREMITIES: 2+ pulses, warm, well-perfused. No peripheral edema. NEUROLOGICAL: Cranial nerves II-XII intact. Normal speech. Gait not observed. PSYCHIATRIC: Cooperative. Good eye contact. Appropriate mood and affect. SKIN: Warm, dry, normal turgor, no rashes or lesions. Laboratory Results - last 24 hr 03/11/18 03/11/18 03/12/18 17:35 21:15 05:32 WBC RBC Hgb Hct MCV MCH MCHC RDW Plt Count MPV Sodium Potassium Chloride Carbon Dioxide Anion Gap BUN Creatinine Creat Clearance w eGFR POC Glucometer 345 374 307 Random Glucose Calcium Phosphorus Magnesium 03/12/18 03/12/18 03/12/18 06:00 06:00 11:07 WBC 16.2 H RBC 3.95 Hgb 11.9 Hct 35.6 MCV 90.1 MCH 30.2 MCHC 33.5 RDW 14.5 Plt Count 165 MPV 10.3 Sodium 137 Potassium 4.8 Chloride 101 Carbon Dioxide 27 Anion Gap 9 BUN 40 H Creatinine 1.1 Creat Clearance w eGFR 49.69 POC Glucometer 347 Random Glucose 305 H* Calcium 9.3 Phosphorus 3.7 Magnesium 2.8 H Active Medications Generic Name Dose Route Start Last Admin Trade Name Freq PRN Reason Stop Dose Admin Albuterol Sulfate 1 amp 03/11/18 11:42 Ventolin 0.083% Nebulizer Soln - NEB Q4H PRN SHORT OF BREATH/WHEEZING Albuterol/Ipratropium 1 amp 03/10/18 20:00 03/12/18 12:12 Duoneb - NEB 1 amp RQID KRYSTLE Administration Atorvastatin Calcium 40 mg 03/10/18 22:00 03/11/18 21:19 Lipitor - PO 40 mg HS KRYSTLE Administration Budesonide/Formoterol Fumarate 2 puff 03/10/18 22:00 03/12/18 09:56 Symbicort 160/4.5mcg - IH 2 puff BID KRYSTLE Administration Enoxaparin Sodium 40 mg 03/11/18 10:00 03/12/18 09:58 Lovenox - SQ 40 mg DAILY KRYSTLE Administration Guaifenesin/Codeine Phosphate 5 ml 03/12/18 12:00 Robitussin Ac - PO 03/13/18 06:01 Q6H KRYSTLE Guaifenesin/Codeine Phosphate 5 ml 03/13/18 11:48 Robitussin Ac - PO Q6H PRN COUGH Insulin Aspart 1 vial 03/10/18 22:00 03/12/18 11:40 Novolog Vial Sliding Scale - SQ 8 units ACHS KRYSTLE Administration Protocol Methylprednisolone Sodium Succinate 40 mg 03/11/18 18:00 03/12/18 09:58 Solu-Medrol - IVPB 40 mg Q8H-IV KRYSTLE Administration Montelukast Sodium 10 mg 03/10/18 22:00 03/11/18 21:19 Singulair - PO 10 mg HS KRYSTLE Administration ASSESSMENT/PLAN: Patient is a 68 year old female with past medical history of HLD, DM, and asthma presented with worsening shortness of breath and wheezing that started few days ago. #SOB likely 2/2 asthma exacerbation -likely 2/2 URTI, flu swab negative -Duonebs RQID and q6h -IV Solu-medrol 40mg increased to q6h -continue Symbicort -continue Singulair 10mg Po HS -Peak flow daily -Robitussin AC q6h for cough. -Pulmonology (Dr. Nicholson) consulted. -If continues to improve, can likely change steroids to PO prednisone 40mg daily in the morning -Taper as outpatient. #Hyperlipidemia -continue home Atorvastatin 40mg daily #DM -Hold home Januvia -Insulin sliding scale -BGM ACHS #FEN -Not on any standing fluids -Electrolytes wnl, routine bmp monitoring -Diabetic/Sodium controlled diet #Prophylaxis -Lovenox 40mg sq daily #Disposition -full code -med-surg Visit type - Emergency Visit Emergency Visit: Yes ED Registration Date: 03/10/18 Care time: The patient presented to the Emergency Department on the above date and was hospitalized for further evaluation of their emergent condition. - New Patient This patient is new to me today: No - Critical Care Critical Care patient: No
[2018-03-12] MEDS: guaiFENesin/CODEINE 5 ML UNIT-DOSE CUPS PO SCH ×3 (13:22→23:28)
--- NOTE | 2018-03-12 14:31 | PN ---
Progress Note, Physician History of Present Illness: PULMONARY ALERT,CONGESTED,+COUGH - Current Medication List Current Medications: Active Medications Albuterol Sulfate (Ventolin 0.083% Nebulizer Soln -) 1 amp NEB Q4H PRN PRN Reason: SHORT OF BREATH/WHEEZING Albuterol/Ipratropium (Duoneb -) 1 amp NEB RQID [facility] Last Admin: 03/12/18 12:12 Dose: 1 amp Atorvastatin Calcium (Lipitor -) 40 mg PO HS [facility] Last Admin: 03/11/18 21:19 Dose: 40 mg Budesonide/Formoterol Fumarate (Symbicort 160/4.5mcg -) 2 puff IH BID [facility] Last Admin: 03/12/18 09:56 Dose: 2 puff Enoxaparin Sodium (Lovenox -) 40 mg SQ DAILY [facility] Last Admin: 03/12/18 09:58 Dose: 40 mg Guaifenesin/Codeine Phosphate (Robitussin Ac -) 5 ml PO Q6H [facility] Stop: 03/13/18 06:01 Guaifenesin/Codeine Phosphate (Robitussin Ac -) 5 ml PO Q6H PRN PRN Reason: COUGH Insulin Aspart (Novolog Vial Sliding Scale -) 1 vial SQ [facility]; Protocol Last Admin: 03/12/18 11:40 Dose: 8 units Methylprednisolone Sodium Succinate (Solu-Medrol -) 40 mg IVPB Q8H-IV [facility] Last Admin: 03/12/18 09:58 Dose: 40 mg Montelukast Sodium (Singulair -) 10 mg PO [facility] Last Admin: 03/11/18 21:19 Dose: 10 mg - Objective Vital Signs: Vital Signs Temperature 97.9 F 03/12/18 09:12 Pulse Rate 102 H 03/12/18 10:01 Respiratory Rate 20 03/12/18 09:12 Blood Pressure 114/63 03/12/18 09:12 O2 Sat by Pulse Oximetry (%) 99 03/12/18 10:01 Constitutional: Yes: Well Nourished, Calm Eyes: Yes: WNL HENT: Yes: WNL Neck: Yes: WNL Cardiovascular: Yes: Regular Rate and Rhythm, S1, S2 Respiratory: Yes: Wheezes (DIFFUSE GENNARO WHEEZES) Gastrointestinal: Yes: Normal Bowel Sounds, Soft Extremities: Yes: WNL Edema: No Labs: CBC, BMP 02/01/19 06:00 03/12/18 06:00 Assessment/Plan Problem List - Problems (1) Asthma exacerbation Code(s): J45.901 - UNSPECIFIED ASTHMA WITH (ACUTE) EXACERBATION (2) Diabetes Code(s): E11.9 - TYPE 2 DIABETES MELLITUS WITHOUT COMPLICATIONS Qualifiers: Diabetes mellitus type: type 2 Diabetes mellitus chcf insulin use: without chcf use Diabetes mellitus complication status: without complication Qualified Code(s): E11.9 - Type 2 diabetes mellitus without complications Assessment/Plan Acute Asthma Exacerbation DM Hyperlipidemia - IV medrol Q 6H - inhaled bronchodilators standing and PRN - singulair - monitor peak flow - DVT prophylaxis DR BUTLER
[2018-03-12] MEDS: methylPREDNISolone NA SUCC 40 MG/1 ML VIAL IVPUSH SCH ×2 (15:15→20:56)
[2018-03-12] MEDS: ATORVASTATIN CA 40 MG TABLET (FP) PO SCH (21:41)
[2018-03-12] MEDS: MONTELUKAST NA 10 MG TABLET PO SCH (21:41)
[2018-03-13] MEDS: methylPREDNISolone NA SUCC 40 MG/1 ML VIAL IVPUSH SCH ×4 (02:58→21:39)
[2018-03-13] MEDS: guaiFENesin/CODEINE 5 ML UNIT-DOSE CUPS PO SCH (05:33)
[2018-03-13] MEDS: INSULIN SLIDING SCALE (NOVOLOG) 1 VIAL SQ SCH ×4 (06:05→21:59)
[2018-03-13] MEDS: ALBUTEROL SO4 2.5/IPRATROPIUM 0.5 INH SOL 3 ML VIAL.NEB. NEB SCH ×4 (08:20→21:05)
[2018-03-13 08:53] LABS: BASO % 0.2 % (0-2.0); HEMATOCRIT 35.5 % (32.4-45.2); HEMOGLOBIN 11.7 GM/dL (10.7-15.3); LYMPH % 4.6 % (8-40); MCH 29.7 pg (25.7-33.7); MCHC 32.8 g/dl (32.0-36.0); MEAN CELL VOLUME 90.5 fl (80-96); MEAN PLT VOLUME 10.2 fl (7.5-11.1); MONO % 1.8 % (3.8-10.2); NEUT % 93.4 % (42.8-82.8); PLATELET COUNT 167 K/MM3 (134-434); RBC 3.93 M/mm3 (3.60-5.2); RDW 14.6 % (11.6-15.6); WHITE BLOOD COUNT 14.1 K/mm3 (4.0-10.0)
[2018-03-13] MEDS: ENOXAPARIN NA (PORCINE) 40 MG/0.4 ML DISP.SYRIN SQ SCH (09:10)
[2018-03-13] MEDS: BUDESONIDE/FORMETEROL FUMARATE 160/4.5 mcg INHALER IH SCH ×2 (09:11→21:36)
[2018-03-13 09:18] LABS: ANION GAP 7 MMOL/L (8-16); BLOOD UREA NITROGEN 36 mg/dL (7-18); CALCIUM 9.1 mg/dL (8.5-10.1); CHLORIDE 102 mmol/L (98-107); CO2 28 mmol/L (21-32); CREATININE 1.3 mg/dL (0.55-1.3); MAGNESIUM 2.8 mg/dL (1.8-2.4); PHOSPHOROUS 3.6 mg/dL (2.5-4.9); POTASSIUM 4.6 mmol/L (3.5-5.1); SODIUM 137 mmol/L (136-145)
[2018-03-13 09:33] LABS: GLUCOSE,RANDOM 306 mg/dL (74-106)
[2018-03-13] MEDS ORDERED: ACETAMINOPHEN 325 MG TABLET (FP) PO PRN (10:12)
[2018-03-13] MEDS ORDERED: CODEINE SO4 30 MG TABLET PO PRN (11:40)
--- NOTE | 2018-03-13 12:00 | PN ---
Progress Note (short form) - Note Progress Note: Still with congested cough and SOB. No CP. PEF: 200 (does not know baseline) Intake & Output 03/10/18 03/11/18 03/12/18 03/13/18 23:59 23:59 23:59 23:59 Intake Total 240 545 Balance 240 545 Weight 274 lb 8 oz Last Vital Signs Temp Pulse Resp BP Pulse Ox 97.4 F L 83 20 130/63 99 03/13/18 09:00 03/13/18 09:00 03/13/18 09:00 03/13/18 09:00 03/12/18 10:01 Active Medications Acetaminophen (Tylenol -) 650 mg PO Q6H PRN PRN Reason: headache Last Admin: 03/13/18 10:30 Dose: 650 mg Albuterol Sulfate (Ventolin 0.083% Nebulizer Soln -) 1 amp NEB Q4H PRN PRN Reason: SHORT OF BREATH/WHEEZING Albuterol/Ipratropium (Duoneb -) 1 amp NEB RQID [facility] Last Admin: 03/13/18 11:24 Dose: 1 amp Atorvastatin Calcium (Lipitor -) 40 mg PO HS [facility] Last Admin: 03/12/18 21:41 Dose: 40 mg Budesonide/Formoterol Fumarate (Symbicort 160/4.5mcg -) 2 puff IH BID [facility] Last Admin: 03/13/18 09:11 Dose: 2 puff Enoxaparin Sodium (Lovenox -) 40 mg SQ DAILY [facility] Last Admin: 03/13/18 09:10 Dose: 40 mg Guaifenesin/Codeine Phosphate (Robitussin Ac -) 5 ml PO Q6H PRN PRN Reason: COUGH Insulin Aspart (Novolog Vial Sliding Scale -) 1 vial SQ ACHS [facility]; Protocol Last Admin: 03/13/18 11:38 Dose: 10 units Methylprednisolone Sodium Succinate (Solu-Medrol -) 40 mg IVPUSH Q6H-IV [facility] Last Admin: 03/13/18 09:10 Dose: 40 mg Montelukast Sodium (Singulair -) 10 mg PO HS [facility] Last Admin: 03/12/18 21:41 Dose: 10 mg - Objective Vital Signs: Constitutional: Yes: Well Nourished, NAD Eyes: Yes: WNL HENT: Yes: WNL Neck: Yes: WNL Cardiovascular: Yes: Regular Rate and Rhythm, S1, S2 Respiratory: Yes: Bilateral Expiratory Wheezes Gastrointestinal: Yes: Normal Bowel Sounds, Soft Extremities: Yes: WNL Edema: No Labs: Laboratory Results - last 24 hr 03/12/18 03/12/18 03/13/18 16:18 21:39 05:39 WBC RBC Hgb Hct MCV MCH MCHC RDW Plt Count MPV Absolute Neuts (auto) Neutrophils % Lymphocytes % Monocytes % Eosinophils % Basophils % Nucleated RBC % Sodium Potassium Chloride Carbon Dioxide Anion Gap BUN Creatinine Creat Clearance w eGFR POC Glucometer 336 377 302 Random Glucose Calcium Phosphorus Magnesium 03/13/18 03/13/18 03/13/18 07:50 07:50 11:38 WBC 14.1 H RBC 3.93 Hgb 11.7 Hct 35.5 MCV 90.5 MCH 29.7 MCHC 32.8 RDW 14.6 Plt Count 167 MPV 10.2 Absolute Neuts (auto) 13.2 H Neutrophils % 93.4 H Lymphocytes % 4.6 L D Monocytes % 1.8 L D Eosinophils % 0.0 Basophils % 0.2 Nucleated RBC % 0 Sodium 137 Potassium 4.6 Chloride 102 Carbon Dioxide 28 Anion Gap 7 L BUN 36 H Creatinine 1.3 Creat Clearance w eGFR 40.98 POC Glucometer 365 Random Glucose 306 H* Calcium 9.1 Phosphorus 3.6 Magnesium 2.8 H Assessment/Plan Problem List - Problems (1) Asthma exacerbation Code(s): J45.901 - UNSPECIFIED ASTHMA WITH (ACUTE) EXACERBATION (2) Diabetes Code(s): E11.9 - TYPE 2 DIABETES MELLITUS WITHOUT COMPLICATIONS Qualifiers: Diabetes mellitus type: type 2 Diabetes mellitus keno terminal operator insulin use: without keno terminal operator use Diabetes mellitus complication status: without complication Qualified Code(s): E11.9 - Type 2 diabetes mellitus without complications Assessment/Plan Acute Asthma Exacerbation DM Hyperlipidemia - IV medrol Q 6H - inhaled bronchodilators standing and PRN - singulair - monitor peak flow - DVT prophylaxis Dr Garber
--- NOTE | 2018-03-13 12:16 | PN ---
Progress Note (short form) - Note Progress Note: Patient feels better but continues to cough. No fever or chills. Vital Signs Temperature 97.4 F L 03/13/18 09:00 Pulse Rate 83 03/13/18 09:00 Respiratory Rate 20 03/13/18 09:00 Blood Pressure 130/63 03/13/18 09:00 O2 Sat by Pulse Oximetry (%) 99 03/12/18 10:01 GENERAL: The patient is awake, alert, and fully oriented, in no acute distress. HEAD: Normal with no signs of trauma. EYES: PERRL, extraocular movements intact, sclera anicteric, conjunctiva clear. ENT: Ears normal, oropharynx clear without exudates, moist mucous membranes. NECK: Trachea midline, full range of motion, supple. LUNGS: positive for rhonchi, positive for cough . no accessory muscle use. HEART: Regular rate and rhythm, S1, S2 without murmur, rub or gallop. ABDOMEN: Soft, nontender, nondistended, normoactive bowel sounds, no guarding, no rebound, no hepatosplenomegaly, no masses. EXTREMITIES: 2+ pulses, warm, well-perfused, no edema. NEUROLOGICAL: Cranial nerves II through XII grossly intact. Normal speech, gait is stable . PSYCH: Normal mood, normal affect. SKIN: Warm, dry, normal turgor, no rashes or lesions noted CBCD WBC 14.1 K/mm3 (4.0-10.0) H 03/13/18 07:50 RBC 3.93 M/mm3 (3.60-5.2) 03/13/18 07:50 Hgb 11.7 GM/dL (10.7-15.3) 03/13/18 07:50 Hct 35.5 % (32.4-45.2) 03/13/18 07:50 MCV 90.5 fl (80-96) 03/13/18 07:50 MCHC 32.8 g/dl (32.0-36.0) 03/13/18 07:50 RDW 14.6 % (11.6-15.6) 03/13/18 07:50 Plt Count 167 K/MM3 (134-434) 03/13/18 07:50 MPV 10.2 fl (7.5-11.1) 03/13/18 07:50 CMP Sodium 137 mmol/L (136-145) 03/13/18 07:50 Potassium 4.6 mmol/L (3.5-5.1) 03/13/18 07:50 Chloride 102 mmol/L (98-107) 03/13/18 07:50 Carbon Dioxide 28 mmol/L (21-32) 03/13/18 07:50 Anion Gap 7 MMOL/L (8-16) L 03/13/18 07:50 BUN 36 mg/dL (7-18) H 03/13/18 07:50 Creatinine 1.3 mg/dL (0.55-1.3) 03/13/18 07:50 Creat Clearance w eGFR 40.98 (>60) 03/13/18 07:50 Random Glucose 306 mg/dL (74-106) H* 03/13/18 07:50 Calcium 9.1 mg/dL (8.5-10.1) 03/13/18 07:50 Total Bilirubin 0.5 mg/dL (0.2-1) 03/11/18 06:40 AST 9 U/L (15-37) L 03/11/18 06:40 ALT 16 U/L (13-61) 03/11/18 06:40 Alkaline Phosphatase 75 U/L (45-117) 03/11/18 06:40 Total Protein 7.2 g/dl (6.4-8.2) 03/11/18 06:40 Albumin 3.7 g/dl (3.4-5.0) 03/11/18 06:40 Current Medications Generic Name Dose Route Start Last Admin Trade Name Jsoe Lq PRN Reason Stop Dose Admin Acetaminophen 650 mg 03/13/18 10:12 03/13/18 10:30 Tylenol - PO 650 mg Q6H PRN Administration headache Albuterol Sulfate 1 amp 03/11/18 11:42 Ventolin 0.083% Nebulizer Soln - NEB Q4H PRN SHORT OF BREATH/WHEEZING Albuterol/Ipratropium 1 amp 03/10/18 20:00 03/13/18 11:24 Duoneb - NEB 1 amp RQID KRYSTLE Administration Atorvastatin Calcium 40 mg 03/10/18 22:00 03/12/18 21:41 Lipitor - PO 40 mg HS KRYSTLE Administration Budesonide/Formoterol Fumarate 2 puff 03/10/18 22:00 03/13/18 09:11 Symbicort 160/4.5mcg - IH 2 puff BID KRYSTLE Administration Enoxaparin Sodium 40 mg 03/11/18 10:00 03/13/18 09:10 Lovenox - SQ 40 mg DAILY KRYSTLE Administration Guaifenesin/Codeine Phosphate 5 ml 03/13/18 11:48 Robitussin Ac - PO Q6H PRN COUGH Insulin Aspart 1 vial 03/10/18 22:00 03/13/18 11:38 Novolog Vial Sliding Scale - SQ 10 units ACHS KRYSTLE Administration Protocol Methylprednisolone Sodium Succinate 40 mg 03/12/18 15:00 03/13/18 09:10 Solu-Medrol - IVPUSH 40 mg Q6H-IV KRYSTLE Administration Montelukast Sodium 10 mg 03/10/18 22:00 03/12/18 21:41 Singulair - PO 10 mg HS KRYSTLE Administration Home Medications Medication Instructions Recorded Tiotropium [place] [Spiriva] 1 puff IH DAILY #1 inh 07/09/16 Albuterol Sulfate Inhaler - 1 - 2 inh PO Q4H PRN #1 inhaler 07/19/16 [Ventolin HFA Inhaler -] Atorvastatin Ca [Lipitor] 1 tab PO DAILY 12/17/16 Sitagliptin Phosphate [Januvia] 100 mg PO DAILY 12/17/16 Guaifenesin AC [Robitussin AC -] 5 ml PO Q6H PRN #1 bottle MDD 20 ml 08/04/17 Budesonide/Formeterol Fumarate 2 puff IH BID #1 inhaler 03/12/18 [SYMBICORT 160/4.5mcg -] Montelukast Sodium [Singulair] 10 mg PO HS #30 tablet 03/12/18 A/P: The patient is a 67 yo f w/ PMHx Asthma and DM who comes in complaining of a 5 day history of progressive cough, ,sore throat, chest pain and SOB. #Acute exacerbation of Asthma: on neb, treatments, zthromax completed, solumedrol iv 40mg IV q6, pulm consult. will start robitussin AC since patient is coughing. #DM:continue with levemir and Januvia and follow with , sliding scale with coverage #HLD : On lipitor continue DVT Px: heparin sq Visit type - Emergency Visit Emergency Visit: Yes ED Registration Date: 03/10/18 Care time: The patient presented to the Emergency Department on the above date and was hospitalized for further evaluation of their emergent condition. - New Patient This patient is new to me today: No - Critical Care Critical Care patient: No - Discharge Referral Referred to [facility] Med P.C.: No
[2018-03-13 12:50] LABS: ANISOCYTOSIS 0; MACROCYTOSIS 0; PLATELET ESTIMATE DECREASED
[2018-03-13] MEDS ORDERED: PT OWN MED DRAWER 7, Y5N ONE (21:09)
[2018-03-13] MEDS: guaiFENesin/CODEINE 5 ML UNIT-DOSE CUPS PO PRN (21:38)
[2018-03-13] MEDS: MONTELUKAST NA 10 MG TABLET PO SCH (21:38)
[2018-03-13] MEDS: ATORVASTATIN CA 40 MG TABLET (FP) PO SCH (21:39)
[2018-03-13] MEDS ORDERED: INSULIN (NOVOLOG) ASPART 100 UNITS/ML 10ML VIAL ONE (21:56)
[2018-03-14] MEDS: methylPREDNISolone NA SUCC 40 MG/1 ML VIAL IVPUSH SCH ×4 (03:50→21:13)
[2018-03-14] MEDS: guaiFENesin/CODEINE 5 ML UNIT-DOSE CUPS PO PRN (06:03)
[2018-03-14] MEDS: INSULIN SLIDING SCALE (NOVOLOG) 1 VIAL SQ SCH ×4 (06:05→21:13)
[2018-03-14] MEDS: ENOXAPARIN NA (PORCINE) 40 MG/0.4 ML DISP.SYRIN SQ SCH (09:00)
[2018-03-14] MEDS: BUDESONIDE/FORMETEROL FUMARATE 160/4.5 mcg INHALER IH SCH ×2 (09:00→21:14)
[2018-03-14] MEDS: ALBUTEROL SO4 2.5/IPRATROPIUM 0.5 INH SOL 3 ML VIAL.NEB. NEB SCH ×4 (09:14→20:35)
--- NOTE | 2018-03-14 11:25 | PN ---
Progress Note (short form) - Note Progress Note: Feels a little better today but still with congested cough and SOB. No CP. PEF: 200 (does not know baseline) Intake & Output 03/11/18 03/12/18 03/13/18 03/14/18 23:59 23:59 23:59 23:59 Intake Total 240 545 955 Balance 240 545 955 Last Vital Signs Temp Pulse Resp BP Pulse Ox 98 F 79 20 127/94 94 L 03/14/18 08:57 03/14/18 08:57 03/14/18 08:57 03/14/18 08:57 03/13/18 21:00 Active Medications Acetaminophen (Tylenol -) 650 mg PO Q6H PRN PRN Reason: headache Last Admin: 03/13/18 10:30 Dose: 650 mg Albuterol Sulfate (Ventolin 0.083% Nebulizer Soln -) 1 amp NEB Q4H PRN PRN Reason: SHORT OF BREATH/WHEEZING Albuterol/Ipratropium (Duoneb -) 1 amp NEB RQID [facility] Last Admin: 03/14/18 09:14 Dose: 1 amp Atorvastatin Calcium (Lipitor -) 40 mg PO HS [facility] Last Admin: 03/13/18 21:39 Dose: 40 mg Budesonide/Formoterol Fumarate (Symbicort 160/4.5mcg -) 2 puff IH BID [facility] Last Admin: 03/14/18 09:00 Dose: 2 puff Enoxaparin Sodium (Lovenox -) 40 mg SQ DAILY [facility] Last Admin: 03/14/18 09:00 Dose: 40 mg Guaifenesin/Codeine Phosphate (Robitussin Ac -) 5 ml PO Q6HPO [facility] Insulin Aspart (Novolog Vial Sliding Scale -) 1 vial SQ ACHS [facility]; Protocol Last Admin: 03/14/18 06:05 Dose: 6 units Methylprednisolone Sodium Succinate (Solu-Medrol -) 40 mg IVPUSH Q6H-IV [facility] Last Admin: 03/14/18 09:00 Dose: 40 mg Montelukast Sodium (Singulair -) 10 mg PO HS [facility] Last Admin: 03/13/18 21:38 Dose: 10 mg Constitutional: Yes: Well Nourished, NAD Eyes: Yes: WNL HENT: Yes: WNL Neck: Yes: WNL Cardiovascular: Yes: Regular Rate and Rhythm, S1, S2 Respiratory: Yes: Bilateral Expiratory Wheezes Gastrointestinal: Yes: Normal Bowel Sounds, Soft Extremities: Yes: WNL Edema: No Labs: Laboratory Results - last 24 hr 03/13/18 03/13/18 03/13/18 07:50 11:38 16:28 Neutrophils % (Manual) 91.0 H Band Neutrophils % 4.0 Lymphocytes % (Manual) 0.0 L Monocytes % (Manual) 2 L D Eosinophils % (Manual) 2.0 D Basophils % (Manual) 0.0 Myelocytes % (Man) 0 D Promyelocytes % (Man) 0 Blast Cells % (Manual) 0 Nucleated RBC % 0 Metamyelocytes 1 D Hypochromia 0 Platelet Estimate Decreased Polychromasia 0 Poikilocytosis 0 Anisocytosis 0 Microcytosis 0 Macrocytosis 0 POC Glucometer 365 382 03/13/18 03/14/18 21:58 06:04 Neutrophils % (Manual) Band Neutrophils % Lymphocytes % (Manual) Monocytes % (Manual) Eosinophils % (Manual) Basophils % (Manual) Myelocytes % (Man) Promyelocytes % (Man) Blast Cells % (Manual) Nucleated RBC % Metamyelocytes Hypochromia Platelet Estimate Polychromasia Poikilocytosis Anisocytosis Microcytosis Macrocytosis POC Glucometer 397 277 Assessment/Plan Problem List - Problems (1) Asthma exacerbation Code(s): J45.901 - UNSPECIFIED ASTHMA WITH (ACUTE) EXACERBATION (2) Diabetes Code(s): E11.9 - TYPE 2 DIABETES MELLITUS WITHOUT COMPLICATIONS Qualifiers: Diabetes mellitus type: type 2 Diabetes mellitus exterminator insulin use: without skilled nursing use Diabetes mellitus complication status: without complication Qualified Code(s): E11.9 - Type 2 diabetes mellitus without complications Assessment/Plan Acute Asthma Exacerbation DM Hyperlipidemia - Maintain IV medrol Q6H - inhaled bronchodilators standing and PRN - singulair - monitor peak flow - DVT prophylaxis Dr Garber
[2018-03-14] MEDS: guaiFENesin/CODEINE 5 ML UNIT-DOSE CUPS PO SCH ×2 (11:26→17:09)
--- NOTE | 2018-03-14 14:14 | PN ---
Physical Exam: SUBJECTIVE: Patient seen and examined at bedside this morning. No acute events overnight. Patient still has productive cough and nasal congestion. Peak flow 210 today (patient unaware of baseline). Otherwise denies fever, chills, headache, dizziness, nausea, vomiting, abdominal pain, diarrhea. OBJECTIVE: Vital Signs Period Temp Pulse Resp BP Sys/Linares Pulse Ox Last 24 Hr 97.3 F-98.3 F 64-79 20-20 124-155/70-96 94-94 GENERAL: Awake, alert, and fully oriented, in no acute distress, saturating 98% on room air. EYES:PERRLa, EOMI, sclera anicteric, conjunctiva clear. EARS, NOSE, THROAT: Ears normal, nares patent, oropharynx clear without exudates. Moist mucous membranes. NECK: Normal range of motion, supple without lymphadenopathy, JVD, or masses. LUNGS: +scattered wheezes bilaterally HEART: Regular rate and rhythm, normal S1 and S2 without murmur, rub or gallop. ABDOMEN: Soft, nontender, not distended, normoactive bowel sounds. UPPER EXTREMITIES: 2+ pulses, warm, well-perfused. No peripheral edema. LOWER EXTREMITIES: 2+ pulses, warm, well-perfused. No peripheral edema. NEUROLOGICAL: Cranial nerves II-XII intact. Normal speech. Gait not observed. PSYCHIATRIC: Cooperative. Good eye contact. Appropriate mood and affect. SKIN: Warm, dry, normal turgor, no rashes or lesions. Laboratory Results - last 24 hr 03/13/18 03/13/18 03/14/18 16:28 21:58 06:04 POC Glucometer 382 397 277 03/14/18 11:27 POC Glucometer 332 Active Medications Generic Name Dose Route Start Last Admin Trade Name Freq PRN Reason Stop Dose Admin Acetaminophen 650 mg 03/13/18 10:12 03/13/18 10:30 Tylenol - PO 650 mg Q6H PRN Administration headache Albuterol Sulfate 1 amp 03/11/18 11:42 Ventolin 0.083% Nebulizer Soln - NEB Q4H PRN SHORT OF BREATH/WHEEZING Albuterol/Ipratropium 1 amp 03/10/18 20:00 03/14/18 12:33 Duoneb - NEB 1 amp RQID KRYSTLE Administration Atorvastatin Calcium 40 mg 03/10/18 22:00 03/13/18 21:39 Lipitor - PO 40 mg HS KRYSTLE Administration Budesonide/Formoterol Fumarate 2 puff 03/10/18 22:00 03/14/18 09:00 Symbicort 160/4.5mcg - IH 2 puff BID KRYSTLE Administration Enoxaparin Sodium 40 mg 03/11/18 10:00 03/14/18 09:00 Lovenox - SQ 40 mg DAILY KRYSTLE Administration Guaifenesin/Codeine Phosphate 5 ml 03/14/18 12:00 03/14/18 11:26 Robitussin Ac - PO 5 ml Q6HPO KRYSTLE Administration Insulin Aspart 1 vial 03/10/18 22:00 03/14/18 11:28 Novolog Vial Sliding Scale - SQ 8 units ACHS KRYSTLE Administration Protocol Methylprednisolone Sodium Succinate 40 mg 03/12/18 15:00 03/14/18 09:00 Solu-Medrol - IVPUSH 40 mg Q6H-IV KRYSTLE Administration Montelukast Sodium 10 mg 03/10/18 22:00 03/13/18 21:38 Singulair - PO 10 mg HS KRYSTLE Administration ASSESSMENT/PLAN: Patient is a 68 year old female with past medical history of HLD, DM, and asthma presented with worsening shortness of breath and wheezing that started few days ago. #SOB likely 2/2 asthma exacerbation -likely 2/2 URTI, flu swab negative -Duonebs RQID and q6h -IV Solu-medrol 40mg increased to q6h -continue Symbicort -continue Singulair 10mg Po HS -Peak flow daily -Robitussin AC q6h for cough. -Pulmonology (Dr. Garber) consulted. #Hyperlipidemia -continue home Atorvastatin 40mg daily #DM -Hold home Januvia -Insulin sliding scale -BGM ACHS #FEN -Not on any standing fluids -Electrolytes wnl, routine bmp monitoring -Diabetic/Sodium controlled diet #Prophylaxis -Lovenox 40mg sq daily #Disposition -full code -med-surg Visit type - Emergency Visit Emergency Visit: Yes ED Registration Date: 03/10/18 Care time: The patient presented to the Emergency Department on the above date and was hospitalized for further evaluation of their emergent condition. - New Patient This patient is new to me today: No - Critical Care Critical Care patient: No
[2018-03-14] MEDS ORDERED: PT OWN MED DRAWER 7, Y5N ONE (15:12)
--- NOTE | 2018-03-14 18:03 | PN ---
Teaching Attending Note Name of Resident: Natalya Bar ATTENDING PHYSICIAN STATEMENT I saw and evaluated the patient. I reviewed the resident's note and discussed the case with the resident. I agree with the resident's findings and plan as documented. SUBJECTIVE: Patient continues to wheeze, better than before. Dyspnea on exertion. OBJECTIVE: Vital Signs Temperature 97.9 F 03/14/18 14:41 Pulse Rate 62 03/14/18 14:41 Respiratory Rate 22 H 03/14/18 14:41 Blood Pressure 118/67 03/14/18 14:41 O2 Sat by Pulse Oximetry (%) 94 L 03/14/18 09:00 GENERAL: The patient is awake, alert, and fully oriented, in no acute distress. HEAD: Normal with no signs of trauma. EYES: PERRL, extraocular movements intact, sclera anicteric, conjunctiva clear. ENT: Ears normal, oropharynx clear without exudates, moist mucous membranes. NECK: Trachea midline, full range of motion, supple. LUNGS: positive for rhonchi, positive for cough . no accessory muscle use. Dyspnea on exertion. HEART: Regular rate and rhythm, S1, S2 without murmur, rub or gallop. ABDOMEN: Soft, nontender, nondistended, normoactive bowel sounds, no guarding, no rebound, no hepatosplenomegaly, no masses. EXTREMITIES: 2+ pulses, warm, well-perfused, no edema. NEUROLOGICAL: Cranial nerves II through XII grossly intact. Normal speech, gait is stable . PSYCH: Normal mood, normal affect. SKIN: Warm, dry, normal turgor, no rashes or lesions noted CBCD WBC 14.1 K/mm3 (4.0-10.0) H 03/13/18 07:50 RBC 3.93 M/mm3 (3.60-5.2) 03/13/18 07:50 Hgb 11.7 GM/dL (10.7-15.3) 03/13/18 07:50 Hct 35.5 % (32.4-45.2) 03/13/18 07:50 MCV 90.5 fl (80-96) 03/13/18 07:50 MCHC 32.8 g/dl (32.0-36.0) 03/13/18 07:50 RDW 14.6 % (11.6-15.6) 03/13/18 07:50 Plt Count 167 K/MM3 (134-434) 03/13/18 07:50 MPV 10.2 fl (7.5-11.1) 03/13/18 07:50 CMP Sodium 137 mmol/L (136-145) 03/13/18 07:50 Potassium 4.6 mmol/L (3.5-5.1) 03/13/18 07:50 Chloride 102 mmol/L (98-107) 03/13/18 07:50 Carbon Dioxide 28 mmol/L (21-32) 03/13/18 07:50 Anion Gap 7 MMOL/L (8-16) L 03/13/18 07:50 BUN 36 mg/dL (7-18) H 03/13/18 07:50 Creatinine 1.3 mg/dL (0.55-1.3) 03/13/18 07:50 Creat Clearance w eGFR 40.98 (>60) 03/13/18 07:50 Random Glucose 306 mg/dL (74-106) H* 03/13/18 07:50 Calcium 9.1 mg/dL (8.5-10.1) 03/13/18 07:50 Total Bilirubin 0.5 mg/dL (0.2-1) 03/11/18 06:40 AST 9 U/L (15-37) L 03/11/18 06:40 ALT 16 U/L (13-61) 03/11/18 06:40 Alkaline Phosphatase 75 U/L (45-117) 03/11/18 06:40 Total Protein 7.2 g/dl (6.4-8.2) 03/11/18 06:40 Albumin 3.7 g/dl (3.4-5.0) 03/11/18 06:40 Current Medications Generic Name Dose Route Start Last Admin Trade Name Freq PRN Reason Stop Dose Admin Acetaminophen 650 mg 03/13/18 10:12 03/13/18 10:30 Tylenol - PO 650 mg Q6H PRN Administration headache Albuterol Sulfate 1 amp 03/11/18 11:42 Ventolin 0.083% Nebulizer Soln - NEB Q4H PRN SHORT OF BREATH/WHEEZING Albuterol/Ipratropium 1 amp 03/10/18 20:00 03/14/18 15:14 Duoneb - NEB 1 amp RQID KRYSTLE Administration Atorvastatin Calcium 40 mg 03/10/18 22:00 03/13/18 21:39 Lipitor - PO 40 mg HS KRYSTLE Administration Budesonide/Formoterol Fumarate 2 puff 03/10/18 22:00 03/14/18 09:00 Symbicort 160/4.5mcg - IH 2 puff BID KRYSTLE Administration Enoxaparin Sodium 40 mg 03/11/18 10:00 03/14/18 09:00 Lovenox - SQ 40 mg DAILY KRYSTLE Administration Guaifenesin/Codeine Phosphate 5 ml 03/14/18 12:00 03/14/18 17:09 Robitussin Ac - PO 5 ml Q6HPO KRYSTLE Administration Insulin Aspart 1 vial 03/10/18 22:00 03/14/18 17:08 Novolog Vial Sliding Scale - SQ 10 units ACHS KRYSTLE Administration Protocol Methylprednisolone Sodium Succinate 40 mg 03/12/18 15:00 03/14/18 15:13 Solu-Medrol - IVPUSH 40 mg Q6H-IV KRYSTLE Administration Montelukast Sodium 10 mg 03/10/18 22:00 03/13/18 21:38 Singulair - PO 10 mg HS KRYSTLE Administration Home Medications Medication Instructions Recorded Tiotropium [place] [Spiriva] 1 puff IH DAILY #1 inh 07/09/16 Albuterol Sulfate Inhaler - 1 - 2 inh PO Q4H PRN #1 inhaler 07/19/16 [Ventolin HFA Inhaler -] Atorvastatin Ca [Lipitor] 1 tab PO DAILY 12/17/16 Sitagliptin Phosphate [Januvia] 100 mg PO DAILY 12/17/16 Guaifenesin AC [Robitussin AC -] 5 ml PO Q6H PRN #1 bottle MDD 20 ml 08/04/17 Budesonide/Formeterol Fumarate 2 puff IH BID #1 inhaler 03/12/18 [SYMBICORT 160/4.5mcg -] Montelukast Sodium [Singulair] 10 mg PO HS #30 tablet 03/12/18 ASSESSMENT AND PLAN: The patient is a 67 yo f w/ PMHx Asthma and DM who comes in complaining of a 5 day history of progressive cough, ,sore throat, chest pain and SOB. #Acute exacerbation of Asthma: on neb, treatments, zithromax completed, solumedrol iv 40mg IV q6 continue , pulm consult appreciated . continue Robitussin AC since patient is coughing. #DM:continue with levemir and Januvbeverley and follow up with as an outpatient, sliding scale with coverage #HLD : On lipitor continue DVT Px: heparin sq
[2018-03-14] MEDS: ATORVASTATIN CA 40 MG TABLET (FP) PO SCH (21:13)
[2018-03-14] MEDS: MONTELUKAST NA 10 MG TABLET PO SCH (21:13)
[2018-03-15] MEDS: guaiFENesin/CODEINE 5 ML UNIT-DOSE CUPS PO SCH ×5 (00:46→23:34)
[2018-03-15] MEDS: methylPREDNISolone NA SUCC 40 MG/1 ML VIAL IVPUSH SCH ×4 (03:35→21:36)
[2018-03-15] MEDS: INSULIN SLIDING SCALE (NOVOLOG) 1 VIAL SQ SCH ×4 (06:21→21:44)
[2018-03-15] MEDS: ALBUTEROL SO4 2.5/IPRATROPIUM 0.5 INH SOL 3 ML VIAL.NEB. NEB SCH ×3 (07:20→15:35)
[2018-03-15] MEDS: ENOXAPARIN NA (PORCINE) 40 MG/0.4 ML DISP.SYRIN SQ SCH (10:01)
[2018-03-15] MEDS: BUDESONIDE/FORMETEROL FUMARATE 160/4.5 mcg INHALER IH SCH ×2 (10:01→21:37)
--- NOTE | 2018-03-15 11:03 | PN ---
Progress Note (short form) - Note Progress Note: Feels a little better today but still with congested cough and SOB. No CP. PEF: 230 today (200 yesterday; does not know baseline) Intake & Output 03/12/18 03/13/18 03/14/18 03/15/18 23:59 23:59 23:59 23:59 Intake Total 545 955 990 Balance 545 955 990 Last Vital Signs Temp Pulse Resp BP Pulse Ox 97.9 F 99 H 20 127/76 94 L 03/15/18 10:00 03/15/18 10:00 03/15/18 10:00 03/15/18 10:00 03/14/18 21:00 Active Medications Acetaminophen (Tylenol -) 650 mg PO Q6H PRN PRN Reason: headache Last Admin: 03/13/18 10:30 Dose: 650 mg Albuterol Sulfate (Ventolin 0.083% Nebulizer Soln -) 1 amp NEB Q4H PRN PRN Reason: SHORT OF BREATH/WHEEZING Albuterol/Ipratropium (Duoneb -) 1 amp NEB RQID [facility] Last Admin: 03/15/18 07:20 Dose: 1 amp Atorvastatin Calcium (Lipitor -) 40 mg PO HS [facility] Last Admin: 03/14/18 21:13 Dose: 40 mg Budesonide/Formoterol Fumarate (Symbicort 160/4.5mcg -) 2 puff IH BID [facility] Last Admin: 03/15/18 10:01 Dose: 2 puff Enoxaparin Sodium (Lovenox -) 40 mg SQ DAILY [facility] Last Admin: 03/15/18 10:01 Dose: 40 mg Guaifenesin/Codeine Phosphate (Robitussin Ac -) 5 ml PO Q6HPO KRYSTLE Last Admin: 03/15/18 06:21 Dose: 5 ml Insulin Aspart (Novolog Vial Sliding Scale -) 1 vial SQ ACHS [facility]; Protocol Last Admin: 03/15/18 06:21 Dose: 8 units Methylprednisolone Sodium Succinate (Solu-Medrol -) 40 mg IVPUSH Q8H-IV KRYSTLE Montelukast Sodium (Singulair -) 10 mg PO HS [facility] Last Admin: 03/14/18 21:13 Dose: 10 mg Constitutional: Yes: Well Nourished, NAD Eyes: Yes: WNL HENT: Yes: WNL Neck: Yes: WNL Cardiovascular: Yes: Regular Rate and Rhythm, S1, S2 Respiratory: Yes: Bilateral Expiratory Wheezes and coarse rhonchi Gastrointestinal: Yes: Normal Bowel Sounds, Soft Extremities: Yes: WNL Edema: No Labs: Laboratory Results - last 24 hr 03/14/18 03/14/18 03/14/18 11:27 17:08 20:59 POC Glucometer 332 368 378 03/15/18 06:20 POC Glucometer 320 Assessment/Plan Problem List - Problems (1) Asthma exacerbation Code(s): J45.901 - UNSPECIFIED ASTHMA WITH (ACUTE) EXACERBATION (2) Diabetes Code(s): E11.9 - TYPE 2 DIABETES MELLITUS WITHOUT COMPLICATIONS Qualifiers: Diabetes mellitus type: type 2 Diabetes mellitus fci insulin use: without fci use Diabetes mellitus complication status: without complication Qualified Code(s): E11.9 - Type 2 diabetes mellitus without complications Assessment/Plan Acute Asthma Exacerbation DM Hyperlipidemia - IV medrol - inhaled bronchodilators standing and PRN - singulair - monitor peak flow - DVT prophylaxis Dr Garber
--- NOTE | 2018-03-15 17:06 | PN ---
Physical Exam: SUBJECTIVE: Patient seen and examined at bedside this morning. No acute events overnight. Patient feeling better today with less SOB and cough. Peak flow today 220. OBJECTIVE: Vital Signs Period Temp Pulse Resp BP Sys/Linares Pulse Ox Last 24 Hr 97.3 F-98.0 F 52-99 20-20 118-127/66-79 94 GENERAL: Awake, alert, and fully oriented, in no acute distress, saturating 98% on room air. EYES:PERRLa, EOMI, sclera anicteric, conjunctiva clear. EARS, NOSE, THROAT: Ears normal, nares patent, oropharynx clear without exudates. Moist mucous membranes. NECK: Normal range of motion, supple without lymphadenopathy, JVD, or masses. LUNGS: +scattered wheezes bilaterally HEART: Regular rate and rhythm, normal S1 and S2 without murmur, rub or gallop. ABDOMEN: Soft, nontender, not distended, normoactive bowel sounds. UPPER EXTREMITIES: 2+ pulses, warm, well-perfused. No peripheral edema. LOWER EXTREMITIES: 2+ pulses, warm, well-perfused. No peripheral edema. NEUROLOGICAL: Cranial nerves II-XII intact. Normal speech. Gait not observed. PSYCHIATRIC: Cooperative. Good eye contact. Appropriate mood and affect. SKIN: Warm, dry, normal turgor, no rashes or lesions. Laboratory Results - last 24 hr 03/14/18 03/14/18 03/15/18 17:08 20:59 06:20 POC Glucometer 368 378 320 03/15/18 03/15/18 11:50 16:44 POC Glucometer 370 357 Active Medications Generic Name Dose Route Start Last Admin Trade Name Jose Lq PRN Reason Stop Dose Admin Acetaminophen 650 mg 03/13/18 10:12 03/13/18 10:30 Tylenol - PO 650 mg Q6H PRN Administration headache Albuterol Sulfate 1 amp 03/11/18 11:42 Ventolin 0.083% Nebulizer Soln - NEB Q4H PRN SHORT OF BREATH/WHEEZING Albuterol/Ipratropium 1 amp 03/10/18 20:00 03/15/18 15:35 Duoneb - NEB 1 amp RQID KRYSTLE Administration Atorvastatin Calcium 40 mg 03/10/18 22:00 03/14/18 21:13 Lipitor - PO 40 mg HS KRYSTLE Administration Budesonide/Formoterol Fumarate 2 puff 03/10/18 22:00 03/15/18 10:01 Symbicort 160/4.5mcg - IH 2 puff BID KRYSTLE Administration Enoxaparin Sodium 40 mg 03/11/18 10:00 03/15/18 10:01 Lovenox - SQ 40 mg DAILY KRYSTLE Administration Guaifenesin/Codeine Phosphate 5 ml 03/14/18 12:00 03/15/18 12:05 Robitussin Ac - PO 5 ml Q6HPO KRYSTLE Administration Insulin Aspart 1 vial 03/10/18 22:00 03/15/18 16:52 Novolog Vial Sliding Scale - SQ 10 units ACHS KRYSTLE Administration Protocol Methylprednisolone Sodium Succinate 40 mg 03/15/18 15:00 Solu-Medrol - IVPUSH Q6H-IV KRYSTLE Montelukast Sodium 10 mg 03/10/18 22:00 03/14/18 21:13 Singulair - PO 10 mg HS KRYSTLE Administration ASSESSMENT/PLAN: Patient is a 68 year old female with past medical history of HLD, DM, and asthma presented with worsening shortness of breath and wheezing that started few days ago. #SOB likely 2/2 asthma exacerbation -likely 2/2 URTI, flu swab negative -Duonebs RQID and q6h -IV Solu-medrol 40mg q6h -continue Symbicort -continue Singulair 10mg Po HS -Peak flow daily -Robitussin AC q6h for cough. -Pulmonology (Dr. Garber) consulted. #Hyperlipidemia -continue home Atorvastatin 40mg daily #DM -Hold home Januvia -Insulin sliding scale -BGM ACHS #FEN -Not on any standing fluids -Electrolytes wnl, routine bmp monitoring -Diabetic/Sodium controlled diet #Prophylaxis -Lovenox 40mg sq daily #Disposition -full code -med-surg Visit type - Emergency Visit Emergency Visit: Yes ED Registration Date: 03/10/18 Care time: The patient presented to the Emergency Department on the above date and was hospitalized for further evaluation of their emergent condition. - New Patient This patient is new to me today: No - Critical Care Critical Care patient: No
[2018-03-15] MEDS ORDERED: methylPREDNISolone NA SUCC 40 MG/1 ML VIAL IVPUSH SCH (18:00)
--- NOTE | 2018-03-15 19:00 | PN ---
Teaching Attending Note Name of Resident: Dea Gutierrez ATTENDING PHYSICIAN STATEMENT I saw and evaluated the patient. I reviewed the resident's note and discussed the case with the resident. I agree with the resident's findings and plan as documented. SUBJECTIVE: Patient continues to ave dyspnea on exertion OBJECTIVE: Vital Signs Temperature 97.3 F L 03/15/18 15:55 Pulse Rate 63 03/15/18 15:55 Respiratory Rate 20 03/15/18 15:55 Blood Pressure 118/79 03/15/18 15:55 O2 Sat by Pulse Oximetry (%) 94 L 03/15/18 09:00 GENERAL: The patient is awake, alert, and fully oriented, in no acute distress. HEAD: Normal with no signs of trauma. EYES: PERRL, extraocular movements intact, sclera anicteric, conjunctiva clear. ENT: Ears normal, oropharynx clear without exudates, moist mucous membranes. NECK: Trachea midline, full range of motion, supple. LUNGS: positive for rhonchi continues , positive for cough . no accessory muscle use. Dyspnea on exertion. HEART: Regular rate and rhythm, S1, S2 without murmur, rub or gallop. ABDOMEN: Soft, nontender, nondistended, normoactive bowel sounds, no guarding, no rebound, no hepatosplenomegaly, no masses. EXTREMITIES: 2+ pulses, warm, well-perfused, no edema. NEUROLOGICAL: Cranial nerves II through XII grossly intact. Normal speech, gait is stable . PSYCH: Normal mood, normal affect. SKIN: Warm, dry, normal turgor, no rashes or lesions noted CBCD WBC 14.1 K/mm3 (4.0-10.0) H 03/13/18 07:50 RBC 3.93 M/mm3 (3.60-5.2) 03/13/18 07:50 Hgb 11.7 GM/dL (10.7-15.3) 03/13/18 07:50 Hct 35.5 % (32.4-45.2) 03/13/18 07:50 MCV 90.5 fl (80-96) 03/13/18 07:50 MCHC 32.8 g/dl (32.0-36.0) 03/13/18 07:50 RDW 14.6 % (11.6-15.6) 03/13/18 07:50 Plt Count 167 K/MM3 (134-434) 03/13/18 07:50 MPV 10.2 fl (7.5-11.1) 03/13/18 07:50 CMP Sodium 137 mmol/L (136-145) 03/13/18 07:50 Potassium 4.6 mmol/L (3.5-5.1) 03/13/18 07:50 Chloride 102 mmol/L (98-107) 03/13/18 07:50 Carbon Dioxide 28 mmol/L (21-32) 03/13/18 07:50 Anion Gap 7 MMOL/L (8-16) L 03/13/18 07:50 BUN 36 mg/dL (7-18) H 03/13/18 07:50 Creatinine 1.3 mg/dL (0.55-1.3) 03/13/18 07:50 Creat Clearance w eGFR 40.98 (>60) 03/13/18 07:50 Random Glucose 306 mg/dL (74-106) H* 03/13/18 07:50 Calcium 9.1 mg/dL (8.5-10.1) 03/13/18 07:50 Total Bilirubin 0.5 mg/dL (0.2-1) 03/11/18 06:40 AST 9 U/L (15-37) L 03/11/18 06:40 ALT 16 U/L (13-61) 03/11/18 06:40 Alkaline Phosphatase 75 U/L (45-117) 03/11/18 06:40 Total Protein 7.2 g/dl (6.4-8.2) 03/11/18 06:40 Albumin 3.7 g/dl (3.4-5.0) 03/11/18 06:40 Current Medications Generic Name Dose Route Start Last Admin Trade Name Freq PRN Reason Stop Dose Admin Acetaminophen 650 mg 03/13/18 10:12 03/13/18 10:30 Tylenol - PO 650 mg Q6H PRN Administration headache Albuterol Sulfate 1 amp 03/11/18 11:42 Ventolin 0.083% Nebulizer Soln - NEB Q4H PRN SHORT OF BREATH/WHEEZING Albuterol/Ipratropium 1 amp 03/10/18 20:00 03/15/18 15:35 Duoneb - NEB 1 amp RQID KRYSTLE Administration Atorvastatin Calcium 40 mg 03/10/18 22:00 03/14/18 21:13 Lipitor - PO 40 mg HS KRYSTLE Administration Budesonide/Formoterol Fumarate 2 puff 03/10/18 22:00 03/15/18 10:01 Symbicort 160/4.5mcg - IH 2 puff BID KRYSTLE Administration Enoxaparin Sodium 40 mg 03/11/18 10:00 03/15/18 10:01 Lovenox - SQ 40 mg DAILY KRYSTLE Administration Guaifenesin/Codeine Phosphate 5 ml 03/14/18 12:00 03/15/18 17:49 Robitussin Ac - PO 5 ml Q6HPO KRYSTLE Administration Insulin Aspart 1 vial 03/10/18 22:00 03/15/18 16:52 Novolog Vial Sliding Scale - SQ 10 units ACHS KRYSTLE Administration Protocol Methylprednisolone Sodium Succinate 40 mg 03/15/18 15:00 03/15/18 15:00 Solu-Medrol - IVPUSH 40 mg Q6H-IV KRYSTLE Administration Montelukast Sodium 10 mg 03/10/18 22:00 03/14/18 21:13 Singulair - PO 10 mg HS KRYSTLE Administration Home Medications Medication Instructions Recorded Tiotropium [place] [Spiriva] 1 puff IH DAILY #1 inh 07/09/16 Albuterol Sulfate Inhaler - 1 - 2 inh PO Q4H PRN #1 inhaler 07/19/16 [Ventolin HFA Inhaler -] Atorvastatin Ca [Lipitor] 1 tab PO DAILY 12/17/16 Sitagliptin Phosphate [Januvia] 100 mg PO DAILY 12/17/16 Guaifenesin AC [Robitussin AC -] 5 ml PO Q6H PRN #1 bottle MDD 20 ml 08/04/17 Budesonide/Formeterol Fumarate 2 puff IH BID #1 inhaler 03/12/18 [SYMBICORT 160/4.5mcg -] Montelukast Sodium [Singulair] 10 mg PO HS #30 tablet 03/12/18 Guaifenesin AC [Robitussin AC -] 5 ml PO Q6H PRN #1 liquid MDD 20 03/15/18 predniSONE [Deltasone -] See Taper PO ASDIR #30 tab 03/15/18 ASSESSMENT AND PLAN: The patient is a 67 yo f w/ PMHx Asthma and DM who comes in complaining of a 5 day history of progressive cough, ,sore throat, chest pain and SOB. #Acute exacerbation of Asthma: discussed with pulm. continue neb, treatments, zithromax completed, solumedrol iv 40mg IV q6 continue , continue Robitussin AC since patient is coughing. #DM:continue with levemir and Januvia and follow up with as an outpatient, sliding scale with coverage #HLD : On lipitor continue DVT Px: heparin sq will discharge patient when improves her status
[2018-03-15] MEDS: ALBUTEROL SO4 0.083% IH SOL 2.5 MG/3 ML VIAL.NEB. NEB PRN (20:47)
[2018-03-15] MEDS: ATORVASTATIN CA 40 MG TABLET (FP) PO SCH (21:36)
[2018-03-15] MEDS: MONTELUKAST NA 10 MG TABLET PO SCH (21:37)
[2018-03-15] MEDS ORDERED: INSULIN (NOVOLOG) ASPART 100 UNITS/ML 10ML VIAL ONE (21:43)
[2018-03-16] MEDS: methylPREDNISolone NA SUCC 40 MG/1 ML VIAL IVPUSH SCH ×2 (02:55→09:00)
[2018-03-16] MEDS: guaiFENesin/CODEINE 5 ML UNIT-DOSE CUPS PO SCH ×2 (06:10→11:30)
[2018-03-16] MEDS: INSULIN SLIDING SCALE (NOVOLOG) 1 VIAL SQ SCH ×2 (06:11→11:28)
[2018-03-16] MEDS: ALBUTEROL SO4 0.083% IH SOL 2.5 MG/3 ML VIAL.NEB. NEB PRN (09:11)
[2018-03-16] MEDS: ENOXAPARIN NA (PORCINE) 40 MG/0.4 ML DISP.SYRIN SQ SCH (10:23)
[2018-03-16] MEDS: BUDESONIDE/FORMETEROL FUMARATE 160/4.5 mcg INHALER IH SCH (10:23)
[2018-03-16] MEDS ORDERED: INSULIN (NOVOLOG) ASPART 100 UNITS/ML 10ML VIAL ONE (11:22)
[2018-03-16 11:23] VITALS: BP 111/67; PULSE 98; TEMP 97.7
--- NOTE | 2018-03-16 13:21 | DS ---
Physical Exam: SUBJECTIVE: Patient seen and examined at bedside this morning. No acute events overnight. Patient reports improvement of cough and breathing. Peak flow 230. OBJECTIVE: Vital Signs Temperature 97.7 F 03/16/18 10:00 Pulse Rate 98 H 03/16/18 10:00 Respiratory Rate 20 03/16/18 10:00 Blood Pressure 111/67 03/16/18 10:00 O2 Sat by Pulse Oximetry (%) 95 03/16/18 09:00 PHYSICAL EXAM GENERAL: Awake, alert, and fully oriented, in no acute distress, saturating 98% on room air. EYES:PERRLA, EOMI, sclera anicteric, conjunctiva clear. EARS, NOSE, THROAT: Ears normal, oropharynx clear without exudates. Moist mucous membranes. NECK: Normal range of motion, supple without lymphadenopathy, JVD, or masses. LUNGS: +scattered rhonchi bilaterally HEART: Regular rate and rhythm, normal S1 and S2 without murmur, rub or gallop. ABDOMEN: Soft, nontender, not distended, normoactive bowel sounds. UPPER EXTREMITIES: 2+ pulses, warm, well-perfused. No peripheral edema. LOWER EXTREMITIES: 2+ pulses, warm, well-perfused. No peripheral edema. NEUROLOGICAL: Cranial nerves II-XII intact. Normal speech. Gait not observed. PSYCHIATRIC: Cooperative. Good eye contact. Appropriate mood and affect. SKIN: Warm, dry, normal turgor, no rashes or lesions. LABS Laboratory Results - last 24 hr 03/15/18 03/15/18 03/16/18 16:44 21:39 03:03 POC Glucometer 357 419 318 03/16/18 06:10 POC Glucometer 347 HOSPITAL COURSE: Date of Admission:03/10/18 Date of Discharge: 03/16/18 Patient is a 68 year old female with past medical history of HLD, DM, and asthma presented with worsening shortness of breath and wheezing for a few days. Pulmonology was consulted. Patient was treated for asthma exacerbation with duonebs, solu-medrol, singulair. Patient continued to improve throughout her hospital stay. She was discharged on a prednisone taper with instructions to follow-up with PCP and pulmonology. Minutes to complete discharge: 38 Discharge Summary Reason For Visit: Asthma Condition: Improved - Instructions Diet, Activity, Other Instructions: Your visit You were admitted to the hospital because you had shortness of breath. You had an acute flare-up of your asthma. You were given steroids and nebulizations, to which you responded well. Please follow-up with pulmonology for further work-up of your asthma. A pulmonary function test and some blood work are recommended. Medications -Continue taking your home medications as prescribed. -Steroid taper is to start tomorrow: Take Prednisone 40mg daily for 3 days (03/17-03/19) Then Prednisone 30mg daily for 3 days (03/20-03/22) Then Prednisone 20mg daily for 3 days (03/23-03/25) Then Prednisone 10mg daily for 3 days (03/26-03/28) Follow-up -Follow-up with the stem cutter (Dr. Pulido) for further work-up of your asthma in 1 week. Please call the office to schedule an appointment. -Follow-up with your primary care doctor (Dr. Harris) within 1 week. Additional info Call 911 or go to the ED if with any worsening fever, chills, shortness of breath, chest pain, headache, dizziness, nausea, vomiting, abdominal pain, or any new concerns noted. Referrals: Ruel Pulido MD [Staff Physician] - 1 Week Saurabh Harris MD [Primary Care Provider] - 1 Week Disposition: HOME - Home Medications Comprehensive Discharge Medication List: Ambulatory Orders Tiotropium [place]ger [Spiriva] 1 puff IH DAILY #1 inh 07/09/16 Albuterol Sulfate Inhaler - [Ventolin HFA Inhaler -] 1 - 2 inh PO Q4H PRN #1 inhaler 07/19/16 Atorvastatin Ca [Lipitor] 1 tab PO DAILY 12/17/16 Sitagliptin Phosphate [Januvia] 100 mg PO DAILY 12/17/16 Budesonide/Formeterol Fumarate [SYMBICORT 160/4.5mcg -] 2 puff IH BID #1 inhaler 03/12/18 Montelukast Sodium [Singulair] 10 mg PO HS #30 tablet 03/12/18 Guaifenesin AC [Robitussin AC -] 5 ml PO Q6H PRN #1 liquid MDD 20 03/15/18 predniSONE [Deltasone -] See Taper PO ASDIR #30 tab 03/15/18 This patient is new to me today: No Emergency Visit: Yes ED Registration Date: 03/10/18 Care time: The patient presented to the Emergency Department on the above date and was hospitalized for further evaluation of their emergent condition. Critical Care patient: No - Discharge Referral Referred to [facility] No
--- NOTE | 2018-03-16 14:46 | PN ---
Teaching Attending Note Name of Resident: Natalya Bra ATTENDING PHYSICIAN STATEMENT I saw and evaluated the patient. I reviewed the resident's note and discussed the case with the resident. I agree with the resident's findings and plan as documented. SUBJECTIVE: Patient is feeling better with no acute distress. Able to ambulate without being dyspneic. OBJECTIVE: Vital Signs Temperature 97.7 F 03/16/18 10:00 Pulse Rate 98 H 03/16/18 10:00 Respiratory Rate 20 03/16/18 10:00 Blood Pressure 111/67 03/16/18 10:00 O2 Sat by Pulse Oximetry (%) 95 03/16/18 09:00 GENERAL: The patient is awake, alert, and fully oriented, in no acute distress. HEAD: Normal with no signs of trauma. EYES: PERRL, extraocular movements intact, sclera anicteric, conjunctiva clear. ENT: Ears normal, oropharynx clear without exudates, moist mucous membranes. NECK: Trachea midline, full range of motion, supple. LUNGS: positive for rhonchi improving without cough . no accessory muscle use. HEART: Regular rate and rhythm, S1, S2 without murmur, rub or gallop. ABDOMEN: Soft, nontender, nondistended, normoactive bowel sounds, no guarding, no rebound, no hepatosplenomegaly, no masses. EXTREMITIES: 2+ pulses, warm, well-perfused, no edema. NEUROLOGICAL: Cranial nerves II through XII grossly intact. Normal speech, gait is stable . PSYCH: Normal mood, normal affect. SKIN: Warm, dry, normal turgor, no rashes or lesions noted CBCD WBC 14.1 K/mm3 (4.0-10.0) H 03/13/18 07:50 RBC 3.93 M/mm3 (3.60-5.2) 03/13/18 07:50 Hgb 11.7 GM/dL (10.7-15.3) 03/13/18 07:50 Hct 35.5 % (32.4-45.2) 03/13/18 07:50 MCV 90.5 fl (80-96) 03/13/18 07:50 MCHC 32.8 g/dl (32.0-36.0) 03/13/18 07:50 RDW 14.6 % (11.6-15.6) 03/13/18 07:50 Plt Count 167 K/MM3 (134-434) 03/13/18 07:50 MPV 10.2 fl (7.5-11.1) 03/13/18 07:50 CMP Sodium 137 mmol/L (136-145) 03/13/18 07:50 Potassium 4.6 mmol/L (3.5-5.1) 03/13/18 07:50 Chloride 102 mmol/L (98-107) 03/13/18 07:50 Carbon Dioxide 28 mmol/L (21-32) 03/13/18 07:50 Anion Gap 7 MMOL/L (8-16) L 03/13/18 07:50 BUN 36 mg/dL (7-18) H 03/13/18 07:50 Creatinine 1.3 mg/dL (0.55-1.3) 03/13/18 07:50 Creat Clearance w eGFR 40.98 (>60) 03/13/18 07:50 Random Glucose 306 mg/dL (74-106) H* 03/13/18 07:50 Calcium 9.1 mg/dL (8.5-10.1) 03/13/18 07:50 Total Bilirubin 0.5 mg/dL (0.2-1) 03/11/18 06:40 AST 9 U/L (15-37) L 03/11/18 06:40 ALT 16 U/L (13-61) 03/11/18 06:40 Alkaline Phosphatase 75 U/L (45-117) 03/11/18 06:40 Total Protein 7.2 g/dl (6.4-8.2) 03/11/18 06:40 Albumin 3.7 g/dl (3.4-5.0) 03/11/18 06:40 Home Medications Medication Instructions Recorded Tiotropium [place] [Spiriva] 1 puff IH DAILY #1 inh 07/09/16 Albuterol Sulfate Inhaler - 1 - 2 inh PO Q4H PRN #1 inhaler 07/19/16 [Ventolin HFA Inhaler -] Atorvastatin Ca [Lipitor] 1 tab PO DAILY 12/17/16 Sitagliptin Phosphate [Januvia] 100 mg PO DAILY 12/17/16 Budesonide/Formeterol Fumarate 2 puff IH BID #1 inhaler 03/12/18 [SYMBICORT 160/4.5mcg -] Montelukast Sodium [Singulair] 10 mg PO HS #30 tablet 03/12/18 Guaifenesin AC [Robitussin AC -] 5 ml PO Q6H PRN #1 liquid MDD 20 03/15/18 predniSONE [Deltasone -] See Taper PO ASDIR #30 tab 03/15/18 ASSESSMENT AND PLAN: The patient is a 67 yo f w/ PMHx Asthma and DM who comes in complaining of a 5 day history of progressive cough, ,sore throat, chest pain and SOB. #Acute exacerbation of Asthma: discussed with pulm. if improved clinically we can discharge the patient , feels better, peak flow of 225, able to ambulate without any difficulty. conitnue neb treatments, zithromax completed, s/p solumedrol iv 40mg IV q6 switched to 12 day taper prednisone, continue Robitussin AC since patient is coughing. #T2DM:continue with delfino and Robert and follow up with as an outpatient, sliding scale with coverage #HLD : On lipitor continue l discharge patient home.
== END 2018-03-16 12:44 | disposition home health service (06) | DRG 203 ==
LOC: JER 11:23 → JERBED 15:49 → OBSVTOIN 16:29 → INTOOBSV 16:29 → OBSVTOIN 19:58 → J5S 20:50
PROVIDERS: ADMIT Internal Medicine; ATTEND Internal Medicine
DX: J45.41 Moderate persistent asthma with (acute) exacerbation (principal); E11.9 Type 2 diabetes mellitus without complications; E78.5 Hyperlipidemia, unspecified; J06.9 Acute upper respiratory infection, unspecified
CPT/HCPCS: 36415; 71046-TC-FY; 80048; 80053; 81003; 82962; 83735; 84100; 85025; 85027; 87804; 93005; 93010; 94150; 94640; 94761; 97116-GP; 97161-GP; 99283-25; G0378

== ENCOUNTER 2018-05-14 16:04 | Emergency (ER) | payer MEDICARE, OTHER ==
--- NOTE | 2018-05-14 16:13 | PDOC ---
History of Present Illness - General Chief Complaint: Chest Pain Stated Complaint: CHEST PAIN Time Seen by Provider: 05/14/18 16:13 - History of Present Illness Initial Comments: 05/14/18 16:14 Ms. Renee is a 68 yo female w/ pmh of asthma, HTN, HLD, DM, prior DVT ( reportedly in March), previous irregular heartbeat (not on anticoagulation) BIBA for evaluation of sudden onset chest pain today. Patient reports she called 911 directly after pain started. Describes pain as localized to her R chest, non-radiating, and constant (non-pleuritic). EMS gave nitro, full dose ASA, and breathing treatment with some improvement of symptoms. Denies any other symptoms at this time. The patient denies shortness of breath, headache and dizziness. Denies fever, chills, nausea, vomit, diarrhea and constipation. Denies dysuria, frequency, urgency and hematuria. Past History - Past Medical History Allergies/Adverse Reactions: Allergies Allergy/AdvReac Type Severity Reaction Status Date / Time No Known Allergies Allergy Verified 05/14/18 17:17 Home Medications: Ambulatory Orders Tiotropium [place] [Spiriva] 1 puff IH DAILY #1 inh 07/09/16 Albuterol Sulfate Inhaler - [Ventolin HFA Inhaler -] 1 - 2 inh PO Q4H PRN #1 inhaler 07/19/16 Atorvastatin Ca [Lipitor] 1 tab PO DAILY 12/17/16 Sitagliptin Phosphate [Januvia] 100 mg PO DAILY 12/17/16 Budesonide/Formeterol Fumarate [SYMBICORT 160/4.5mcg -] 2 puff IH BID #1 inhaler 03/12/18 Montelukast Sodium [Singulair] 10 mg PO HS #30 tablet 03/12/18 predniSONE [Deltasone -] See Taper PO ASDIR #30 tab 03/15/18 Guaifenesin AC [Robitussin AC -] 5 ml PO Q6HPO #60 liquid MDD 20ml 03/16/18 Anemia: No Asthma: Yes Cancer: No Cardiac Disorders: No CVA: No COPD: No CHF: No Dementia: No Diabetes: Yes GI Disorders: No Disorders: No HTN: Yes Hypercholesterolemia: Yes Liver Disease: No Seizures: No Thyroid Disease: Yes - Surgical History Abdominal Surgery: No Appendectomy: Yes Cardiac Surgery: No Cholecystectomy: No Lung Surgery: No Neurologic Surgery: No Orthopedic Surgery: No - Immunization History Immunization Up to Date: Yes - Suicide/Smoking/Psychosocial Hx Smoking Status: Yes Smoking History: Former smoker Have you smoked in the past 12 months: No Number of Cigarettes Smoked Daily: 0 If you are a former smoker, when did you quit?: 15 YEARS Cigars Per Day: 0 Hx Alcohol Use: No Drug/Substance Use Hx: No Substance Use Type: None Hx Substance Use Treatment: No Review of Systems - Review of Systems Comments:: 05/14/18 16:37 GENERAL/CONSTITUTIONAL: No fever or chills. No weakness. HEAD, EYES, EARS, NOSE AND THROAT: No change in vision. No ear pain or discharge. No sore throat. CARDIOVASCULAR: +Chest pain as described. No shortness of breath RESPIRATORY: No cough, wheezing, or hemoptysis. GASTROINTESTINAL: No nausea, vomiting, diarrhea or constipation. GENITOURINARY: No dysuria, frequency, or change in urination. MUSCULOSKELETAL: No joint or muscle swelling or pain. No neck or back pain. SKIN: No rash NEUROLOGIC: No headache, vertigo, loss of consciousness, or change in strength/ sensation. ENDOCRINE: No increased thirst. No abnormal weight change HEMATOLOGIC/LYMPHATIC: No anemia, easy bleeding, or history of blood clots. ALLERGIC/IMMUNOLOGIC: No hives or skin allergy. *Physical Exam - Physical Exam Comments: 05/14/18 16:37 GENERAL: +Patient morbidly obese. Awake, alert, and fully oriented HEAD: No signs of trauma, normocephalic, atraumatic EYES: PERRLA, EOMI, sclera anicteric, conjunctiva clear ENT: Auricles normal inspection, hearing grossly normal, nares patent, oropharynx clear without exudates. Moist mucosa NECK: Normal ROM, supple, no lymphadenopathy, JVD, or masses LUNGS: +Coarse lung sounds appreciated throughout lung arango. No distress, speaks full sentences HEART: Regular rate and rhythm, normal S1 and S2, no murmurs, rubs or gallops, peripheral pulses normal and equal bilaterally. ABDOMEN: Soft, nontender, normoactive bowel sounds. No guarding, no rebound. No masses EXTREMITIES: Normal inspection, Normal range of motion, no edema. No clubbing or cyanosis. NEUROLOGICAL: Cranial nerves II through XII grossly intact. Normal speech, normal gait, no focal sensorimotor deficits SKIN: Warm, Dry, normal turgor, no rashes or lesions noted. ED Treatment Course - LABORATORY CBC & Chemistry Diagram: 05/14/18 16:50 05/14/18 16:50 Medical Decision Making - Medical Decision Making 05/14/18 16:43 Ms. Renee is a 68 yo female w/ pmh as described who presents for evaluation of sudden onset pain concerning for ACS vs. PE vs. Asthma exacerbation. Given patient's presentation w/ additional uncoagulated status and prior DVT patient will be evaluated with CTA for r/o PE as well as EKG and labs as below. Patient already given breathing treatment, duoneb, and ASA prior to presentation. 05/14/18 19:48 Patient revealed to have labs as below concerning for electrolyte abnormalities. CTA negative for acute process. CXR negative. EKG negative for acute process. Suspect asthma exacerbation as cause of symptoms. Patient improved following duonebs. 05/14/18 21:51 Repeat troponin negative. Patient remains well appearing with no further complaints. Patient refusing steroid treatment. Lung exam improved. Discharging to home. Laboratory Results - last 24 hr 05/14/18 05/14/18 05/14/18 16:50 16:50 16:50 WBC 7.7 RBC 4.12 Hgb 12.2 Hct 37.0 MCV 89.8 MCH 29.6 MCHC 33.0 RDW 14.7 Plt Count 182 MPV 9.3 Absolute Neuts (auto) 4.6 Neutrophils % 59.8 D Lymphocytes % 31.7 D Monocytes % 5.9 D Eosinophils % 2.1 D Basophils % 0.5 Nucleated RBC % 0 Sodium 144 Potassium 3.1 L Chloride 108 H Carbon Dioxide 27 Anion Gap 9 BUN 12 Creatinine 0.8 Creat Clearance w eGFR 71.76 Random Glucose 178 H Calcium 7.9 L Total Bilirubin 0.3 AST 12 L ALT 13 Alkaline Phosphatase 74 Creatine Kinase 94 Troponin I 0.02 B-Natriuretic Peptide 101.5 Total Protein 5.9 L Albumin 3.2 L Urine Color Urine Appearance Urine pH Ur Specific Lueders Urine Protein Urine Glucose (UA) Urine Ketones Urine Blood Urine Nitrite Urine Bilirubin Urine Urobilinogen Ur Leukocyte Esterase Urine WBC (Auto) Urine RBC (Auto) Urine Casts (Auto) U Epithel Cells (Auto) Urine Bacteria (Auto) 05/14/18 17:25 WBC RBC Hgb Hct MCV MCH MCHC RDW Plt Count MPV Absolute Neuts (auto) Neutrophils % Lymphocytes % Monocytes % Eosinophils % Basophils % Nucleated RBC % Sodium Potassium Chloride Carbon Dioxide Anion Gap BUN Creatinine Creat Clearance w eGFR Random Glucose Calcium Total Bilirubin AST ALT Alkaline Phosphatase Creatine Kinase Troponin I B-Natriuretic Peptide Total Protein Albumin Urine Color Dk yellow Urine Appearance Cloudy Urine pH 5.0 Ur Specific Lueders 1.035 Urine Protein 1+ H Urine Glucose (UA) 2+ H Urine Ketones Trace H Urine Blood Negative Urine Nitrite Negative Urine Bilirubin Negative Urine Urobilinogen 1.0 Ur Leukocyte Esterase Negative Urine WBC (Auto) 8 Urine RBC (Auto) 1 Urine Casts (Auto) 23 U Epithel Cells (Auto) 23.9 Urine Bacteria (Auto) 1142.4 *DC/Admit/Observation/Transfer Diagnosis at time of Disposition: Chest pain Qualifiers: Chest pain type: unspecified Qualified Code(s): R07.9 - Chest pain, unspecified - Discharge Dispostion Disposition: HOME - Referrals Referrals: Saurabh Harris MD [Primary Care Provider] - - Patient Instructions Printed Discharge Instructions: DI for Chest Pain Additional Instructions: You were evaluated today in the ER for your chest pain. We performed CT, labs, EKG, and chest Xray. No concerning findings were found at this time and your symptoms improved following breathing treatments. We believe your symptoms were caused by your asthma. Please follow-up with primary care provider for further evaluation in 1-2 days. Return to ER if any further pain, shortness of breath, fever, chills, or other concerning symptoms. - Post Discharge Activity
[2018-05-14] MEDS ORDERED: MIDAZOLAM HCL 2 MG/2 ML SINGLE DOSE VIAL IVPUSH ONE (16:29)
[2018-05-14] MEDS ORDERED: MIDAZOLAM HCL 2 MG/2 ML SINGLE DOSE VIAL ONE (16:31)
[2018-05-14] MEDS ORDERED: ALBUTEROL SO4 2.5/IPRATROPIUM 0.5 INH SOL 3 ML VIAL.NEB. NEB ONE ×3 (16:56→20:10)
--- NOTE | 2018-05-14 17:10 | PDOC ---
Attending Attestation - Resident Resident Name: Oral Lei - ED Attending Attestation I have performed the following: I have examined & evaluated the patient, The case was reviewed & discussed with the resident, I agree w/resident's findings & plan, Exceptions are as noted - HPI HPI: 05/14/18 17:06 The patient is a 68 year old female with a significant past medical history of asthma, hypertension, hyperlipidemia, diabetes, DVT, and Afib (Not on medication ) who presents to the emergency department via EMS with chest pain. The patient states she was at home when she had sudden onset of chest pain. Pain is right- sided, constant, and non-radiating. Per EMS, the patient received aspirin, nitro , and nebulizer on her way to the ED. Pt endorses mild improvement in her pain. The patient denies shortness of breath, headache, dizziness, fever, chills, nausea, vomit, diarrhea or constipation. The patient denies dysuria, frequency, urgency or hematuria. Allergies: NKDA Past surgical history: Appendectomy Social history: Former smoker (quit 15 years ago) PCP: Dr. Harris - Physicial Exam PE: 05/14/18 17:07 GENERAL: Awake, alert, and fully oriented, in no acute distress. HEAD: No signs of trauma EYES: PERRLA, EOMI, sclera anicteric, conjunctiva clear ENT: Auricles normal inspection, hearing grossly normal, nares patent, oropharynx clear without exudates. Moist mucosa NECK: Nontender, no stepoffs, Normal ROM, supple, no lymphadenopathy, JVD, or masses LUNGS: Breath sounds equal, clear to auscultation bilaterally. No wheezes, and no crackles HEART: Regular rate and rhythm, normal S1 and S2, no murmurs, rubs or gallops ABDOMEN: Soft, nontender, normoactive bowel sounds. No guarding, no rebound. No masses EXTREMITIES: Normal range of motion, no edema. No clubbing or cyanosis. No cords, erythema, or tenderness NEUROLOGICAL: Cranial nerves II through XII intact. 5/5 strength and sensation in all extremities, Normal speech, normal gait, normal cerebellar function SKIN: Warm, Dry, normal turgor, no rashes or lesions noted. - Medical Decision Making 05/14/18 17:07 68 F with chest pain. EKG with no ischemic changes. Will r/o ACS with serial trops. Pt also with h/o DVT not on AC. Will r/o PE with CTA. Dissection less likely as pt with equal pulses bilaterally. - Labs, trop - CTA chest Pt signed out to oncoming attending, Dr. England, at 7PM, pending CTA and admission to hospital for ACS rule out. Case discussed in detail with oncoming Emergency Physician including history, physical exam and ancillary studies. Oncoming Emergency Physician has assumed care for the patient and will complete the evaluation and treatment. Patient is aware of the plan.
[2018-05-14 17:16] LABS: BASO % 0.5 % (0-2.0); EOS % 2.1 % (0-4.5); HEMOGLOBIN 12.2 GM/dL (10.7-15.3); LYMPH % 31.7 % (8-40); MCH 29.6 pg (25.7-33.7); MEAN CELL VOLUME 89.8 fl (80-96); MEAN PLT VOLUME 9.3 fl (7.5-11.1); MONO % 5.9 % (3.8-10.2); NEUT % 59.8 % (42.8-82.8); PLATELET COUNT 182 K/MM3 (134-434); RBC 4.12 M/mm3 (3.60-5.2); RDW 14.7 % (11.6-15.6); WHITE BLOOD COUNT 7.7 K/mm3 (4.0-10.0)
[2018-05-14 17:17] VITALS: BP 141/74; BMI 25.8
[2018-05-14 17:38] VITALS: PULSE 70; TEMP 98
[2018-05-14 17:38] LABS: EPI CELLS 23.9 /HPF (0-5); URINE APPEARANCE CLOUDY; URINE BACTERIA 1142.4 /hpf (NEGATIVE); URINE BILIRUBIN NEGATIVE (NEGATIVE); URINE CASTS 23 /hpf (0-8); URINE COLOR DK YELLOW; URINE GLUCOSE (UA) 2+ (NEGATIVE); URINE KETONE TRACE (NEGATIVE); URINE LEUK ESTERASE NEGATIVE (NEGATIVE); URINE NITRITE NEGATIVE (NEGATIVE); URINE PROTEIN 1+ (NEGATIVE); URINE RBC 1 /hpf (0-4); URINE WBC 8 /hpf (0-5)
[2018-05-14 17:52] LABS: ALBUMIN 3.2 g/dl (3.4-5.0); ALK PHOS 74 U/L (45-117); ANION GAP 9 MMOL/L (8-16); BILIRUBIN,TOTAL 0.3 mg/dL (0.2-1); BLOOD UREA NITROGEN 12 mg/dL (7-18); CALCIUM 7.9 mg/dL (8.5-10.1); CHLORIDE 108 mmol/L (98-107); CO2 27 mmol/L (21-32); CREATININE 0.8 mg/dL (0.55-1.3); GLUCOSE,RANDOM 178 mg/dL (74-106); POTASSIUM 3.1 mmol/L (3.5-5.1); SGOT/AST 12 U/L (15-37); SGPT/ALT 13 U/L (13-61); SODIUM 144 mmol/L (136-145); TOT PROT 5.9 g/dl (6.4-8.2)
[2018-05-14] MEDS ORDERED: MAGNESIUM SULF 50% (8.12 MEQ/2 ML-1 GM VIAL) IVPB ONE (19:23)
[2018-05-14] MEDS ORDERED: SODIUM CHLORIDE 500 ML IV STA (19:23)
[2018-05-14] MEDS ORDERED: POTASSIUM CHLORIDE TABS 20 MEQ TABLET.ER (FP) PO ONE ×2 (19:23→20:11)
[2018-05-14 19:29] LABS: N-TERMINAL BNP 101.5 pg/ml (5-125)
[2018-05-14] MEDS ORDERED: MAGNESIUM 1GM/D5W - 2 GM/200 ML IVPB IVPB ONE (20:11)
--- NOTE | 2018-05-15 11:37 | EKG ---
Test Reason : Blood Pressure : / mmHG Vent. Rate : 072 BPM Atrial Rate : 072 BPM P-R Int : 134 ms QRS Dur : 096 ms QT Int : 456 ms P-R-T Axes : 076 066 049 degrees QTc Int : 499 ms NORMAL SINUS RHYTHM LOW VOLTAGE QRS SEPTAL INFARCT , AGE UNDETERMINED ABNORMAL ECG WHEN COMPARED WITH ECG OF 10-MAR-2018 13:08, NO SIGNIFICANT CHANGE WAS FOUND Confirmed by SARIAH PICKETT MD ([id number]) on 05/15/2018 11:37:19 AM Referred By: Confirmed By:SARIAH PICKETT MD
== END 2018-05-14 23:06 | disposition home or self-care (01) ==
LOC: SUPCPDRO 16:04 → JER 16:04
DX: R07.9 Chest pain, unspecified (principal); I10 Essential (primary) hypertension; E78.00 Pure hypercholesterolemia, unspecified; E11.9 Type 2 diabetes mellitus without complications; Z79.84 Long term (current) use of oral hypoglycemic drugs; J45.909 Unspecified asthma, uncomplicated; I48.91 Unspecified atrial fibrillation; Z86.718 Personal history of other venous thrombosis and embolism; E78.5 Hyperlipidemia, unspecified
CPT/HCPCS: 36415; 71045-TC-FY; 71275-TC; 80053; 81003; 82550; 83880; 84484; 85025; 87086; 93005; 93010; 99284-25; J7030

== ENCOUNTER 2018-10-27 17:02 | Inpatient (IN) | payer MEDICARE, OTHER ==
[2018-10-27] MEDS ORDERED: SODIUM CHLORIDE 1,000 ML IV STA (17:16)
[2018-10-27] MEDS ORDERED: ONDANSETRON 4 MG/2 ML VIAL IVPUSH ONE (17:16)
--- NOTE | 2018-10-27 17:16 | PDOC ---
Rapid Medical Evaluation Time Seen by Provider: 10/27/18 17:12 Medical Evaluation: Allergies Allergy/AdvReac Type Severity Reaction Status Date / Time No Known Allergies Allergy Verified 05/14/18 17:17 10/27/18 17:13 Patient presents to ED with complaints of: ruq pain x 1 week worse after meals, , no fever, + nausea intermittently patient on brief exam: vss, ruq and cva tenderness Patient ordered for: labs iv, urine, needs imaging Patient to proceed to the ED Discharge Disposition - Diagnosis RUQ abdominal pain - Discharge Dispostion Condition at time of disposition: Stable - Referrals - Patient Instructions - Post Discharge Activity
[2018-10-27] MEDS ORDERED: KETOROLAC TROMETHAMINE 30 MG/1 ML VIAL IVPUSH ONE (17:17)
[2018-10-27 18:06] LABS: BASO % 1.1 % (0-2.0); EOS % 2.1 % (0-4.5); HEMATOCRIT 37.7 % (32.4-45.2); HEMOGLOBIN 12.6 GM/dL (10.7-15.3); LYMPH % 24.3 % (8-40); MCH 29.5 pg (25.7-33.7); MCHC 33.4 g/dl (32.0-36.0); MEAN CELL VOLUME 88.5 fl (80-96); MEAN PLT VOLUME 10.1 fl (7.5-11.1); MONO % 6.1 % (3.8-10.2); NEUT % 66.4 % (42.8-82.8); PLATELET COUNT 164 K/MM3 (134-434); RBC 4.26 M/mm3 (3.60-5.2); RDW 14.1 % (11.6-15.6); WHITE BLOOD COUNT 7.1 K/mm3 (4.0-10.0)
[2018-10-27 18:07] LABS: PH,URINE 5.5 (5.0-8.0); URINE APPEARANCE CLOUDY; URINE BILIRUBIN NEGATIVE (NEGATIVE); URINE COLOR YELLOW; URINE GLUCOSE (UA) 3+ (NEGATIVE); URINE KETONE TRACE (NEGATIVE); URINE LEUK ESTERASE NEGATIVE (NEGATIVE); URINE NITRITE NEGATIVE (NEGATIVE); URINE PROTEIN NEGATIVE (NEGATIVE)
[2018-10-27 18:30] LABS: ALBUMIN 3.7 g/dl (3.4-5.0); BILIRUBIN,TOTAL 0.5 mg/dL (0.2-1); BLOOD UREA NITROGEN 19.6 mg/dL (7-18); CALCIUM 9.7 mg/dL (8.5-10.1); CREATININE 1.1 mg/dL (0.55-1.3); MAGNESIUM 2.2 mg/dL (1.8-2.4); POTASSIUM 4.3 mmol/L (3.5-5.1); TOT PROT 6.9 g/dl (6.4-8.2)
--- NOTE | 2018-10-27 19:41 | PDOC ---
History of Present Illness - General Chief Complaint: Pain Stated Complaint: RIGHT SIDE PAIN RADIATING TO BACK Time Seen by Provider: 10/27/18 17:12 - History of Present Illness Initial Comments: 10/27/18 19:37 68f with pmh of HTN, HLD and diabetes presents to the ED for 1 week of URQ abdominal pain and nausea. She denies any decrease in appetite but admits to discomfort after meals. Saw her PCP a few days ago who arranged for her to get an abdominal ultrasound doen but she came to the ED since she was never called to schedule an appointment. Denies vomiting, constipation, diarrhea, dysuria, sob or chest pain. Past History - Past Medical History Allergies/Adverse Reactions: Allergies Allergy/AdvReac Type Severity Reaction Status Date / Time No Known Allergies Allergy Verified 10/27/18 17:15 Home Medications: Ambulatory Orders Tiotropium [place] [Spiriva] 1 puff IH DAILY #1 inh 07/09/16 Albuterol Sulfate Inhaler - [Ventolin HFA Inhaler -] 1 - 2 inh PO Q4H PRN #1 inhaler 07/19/16 Atorvastatin Ca [Lipitor] 1 tab PO DAILY 12/17/16 Sitagliptin Phosphate [Januvia] 100 mg PO DAILY 12/17/16 Budesonide/Formeterol Fumarate [SYMBICORT 160/4.5mcg -] 2 puff IH BID #1 inhaler 03/12/18 Montelukast Sodium [Singulair] 10 mg PO HS #30 tablet 03/12/18 predniSONE [Deltasone -] See Taper PO ASDIR #30 tab 03/15/18 Guaifenesin AC [Robitussin AC -] 5 ml PO Q6HPO #60 liquid MDD 20ml 03/16/18 Anemia: No Asthma: Yes Cancer: No Cardiac Disorders: No CVA: No COPD: No CHF: No Dementia: No Diabetes: Yes GI Disorders: No Disorders: No HTN: Yes Hypercholesterolemia: Yes Liver Disease: No Seizures: No Thyroid Disease: Yes - Surgical History Abdominal Surgery: No Appendectomy: Yes Cardiac Surgery: No Cholecystectomy: No Lung Surgery: No Neurologic Surgery: No Orthopedic Surgery: No - Immunization History Immunization Up to Date: Yes - Suicide/Smoking/Psychosocial Hx Smoking Status: Yes Smoking History: Never smoked Have you smoked in the past 12 months: No Number of Cigarettes Smoked Daily: 0 If you are a former smoker, when did you quit?: 15 YEARS Cigars Per Day: 0 Information on smoking cessation initiated: No Hx Alcohol Use: No Drug/Substance Use Hx: No Substance Use Type: None Hx Substance Use Treatment: No Review of Systems - Review of Systems Able to Perform ROS?: Yes Is the patient limited Georgian proficient: No Constitutional: No: Symptoms Reported HEENTM: No: Symptoms Reported Respiratory: No: Symptoms reported Cardiac (ROS): No: Symptoms Reported ABD/GI: Yes: See HPI : No: Symptoms Reported Musculoskeletal: No: Symptoms Reported Integumentary: No: Symptoms Reported Neurological: No: Symptoms reported All Other Systems: Reviewed and Negative *Physical Exam - Vital Signs Last Vital Signs Temp Pulse Resp BP Pulse Ox 97.8 F 72 19 135/60 98 10/27/18 17:13 10/27/18 17:13 10/27/18 17:13 10/27/18 17:13 10/27/18 17:13 - Physical Exam General Appearance: Yes: Nourished, Appropriately Dressed, Obese. No: Apparent Distress HEENT: positive: EOMI, TRUPTI, Normal ENT Inspection Respiratory/Chest: positive: Lungs Clear, Normal Breath Sounds. negative: Chest Tender, Respiratory Distress Cardiovascular: positive: Regular Rhythm, Regular Rate, S1, S2 Gastrointestinal/Abdominal: positive: Normal Bowel Sounds, Tender (URQ), Soft, Protuberent, Guarding, Tenderness. negative: Flat Musculoskeletal: positive: Normal Inspection. negative: CVA Tenderness Extremity: positive: Normal Capillary Refill, Normal Inspection, Normal Range of Motion Integumentary: positive: Normal Color, Dry, Warm Neurologic: positive: Fully Oriented, Alert, Normal Mood/Affect, Normal Response , Motor Strength 5/5 ED Treatment Course - LABORATORY CBC & Chemistry Diagram: 10/27/18 17:39 10/27/18 17:39 - ADDITIONAL ORDERS Additional order review: Laboratory Results 10/27/18 10/27/18 17:39 17:39 Sodium 140 Potassium 4.3 Chloride 104 Carbon Dioxide 33 H Anion Gap 2 L BUN 19.6 H Creatinine 1.1 Est GFR (CKD-EPI)AfAm 60.59 Est GFR (CKD-EPI)NonAf 52.28 Random Glucose 230 H Calcium 9.7 Magnesium 2.2 Total Bilirubin 0.5 AST 12 L ALT 16 Alkaline Phosphatase 96 Total Protein 6.9 Albumin 3.7 Lipase 108 Urine Color Yellow Urine Appearance Cloudy Urine pH 5.5 Ur Specific [place] 1.028 Urine Protein Negative Urine Glucose (UA) 3+ H Urine Ketones Trace H Urine Blood Negative Urine Nitrite Negative Urine Bilirubin Negative Urine Urobilinogen 2.0 H Ur Leukocyte Esterase Negative 10/27/18 17:39 RBC 4.26 MCV 88.5 MCHC 33.4 RDW 14.1 MPV 10.1 Neutrophils % 66.4 Lymphocytes % 24.3 D Monocytes % 6.1 Eosinophils % 2.1 Basophils % 1.1 - RADIOLOGY Radiology Studies Ordered: Category Date Time Status ABDOMEN & PELVIS CT WITH CONTR [CT] Stat CT Scan 10/27/18 19:17 Ordered Medical Decision Making - Medical Decision Making 10/27/18 19:43 68F w pmh of htn, hld and dm2 presents to the ED with URQ pain,. POCUS negative for gallstones. Will obtain Ct abdomen and pelvis with contrast 10/27/18 21:47 Ct abdomen pelvis read pending. Patient signed out to Dr. Miller *DC/Admit/Observation/Transfer Diagnosis at time of Disposition: RUQ abdominal pain - Referrals Referrals: Saurabh Harris MD [Primary Care Provider] - - Patient Instructions - Post Discharge Activity
--- NOTE | 2018-10-27 19:50 | PDOC ---
Attending Attestation - Resident Resident Name: Antoni Hutchison - ED Attending Attestation I have performed the following: I have examined & evaluated the patient, The case was reviewed & discussed with the resident, I agree w/resident's findings & plan - HPI HPI: 10/27/18 23:10 see resident history of present illness - Physicial Exam PE: 10/27/18 23:10 GENERAL: Awake, in no acute distress HEAD: No signs of trauma NECK: Normal ROM, LUNGS:. Normal work of breathing. ABDOMEN: Soft, nondistended , ruq and epigastric tenderness with guarding CHEST WALL: NEUROLOGICAL: Alert, SKIN: Warm, Dry - Medical Decision Making 10/27/18 23:11 68-year-old female with right upper quadrant epigastric pain CT scan of the abdomen and pelvis shows no acute abnormalities Patient failed by mouth challenge due to return of pain Plan for right upper quadrant ultrasound and admission for further evaluation
[2018-10-27] MEDS ORDERED: FAMOTIDINE 20 MG/50 ML IVPB 20 MG/50 ML MG IVPB ONE ×2 (19:51→20:04)
[2018-10-27] MEDS ORDERED: ONDANSETRON 4 MG/2 ML VIAL ONE (20:04)
[2018-10-27] MEDS ORDERED: KETOROLAC TROMETHAMINE 30 MG/1 ML VIAL ONE (20:04)
--- NOTE | 2018-10-27 22:08 | PDOC ---
*Physical Exam - Vital Signs Last Vital Signs Temp Pulse Resp BP Pulse Ox 97.8 F 72 19 135/60 98 10/27/18 17:13 10/27/18 17:13 10/27/18 17:13 10/27/18 17:13 10/27/18 17:13 ED Treatment Course - LABORATORY CBC & Chemistry Diagram: 10/27/18 17:39 10/27/18 17:39 - ADDITIONAL ORDERS Additional order review: Laboratory Results 10/27/18 10/27/18 17:39 17:39 Sodium 140 Potassium 4.3 Chloride 104 Carbon Dioxide 33 H Anion Gap 2 L BUN 19.6 H Creatinine 1.1 Est GFR (CKD-EPI)AfAm 60.59 Est GFR (CKD-EPI)NonAf 52.28 Random Glucose 230 H Calcium 9.7 Magnesium 2.2 Total Bilirubin 0.5 AST 12 L ALT 16 Alkaline Phosphatase 96 Total Protein 6.9 Albumin 3.7 Lipase 108 Urine Color Yellow Urine Appearance Cloudy Urine pH 5.5 Ur Specific [place] 1.028 Urine Protein Negative Urine Glucose (UA) 3+ H Urine Ketones Trace H Urine Blood Negative Urine Nitrite Negative Urine Bilirubin Negative Urine Urobilinogen 2.0 H Ur Leukocyte Esterase Negative 10/27/18 17:39 RBC 4.26 MCV 88.5 MCHC 33.4 RDW 14.1 MPV 10.1 Neutrophils % 66.4 Lymphocytes % 24.3 D Monocytes % 6.1 Eosinophils % 2.1 Basophils % 1.1 - Medications Given in the ED: ED Medications Discontinued Medications Generic Name Dose Route Start Last Admin Trade Name Freq PRN Reason Stop Dose Admin Sodium Chloride 1,000 mls @ 1,000 mls/hr 10/27/18 17:16 10/27/18 20:10 Normal Saline - IV 10/27/18 18:15 1,000 mls/hr ASDIR STA Administration Famotidine/Sodium Chloride 20 mg in 50 mls @ 100 mls/hr 10/27/18 19:51 20:31 Pepcid 20 Mg Premixed Ivpb - IVPB 10/27/18 20:20 100 mls/hr ONCE ONE Administration Ketorolac Tromethamine 30 mg 10/27/18 17:17 10/27/18 20:10 Toradol Injection - IVPUSH 10/27/18 17:18 30 mg ONCE ONE Administration Ondansetron HCl 4 mg 10/27/18 17:16 10/27/18 20:10 Zofran Injection IVPUSH 10/27/18 17:17 4 mg ONCE ONE Administration Medical Decision Making - Medical Decision Making 10/27/18 22:06 -Patient signed out by Dr. Hutchison. -68 y/o/f with PMHx of HTN, HLD, DM here for RUQ pain for 1 week. -CBC grossly normal. CMP shows elevated glucose at 230, otherwise within normal limits. UA positive for trace ketones and 3+ glucose. -Bedside U/S competed by Dr. Hutchison - normal. -Patient at CT for abd&pelvis scan. 10/27/18 22:39 -CT negative for acute pathology. Evidence of diverticulosis in the sigmoid colon with no evidence of acute diverticulitis. -Patient states her pain is improved in comparison to when she was first seen here. 10/27/18 23:00 -Patient given water for PO challenge. -Will likely discharge patient pending EKG and completion of PO challenge. 10/27/18 23:22 -Patient failed PO challenge as she started to have increased pain. -Lactate and RUQ ultrasound ordered for further evaluation. -Will likely admit patient pending imaging and labs. 10/27/18 23:27 -EKG reviewed. sinus bradycardia, no acute ischemic changes. Ventricular rate at 57 bpm. 10/28/18 00:33 -U/S report negative. -Will admit patient for intractable RUQ pain and further workup. 10/28/18 01:07 -Patient admitted under Dr. Peña to med/surg. *DC/Admit/Observation/Transfer Diagnosis at time of Disposition: RUQ abdominal pain - Discharge Dispostion Condition at time of disposition: Stable - Referrals Referrals: Saurabh Harris MD [Primary Care Provider] - - Patient Instructions - Post Discharge Activity
--- NOTE | 2018-10-28 03:10 | HP ---
CHIEF COMPLAINT: RUQ and RLQ abdominal pain for the past 2 weeks PCP: Dr. Trujillo HISTORY OF PRESENT ILLNESS: This is a 68 year old female with PMH significant for HTN, DM, HLD, and asthma. She presented to the ER with complaints of RUQ and RLQ abdominal pain for the past 2 weeks. She states that the pain was sudden in onset, 10/10 in intensity, sharp in nature, intermittent in nature with pangs lasting up to a few hours, radiating to her back and chest, aggravated by eating or lying down, and alleviated by sitting upright. She endorses light headedness, nausea (no vomiting), and constipation which has improved after taking a laxative. She states that her last BM was today and the one before that was yesterday, composed of small hard stool. with no blood noticed in the stool or upon wiping. She denies any associated fever, chills dizziness, palpitations, diarrhea, dysuria, or increased urinary frequency. She denies any recent illnesses or exposure to sick contacts. ER course was notable for: (1) POC US: No abnormalities, no gall stones, CT AP: Diverticulosis of sigmoid colon, no other acute pathology (2) Zofran, Pepcid, Toradol (3) Glucose 230, UA Glucose 3+ Recent Travel: None PAST MEDICAL HISTORY: HTN, DM, HLD, and asthma (never been intubated) PAST SURGICAL HISTORY: Appendectomy (over 20 years ago) and C section Social History: Smoking: Quit in her teens, smoked socially Alcohol: a few drinks/year on special occasion Drugs: vehemently denies Family History: Mother had DM and pacemaker No hx of [place] Allergies No Known Allergies Allergy (Verified 10/27/18 17:15) HOME MEDICATIONS: Home Medications Medication Instructions Recorded Tiotropium [place] [Spiriva] 1 puff IH DAILY #1 inh 07/09/16 Albuterol Sulfate Inhaler - 1 - 2 inh PO Q4H PRN #1 inhaler 07/19/16 [Ventolin HFA Inhaler -] Atorvastatin Ca [Lipitor] 1 tab PO DAILY 12/17/16 Sitagliptin Phosphate [Januvia] 100 mg PO DAILY 12/17/16 Budesonide/Formeterol Fumarate 2 puff IH BID #1 inhaler 03/12/18 [SYMBICORT 160/4.5mcg -] Montelukast Sodium [Singulair] 10 mg PO HS #30 tablet 03/12/18 predniSONE [Deltasone -] See Taper PO ASDIR #30 tab 03/15/18 Guaifenesin AC [Robitussin AC -] 5 ml PO Q6HPO #60 liquid MDD 20ml 03/16/18 REVIEW OF SYSTEMS CONSTITUTIONAL: Absent: fever, chills, diaphoresis, generalized weakness, malaise, loss of appetite, weight change HEENT: Absent: rhinorrhea, nasal congestion, throat pain, throat swelling, difficulty swallowing, mouth swelling, ear pain, eye pain, visual changes CARDIOVASCULAR: lightheadedness Absent: chest pain, syncope, palpitations, irregular heart rate, lightheadedness , peripheral edema RESPIRATORY: Absent: cough, shortness of breath, dyspnea with exertion, orthopnea, wheezing, stridor, hemoptysis GASTROINTESTINAL: abdominal pain, nausea, constipation Absent: abdominal pain, abdominal distension, nausea, vomiting, diarrhea, constipation, melena, hematochezia GENITOURINARY: Absent: dysuria, frequency, urgency, hesitancy, hematuria, flank pain, genital pain MUSCULOSKELETAL: Absent: myalgia, arthralgia, joint swelling, back pain, neck pain SKIN: Absent: rash, itching, pallor HEMATOLOGIC/IMMUNOLOGIC: Absent: easy bleeding, easy bruising, lymphadenopathy, frequent infections ENDOCRINE: Absent: unexplained weight gain, unexplained weight loss, heat intolerance, cold intolerance NEUROLOGIC: Absent: headache, focal weakness or paresthesias, dizziness, unsteady gait, seizure, mental status changes, bladder or bowel incontinence PSYCHIATRIC: Absent: anxiety, depression, suicidal or homicidal ideation, hallucinations. PHYSICAL EXAMINATION Vital Signs - 24 hr 10/27/18 10/27/18 17:13 19:10 Temperature 97.8 F 97.9 F Pulse Rate 72 Pulse Rate [ 62 Right Radial] Respiratory 19 17 Rate Blood Pressure 135/60 Blood Pressure 114/59 L [Left Arm] O2 Sat by Pulse 98 98 Oximetry (%) GENERAL: Awake, alert, and fully oriented, in no acute distress. HEAD: Normal with no signs of trauma. EYES: Pupils equal, round and reactive to light, extraocular movements intact, sclera anicteric, conjunctiva clear. No lid lag. EARS, NOSE, THROAT: Ears normal, nares patent, oropharynx clear without exudates. Moist mucous membranes. NECK: Normal range of motion, supple without lymphadenopathy, JVD, or masses. LUNGS: Breath sounds equal, clear to auscultation bilaterally. No wheezes, and no crackles. No accessory muscle use. HEART: Regular rate and rhythm, normal S1 and S2 without murmur, rub or gallop. ABDOMEN: Soft, non distended, marked tenderness to palpation in RUQ, RLQ, and LUQ, hypoactive bowel sounds MUSCULOSKELETAL: Normal range of motion at all joints. No bony deformities or tenderness. No CVA tenderness. UPPER EXTREMITIES: 2+ pulses, warm, well-perfused. No cyanosis. No clubbing. No peripheral edema. LOWER EXTREMITIES: 2+ pulses, warm, well-perfused. No calf tenderness. No peripheral edema. NEUROLOGICAL: Cranial nerves II-XII intact. Normal speech. Normal gait. PSYCHIATRIC: Cooperative. Good eye contact. Appropriate mood and affect. SKIN: Warm, dry, normal turgor, no rashes or lesions noted, normal capillary refill. Laboratory Results - last 24 hr 10/27/18 10/27/18 10/27/18 17:39 17:39 17:39 WBC 7.1 RBC 4.26 Hgb 12.6 Hct 37.7 MCV 88.5 MCH 29.5 MCHC 33.4 RDW 14.1 Plt Count 164 MPV 10.1 Absolute Neuts (auto) 4.7 Neutrophils % 66.4 Lymphocytes % 24.3 D Monocytes % 6.1 Eosinophils % 2.1 Basophils % 1.1 Nucleated RBC % 0 Sodium 140 Potassium 4.3 Chloride 104 Carbon Dioxide 33 H Anion Gap 2 L BUN 19.6 H Creatinine 1.1 Est GFR (CKD-EPI)AfAm 60.59 Est GFR (CKD-EPI)NonAf 52.28 Random Glucose 230 H Lactic Acid Calcium 9.7 Magnesium 2.2 Total Bilirubin 0.5 AST 12 L ALT 16 Alkaline Phosphatase 96 Troponin I Total Protein 6.9 Albumin 3.7 Lipase 108 Urine Color Yellow Urine Appearance Cloudy Urine pH 5.5 Ur Specific [place] 1.028 Urine Protein Negative Urine Glucose (UA) 3+ H Urine Ketones Trace H Urine Blood Negative Urine Nitrite Negative Urine Bilirubin Negative Urine Urobilinogen 2.0 H Ur Leukocyte Esterase Negative 10/27/18 10/28/18 22:10 02:00 WBC RBC Hgb Hct MCV MCH MCHC RDW Plt Count MPV Absolute Neuts (auto) Neutrophils % Lymphocytes % Monocytes % Eosinophils % Basophils % Nucleated RBC % Sodium Potassium Chloride Carbon Dioxide Anion Gap BUN Creatinine Est GFR (CKD-EPI)AfAm Est GFR (CKD-EPI)NonAf Random Glucose Lactic Acid 0.9 Calcium Magnesium Total Bilirubin AST ALT Alkaline Phosphatase Troponin I < 0.02 Total Protein Albumin Lipase Urine Color Urine Appearance Urine pH Ur Specific [place] Urine Protein Urine Glucose (UA) Urine Ketones Urine Blood Urine Nitrite Urine Bilirubin Urine Urobilinogen Ur Leukocyte Esterase ASSESSMENT/PLAN: This is a 68 year old female with PMH significant for HTN, DM, HLD, and asthma. She presented to the ER with complaints of RUQ and RLQ abdominal pain for the past 2 weeks #Abdominal pain - CTAP: no acute pathology, sigmoid diverticulosis, no evidence of diverticulitis - RUQ US: Report pending, POC US showed no cholelithiasis/choledocholithiasis. If negative, consider MRCP - Attempted to drink water at bedside, abdominal pain increased instantly - Serum H Pylori sent - Protonix 40mg IV OD - Zofran 4mg Q8H PRM for - Ofiramev Q8H PRN for pain-avoid NSAIDS since gastritis is suspected - Urine cx sent - GI consult placed #DAVID - N/S @ 100 - Ofiramev Q8H PRN for pain-avoid NSAIDS due to elevated BUN and low GFR #Hx of DM - UA: Glucose 3+ - Glucose 230 - Abdominal pain may be attributed to diabetic gastroparesis - HbA1c - BGM ACHS - Novolog SS #FEN - N/S @ 100 - Mg, Phos ordered - Clears diet #DVT PE - Lovenox 40mg SQ Visit type - Emergency Visit Emergency Visit: Yes ED Registration Date: 10/28/18 Care time: The patient presented to the Emergency Department on the above date and was hospitalized for further evaluation of their emergent condition. - New Patient This patient is new to me today: Yes Date on this admission: 10/28/18 - Critical Care Critical Care patient: No ATTENDING PHYSICIAN STATEMENT I saw and evaluated the patient. I reviewed the resident's note and discussed the case with the resident. I agree with the resident's findings and plan as documented. SUBJECTIVE: OBJECTIVE: ASSESSMENT AND PLAN:
[2018-10-28] MEDS ORDERED: ONDANSETRON 4 MG/2 ML VIAL IVPUSH PRN (03:33)
[2018-10-28] MEDS ORDERED: ACETAMINOPHEN 1000 MG/100 ML VIAL (NON FORMULARY) IVPB PRN (03:39)
--- NOTE | 2018-10-28 03:55 | PN ---
Teaching Attending Note Name of Resident: Haja Sam ATTENDING PHYSICIAN STATEMENT I saw and evaluated the patient. I reviewed the resident's note and discussed the case with the resident. I agree with the resident's findings and plan as documented. SUBJECTIVE: 68f with pmh of HTN, uncontrolled DM, gerd, asthma, obese, presents for 1 week of URQ abdominal pain and nausea, pain worse at night and after meals. She admits to eating fatty foods often. Pain is not associated with exertion. NO fevers or recent travels. Reported partial response to pepcid. Was not tolerating PO very well in ER. Denied any nausea or diarrhea. OBJECTIVE: Last Vital Signs Temp Pulse Resp BP Pulse Ox 97.9 F 62 17 114/59 L 98 10/27/18 19:10 10/27/18 19:10 10/27/18 19:10 10/27/18 19:10 10/27/18 19:10 gen - not in distress, comfortable, nontoxic heent- atraumatic, dry oral mucosa cv-s1+s2+rrr abd- exquisite tenderness to palpation of right upper quadrant, no rebound tenderness, soft, bs+ skin - no rash Abnormal Lab Results 10/27/18 10/27/18 17:39 17:39 Carbon Dioxide 33 H Anion Gap 2 L BUN 19.6 H Random Glucose 230 H AST 12 L Urine Glucose (UA) 3+ H Urine Ketones Trace H Urine Urobilinogen 2.0 H ASSESSMENT AND PLAN: Right upper quadrant pain with essentially normal LFTs, lipase, cbc. CT abd/ pelvis showed only diverticulosis. Abd u/s performed and report is pending.Differential diagnosis includes gasrtitis, dyspepsia, GERD, cholelithiasis/choledocholithiasis. Gallstones high on differential given nature of pain directly after meals. SHould coonsider also diabetic gastroparesis given severely uncontrolled hyperglycemia. #Uncontrolled DM -protonic 40mg IV bid -avoid NSAIDS -IV fluid hydration -zofran IV prn if nausea or vomiting -send serum for h pylori -would start clear liquid and advance as tolerated -f/u abdominal u/s to evaluate for gallstones -consider mrcp if nothing on liver u/s #DM -uncontrolled -a1c -tight glycemic control - novolog sliding scale -dvt ppx
[2018-10-28 04:52] VITALS: BMI 38.2
[2018-10-28] MEDS: INSULIN SLIDING SCALE (NOVOLOG) 1 VIAL SQ SCH ×4 (06:58→21:17)
[2018-10-28] MEDS ORDERED: INSULIN (NOVOLOG) ASPART 100 UNITS/ML 10ML VIAL ONE ×2 (07:04→11:56)
[2018-10-28] MEDS ORDERED: SODIUM CHLORIDE 1,000 ML IV SCH (08:00)
[2018-10-28] MEDS: ENOXAPARIN NA (PORCINE) 40 MG/0.4 ML DISP.SYRIN SQ SCH (09:43)
[2018-10-28] MEDS ORDERED: PANTOPRAZOLE SODIUM 40 MG VIAL IVPUSH SCH (10:00)
[2018-10-28] MEDS ORDERED: ALBUTEROL SO4 8 GM HFA INHALER IH PRN (10:52)
[2018-10-28] MEDS ORDERED: ONDANSETRON 8 MG TABLET (FP) PO PRN (10:53)
--- NOTE | 2018-10-28 10:56 | DS ---
Physical Examination Vital Signs: Vital Signs Temperature 97.8 F 10/28/18 10:00 Pulse Rate 57 L 10/28/18 10:00 Respiratory Rate 18 10/28/18 10:00 Blood Pressure 129/77 10/28/18 10:00 O2 Sat by Pulse Oximetry (%) 99 10/28/18 09:00 Labs: CBC, BMP 10/27/18 17:39 10/27/18 17:39 Discharge Summary Reason For Visit: RIGHT UPPER QUADRANT ABDOMINAL PAIN Current Active Problems RUQ abdominal pain (Acute) Condition: Stable - Instructions - Home Medications Comprehensive Discharge Medication List: Ambulatory Orders Tiotropium [place] [Spiriva] 1 puff IH DAILY #1 inh 07/09/16 Albuterol Sulfate Inhaler - [Ventolin HFA Inhaler -] 1 - 2 inh PO Q4H PRN #1 inhaler 07/19/16 Atorvastatin Ca [Lipitor] 1 tab PO DAILY 12/17/16 Sitagliptin Phosphate [Januvia] 100 mg PO DAILY 12/17/16 Budesonide/Formeterol Fumarate [SYMBICORT 160/4.5mcg -] 2 puff IH BID #1 inhaler 03/12/18 Montelukast Sodium [Singulair] 10 mg PO HS #30 tablet 03/12/18 Guaifenesin AC [Robitussin AC -] 5 ml PO Q6HPO #60 liquid MDD 20ml 03/16/18
[2018-10-28 11:57] LABS: BASO % 0.7 % (0-2.0); EOS % 2.7 % (0-4.5); HEMOGLOBIN 11.9 GM/dL (10.7-15.3); LYMPH % 25.8 % (8-40); MCH 29.5 pg (25.7-33.7); MEAN CELL VOLUME 89.2 fl (80-96); MEAN PLT VOLUME 9.4 fl (7.5-11.1); MONO % 7.4 % (3.8-10.2); NEUT % 63.4 % (42.8-82.8); PLATELET COUNT 142 K/MM3 (134-434); RBC 4.04 M/mm3 (3.60-5.2); RDW 14.2 % (11.6-15.6); WHITE BLOOD COUNT 6.1 K/mm3 (4.0-10.0)
[2018-10-28 12:18] LABS: BLOOD UREA NITROGEN 21.5 mg/dL (7-18)
[2018-10-28 12:19] LABS: ALBUMIN 3.3 g/dl (3.4-5.0); BILIRUBIN,TOTAL 0.6 mg/dL (0.2-1); CALCIUM 8.9 mg/dL (8.5-10.1); MAGNESIUM 2.2 mg/dL (1.8-2.4); PHOSPHOROUS 4.1 mg/dL (2.5-4.9); POTASSIUM 4.2 mmol/L (3.5-5.1); TOT PROT 6.1 g/dl (6.4-8.2)
[2018-10-28] MEDS: ATORVASTATIN CA 40 MG TABLET (FP) PO SCH (13:47)
[2018-10-28] MEDS: BUDESONIDE/FORMETEROL FUMARATE 160/4.5 mcg INHALER IH SCH ×2 (13:47→21:16)
[2018-10-28] MEDS: PANTOPRAZOLE 40 MG TABLET (FP) PO SCH (13:48)
--- NOTE | 2018-10-28 14:06 | EKG ---
Test Reason : Blood Pressure : / mmHG Vent. Rate : 057 BPM Atrial Rate : 057 BPM P-R Int : 168 ms QRS Dur : 086 ms QT Int : 450 ms P-R-T Axes : 051 064 116 degrees QTc Int : 438 ms SINUS BRADYCARDIA LOW VOLTAGE QRS CANNOT RULE OUT ANTEROSEPTAL INFARCT (CITED ON OR BEFORE 14-MAY-2018) ABNORMAL ECG WHEN COMPARED WITH ECG OF 14-MAY-2018 16:06, QUESTIONABLE CHANGE IN INITIAL FORCES OF ANTERIOR LEADS NONSPECIFIC T WAVE ABNORMALITY NOW EVIDENT IN INFERIOR LEADS QT HAS SHORTENED Confirmed by CARMELO JEWELL, SANJUANA ([id number]) on 10/28/2018 2:06:33 PM Referred By: Confirmed By:SANJUANA RHODES MD
--- NOTE | 2018-10-28 14:49 | CON.GI ---
Consult Consult Specialty:: GI Referred by:: Hospitalist Service Reason for Consultation:: Abdominal pain - History of Present Illness Chief Complaint: Abdominal pain History of Present Illness: 68F adnmitted for evaluation of abdominal pain. She states that it feels as though she has been having "labor pains" for 1 week. She describes the abdominal pain as sharp, constant, diffuse in nature (points all along the abdominal wall when asked where the pain occurs) worse with movement, worse with deep inspiration, and better when she sits upright. It is not related to meals (per the patient, however, the admission note states that it occurs after meals). It radiates to her lower back. She has had no change in medication regimen of late. There is no associated nausea, vomiting, change in bowel habits, rectal bleeding, diarrhea, fevers/chills or food fear. She denies unintentional weight loss. There has been no trauma. She denies similar episodes in the past. She believes that she had a colonoscopy >5 years ago and that it was OK. There is no family history of colorectal cancer or other GI malignancy. In terms of current work-up, lab testing has been unremarkable including lipase, aside from elevated glucose. Abdominal US revealed fatty liver without evidence of gallstones, diltaed biliary tract. The pancreas was described as normal but the tail was not visualized. A CT scan of the abdomen and pelvis was performed with IV contrast without PO contrast that was read as unrevealing. In review of the images there appears to be ? punctate calcifications within the pelvis and a calcification within the uterus. She does not recall of being told of fibroids in the past and she denies vaginal bleeding. She denies urinary F/U/D. - History Source History Provided By: Patient, Medical Record Limitations to Obtaining History: No Limitations - Past Medical History Cardio/Vascular: Yes: CAD (Per the chart given that cardiac stent listed), HTN Pulmonary: Yes: Asthma ...LMP: 04/10/01 Endocrine: Yes: Diabetes Mellitus - Past Surgical History Past Surgical History: Yes: Appendectomy, Stent (cardiac stent several years ago ), Tubal Ligation - Alcohol/Substance Use Hx Alcohol Use: Yes (occasional) History of Substance Use: reports: None - Smoking History Smoking history: Former smoker Have you smoked in the past 12 months: No Aproximately how many cigarettes per day: 0 If you are a former smoker, when did you quit?: 15 YEARS - Social History Usual Living Arrangement: Alone () ADL: Independent 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) Place of : [facility] History of Recent Travel: No Home Medications - Allergies Allergies/Adverse Reactions: Allergies Allergy/AdvReac Type Severity Reaction Status Date / Time No Known Allergies Allergy Verified 10/27/18 17:15 - Home Medications Home Medications: Ambulatory Orders Tiotropium [place] [Spiriva] 1 puff IH DAILY #1 inh 07/09/16 Albuterol Sulfate Inhaler - [Ventolin HFA Inhaler -] 1 - 2 inh PO Q4H PRN #1 inhaler 07/19/16 Atorvastatin Ca [Lipitor] 1 tab PO DAILY 12/17/16 Sitagliptin Phosphate [Januvia] 100 mg PO DAILY 12/17/16 Budesonide/Formeterol Fumarate [SYMBICORT 160/4.5mcg -] 2 puff IH BID #1 inhaler 03/12/18 Montelukast Sodium [Singulair] 10 mg PO HS #30 tablet 03/12/18 Guaifenesin AC [Robitussin AC -] 5 ml PO Q6HPO #60 liquid MDD 20ml 03/16/18 Ondansetron [Zofran -] 8 mg PO Q8H PRN #15 tablet 10/28/18 Pantoprazole Sodium [Protonix -] 40 mg PO DAILY #30 tablet.ec 10/28/18 Family Medical History Family Hx Cardiac Disorders: Mother (HTN/CAD) Family Hx Congestive Heart Failure: Mother (Dementia) Other Family History: Mother: Alive. Father: : unclear cause. Did not know him. Sisters: 5: Healthy. Brothers: 3: Healthy. 2 daughters: healthy. 1 son: healthy. No family history of colorectal cancer or other GI malignancy Review of Systems - Review of Systems Constitutional: denies: Chills Cardiovascular: denies: Chest Pain Respiratory: denies: Cough Gastrointestinal: reports: Abdominal Pain. denies: Constipation, Indigestion, Melena, Nausea, Rectal Bleeding, Vomiting, Vomiting Blood Physical Exam-GI Vital Signs: Vital Signs Temperature 97.7 F 10/28/18 13:17 Pulse Rate 59 L 10/28/18 13:17 Respiratory Rate 20 10/28/18 13:17 Blood Pressure 123/68 10/28/18 13:17 O2 Sat by Pulse Oximetry (%) 99 10/28/18 09:00 Constitutional: Yes: Calm Eyes: No: Sclera Icterus Cardiovascular: Yes: Regular Rate and Rhythm. No: Murmur Respiratory: Yes: CTA Bilaterally Gastrointestinal Inspection: Yes: Scars (rlq scar). No: Distention ...Auscultate: Yes: Normoactive Bowel Sounds ...Palpate: Yes: Soft, Tenderness (marked TTP mid abdomen,. right / left abdomen ) ...Percussion: No: Tympanitic ...Rectal Exam: Yes: Other (Senior Sales Manager present: no external lesions, no masses, light brown stool, guaiac negative. no fecal impaction.) Edema: No (No LE edema) Neurological: Yes: Alert Labs: CBC, BMP 10/28/18 11:15 10/28/18 11:15 Hepatic Panel Total Bilirubin 0.6 mg/dL (0.2-1) 10/28/18 11:15 AST 12 U/L (15-37) L 10/28/18 11:15 ALT 13 U/L (13-61) 10/28/18 11:15 Alkaline Phosphatase 81 U/L (45-117) 10/28/18 11:15 Albumin 3.3 g/dl (3.4-5.0) L 10/28/18 11:15 Problem List - Problems (1) Abdominal pain Assessment/Plan: Abdominal pain: Description of pain pattern atypical for biliary symptomatology. The lack of dilated biliary tract, normal liver chemistries, constant nature and lack of post prandial pain does not favor choledocholithiasis or other biliary etiologies. She describes lower back pain and worsening of pain with movement. ? somatic etiology. ? pelvic etiology. CT scan read as normal but the pelvis does not appear normal upon review of the images. Advise: Clarification of pelvic findings with radiology Repeat CT scan of the abdomen with PO contrast to further evaluate for bowel pathology Code(s): R10.9 - UNSPECIFIED ABDOMINAL PAIN Qualifiers: Abdominal location: right lower quadrant Qualified Code(s): R10.31 - Right lower quadrant pain
--- NOTE | 2018-10-28 21:19 | PN ---
<James Sweeney - Last Filed: 10/28/18 21:16> Physical Exam: SUBJECTIVE: Patient seen and examined OBJECTIVE: Vital Signs Period Temp Pulse Resp BP Sys/Linares Pulse Ox Last 24 Hr 97.4 F-97.8 F 57-63 16-20 109-129/68-77 97-99 GENERAL: The patient is awake, alert, and fully oriented, in no acute distress. HEAD: Normal with no signs of trauma. EYES: PERRL, extraocular movements intact, sclera anicteric, conjunctiva clear. No ptosis. ENT: Ears normal, nares patent, oropharynx clear without exudates, moist mucous membranes. NECK: Trachea midline, full range of motion, supple. LUNGS: Breath sounds equal, clear to auscultation bilaterally, no wheezes, no crackles, no accessory muscle use. HEART: Regular rate and rhythm, S1, S2 without murmur, rub or gallop. ABDOMEN: Soft, nontender, nondistended, normoactive bowel sounds, no guarding, no rebound, no hepatosplenomegaly, no masses. EXTREMITIES: 2+ pulses, warm, well-perfused, no edema. NEUROLOGICAL: Cranial nerves II through XII grossly intact. Normal speech, gait not observed. PSYCH: Normal mood, normal affect. SKIN: Warm, dry, normal turgor, no rashes or lesions noted Laboratory Results - last 24 hr 10/27/18 10/28/18 10/28/18 22:10 02:00 04:17 WBC RBC Hgb Hct MCV MCH MCHC RDW Plt Count MPV Absolute Neuts (auto) Neutrophils % Lymphocytes % Monocytes % Eosinophils % Basophils % Nucleated RBC % Sodium Potassium Chloride Carbon Dioxide Anion Gap BUN Creatinine Est GFR (CKD-EPI)AfAm Est GFR (CKD-EPI)NonAf POC Glucometer 187 Random Glucose Lactic Acid 0.9 Calcium Phosphorus Magnesium Total Bilirubin AST ALT Alkaline Phosphatase Troponin I < 0.02 Total Protein Albumin 10/28/18 10/28/18 10/28/18 06:50 11:15 11:15 WBC 6.1 RBC 4.04 Hgb 11.9 Hct 36.0 MCV 89.2 MCH 29.5 MCHC 33.0 RDW 14.2 Plt Count 142 MPV 9.4 Absolute Neuts (auto) 3.9 Neutrophils % 63.4 Lymphocytes % 25.8 Monocytes % 7.4 Eosinophils % 2.7 Basophils % 0.7 Nucleated RBC % 0 Sodium 138 Potassium 4.2 Chloride 103 Carbon Dioxide 30 Anion Gap 4 L BUN 21.5 H Creatinine 1.0 Est GFR (CKD-EPI)AfAm 67.99 Est GFR (CKD-EPI)NonAf 58.66 POC Glucometer 189 Random Glucose 190 H Lactic Acid Calcium 8.9 Phosphorus 4.1 Magnesium 2.2 Total Bilirubin 0.6 AST 12 L ALT 13 Alkaline Phosphatase 81 Troponin I Total Protein 6.1 L Albumin 3.3 L 10/28/18 10/28/18 11:15 16:33 WBC RBC Hgb Hct MCV MCH MCHC RDW Plt Count MPV Absolute Neuts (auto) Neutrophils % Lymphocytes % Monocytes % Eosinophils % Basophils % Nucleated RBC % Sodium Potassium Chloride Carbon Dioxide Anion Gap BUN Creatinine Est GFR (CKD-EPI)AfAm Est GFR (CKD-EPI)NonAf POC Glucometer 193 240 Random Glucose Lactic Acid Calcium Phosphorus Magnesium Total Bilirubin AST ALT Alkaline Phosphatase Troponin I Total Protein Albumin Active Medications Generic Name Dose Route Start Last Admin Trade Name Freq PRN Reason Stop Dose Admin Albuterol Sulfate 2 puff 10/28/18 10:52 Ventolin Hfa Inhaler - IH Q4H PRN SHORTNESS OF BREATH Atorvastatin Calcium 40 mg 10/28/18 11:00 10/28/18 13:47 Lipitor - PO 40 mg DAILY KRYSTLE Administration Budesonide/Formoterol Fumarate 2 puff 10/28/18 11:00 10/28/18 13:47 Symbicort 160/4.5mcg - IH 2 puff BID KRYSTLE Administration Enoxaparin Sodium 40 mg 10/28/18 10:00 10/28/18 09:43 Lovenox - SQ 40 mg DAILY KRYSTLE Administration Insulin Aspart 1 vial 10/28/18 07:00 10/28/18 17:04 Novolog Vial Sliding Scale - SQ 4 unit ACHS KRYSTLE Administration Protocol Montelukast Sodium 10 mg 10/28/18 22:00 Singulair - PO HS KRYSTLE Ondansetron HCl 8 mg 10/28/18 10:53 Zofran - PO Q8H PRN NAUSEA AND/OR VOMITING Pantoprazole Sodium 40 mg 10/28/18 11:00 10/28/18 13:48 Protonix - PO Not Given DAILY KRYSTLE Tiotropium [place] 2 puff 10/29/18 10:00 Spiriva Respimat DAILY [facility] ASSESSMENT/PLAN: 68 year old female with PMH significant for HTN, DM, HLD, and asthma who presents with 2 weeks of abdominal pain. #Abdominal pain - CTAP: no acute pathology, sigmoid diverticulosis, no evidence of diverticulitis. Repeat scan with contrast recommended by GI. - RUQ US: Report pending, POC US showed no cholelithiasis/choledocholithiasis. If negative, consider MRCP - Attempted to drink water at bedside, abdominal pain increased instantly - Serum H Pylori sent - Protonix 40mg IV OD - Zofran 4mg Q8H PRM for - Ofiramev Q8H PRN for pain-avoid NSAIDS since gastritis is suspected - Urine cx sent - GI consult placed #DAVID - N/S @ 100 - Ofiramev Q8H PRN for pain-avoid NSAIDS due to elevated BUN and low GFR #Hx of DM - UA: Glucose 3+ - Glucose 230 - Abdominal pain may be attributed to diabetic gastroparesis - HbA1c - BGM ACHS - Novolog SS Visit type - Emergency Visit Emergency Visit: No - New Patient This patient is new to me today: No - Critical Care Critical Care patient: No ATTENDING PHYSICIAN STATEMENT I saw and evaluated the patient. I reviewed the resident's note and discussed the case with the resident. I agree with the resident's findings and plan as documented. SUBJECTIVE: OBJECTIVE: ASSESSMENT AND PLAN: <Adilson Holliday - Last Filed: 10/29/18 13:18> Physical Exam: Seen and examined; please see H and P for this 24 hour billing cycle. She is afebrile and hemodynamically stable. If no further imaging finding per GI request can DC home. ATTENDING PHYSICIAN STATEMENT I saw and evaluated the patient. I reviewed the resident's note and discussed the case with the resident. I agree with the resident's findings and plan as documented. SUBJECTIVE: OBJECTIVE: ASSESSMENT AND PLAN:
[2018-10-28] MEDS ORDERED: MONTELUKAST NA 10 MG TABLET PO SCH (22:00)
[2018-10-29] MEDS: INSULIN SLIDING SCALE (NOVOLOG) 1 VIAL SQ SCH ×3 (06:21→16:29)
[2018-10-29 08:27] LABS: HEMATOCRIT 38.6 % (32.4-45.2); HEMOGLOBIN 12.4 GM/dL (10.7-15.3); MCH 29.3 pg (25.7-33.7); MCHC 32.1 g/dl (32.0-36.0); MEAN CELL VOLUME 91.2 fl (80-96); MEAN PLT VOLUME 10.1 fl (7.5-11.1); PLATELET COUNT 115 K/MM3 (134-434); RBC 4.23 M/mm3 (3.60-5.2); RDW 14.3 % (11.6-15.6); WHITE BLOOD COUNT 6.7 K/mm3 (4.0-10.0)
[2018-10-29 08:58] LABS: BLOOD UREA NITROGEN 15.7 mg/dL (7-18); CALCIUM 9.4 mg/dL (8.5-10.1); CREATININE 0.9 mg/dL (0.55-1.3); POTASSIUM 4.2 mmol/L (3.5-5.1)
[2018-10-29] MEDS: ENOXAPARIN NA (PORCINE) 40 MG/0.4 ML DISP.SYRIN SQ SCH (09:44)
[2018-10-29] MEDS: ATORVASTATIN CA 40 MG TABLET (FP) PO SCH (09:45)
[2018-10-29] MEDS: PANTOPRAZOLE 40 MG TABLET (FP) PO SCH (09:45)
[2018-10-29] MEDS: BUDESONIDE/FORMETEROL FUMARATE 160/4.5 mcg INHALER IH SCH (09:46)
[2018-10-29] MEDS ORDERED: TIOTROPIUM BROMIDE 2.5 MCG (SPIRIVA) RESPIMAT INHALER IH SCH (10:00)
[2018-10-29] MEDS ORDERED: INSULIN (NOVOLOG) ASPART 100 UNITS/ML 10ML VIAL ONE (11:25)
--- NOTE | 2018-10-29 13:05 | PN ---
Teaching Attending Note Name of Resident: James Sweeney ATTENDING PHYSICIAN STATEMENT I saw and evaluated the patient. I reviewed the resident's note and discussed the case with the resident. I agree with the resident's findings and plan as documented. Seen and examined; discussed case with GI. Patient is cleared to leave from their perspective and may followup outpatinet. She remains afebrile and hemodynamically stable with no new complaints this AM. Tolerating PO. Repeat CT with PO contrast failed to show any acute intrabdominal pathology but do show fibroids. This alongside her gastritis could be explaining her pain. She does not have any compelling indication to stay inpatient and the remainder of her workup can be pursued as an outpatient. She was counseled regarding such and is in agreement with the plan VS, labs, imaging reviewed NAD, AAO, resting in bed RRR s1/2 no mgr NC AT EOMI PERRLA Lungs CTAB, w/ sym exp Tenderness improved, nondistended, +BS Unchanged neuro exam with CN2-12 wnl, no fnd Normal mood, appropriate behavior. Reviewed CT imaging report initial and repeat and individually compared both images Reviewed prior consultations. Hospital Course/Plan: Patient presented with nonspecific abdominal pain which has improved since admission. Potential causes are felt to be gastritis vs. underlying fibroids. No issues seen on imaging in terms of acute intrabdominal pathology to explain her current symptoms. She is afebrile and hemodynamically stable and tolerating PO and can be discharged home. GI did see her and cleared her for discharge. The true cause of her pain is still obtusified but there are more than adequate potential explanations, patient is in agreement with DC, and they have followup arranged. She has benefitted maximally from this hosptialization and may be discharged home. Problems actively addressed this admission include: -Abdominal pain (Likely gastritis but can have pain from fibroids as well. Discharging with PO APAP PRN and followup with GI in 2 weeks. Cleared by Gi for DC and discussed with their service. Appreciate expert management opinion in the care of this medically complex patient.) -Fibroids (referral to digital recruiter as OP) Followup: -PCP: 3-5 days -MEDICAL PRACTITIONERS: 2 weeks -GI: 2 weeks -Bariatric Surgery for BMI 38: Can give referral to Dr. Malagon for Bariatrics -TERI eval with pulmonary medicine as outpatient.
[2018-10-29 13:55] VITALS: BP 114/63; PULSE 68; TEMP 98.7
--- NOTE | 2018-10-29 14:44 | PN.GI ---
GI Progress Note Subjective: No abdominal pain States feeling well CT scan with PO contrast revealed fibroids, pannniculitis. - Objective Vital Signs: Vital Signs Temperature 98.7 F 10/29/18 13:54 Pulse Rate 68 10/29/18 13:54 Respiratory Rate 18 10/29/18 13:54 Blood Pressure 114/63 10/29/18 13:54 O2 Sat by Pulse Oximetry (%) 98 10/29/18 09:00 Constitutional: Calm Eyes: No: Sclera Icterus Cardiovascular: Yes: Regular Rate and Rhythm Respiratory: Yes: CTA Bilaterally Gastrointestinal Inspection: No: Distention ...Auscultate: Yes: Normoactive Bowel Sounds ...Palpate: No: Hepatomegaly, Splenomegaly, Tenderness ...Percussion: No: Tympanitic Neurological: Yes: Alert Labs: CBC, BMP 10/29/18 07:40 Problem List - Problems (1) Abdominal pain Assessment/Plan: Resolved Outpatient follow-up advised to discuss screening colonoscopy Protonix 20mg once daily for 4 weeks then D/C F/U of uterne findings per primary team Recall as needed Code(s): R10.9 - UNSPECIFIED ABDOMINAL PAIN Qualifiers: Abdominal location: right lower quadrant Qualified Code(s): R10.31 - Right lower quadrant pain
--- NOTE | 2018-10-29 16:25 | DS ---
Physical Exam: SUBJECTIVE: Patient seen and examined. OBJECTIVE: Vital Signs Period Temp Pulse Resp BP Sys/Linares Pulse Ox Last 24 Hr 97.5 F-98.7 F 63-68 18-18 109-123/53-71 98-99 PHYSICAL EXAM GENERAL: The patient is awake, alert, and fully oriented, in no acute distress. HEAD: Normal with no signs of trauma. EYES: PERRL, extraocular movements intact, sclera anicteric, conjunctiva clear. No ptosis. ENT: Ears normal, nares patent, oropharynx clear without exudates, moist mucous membranes. NECK: Trachea midline, full range of motion, supple. LUNGS: Breath sounds equal, clear to auscultation bilaterally, no wheezes, no crackles, no accessory muscle use. HEART: Regular rate and rhythm, S1, S2 without murmur, rub or gallop. ABDOMEN: Soft, nontender, nondistended, normoactive bowel sounds, no guarding, no rebound, no hepatosplenomegaly, no masses. EXTREMITIES: 2+ pulses, warm, well-perfused, no edema. NEUROLOGICAL: Cranial nerves II through XII grossly intact. Normal speech, gait not observed. PSYCH: Normal mood, normal affect. SKIN: Warm, dry, normal turgor, no rashes or lesions noted LABS Laboratory Results - last 24 hr 10/28/18 10/28/18 10/29/18 16:33 21:14 05:38 WBC RBC Hgb Hct MCV MCH MCHC RDW Plt Count MPV Platelet Comment Sodium Potassium Chloride Carbon Dioxide Anion Gap BUN Creatinine Est GFR (CKD-EPI)AfAm Est GFR (CKD-EPI)NonAf POC Glucometer 240 218 186 Random Glucose Hemoglobin A1c % Calcium 10/29/18 10/29/18 10/29/18 07:40 07:40 07:40 WBC 6.7 RBC 4.23 Hgb 12.4 Hct 38.6 MCV 91.2 MCH 29.3 MCHC 32.1 RDW 14.3 Plt Count 115 L MPV 10.1 Platelet Comment No clotting detected Sodium 139 Potassium 4.2 Chloride 106 Carbon Dioxide 25 Anion Gap 8 BUN 15.7 Creatinine 0.9 Est GFR (CKD-EPI)AfAm 77.22 Est GFR (CKD-EPI)NonAf 66.63 POC Glucometer Random Glucose 201 H Hemoglobin A1c % 8.5 H Calcium 9.4 10/29/18 10/29/18 10/29/18 11:12 13:55 16:04 WBC RBC Hgb Hct MCV MCH MCHC RDW Plt Count 164 D MPV Platelet Comment Sodium Potassium Chloride Carbon Dioxide Anion Gap BUN Creatinine Est GFR (CKD-EPI)AfAm Est GFR (CKD-EPI)NonAf POC Glucometer 216 197 Random Glucose Hemoglobin A1c % Calcium HOSPITAL COURSE: Date of Admission:10/28/18 Date of Discharge: 10/29/18 68 year old female with PMH significant for HTN, DM, HLD, and asthma who presents with 2 weeks of abdominal pain. Pt;s Abdominal pain was investigated with CTAP, which found no acute pathology, sigmoid diverticulosis, and no evidence of diverticulitis. Repeat scan with contrast was recommended by GI, which revealed fibroid uterus. She also had a RUQ US, which revealed no cholelithiasis/choledocholithiasis. She was given Protonix, Zofran, and Ofiramev. She was seen by GI. She came in with DAVID which improved with fluids. Her DM was treated with insulin sliding scale. Minutes to complete discharge: 30 Discharge Summary Reason For Visit: RIGHT UPPER QUADRANT ABDOMINAL PAIN Current Active Problems RUQ abdominal pain (Acute) Condition: Improved - Instructions Diet, Activity, Other Instructions: You were in the hospital because of gastritis and nonspecific abdominal pain. Your imaging and lab workup was negative. You were found to have fibroids and you should see a inspector coated fabrics as an outpatient New medications: Protonix for stomach inflammation, take every morning Labs to followup: CBC in 2-3 days, have drawn prior to PCP visit. Hepatitis/ HIV labs still pending from inpatient. Please followup. Followup MD Appointments: -PCP: 3-5 days -GI: 3-5 days -OBGYN: Within 1 month Diet: BRAT diet Activity: Resume normal activity, may return to work on Thursday. Referrals: Diaz Freedman MD [Staff Physician] - (3-5 days with resident clinic) Ruel Pulido MD [Staff Physician] - 1 Month (For pulmonary function tests and OP pulmonary care) Jacek Berrios DO [Staff Physician] - 2 Weeks (For outpatient assessment of ongoing GI symptoms) Allen Pang MD [Staff Physician] - 1 Month Disposition: HOME - Home Medications Comprehensive Discharge Medication List: Ambulatory Orders Tiotropium [place] [Spiriva] 1 puff IH DAILY #1 inh 07/09/16 Albuterol Sulfate Inhaler - [Ventolin HFA Inhaler -] 1 - 2 inh PO Q4H PRN #1 inhaler 07/19/16 Atorvastatin Ca [Lipitor] 1 tab PO DAILY 12/17/16 Sitagliptin Phosphate [Januvia] 100 mg PO DAILY 12/17/16 Budesonide/Formeterol Fumarate [SYMBICORT 160/4.5mcg -] 2 puff IH BID #1 inhaler 03/12/18 Montelukast Sodium [Singulair] 10 mg PO HS #30 tablet 03/12/18 Guaifenesin AC [Robitussin AC -] 5 ml PO Q6HPO #60 liquid MDD 20ml 03/16/18 Ondansetron [Zofran -] 8 mg PO Q8H PRN #15 tablet 10/28/18 Pantoprazole Sodium [Protonix -] 40 mg PO DAILY #30 tablet.ec 10/28/18 This patient is new to me today: No Emergency Visit: No Critical Care patient: No - Discharge Referral Referred to [facility] Med P.C.: No ATTENDING PHYSICIAN STATEMENT I saw and evaluated the patient. I reviewed the resident's note and discussed the case with the resident. I agree with the resident's findings and plan as documented. SUBJECTIVE: OBJECTIVE: ASSESSMENT AND PLAN:
== END 2018-10-29 18:26 | disposition home or self-care (01) | DRG 760 ==
LOC: JER 17:02 → JERBED 10-28 00:42 → J7W 10-28 04:24
PROVIDERS: ADMIT Internal Medicine; ATTEND Internal Medicine
DX: D25.9 Leiomyoma of uterus, unspecified (principal); N17.9 Acute kidney failure, unspecified; K57.30 Diverticulosis of large intestine without perforation or abscess without bleeding; K29.70 Gastritis, unspecified, without bleeding; E11.43 Type 2 diabetes mellitus with diabetic autonomic (poly)neuropathy; M79.3 Panniculitis, unspecified; E11.65 Type 2 diabetes mellitus with hyperglycemia; I10 Essential (primary) hypertension; E78.5 Hyperlipidemia, unspecified; J45.909 Unspecified asthma, uncomplicated; I25.10 Atherosclerotic heart disease of native coronary artery without angina pectoris; K31.84 Gastroparesis
CPT/HCPCS: 36415; 74176-TC; 74177-TC; 76705-TC; 80048; 80053; 81003; 82962; 83036; 83605; 83690; 83735; 84100; 84484; 85025; 85027; 85032; 86677; 86803; 87086; 87389; 93005; 93010; 99285-25; J0131; J7030

== ENCOUNTER 2018-12-03 17:22 | Emergency (ER) | payer MEDICARE, OTHER ==
[2018-12-03 17:43] VITALS: TEMP 98.3; BMI 34.4
[2018-12-03] MEDS ORDERED: ACETAMINOPHEN 500 MG TABLET (FP) PO ONE (18:52)
[2018-12-03 19:04] LABS: BASO % 1.4 % (0-2.0); EOS % 2.4 % (0-4.5); HEMATOCRIT 40.4 % (32.4-45.2); HEMOGLOBIN 13.3 GM/dL (10.7-15.3); LYMPH % 15.8 % (8-40); MCH 29.3 pg (25.7-33.7); MCHC 32.8 g/dl (32.0-36.0); MEAN CELL VOLUME 89.3 fl (80-96); MEAN PLT VOLUME 10.1 fl (7.5-11.1); MONO % 6.1 % (3.8-10.2); NEUT % 74.3 % (42.8-82.8); PLATELET COUNT 178 K/MM3 (134-434); RBC 4.52 M/mm3 (3.60-5.2); RDW 13.7 % (11.6-15.6); WHITE BLOOD COUNT 10.1 K/mm3 (4.0-10.0)
[2018-12-03] MEDS ORDERED: ACETAMINOPHEN 325 MG TABLET (FP) ONE (19:22)
[2018-12-03 19:28] LABS: ALK PHOS 104 U/L (45-117); ANION GAP 8 MMOL/L (8-16); BILIRUBIN,TOTAL 0.6 mg/dL (0.2-1); BLOOD UREA NITROGEN 20.5 mg/dL (7-18); CALCIUM 9.6 mg/dL (8.5-10.1); CHLORIDE 102 mmol/L (98-107); CO2 29 mmol/L (21-32); GLUCOSE,RANDOM 199 mg/dL (74-106); POTASSIUM 4.5 mmol/L (3.5-5.1); SGOT/AST 11 U/L (15-37); SGPT/ALT 16 U/L (13-61); SODIUM 139 mmol/L (136-145); TOT PROT 7.5 g/dl (6.4-8.2)
--- NOTE | 2018-12-03 19:39 | PDOC ---
History of Present Illness - General Chief Complaint: Pain Stated Complaint: LT SIDE BODY PAIN Time Seen by Provider: 12/03/18 17:48 History Source: Patient, Old Records Exam Limitations: No Limitations - History of Present Illness Initial Comments: HPI: 68 y/o female presenting to [facility] ER complaining of left shoulder, left chest, and left arm pain with numbness. Pain made worse with movement of left arm. Denies palpitations or difficulty breathing. Denies trauma to the area. Symptoms started while watching television. Endorses h/o of similar pain in the past. Social Hx: - Unemployed - Lifts grandchildren (ages 2 and 3) Medical Hx: - HTN - HLD - Asthma - Diabetes, managed with Metformin Review of Systems: In addition to that documented in the HPI above, the additional ROS was obtained : Constitutional- Denies fevers or chills Head- Denies vision changes ENMT- Denies sore throat CV- Denies chest pain Resp- Denies SOB GI- Denies vomiting or diarrhea - Denies painful urination MSK- Per HPI Skin- Denies new rashes Neuro- Denies new numbness or tingling or weakness Endocrine- Denies polyuria Heme- Denies bleeding or bruising Physical Examination: Constitutional- Obese adult female in no acute distress or obvious discomfort. Found semi-fowlers on hospital bed. Answered all questions appropriately and completely. Head- Normocephalic. No obvious external signs of trauma. Neck- Supple, trachea is midline. Tender with lateral rotation of neck to right side. No midline tenderness. Cardiovascular / Chest- Regular rate and regular rhythm. No murmur, rubs, clicks , or gallops. Peripheral pulses- radial pulses full. Respiratory- Breathing unlabored. Equal chest rise and fall. Clear to auscultation bilaterally. No stridor, no wheezing, no rhonchi. MSK- Generalized pain to left shoulder with palpation. Also made worse with abduction of left arm. Unable to lift arm above head secondary to pain. No obvious bony deformity, bruising, or other skin lesions. Neuro- Alert and oriented x4. Moving all four extremities spontaneously. Skin- Warm and dry. Paronychia to right 4th digit. No tenderness to pad of digit. No pain with extension of the digit. No overlying erythema. Psych- Affect- appropriate. Mood- normal. Speech was non-labored, non- pressured. Past History - Past Medical History Allergies/Adverse Reactions: Allergies Allergy/AdvReac Type Severity Reaction Status Date / Time No Known Allergies Allergy Verified 12/03/18 17:27 Home Medications: Ambulatory Orders Albuterol Sulfate Inhaler - [Ventolin HFA Inhaler -] 1 - 2 inh PO Q4H PRN #1 inhaler 07/19/16 Atorvastatin Ca [Lipitor] 80 mg PO HS 12/17/16 Sitagliptin Phosphate [Januvia] 100 mg PO DAILY 12/17/16 Pantoprazole Sodium [Protonix -] 40 mg PO DAILY #30 tablet.ec 10/28/18 Budesonide/Formeterol Fumarate [SYMBICORT 160/4.5mcg -] 1 inh PO BID 12/03/18 Diclofenac Sodium [Diclofono] 2.5 gm TP BID PRN #1 gel.packet 12/03/18 Furosemide 40 mg PO DAILY 12/03/18 Lidocaine 5% Patch [Lidoderm Patch -] 1 patch TP DAILY #30 patch 12/03/18 Linaclotide [Linzess] 145 mcg PO DAILY 12/03/18 Methocarbamol [Robaxin -] 500 mg PO TID #30 tablet 12/03/18 Olmesartan/Hydrochlorothiazide [Olmesartan-Hctz 40-25 mg Tab] 1 each PO DAILY Olopatadine HCl 2 drop OU ASDIR 12/03/18 Anemia: No Asthma: Yes Cancer: No Cardiac Disorders: No CVA: No COPD: No CHF: No Dementia: No Diabetes: Yes GI Disorders: No Disorders: No HTN: Yes Hypercholesterolemia: Yes Liver Disease: No Seizures: No Thyroid Disease: Yes - Surgical History Abdominal Surgery: No Appendectomy: Yes Cardiac Surgery: No Cholecystectomy: No Lung Surgery: No Neurologic Surgery: No Orthopedic Surgery: No - Immunization History Immunization Up to Date: Yes - Psycho Social/Smoking Cessation Hx Smoking Status: Yes Smoking History: Never smoked Have you smoked in the past 12 months: No Number of Cigarettes Smoked Daily: 0 If you are a former smoker, when did you quit?: 15 YEARS Cigars Per Day: 0 Hx Alcohol Use: No Drug/Substance Use Hx: No Substance Use Type: None Hx Substance Use Treatment: No *Physical Exam - Vital Signs Last Vital Signs Temp Pulse Resp BP Pulse Ox 98.3 F 77 20 123/69 98 10/25/19 17:27 12/03/18 17:27 12/03/18 17:27 12/03/18 17:27 12/03/18 17:27 ED Treatment Course - LABORATORY CBC & Chemistry Diagram: 12/03/18 18:45 12/03/18 18:45 - ADDITIONAL ORDERS Additional order review: Laboratory Results 12/03/18 18:45 Sodium 139 Potassium 4.5 Chloride 102 Carbon Dioxide 29 Anion Gap 8 BUN 20.5 H Creatinine 1.0 Est GFR (CKD-EPI)AfAm 67.99 Est GFR (CKD-EPI)NonAf 58.66 Random Glucose 199 H Calcium 9.6 Total Bilirubin 0.6 AST 11 L ALT 16 Alkaline Phosphatase 104 Troponin I < 0.02 Total Protein 7.5 Albumin 4.0 12/03/18 18:45 RBC 4.52 MCV 89.3 MCHC 32.8 RDW 13.7 MPV 10.1 Neutrophils % 74.3 Lymphocytes % 15.8 D Monocytes % 6.1 Eosinophils % 2.4 Basophils % 1.4 - RADIOLOGY Radiology Studies Ordered: Category Date Time Status CHEST PA & LAT [RAD] Stat Radiology 12/03/18 18:00 Taken SHOULDER-LEFT [RAD] Stat Radiology 12/03/18 18:52 Taken - Medications Given in the ED: ED Medications Discontinued Medications Generic Name Dose Route Start Last Admin Trade Name Freq PRN Reason Stop Dose Admin Acetaminophen 650 mg 12/03/18 18:52 12/03/18 19:24 Tylenol - PO 12/03/18 18:53 650 mg ONCE ONE Administration Discharge - Discharge Information Problems reviewed: Yes Clinical Impression/Diagnosis: Acute paronychia of finger of left hand Left shoulder pain Qualifiers: Chronicity: unspecified Qualified Code(s): M25.512 - Pain in left shoulder Condition: Improved Disposition: HOME - Admission No - Additional Discharge Information Prescriptions: Diclofenac Sodium [Diclofono] 2.5 gm TP BID PRN #1 gel.packet PRN Reason: Shoulder pain Lidocaine 5% Patch [Lidoderm Patch -] 1 patch TP DAILY #30 patch Methocarbamol [Robaxin -] 500 mg PO TID #30 tablet - Follow up/Referral Referrals: Saurabh Harris MD [Primary Care Provider] - Eddie Fried DO [Staff Physician] - - Patient Discharge Instructions Patient Printed Discharge Instructions: DI for Paronychia, DI for Shoulder Pain Additional Instructions: You were seen today for left shoulder pain. Your EKG and blood work were normal. Your xray should you likely have arthritis in the left shoulder, which is causing your pain. You also had a small infection in your finger. It was drained. You do not need antibiotics at this time, but watch for signs of worsening infection, such as redness or pain on bottom of finger, pain with moving the finger, or redness moving up the hand. I have sent three prescriptions to your pharmacy. The first is for a muscle relaxer called Robaxin. This medication can cause drowsiness. Do not take it when driving or operating heavy machinery. The second medication is a lidoderm patch. The third is for a topical NSAID (pain) medication. Take as directed on the package inserts. Do not exceed the recommended dosages. Follow up with your primary care doctor within the next 2-3 days. You will need to call to make an appointment. The number is included in this packet. A copy of [employer] results are attached to this packet. Take it to the appointment so your doctor can review them. You can also follow up with an orthopedic doctor. I have entered a referral for you to see Dr. Fried. You will need to call to make an appointment. The number is included in this packet. A copy of [employer] results are attached to this packet. Take it to the appointment so your doctor can review them. Go to the nearest emergency department if your condition worsens or you feel like you need additional emergency evaluation. Print Language: TAJIK - Post Discharge Activity
[2018-12-03] MEDS ORDERED: LIDOCAINE 5% TOPICAL PATCH TP ONE (19:52)
[2018-12-03] MEDS ORDERED: METHOCARBAMOL 500 MG TABLET PO ONE (19:54)
--- NOTE | 2018-12-03 19:54 | PDOC ---
Attending Attestation - Resident Resident Name: Pardeep Conde - ED Attending Attestation I have performed the following: I have examined & evaluated the patient, The case was reviewed & discussed with the resident, I agree w/resident's findings & plan - HPI HPI: 12/03/18 19:53 Pt comes with left shoulder/trapezius spasm after lifting and playing with grandchild. Pt has no recollection of hearing a pop, or having swelling or hematoma at the area. Pt has a hx of bony joint osteoarthritis; she has had left shoulder XRAYs in the past for the same. 12/03/18 19:55 - Physicial Exam PE: 12/03/18 19:56 Agree with resident exam. Pt has spasm of the trapezius. limited ROM in all directions; good pusles in extremity. strength intact. 12/03/18 20:22 Pt incidentally found to have a right finger paronychia; we will drain it for her. - Medical Decision Making 12/03/18 20:22 Home with analgesics and muscle relaxants.
[2018-12-03] MEDS ORDERED: LIDOCAINE 5% TOPICAL PATCH ONE (19:59)
[2018-12-03] MEDS ORDERED: METHOCARBAMOL 500 MG TABLET ONE (20:05)
[2018-12-03 20:41] VITALS: BP 130/80; PULSE 72
[2018-12-03] MEDS ORDERED: LIDOCAINE PATCH REMOVAL MC SCH (22:00)
--- NOTE | 2018-12-04 14:55 | EKG ---
Test Reason : Blood Pressure : / mmHG Vent. Rate : 074 BPM Atrial Rate : 074 BPM P-R Int : 144 ms QRS Dur : 086 ms QT Int : 388 ms P-R-T Axes : 049 077 091 degrees QTc Int : 430 ms NORMAL SINUS RHYTHM SEPTAL INFARCT (CITED ON OR BEFORE 14-MAY-2018) ABNORMAL ECG WHEN COMPARED WITH ECG OF 27-OCT-2018 23:13, NONSPECIFIC T WAVE ABNORMALITY, WORSE IN LATERAL LEADS Confirmed by MCKENNA FERRARI MD ([id number]) on 12/04/2018 2:54:56 PM Referred By: Confirmed By:MCKENNA FERRARI MD
--- NOTE | 2018-12-07 11:06 | EKG ---
Test Reason : Blood Pressure : / mmHG Vent. Rate : 075 BPM Atrial Rate : 075 BPM P-R Int : 148 ms QRS Dur : 076 ms QT Int : 378 ms P-R-T Axes : 068 061 063 degrees QTc Int : 422 ms SINUS RHYTHM WITH FUSION COMPLEXES LOW VOLTAGE QRS SEPTAL INFARCT (CITED ON OR BEFORE 14-MAY-2018) ABNORMAL ECG WHEN COMPARED WITH ECG OF 27-OCT-2018 23:13, FUSION COMPLEXES ARE NOW PRESENT QUESTIONABLE CHANGE IN INITIAL FORCES OF ANTERIOR LEADS Confirmed by Adán Blanton MD ([id number]) on 12/07/2018 11:06:06 AM Referred By: Confirmed By:Adán Blanton MD
== END 2018-12-03 20:41 | disposition home or self-care (01) ==
LOC: JER 17:22
PROC: 0J9J0ZZ Drainage of Right Hand Subcutaneous Tissue and Fascia, Open Approach (ICD-10-PCS; principal; 2018-12-03)
DX: L03.011 Cellulitis of right finger (principal); M25.512 Pain in left shoulder; X50.0XXA Overexertion from strenuous movement or load, initial encounter; Y93.F2 Activity, caregiving, lifting; Y92.038 Other place in apartment as the place of occurrence of the external cause; Y99.8 Other external cause status; I10 Essential (primary) hypertension; Z79.84 Long term (current) use of oral hypoglycemic drugs; E11.9 Type 2 diabetes mellitus without complications; E78.00 Pure hypercholesterolemia, unspecified; E07.9 Disorder of thyroid, unspecified; J45.909 Unspecified asthma, uncomplicated
CPT/HCPCS: 10160; 36415; 71046-TC-FY; 73030-TC-LT-FY; 80053; 84484; 85025; 93005; 93010; 99282-25

== ENCOUNTER 2018-12-09 06:40 | Day surgery (SDC) | payer MEDICARE, OTHER ==
[2018-12-08 14:09] VITALS: BMI 38.0
[2018-12-09 09:51] VITALS: TEMP 97.6
[2018-12-09 14:59] VITALS: BP 133/64; PULSE 60
--- NOTE | 2018-12-10 18:20 | PATH ---
Surgical Pathology Report Patient Name: DWIGHT FIERRO [facility]. Rec. #: [id number] /Age/Gender: 1950 (Age: 68) / F Account: [id number] Location: ASU-ENDOSCOPY Taken: 12/09/2018 Received: 12/09/2018 Reported: 12/10/2018 Physicians: Matthew Berrios D.O. Specimen(s) Received A: CECAL POLYP B: POLYP RIGHT COLON C: SIGMOID POLYP D: RECTOSIGMOID POLYP Clinical History Screening for malignant neoplasm Postoperative diagnosis Colon polyps, diverticulosis Final Diagnosis A. CECAL POLYP, BIOPSY: TUBULAR ADENOMA. B. COLON POLYP, RIGHT, POLYPECTOMY: TUBULAR ADENOMA. C. SIGMOID COLON, POLYP, BIOPSY: HYPERPLASTIC POLYP. D. RECTOSIGMOID POLYP, POLYPECTOMY: TUBULAR ADENOMA. Electronically Signed Britney Whiteside M.D. Gross Description A. Received in formalin, labeled "cecal polyp" is a lopez, irregular portion of soft tissue measuring 0.2 cm. in greatest dimension. The specimen is submitted in toto in one cassette. B. Received in formalin, labeled "right colon polyp" is a lopez, irregular portion of soft tissue measuring 0.4 cm. in greatest dimension. The specimen is submitted in toto in one cassette. C. Received in formalin, labeled "sigmoid polyp" are 2 lopez, irregular portions of soft tissue measuring 0.1 and 0.2 cm. in greatest dimension. The specimens are submitted in toto in one cassette. D. Received in formalin, labeled "rectosigmoid polyp" is a lopez, irregular portion of soft tissue measuring 0.3 cm. in greatest dimension. The specimen is submitted in toto in one cassette.
== END 2018-12-09 11:30 | disposition home or self-care (01) ==
LOC: JASU-ENDO 06:40
PROVIDERS: ATTEND Internal Medicine Gastroenterology
PROC: 0DBN8ZX Excision of Sigmoid Colon, Via Natural or Artificial Opening Endoscopic, Diagnostic (ICD-10-PCS; 2018-12-09)
PROC: 0DBH8ZX Excision of Cecum, Via Natural or Artificial Opening Endoscopic, Diagnostic (ICD-10-PCS; 2018-12-09)
PROC: 0DBN8ZX Excision of Sigmoid Colon, Via Natural or Artificial Opening Endoscopic, Diagnostic (ICD-10-PCS; 2018-12-09)
PROC: 0DBK8ZX Excision of Ascending Colon, Via Natural or Artificial Opening Endoscopic, Diagnostic (ICD-10-PCS; principal; 2018-12-09 09:00)
DX: Z12.11 Encounter for screening for malignant neoplasm of colon (principal); D12.0 Benign neoplasm of cecum; D12.2 Benign neoplasm of ascending colon; D12.5 Benign neoplasm of sigmoid colon; D12.7 Benign neoplasm of rectosigmoid junction; K57.30 Diverticulosis of large intestine without perforation or abscess without bleeding; K64.8 Other hemorrhoids; I10 Essential (primary) hypertension; E78.5 Hyperlipidemia, unspecified; E11.9 Type 2 diabetes mellitus without complications; I25.10 Atherosclerotic heart disease of native coronary artery without angina pectoris; J45.909 Unspecified asthma, uncomplicated; Z86.718 Personal history of other venous thrombosis and embolism
CPT/HCPCS: 82962; 88305-TC

== ENCOUNTER 2019-04-02 10:18 | Emergency (ER) | payer MEDICARE, OTHER ==
[2019-04-02 10:35] VITALS: TEMP 97.8; BMI 34.4
--- NOTE | 2019-04-02 10:39 | PDOC ---
History of Present Illness - General Chief Complaint: Headache Stated Complaint: HEADACHE Time Seen by Provider: 04/02/19 10:37 History Source: Patient Exam Limitations: No Limitations - History of Present Illness Initial Comments: 04/02/19 10:37 PCP: Kimberly HPI: 69 F PMH HTN, HLD, DM (not on insulin, reports sugars 140 max), obesity, asthma, presenting with headache for 5 days. Different than any prior headaches , started suddenly 5 days ago, worsening over this period, holocranial with slightly worse pain over left forehead / temporal region, responsive to Tylenol with recurrence after several hours, with photophobia, increased lacrimation, bilateral conjunctiva and infection with itchy eyes. Denies fevers, chills, nausea, vomiting, gait changes, new neurologic changes. No history of clotting or bleeding disorders, rheumatologic disorders, or intra-cranial pathology. Denies chest pain, SOB, palpitations. All: NKDA Meds: Per chart PMH: As above Past History - Travel Traveled outside of the country in the last 30 days: No Close contact w/someone who was outside of country & ill: No - Past Medical History Allergies/Adverse Reactions: Allergies Allergy/AdvReac Type Severity Reaction Status Date / Time No Known Allergies Allergy Verified 12/03/18 17:27 Home Medications: Ambulatory Orders Atorvastatin Ca [Lipitor] 80 mg PO HS 12/17/16 Sitagliptin Phosphate [Januvia] 100 mg PO DAILY 12/17/16 Linaclotide [Linzess] 145 mcg PO DAILY 12/03/18 Olmesartan/Hydrochlorothiazide [Olmesartan-Hctz 40-25 mg Tab] 1 each PO DAILY Metformin HCl [Glucophage] 1,000 mg PO DAILY 12/08/18 Montelukast Sodium [Singulair] 10 mg PO HS 12/08/18 Tiotropium [place] [Spiriva Respimat] 4 gm IH BID 12/08/18 Anemia: No Asthma: Yes Cancer: No Cardiac Disorders: Yes (CAD) CVA: No COPD: No CHF: No Dementia: No Diabetes: Yes GI Disorders: No Disorders: No HTN: Yes Hypercholesterolemia: Yes Liver Disease: No Seizures: No Thyroid Disease: Yes - Surgical History Abdominal Surgery: No Appendectomy: Yes Cardiac Surgery: Yes (CARDIAC STENT) Cholecystectomy: No Lung Surgery: No Neurologic Surgery: No Orthopedic Surgery: No - Immunization History Immunization Up to Date: Yes - Psycho Social/Smoking Cessation Hx Smoking Status: Yes Smoking History: Former smoker Have you smoked in the past 12 months: No Number of Cigarettes Smoked Daily: 0 If you are a former smoker, when did you quit?: 15 YEARS Cigars Per Day: 0 Information on smoking cessation initiated: No Hx Alcohol Use: No Drug/Substance Use Hx: No Substance Use Type: None Hx Substance Use Treatment: No Review of Systems - Review of Systems Able to Perform ROS?: Yes Is the patient limited Maori proficient: Yes Constitutional: No: Chills, Fever HEENTM: Yes: See HPI, Eye Pain, Blurred Vision, Tearing, Recent change in vision. No: Ear Pain, Nose Pain, Tinnitus, Hearing Loss, Throat Pain Respiratory: No: Cough, Shortness of Breath, Wheezing, Productive cough, Hemoptysis Cardiac (ROS): No: Chest Pain, Edema, Irregular Heart Rate, Lightheadedness, Palpitations, Syncope, Chest Tightness ABD/GI: No: Constipated, Diarrhea, Nausea, Vomiting : No: Burning, Dysuria, Frequency Musculoskeletal: Yes: Back Pain (chronic). No: Muscle Pain, Muscle Weakness, Neck Pain Integumentary: No: Bruising, Pruritus, Rash Neurological: Yes: Tingling (chronic, hands/feet). No: Headache, Numbness, Weakness Hematologic/Lymphatic: No: Anemia, Blood Clots, Easy Bleeding All Other Systems: Reviewed and Negative *Physical Exam - Vital Signs Last Vital Signs Temp Pulse Resp BP Pulse Ox 97.8 F 73 20 110/96 98 04/02/19 10:22 04/02/19 10:22 04/02/19 10:22 04/02/19 10:22 04/02/19 10:22 ED Treatment Course - LABORATORY CBC & Chemistry Diagram: 04/02/19 11:00 04/02/19 11:00 Medical Decision Making - Medical Decision Making 04/02/19 11:42 69 F PMH HTN, HLD, DM (not on insulin, reports sugars 140 max), obesity, asthma , presenting with headache for 5 days. History notable for 5 day course, preceding itch / lacrimation, progressive worsening, worst headache of life, photophobia, some relief with Tylenol. Exam notable for AFHDS, normal cranial nerves, conjunctival injection, active tearing - non-purulent, tender left temporal artery, non-tender frontal / maxillary sinuses. DDX: Temporal arteritis, atypical migraine, cavernous venous thrombosis, ethmoid sinusitis, less likely subarachnoid hemorrhage, space occupying lesion, bilateral uveitis. - CBC, CMP, Caogs, ESR, CRP - NCHCT - 1g Ofirmev 04/02/19 13:55 - Labs wnl, no acute intra-cranial findings on CT - Headache resolved with Tylenol in department - No pupillary / occular movement abnormalities, making cavernous sinus thrombosis less likely - Story not c/w subarachnoid given resolution with Tylenol, good BP control, eye /face symptoms - ESR and CRP not elevated, making GCA / TA unlikely - No evidence of sinusitis on the NCHCT, none identified by radiology - Most likely an atypical migraine given this workup - Patient will follow up with Dr. Baumann on Thursday as scheduled - 4U SQ Insulin - Will obtain ocular US to assess for papilledema, if edematous - will obtain LP with opening pressure Dispo: home 04/02/19 14:47 - No edema on ocular US Discharge - Discharge Information Problems reviewed: Yes Clinical Impression/Diagnosis: Headache Qualifiers: Headache type: unspecified Headache chronicity pattern: acute headache Intractability: not intractable Qualified Code(s): R51 - Headache Condition: Improved Disposition: HOME - Admission No - Follow up/Referral Referrals: Saurabh Harris MD [Primary Care Provider] - Chepe Nieto MD [Staff Physician] - - Patient Discharge Instructions Patient Printed Discharge Instructions: DI for Migraine Additional Instructions: You were seen and evaluated at [facility] for a headache. Continue your home medications as prescribed. You can take Motrin or Tylenol for your headache. Follow up with Dr. Harris on Thursday as scheduled. Follow up with Dr. Nieto within the next week for evaluation of your itchy eyes. Return to the ED for any new or concerning symptoms. - Post Discharge Activity
[2019-04-02] MEDS ORDERED: ACETAMINOPHEN 1000 MG/100 ML VIAL (NON FORMULARY) IVPB ONE (11:14)
[2019-04-02 11:52] LABS: EOS % 2.2 % (0-4.5); HEMATOCRIT 41.1 % (32.4-45.2); HEMOGLOBIN 13.6 GM/dL (10.7-15.3); LYMPH % 21.6 % (8-40); MEAN CELL VOLUME 87.9 fl (80-96); MEAN PLT VOLUME 9.7 fl (7.5-11.1); MONO % 5.7 % (3.8-10.2); NEUT % 69.5 % (42.8-82.8); PLATELET COUNT 185 K/MM3 (134-434); RBC 4.67 M/mm3 (3.60-5.2); RDW 14.2 % (11.6-15.6); WHITE BLOOD COUNT 6.7 K/mm3 (4.0-10.0)
[2019-04-02 12:18] LABS: INR 0.95 (0.83-1.09); PROTHROMBIN TIME (PATIENT) 11.2 SEC (9.7-13.0)
[2019-04-02 12:21] LABS: ACTIVATED PTT 35.5 SECONDS (25.2-36.5)
[2019-04-02 12:30] LABS: ALBUMIN 3.8 g/dl (3.4-5.0); ALK PHOS 106 U/L (45-117); ANION GAP 4 MMOL/L (8-16); BILIRUBIN,TOTAL 0.5 mg/dL (0.2-1); BLOOD UREA NITROGEN 17.6 mg/dL (7-18); CALCIUM 9.7 mg/dL (8.5-10.1); CHLORIDE 102 mmol/L (98-107); CO2 31 mmol/L (21-32); GLUCOSE,RANDOM 308 mg/dL (74-106); POTASSIUM 4.3 mmol/L (3.5-5.1); SGOT/AST 14 U/L (15-37); SGPT/ALT 19 U/L (13-61); SODIUM 137 mmol/L (136-145); TOT PROT 7.8 g/dl (6.4-8.2)
--- NOTE | 2019-04-02 12:53 | PDOC ---
Documentation entered by Tad Lee SCRIBE, acting as scribe for Jatinder Mckinley MD. Jatinder Mckinley MD: This documentation has been prepared by the Jesus jaffe Angel, SCRIBE, under my direction and personally reviewed by me in its entirety. I confirm that the documentation accurately reflects all work, treatment, procedures, and medical decision making performed by me. Attending Attestation - Resident Resident Name: NiiWayne - ED Attending Attestation I have performed the following: I have examined & evaluated the patient, The case was reviewed & discussed with the resident, I agree w/resident's findings & plan, Exceptions are as noted - HPI HPI: 04/02/19 11:19 Patient is a 69 year old female with a significant past medical history of diabetes, HTN, HLD, and asthma who presents to the ED with 5 days of headache. Patient states the headache started abruptly and has progressively worsened. Patient reports associated photophobia, nasal congestion and itchy eyes. Patient states she takes tylenol for the headaches but only experiences temporary relief. Patient denies fever, chills. Denies chest pain, shortness of breath. Denies nausea, vomiting, diarrhea, abdominal pain. Denies urinary symptoms. Allergies: NKDA Surgical history: Appendectomy PCP: Dr. Harris - Physicial Exam PE: 04/02/19 12:50 EXAMINATION CONSTITUTIONAL: awake, alet, ob[place]; in no apparent distress HEAD: Normocephalic; atraumatic EYES: PERRL; EOM intact; Conjunctival injection bilaterally, No nystagmus; Positive photophobia ENMT: External appears normal; normal oropharynx NECK: Supple; non-tender; no cervical lymphadenopathy; No meningismus CARD: Normal S1, S2; no murmurs, rubs, or gallops RESP: Normal chest excursion with respiration; breath sounds clear and equal bilaterally; no wheezes, rhonchi, or rales ABD: Soft, non-distended; non-tender; no palpable organomegaly, no palpable hernias EXT: Normal ROM in all four extremities; non-tender to palpation; distal pulses intact SKIN: Warm, dry, no rash NEURO: Cranial nerves II through XII are grossly intact; motor is 5 over 54; no pronation drift; gait-stable - Medical Decision Making 04/02/19 12:52 69-year-old female with multiple comorbidities presents with atraumatic intermittent headache for the past 5 days associated with photophobia and conjunctival injection. In the ER, patient is awake and alert, afebrile, nontoxic-appearing; serial neuro exams are within normal limits without focal neuro deficits. There is no evidence of meningismus. I do not suspect subarachnoid hemorrhage at this time. Patient symptoms may be related to acute sinusitis. Will obtain CT head to rule out intracranial hemorrhage. Will evaluate for possible temporal arteritis with ESR. Will reassess. 04/02/19 14:49 Patient is resting comfortably, symptom-free, no focal neuro deficits on repeat exam. CT of head shows no evidence of acute intracranial pathology. ESR is negative for temporal arteritis. I do not suspect subarachnoid hemorrhage/ meningitis/dural sinus thrombosis/pseudotumor cerebri. Migraine headache is likely. Will discharge with outpatient follow-up.
[2019-04-02 13:33] LABS: ERYTHROCYTE SEDIMENTATION RATE 11 mm/hr (0-30)
[2019-04-02] MEDS ORDERED: INSULIN REGULAR HUMAN 100 UNITS/ML *VIAL SQ ONE (14:07)
[2019-04-02 15:10] VITALS: BP 126/78; PULSE 68
== END 2019-04-02 15:23 | disposition home or self-care (01) ==
LOC: JER 10:18
PROC: 3E013VG Introduction of Insulin into Subcutaneous Tissue, Percutaneous Approach (ICD-10-PCS; principal; 2019-04-02)
PROC: 3E033NZ Introduction of Analgesics, Hypnotics, Sedatives into Peripheral Vein, Percutaneous Approach (ICD-10-PCS; 2019-04-02)
DX: G43.909 Migraine, unspecified, not intractable, without status migrainosus (principal); E11.65 Type 2 diabetes mellitus with hyperglycemia; I25.10 Atherosclerotic heart disease of native coronary artery without angina pectoris; I10 Essential (primary) hypertension; Z95.5 Presence of coronary angioplasty implant and graft; E78.5 Hyperlipidemia, unspecified; J45.909 Unspecified asthma, uncomplicated; E66.9 Obesity, unspecified; Z68.34 Body mass index [BMI] 34.0-34.9, adult
CPT/HCPCS: 36415; 70450-TC; 80053; 85025; 85610; 85651; 85730; 86140; 96372; 96374; 99285-25; J0131

== ENCOUNTER 2019-10-19 05:01 | Day surgery (SDC) | payer MEDICARE, OTHER ==
[2019-10-18 17:37] VITALS: BMI 34.4
[~2019-10-19 05:01] MED LIST changes: +ACETAMINOPHEN 325 MG TABLET (FP) PO PRN; -ALBUTEROL SO4 2.5/IPRATROPIUM 0.5 INH SOL 3 ML VIAL.NEB. NEB ONE; +CYCLOPENTOLATE HCL 1% OPHTH SOLN 2 ML BOTTLE OP SCH; -DEXAMETHASONE SOD PHOSPHATE 10 MG/1 ML VIAL ONE; +EPINEPHrine/PF 1 MG/1 ML (1:1,000) AMPULE SQ ONE; -FUROSEMIDE 40 MG/4 ML INJECTABLE VIAL IVPB SCH; -FUROSEMIDE 40 MG/4 ML INJECTABLE VIAL IVPUSH ONE; -FUROSEMIDE 40 MG/4 ML INJECTABLE VIAL ONE; +KETOROLAC TROMETHAMINE 0.5% EYE DROP 1 DROP DROPS OP SCH; -MAGNESIUM SULF 50% (8.12 MEQ/2 ML-1 GM VIAL) IVPB ONE; -MAGNESIUM SULF 50% (8.12 MEQ/2 ML-1 GM VIAL) ONE; +OFLOXACIN 0.3% OPHTHALMIC SOLUTION 5 ML BOTTLE OP SCH; -OXYCODONE/APAP 5/325MG COMBO TABLET ONE; -OXYCODONE/APAP 5/325MG COMBO TABLET PO ONE; +PHENYLEPHRINE 2.5% OPHTH SOLN 15 ML BOTTLE OP SCH; +TROPICAMIDE 1% OPHTH SOLN 15 ML BOTTLE OP SCH
[2019-10-19] MEDS ORDERED: TROPICAMIDE 1% OPHTH SOLN 15 ML BOTTLE ONE (06:38)
[2019-10-19] MEDS ORDERED: OFLOXACIN 0.3% OPHTHALMIC SOLUTION 5 ML BOTTLE ONE (06:38)
[2019-10-19] MEDS ORDERED: CYCLOPENTOLATE HCL 1% OPHTH SOLN 2 ML BOTTLE ONE (06:39)
[2019-10-19] MEDS ORDERED: KETOROLAC TROMETHAMINE 0.5% EYE DROP 1 DROP DROPS ONE (06:39)
[2019-10-19] MEDS ORDERED: CHONDROITIN SU A/HYALUR SOD 1 KIT ONE (07:11)
[2019-10-19] MEDS ORDERED: BUPIVACAINE HCL/PF 0.75% 10 ML VIAL ONE (07:22)
[2019-10-19] MEDS ORDERED: LIDOCAINE HCL/PF 2% SDV 5ML VIAL ONE ×2 (07:22→08:10)
[2019-10-19] MEDS ORDERED: EPINEPHrine/PF 1 MG/1 ML (1:1,000) AMPULE ONE (07:22)
[2019-10-19] MEDS ORDERED: VANCOMYCIN 500 MG VIAL (RESTRICTED TO ID ONLY) ONE (07:22)
[2019-10-19] MEDS ORDERED: BSS (NA/CA/MG/K) BALANCED SALT SOLUTION OPHTH SOLN 15 ML BOTTLE ONE (07:23)
[2019-10-19] MEDS ORDERED: WATER FOR INJ,STERILE 10 ML ONE (07:23)
[2019-10-19] MEDS ORDERED: TETRACAINE 0.5% OPHTH SOLN 2 ML BOTTLE ONE (07:23)
[2019-10-19] MEDS ORDERED: LIDOCAINE HCL/PF 1% SDV 5ML VIAL ONE (07:23)
[2019-10-19] MEDS ORDERED: POVIDONE-IODINE 5% OPHTHALMIC PREP 30 ML SOLUTION ONE (07:24)
[2019-10-19] MEDS ORDERED: MIDAZOLAM HCL 2 MG/2 ML SINGLE DOSE VIAL ONE (08:10)
[2019-10-19] MEDS ORDERED: PROPOFOL 20 ML ONE ×2 (08:10)
[2019-10-19] MEDS ORDERED: BUPIVACAINE HCL/PF 0.75% 10 ML VIAL NR ONE (08:18)
[2019-10-19] MEDS ORDERED: LIDOCAINE HCL/PF 2% SDV 5ML VIAL SQ ONE (08:18)
[2019-10-19] MEDS ORDERED: POVIDONE-IODINE 5% OPHTHALMIC PREP 30 ML SOLUTION OD ONE (08:22)
[2019-10-19] MEDS ORDERED: CHONDROITIN SU A/HYALUR SOD 1 KIT IO ONE (08:30)
[2019-10-19] MEDS ORDERED: LIDOCAINE HCL 1% PRESERVATIVE FREE - 30ML VIAL IO ONE (08:30)
[2019-10-19] MEDS ORDERED: BSS (NA/CA/MG/K) BALANCED SALT SOLUTION OPHTH SOLN 15 ML BOTTLE OD ONE (08:30)
[2019-10-19] MEDS ORDERED: TRYPAN BLUE 0.5 ML DISP.SYRIN IO ONE (08:32)
[2019-10-19] MEDS ORDERED: EPINEPHrine/PF 1 MG/1 ML (1:1,000) AMPULE SQ ONE (08:37)
[2019-10-19 10:42] VITALS: BP 143/77; PULSE 74; TEMP 97.8
--- NOTE | 2019-10-19 14:27 | OP ---
DATE OF OPERATION: 10/19/2019 PREOPERATIVE DIAGNOSIS: Cataract, right eye. POSTOPERATIVE DIAGNOSIS: Mature cataract, right eye. PROCEDURE: Phacoemulsification with capsule staining with trypan blue and posterior chamber intraocular lens implantation, right eye. LENS USED: [id number] 22.0 diopter power, serial number [id number]. ANESTHESIA: Peribulbar/modified Van Lint/mask. COMPLICATIONS: None. PROCEDURE: The patient was brought to the operating room and correctly identified along with the operative site as well as correct intraocular lens colby. She was then given a peribulbar block under sedation with 5 mL of a 1:1 mixture of 2% lidocaine and 0.75% bupivacaine. Two mL of the same mixture was given as a modified Van Lint eyelid block. The patient was then then prepped and draped in the usual sterile fashion including 5% Betadine solution in the conjunctival sac and an eyelid drape. An eyelid speculum was then placed into the right eye. The eye was inspected and a white cataract was noted. No fluid channels were noted within the anterior cataract. A paracentesis port was created and 0.5 mL of 1% preservative-free lidocaine 1% was given intracamerally. An air bubble was then placed in the anterior chamber and the capsule stained with trypan blue. Then 0.5 mL of the same preservative-free lidocaine 1% was given to irrigate the trypan blue from the eye. Viscoelastic was injected to inflate the anterior chamber. A temporal clear corneal wound was created. A continuous circular capsulorrhexis was performed and the nucleus was hydrodissected with the BSS and removed with phacoemulsification via [id number] approach. The remaining cortical material was irrigated and aspirated without complication. Viscoelastic was injected to inflate the capsular bag. The lens was injected into the bag. Viscoelastic was irrigated and aspirated from the eye. All wounds were stromal hydrated and tested and found to be watertight. No suture was placed. Topical Vancomycin given. The eye patched and shielded and the patient discharged from the operating room in a stable condition. SIMBA COLEMAN M.D. [id number]
== END 2019-10-19 11:00 | disposition home or self-care (01) ==
LOC: JASU-SURG 05:01
PROVIDERS: ATTEND Ophthalmology
PROC: 08RJ3JZ Replacement of Right Lens with Synthetic Substitute, Percutaneous Approach (ICD-10-PCS; principal; 2019-10-19 08:00)
DX: H25.89 Other age-related cataract (principal); I10 Essential (primary) hypertension; E11.9 Type 2 diabetes mellitus without complications; J45.909 Unspecified asthma, uncomplicated
CPT/HCPCS: 82962

== ENCOUNTER 2020-09-02 10:16 | Observation (INO) | payer MEDICARE, OTHER ==
[2020-09-02 13:01] LABS: BASO % 1.7 % (0-2.0); EOS % 1.5 % (0-4.5); HEMATOCRIT 43.9 % (32.4-45.2); HEMOGLOBIN 14.7 GM/dL (10.7-15.3); LYMPH % 21.4 % (8-40); MCH 29.3 pg (25.7-33.7); MCHC 33.4 g/dl (32.0-36.0); MEAN CELL VOLUME 87.8 fl (80-96); MEAN PLT VOLUME 9.2 fl (7.5-11.1); MONO % 5.4 % (3.8-10.2); PLATELET COUNT 207 10^3/uL (134-434); WHITE BLOOD COUNT 8.1 K/mm3 (4.0-10.0)
[2020-09-02 13:18] LABS: BLOOD UREA NITROGEN 13.7 mg/dL (7-18); CALCIUM 9.6 mg/dL (8.5-10.1)
[2020-09-02 13:21] LABS: CREATININE 0.9 mg/dL (0.55-1.3)
[2020-09-02 13:23] LABS: BILIRUBIN,TOTAL 0.3 mg/dL (0.2-1)
[2020-09-02 16:49] VITALS: BMI 36.5
[2020-09-02] MEDS ORDERED: SODIUM CHLORIDE 500 ML IV STA (17:37)
[2020-09-02] MEDS ORDERED: NAPROXEN 500 MG TABLET PO ONE (20:02)
[2020-09-03 08:08] LABS: BASO % 0.6 % (0-2.0); EOS % 2.5 % (0-4.5); HEMATOCRIT 38.6 % (32.4-45.2); HEMOGLOBIN 13.1 GM/dL (10.7-15.3); LYMPH % 27.7 % (8-40); MCH 29.9 pg (25.7-33.7); MCHC 33.9 g/dl (32.0-36.0); MEAN CELL VOLUME 88.1 fl (80-96); MEAN PLT VOLUME 10.1 fl (7.5-11.1); NEUT % 62.2 % (42.8-82.8); PLATELET COUNT 172 10^3/uL (134-434); RBC 4.38 M/mm3 (3.60-5.2); WHITE BLOOD COUNT 7.6 K/mm3 (4.0-10.0)
[2020-09-03 08:31] LABS: ALBUMIN 3.3 g/dl (3.4-5.0)
[2020-09-03 08:32] LABS: BILIRUBIN,TOTAL 0.7 mg/dL (0.2-1); CALCIUM 8.9 mg/dL (8.5-10.1); TOT PROT 6.2 g/dl (6.4-8.2)
[2020-09-03 08:33] LABS: BLOOD UREA NITROGEN 14.7 mg/dL (7-18)
[2020-09-03 08:34] LABS: CREATININE 0.7 mg/dL (0.55-1.3)
[2020-09-03] MEDS: PANTOPRAZOLE 40 MG TABLET PO SCH (10:18)
[2020-09-03] MEDS: ENOXAPARIN NA (PORCINE) 40 MG/0.4 ML DISP.SYRIN SQ SCH (10:18)
[2020-09-03] MEDS ORDERED: INSULIN SLIDING SCALE (NOVOLOG) 1 VIAL SQ SCH (11:00)
[2020-09-03] MEDS: INSULIN SLIDING SCALE (NOVOLOG) 1 VIAL SQ SCH ×3 (12:56→21:16)
[2020-09-03] MEDS ORDERED: PT OWN MED DRAWER 7, Y5N ONE (17:36)
[2020-09-03] MEDS ORDERED: NAPROXEN 500 MG TABLET PO ONE (21:21)
[2020-09-04] MEDS: INSULIN SLIDING SCALE (NOVOLOG) 1 VIAL SQ SCH ×4 (06:28→21:29)
[2020-09-04] MEDS: PANTOPRAZOLE 40 MG TABLET PO SCH (09:35)
[2020-09-04] MEDS: ENOXAPARIN NA (PORCINE) 40 MG/0.4 ML DISP.SYRIN SQ SCH (09:36)
[2020-09-04] MEDS ORDERED: INSULIN (NOVOLOG) ASPART 100 UNITS/ML 10ML VIAL ONE (11:09)
[2020-09-04] MEDS ORDERED: CELECOXIB 200 MG CAPSULE PO ONE (11:12)
[2020-09-04] MEDS ORDERED: ROSUVASTATIN CA 40 MG TABLET PO ONE ×2 (12:13→12:15)
[2020-09-04] MEDS ORDERED: HYDROCHLOROTHIAZIDE 12.5 MG CAPSULE (FP) PO SCH (12:15)
[2020-09-04] MEDS: VALSARTAN 40 MG TABLET PO SCH (12:51)
[2020-09-04] MEDS: metFORMIN HCL 500 MG TABLET (FP) PO SCH (17:00)
[2020-09-04] MEDS ORDERED: PT OWN MED DRAWER 7, Y5N ONE (18:53)
[2020-09-04] MEDS ORDERED: ACETAMINOPHEN 325 MG TABLET (FP) PO ONE (20:39)
[2020-09-04] MEDS ORDERED: KETOROLAC TROMETHAMINE 15 MG/ML VIAL IVPUSH ONE (20:39)
[2020-09-05] MEDS: metFORMIN HCL 500 MG TABLET (FP) PO SCH (06:09)
[2020-09-05] MEDS: INSULIN SLIDING SCALE (NOVOLOG) 1 VIAL SQ SCH ×2 (06:09→11:56)
[2020-09-05] MEDS: VALSARTAN 40 MG TABLET PO SCH (10:38)
[2020-09-05] MEDS: PANTOPRAZOLE 40 MG TABLET PO SCH (10:38)
[2020-09-05] MEDS: ENOXAPARIN NA (PORCINE) 40 MG/0.4 ML DISP.SYRIN SQ SCH (10:39)
[2020-09-05 13:59] VITALS: BP 135/67; PULSE 66; TEMP 98.5
[2020-09-05] MEDS ORDERED: ROSUVASTATIN CA 40 MG TABLET PO SCH (22:00)
== END 2020-09-05 15:21 | disposition home or self-care (01) ==
LOC: JER 10:16 → JERBED 13:31 → INTOOBSV 13:31 → UNDOADMOB 13:31 → JERBED 15:52 → J4W 15:52 → JERBED 09-03 13:29
PROVIDERS: ADMIT Internal Medicine; ATTEND Internal Medicine
PROC: 3E023GC Introduction of Other Therapeutic Substance into Muscle, Percutaneous Approach (ICD-10-PCS; principal; 2020-09-03)
PROC: 3E013VG Introduction of Insulin into Subcutaneous Tissue, Percutaneous Approach (ICD-10-PCS; 2020-09-03)
DX: R55 Syncope and collapse (principal); E11.9 Type 2 diabetes mellitus without complications; I25.10 Atherosclerotic heart disease of native coronary artery without angina pectoris; I11.9 Hypertensive heart disease without heart failure; Z87.891 Personal history of nicotine dependence; M19.90 Unspecified osteoarthritis, unspecified site; E66.9 Obesity, unspecified; Z68.36 Body mass index [BMI] 36.0-36.9, adult; E78.5 Hyperlipidemia, unspecified; J45.909 Unspecified asthma, uncomplicated; Z79.84 Long term (current) use of oral hypoglycemic drugs; W18.39XA Other fall on same level, initial encounter; Y93.89 Activity, other specified; Y92.89 Other specified places as the place of occurrence of the external cause; Z29.9 Encounter for prophylactic measures, unspecified
CPT/HCPCS: 36415; 70450-TC; 71045-TC-FY; 72125-TC; 72170-TC-FY; 73030-TC-LT-FY; 73200-TC-RT; 80053; 80061; 82550; 82553; 82607; 82746; 82962; 83036; 83721; 84439; 84443; 84484; 85025; 93005; 93010; 93306-TC; 93880-TC; 96372; 97116-GP; 97161-GP; 99285-25; C9803; G0378; U0003; U0005

== ENCOUNTER → 2020-09-26 | Day surgery (SDC) | payer MEDICARE, OTHER ==
[2020-09-24 14:04] VITALS: BMI 36.5
[~2020-09-26] MED LIST changes: -ACETAMINOPHEN 325 MG TABLET (FP) PO PRN; +BSS (NA/CA/MG/K) BALANCED SALT SOLUTION OPHTH SOLN 15 ML BOTTLE ONE; +BUPIVACAINE HCL/PF 0.75% 10 ML VIAL ONE; -EPINEPHrine/PF 1 MG/1 ML (1:1,000) AMPULE SQ ONE; +LIDOCAINE HCL 2% (20ML MULTI-DOSE VIAL) ONE; +LIDOCAINE HCL/PF 1% SDV 5ML VIAL ONE; +LIDOCAINE HCL/PF 2% SDV 5ML VIAL ONE; +POVIDONE-IODINE 5% OPHTHALMIC PREP 30 ML SOLUTION ONE
== END | disposition home or self-care (01) ==
LOC: JASU-SURG 04:45
PROVIDERS: ATTEND Ophthalmology
DX: Z53.8 Procedure and treatment not carried out for other reasons (principal)

== ENCOUNTER 2020-10-24 04:47 | Day surgery (SDC) | payer MEDICARE, OTHER ==
[2020-10-23 08:51] VITALS: BMI 34.4
[~2020-10-24 04:47] MED LIST changes: +ACETAMINOPHEN 325 MG TABLET (FP) PO PRN; -BSS (NA/CA/MG/K) BALANCED SALT SOLUTION OPHTH SOLN 15 ML BOTTLE ONE; +BSS (NA/CA/MG/K) BALANCED SALT SOLUTION OPHTH SOLN 15 ML BOTTLE OS ONE; +BUPIVACAINE HCL/PF 0.75% 10 ML VIAL NR ONE; -BUPIVACAINE HCL/PF 0.75% 10 ML VIAL ONE; +CHONDROITIN SU A/HYALUR SOD 1 KIT IO ONE; -CYCLOPENTOLATE HCL 1% OPHTH SOLN 2 ML BOTTLE OP SCH; +EPINEPHrine/PF 1 MG/1 ML (1:1,000) AMPULE SQ ONE; -KETOROLAC TROMETHAMINE 0.5% EYE DROP 1 DROP DROPS OP SCH; +LIDOCAINE HCL 1% PRESERVATIVE FREE - 30ML VIAL IO ONE; -LIDOCAINE HCL 2% (20ML MULTI-DOSE VIAL) ONE; -LIDOCAINE HCL/PF 1% SDV 5ML VIAL ONE; +LIDOCAINE HCL/PF 2% SDV 5ML VIAL INF ONE; -LIDOCAINE HCL/PF 2% SDV 5ML VIAL ONE; -OFLOXACIN 0.3% OPHTHALMIC SOLUTION 5 ML BOTTLE OP SCH; -PHENYLEPHRINE 2.5% OPHTH SOLN 15 ML BOTTLE OP SCH; -POVIDONE-IODINE 5% OPHTHALMIC PREP 30 ML SOLUTION ONE; +POVIDONE-IODINE 5% OPHTHALMIC PREP 30 ML SOLUTION OS ONE; -TROPICAMIDE 1% OPHTH SOLN 15 ML BOTTLE OP SCH
[2020-10-24] MEDS ORDERED: OFLOXACIN 0.3% OPHTHALMIC SOLUTION 5 ML BOTTLE ONE (08:53)
[2020-10-24] MEDS: CYCLOPENTOLATE HCL 1% OPHTH SOLN 2 ML BOTTLE OP SCH ×3 (09:50→10:10)
[2020-10-24] MEDS: TROPICAMIDE 1% OPHTH SOLN 15 ML BOTTLE OP SCH ×3 (09:50→10:09)
[2020-10-24] MEDS: KETOROLAC TROMETHAMINE 0.5% EYE DROP 1 DROP DROPS OP SCH ×3 (09:50→10:10)
[2020-10-24] MEDS: PHENYLEPHRINE 2.5% OPHTH SOLN 15 ML BOTTLE OP SCH ×3 (09:50→10:10)
[2020-10-24] MEDS: POLYMYXIN B SULFATE/TMP 10 ML OPHTHALMIC SOLUTION OS SCH ×3 (09:50→10:09)
[2020-10-24] MEDS ORDERED: PROPOFOL 20 ML ONE (11:01)
[2020-10-24] MEDS ORDERED: LIDOCAINE HCL/PF 2% SDV 5ML VIAL ONE (11:09)
[2020-10-24] MEDS ORDERED: LIDOCAINE HCL/PF 2% SDV 5ML VIAL INF ONE (11:12)
[2020-10-24] MEDS ORDERED: BUPIVACAINE HCL/PF 0.75% 10 ML VIAL NR ONE (11:12)
[2020-10-24] MEDS ORDERED: POVIDONE-IODINE 5% OPHTHALMIC PREP 30 ML SOLUTION OS ONE (11:13)
[2020-10-24] MEDS ORDERED: BSS (NA/CA/MG/K) BALANCED SALT SOLUTION OPHTH SOLN 15 ML BOTTLE OS ONE (11:22)
[2020-10-24] MEDS ORDERED: CHONDROITIN SU A/HYALUR SOD 1 KIT IO ONE (11:22)
[2020-10-24] MEDS ORDERED: LIDOCAINE HCL 1% PRESERVATIVE FREE - 30ML VIAL IO ONE (11:22)
[2020-10-24] MEDS ORDERED: EPINEPHrine/PF 1 MG/1 ML (1:1,000) AMPULE SQ ONE (11:27)
[2020-10-24 13:52] VITALS: BP 144/69; PULSE 73; TEMP 97.5
== END 2020-10-24 13:00 | disposition home or self-care (01) ==
LOC: JASU-SURG 04:47
PROVIDERS: ATTEND Ophthalmology
PROC: 08RK3JZ Replacement of Left Lens with Synthetic Substitute, Percutaneous Approach (ICD-10-PCS; principal; 2020-10-24 11:00)
DX: H26.9 Unspecified cataract (principal); I10 Essential (primary) hypertension; E11.9 Type 2 diabetes mellitus without complications
CPT/HCPCS: 82962

== ENCOUNTER 2021-09-05 17:46 | Emergency (ER) | payer MEDICARE, OTHER ==
[2021-09-05 18:08] VITALS: BP 132/82; PULSE 72; RESP 18; TEMP 98.1; BMI 34.4
[2021-09-05 20:01] LABS: BASO % 1.1 % (0-2.0); EOS % 2.9 % (0-4.5); HEMATOCRIT 42.6 % (32.4-45.2); HEMOGLOBIN 14.1 GM/dL (10.7-15.3); LYMPH % 30.4 % (8-40); MCH 29.6 pg (25.7-33.7); MCHC 33.2 g/dl (32.0-36.0); MEAN CELL VOLUME 89.1 fl (80-96); MEAN PLT VOLUME 10.2 fl (7.5-11.1); MONO % 6.4 % (3.8-10.2); NEUT % 59.2 % (42.8-82.8); PLATELET COUNT 184 10^3/uL (134-434); RBC 4.79 M/mm3 (3.60-5.2); RDW 14.6 % (11.6-15.6); WHITE BLOOD COUNT 6.5 K/mm3 (4.0-10.0)
[2021-09-05 20:02] LABS: URINE APPEARANCE CLEAR; URINE BILIRUBIN NEGATIVE (NEGATIVE); URINE COLOR YELLOW; URINE GLUCOSE (UA) 3+ (NEGATIVE); URINE KETONE NEGATIVE (NEGATIVE); URINE LEUK ESTERASE NEGATIVE (NEGATIVE); URINE NITRITE NEGATIVE (NEGATIVE); URINE PROTEIN NEGATIVE (NEGATIVE)
[2021-09-05 20:21] LABS: CALCIUM 9.5 mg/dL (8.5-10.1)
[2021-09-05 20:25] LABS: CREATININE 0.8 mg/dL (0.55-1.3)
[2021-09-05] MEDS ORDERED: KETOROLAC TROMETHAMINE 30 MG/1 ML VIAL IVPUSH ONE (21:50)
[2021-09-05] MEDS ORDERED: LIDOCAINE 5% TOPICAL PATCH TP ONE (21:50)
[2021-09-05] MEDS ORDERED: KETOROLAC TROMETHAMINE 30 MG/1 ML VIAL ONE (21:51)
[2021-09-05] MEDS ORDERED: LIDOCAINE 5% TOPICAL PATCH ONE (21:51)
[2021-09-05] MEDS ORDERED: LIDOCAINE PATCH REMOVAL MC SCH (22:00)
== END 2021-09-05 22:30 | disposition home or self-care (01) ==
LOC: JERFT 17:46
PROC: 3E033GC Introduction of Other Therapeutic Substance into Peripheral Vein, Percutaneous Approach (ICD-10-PCS; principal; 2021-09-05)
DX: M54.41 Lumbago with sciatica, right side (principal)
CPT/HCPCS: 36415; 74176-TC; 80048; 81003; 85025; 87086; 96374; 99285-25

== ENCOUNTER 2021-09-11 11:45 | Inpatient (IN) | payer MEDICARE, OTHER ==
[2021-09-11 11:53] VITALS: BMI 34.4
[2021-09-11] MEDS ORDERED: SODIUM CHLORIDE 0.9% 500 ML INFUS.BAG IV ONE ×2 (13:05→17:49)
[2021-09-11] MEDS ORDERED: LIDOCAINE 5% TOPICAL PATCH TP ONE (13:05)
[2021-09-11] MEDS ORDERED: KETOROLAC TROMETHAMINE 15 MG/ML VIAL IVPUSH ONE (13:05)
[2021-09-11] MEDS ORDERED: LIDOCAINE 5% TOPICAL PATCH ONE (13:39)
[2021-09-11] MEDS ORDERED: KETOROLAC TROMETHAMINE 15 MG/ML VIAL ONE (13:40)
[2021-09-11 14:53] LABS: BASO % 0.4 % (0-2.0); EOS % 2.3 % (0-4.5); HEMATOCRIT 45.6 % (32.4-45.2); HEMOGLOBIN 15.1 GM/dL (10.7-15.3); LYMPH % 29.8 % (8-40); MCH 29.6 pg (25.7-33.7); MCHC 33.1 g/dl (32.0-36.0); MEAN CELL VOLUME 89.5 fl (80-96); MEAN PLT VOLUME 10.1 fl (7.5-11.1); NEUT % 60.5 % (42.8-82.8); PLATELET COUNT 180 10^3/uL (134-434); RBC 5.09 M/mm3 (3.60-5.2); RDW 14.5 % (11.6-15.6); WHITE BLOOD COUNT 6.9 K/mm3 (4.0-10.0)
[2021-09-11 14:56] LABS: EPI CELLS >36 /uL (0-25.1); HYALINE CASTS 3 /uL (0-3.1); PH,URINE 5.5 (5.0-8.0); URINE APPEARANCE CLOUDY; URINE BACTERIA 2640 /uL (0-1359); URINE BILIRUBIN NEGATIVE (NEGATIVE); URINE COLOR YELLOW; URINE GLUCOSE (UA) 1+ (NEGATIVE); URINE KETONE NEGATIVE (NEGATIVE); URINE LEUK ESTERASE TRACE (NEGATIVE); URINE NITRITE NEGATIVE (NEGATIVE); URINE PROTEIN TRACE (NEGATIVE); URINE RBC 4 /uL (0-23.9); URINE WBC 41 /uL (0-25.8)
[2021-09-11 15:19] LABS: BLOOD UREA NITROGEN 12.7 mg/dL (7-18); CALCIUM 10.1 mg/dL (8.5-10.1)
[2021-09-11 15:22] LABS: CREATININE 0.9 mg/dL (0.55-1.3)
[2021-09-11 15:24] LABS: BILIRUBIN,TOTAL 0.6 mg/dL (0.2-1); TOT PROT 7.8 g/dl (6.4-8.2)
[2021-09-11] MEDS ORDERED: morphine CARPU-JECT 4 MG/1 ML DISP.SYRIN IVPUSH ONE (17:49)
[2021-09-11] MEDS ORDERED: morphine SULFATE 4 MG/ML VIAL ONE (18:28)
[2021-09-11] MEDS ORDERED: LIDOCAINE PATCH REMOVAL MC ONE (22:00)
[2021-09-12] MEDS ORDERED: ACETAMINOPHEN 325 MG TABLET (FP) PO PRN ×2 (00:47→16:22)
[2021-09-12] MEDS ORDERED: ACETAMINOPHEN 325 MG TABLET (FP) ONE (01:42)
[2021-09-12] MEDS: ACETAMINOPHEN 325 MG TABLET (FP) PO PRN (01:55)
[2021-09-12] MEDS: INSULIN SLIDING SCALE (NOVOLOG) 1 VIAL SQ SCH ×4 (07:45→22:32)
[2021-09-12 08:01] LABS: HEMATOCRIT 39.1 % (32.4-45.2); MCH 29.5 pg (25.7-33.7); MCHC 33.2 g/dl (32.0-36.0); MEAN CELL VOLUME 88.8 fl (80-96); MEAN PLT VOLUME 9.5 fl (7.5-11.1); PLATELET COUNT 148 10^3/uL (134-434); WHITE BLOOD COUNT 5.5 K/mm3 (4.0-10.0)
[2021-09-12 08:41] LABS: BLOOD UREA NITROGEN 14.6 mg/dL (7-18)
[2021-09-12 08:42] LABS: ALBUMIN 3.3 g/dl (3.4-5.0)
[2021-09-12 08:44] LABS: CALCIUM 8.8 mg/dL (8.5-10.1); PHOSPHOROUS 3.7 mg/dL (2.5-4.9)
[2021-09-12 08:45] LABS: CREATININE 0.8 mg/dL (0.55-1.3)
[2021-09-12 08:46] LABS: BILIRUBIN,TOTAL 0.6 mg/dL (0.2-1); TOT PROT 6.2 g/dl (6.4-8.2)
[2021-09-12 08:50] LABS: MAGNESIUM 2.1 mg/dL (1.8-2.4)
[2021-09-12] MEDS ORDERED: VALSARTAN 80 MG TABLET ONE (09:05)
[2021-09-12] MEDS ORDERED: HYDROCHLOROTHIAZIDE 25 MG TABLET (FP) ONE (09:05)
[2021-09-12] MEDS: HYDROCHLOROTHIAZIDE 12.5 MG CAPSULE (FP) PO SCH (09:32)
[2021-09-12] MEDS: VALSARTAN 40 MG TABLET PO SCH (09:32)
[2021-09-12] MEDS ORDERED: INSULIN (NOVOLOG) ASPART 100 UNITS/ML 10ML VIAL ONE (22:21)
[2021-09-12] MEDS: ROSUVASTATIN CA 20 MG TABLET PO SCH (22:32)
[2021-09-12 22:59] VITALS: RESP 18
[2021-09-13] MEDS: INSULIN SLIDING SCALE (NOVOLOG) 1 VIAL SQ SCH ×5 (07:06→21:23)
[2021-09-13] MEDS: HYDROCHLOROTHIAZIDE 12.5 MG CAPSULE (FP) PO SCH (09:34)
[2021-09-13] MEDS: VALSARTAN 40 MG TABLET PO SCH (09:34)
[2021-09-13] MEDS: ACETAMINOPHEN 325 MG TABLET (FP) PO PRN (10:56)
[2021-09-13] MEDS: ENOXAPARIN NA (PORCINE) 40 MG/0.4 ML DISP.SYRIN SQ SCH (14:19)
[2021-09-13] MEDS: oxyCODONE HCL 5 MG TABLET PO PRN ×2 (14:19→22:40)
[2021-09-13] MEDS: ROSUVASTATIN CA 20 MG TABLET PO SCH (21:23)
[2021-09-14] MEDS: INSULIN SLIDING SCALE (NOVOLOG) 1 VIAL SQ SCH ×4 (06:00→21:08)
[2021-09-14] MEDS: ENOXAPARIN NA (PORCINE) 40 MG/0.4 ML DISP.SYRIN SQ SCH (09:38)
[2021-09-14] MEDS: HYDROCHLOROTHIAZIDE 12.5 MG CAPSULE (FP) PO SCH (09:39)
[2021-09-14] MEDS: VALSARTAN 40 MG TABLET PO SCH (09:39)
[2021-09-14] MEDS ORDERED: ALPRAZolam 1 MG TABLET PO ONE (14:00)
[2021-09-14] MEDS: ROSUVASTATIN CA 20 MG TABLET PO SCH (21:05)
[2021-09-15 02:40] VITALS: BP 136/78; PULSE 55; TEMP 97.5
[2021-09-15] MEDS: INSULIN SLIDING SCALE (NOVOLOG) 1 VIAL SQ SCH ×3 (05:59→16:30)
[2021-09-15 09:08] LABS: BASO % 0.6 % (0-2.0); EOS % 3.3 % (0-4.5); HEMATOCRIT 42.2 % (32.4-45.2); HEMOGLOBIN 13.8 GM/dL (10.7-15.3); LYMPH % 31.4 % (8-40); MCH 29.2 pg (25.7-33.7); MCHC 32.8 g/dl (32.0-36.0); MEAN CELL VOLUME 89.1 fl (80-96); MEAN PLT VOLUME 9.9 fl (7.5-11.1); MONO % 7.9 % (3.8-10.2); NEUT % 56.8 % (42.8-82.8); PLATELET COUNT 171 10^3/uL (134-434); RBC 4.74 M/mm3 (3.60-5.2); RDW 14.3 % (11.6-15.6); WHITE BLOOD COUNT 5.4 K/mm3 (4.0-10.0)
[2021-09-15 09:32] LABS: BLOOD UREA NITROGEN 14.3 mg/dL (7-18)
[2021-09-15 09:36] LABS: CREATININE 0.8 mg/dL (0.55-1.3)
[2021-09-15] MEDS: VALSARTAN 40 MG TABLET PO SCH (09:41)
[2021-09-15] MEDS: HYDROCHLOROTHIAZIDE 12.5 MG CAPSULE (FP) PO SCH (09:41)
[2021-09-15] MEDS: ENOXAPARIN NA (PORCINE) 40 MG/0.4 ML DISP.SYRIN SQ SCH (09:41)
[2021-09-15] MEDS: oxyCODONE HCL 5 MG TABLET PO PRN (10:55)
[2021-09-15] MEDS ORDERED: INSULIN (NOVOLOG) ASPART 100 UNITS/ML 10ML VIAL ONE (16:18)
== END 2021-09-15 18:59 | disposition home or self-care (01) | DRG 552 ==
LOC: JER 11:45 → JERBED 19:45 → J6S 09-12 21:54
PROVIDERS: ADMIT Internal Medicine; ATTEND Internal Medicine
DX: M54.9 Dorsalgia, unspecified (principal); I10 Essential (primary) hypertension; Z86.718 Personal history of other venous thrombosis and embolism; E11.9 Type 2 diabetes mellitus without complications; Z79.84 Long term (current) use of oral hypoglycemic drugs; Z86.16 Personal history of COVID-19; J45.909 Unspecified asthma, uncomplicated; E66.01 Morbid (severe) obesity due to excess calories; Z68.34 Body mass index [BMI] 34.0-34.9, adult; R10.9 Unspecified abdominal pain
CPT/HCPCS: 0241U-QW; 36415; 71046-TC-FY; 74177-TC; 80048; 80053; 81003; 82962; 83690; 83735; 84100; 85025; 85027; 87081; 87086; 93005; 93010; 97116-GP; 97162-GP; 99285-25

== ENCOUNTER 2022-05-06 13:13 | Inpatient (IN) | payer MEDICARE, OTHER ==
[2022-05-06 13:25] VITALS: BMI 34.4
[2022-05-06] MEDS ORDERED: dilTIAZem HCL 50 MG/10 ML - 10 ML VIAL IVPUSH ONE (14:27)
[2022-05-06 14:29] LABS: BASO % 1.2 % (0-2.0); EOS % 4.9 % (0-4.5); HEMATOCRIT 40.2 % (32.4-45.2); HEMOGLOBIN 13.5 GM/dL (10.7-15.3); LYMPH % 27.5 % (8-40); MCH 29.7 pg (25.7-33.7); MCHC 33.5 g/dl (32.0-36.0); MEAN CELL VOLUME 88.5 fl (80-96); MEAN PLT VOLUME 9.6 fl (7.5-11.1); MONO % 7.1 % (3.8-10.2); NEUT % 59.3 % (42.8-82.8); PLATELET COUNT 154 10^3/uL (134-434); RBC 4.54 M/mm3 (3.60-5.2); RDW 14.7 % (11.6-15.6); WHITE BLOOD COUNT 6.7 K/mm3 (4.0-10.0)
[2022-05-06] MEDS ORDERED: dilTIAZem HCL 125 MG/25 ML - 25 ML VIAL ONE (14:36)
[2022-05-06 14:45] LABS: INR 1.06 (0.83-1.09); PROTHROMBIN TIME (PATIENT) 12.3 SEC (9.7-13.0)
[2022-05-06 14:48] LABS: ACTIVATED PTT 33.9 SECONDS (25.2-36.5); ALBUMIN 3.7 g/dl (3.4-5.0); BLOOD UREA NITROGEN 21.7 mg/dL (7-18); CALCIUM 9.6 mg/dL (8.5-10.1); MAGNESIUM 2.1 mg/dL (1.8-2.4)
[2022-05-06 14:51] LABS: CREATININE 1.1 mg/dL (0.55-1.3)
[2022-05-06 14:52] LABS: PHOSPHOROUS 4.1 mg/dL (2.5-4.9)
[2022-05-06 14:53] LABS: BILIRUBIN,TOTAL 0.8 mg/dL (0.2-1)
[2022-05-06 14:57] LABS: N-TERMINAL BNP 1177.4 pg/ml (5-125)
[2022-05-06] MEDS ORDERED: dilTIAZem HCL 30 MG TABLET PO ONE ×2 (15:08→22:00)
[2022-05-06] MEDS ORDERED: dilTIAZem HCL 30 MG TABLET ONE (15:11)
[2022-05-06] MEDS ORDERED: ACETAMINOPHEN 325 MG TABLET (FP) PO PRN (16:02)
[2022-05-06] MEDS: INSULIN SLIDING SCALE (NOVOLOG) 1 VIAL SQ SCH (17:21)
[2022-05-06] MEDS: ROSUVASTATIN CA 20 MG TABLET PO SCH (21:45)
[2022-05-06] MEDS: APIXABAN 5 MG TABLET PO SCH (21:45)
[2022-05-06] MEDS: LIDOCAINE PATCH REMOVAL MC SCH (21:48)
[2022-05-07] MEDS: INSULIN SLIDING SCALE (NOVOLOG) 1 VIAL SQ SCH ×3 (06:10→17:23)
[2022-05-07 07:55] LABS: EOS % 5.4 % (0-4.5); HEMATOCRIT 37.2 % (32.4-45.2); HEMOGLOBIN 12.7 GM/dL (10.7-15.3); LYMPH % 30.2 % (8-40); MCH 30.1 pg (25.7-33.7); MCHC 34.1 g/dl (32.0-36.0); MEAN CELL VOLUME 88.4 fl (80-96); MEAN PLT VOLUME 9.9 fl (7.5-11.1); MONO % 6.7 % (3.8-10.2); NEUT % 56.7 % (42.8-82.8); PLATELET COUNT 141 10^3/uL (134-434); RDW 14.4 % (11.6-15.6); WHITE BLOOD COUNT 5.8 K/mm3 (4.0-10.0)
[2022-05-07 08:06] LABS: CALCIUM 9.1 mg/dL (8.5-10.1)
[2022-05-07 08:07] LABS: BLOOD UREA NITROGEN 18.3 mg/dL (7-18)
[2022-05-07 08:10] LABS: CREATININE 0.9 mg/dL (0.55-1.3)
[2022-05-07] MEDS: LIDOCAINE 5% TOPICAL PATCH TP SCH (09:57)
[2022-05-07] MEDS: APIXABAN 5 MG TABLET PO SCH ×2 (09:58→21:47)
[2022-05-07] MEDS: LOSARTAN POTASSIUM 50 MG TABLET PO SCH (09:58)
[2022-05-07] MEDS: HYDROCHLOROTHIAZIDE 12.5 MG CAPSULE (FP) PO SCH (09:58)
[2022-05-07 10:42] LABS: MAGNESIUM 2.1 mg/dL (1.8-2.4)
[2022-05-07 10:45] LABS: PHOSPHOROUS 3.8 mg/dL (2.5-4.9)
[2022-05-07] MEDS: ROSUVASTATIN CA 20 MG TABLET PO SCH (21:47)
[2022-05-07] MEDS: LIDOCAINE PATCH REMOVAL MC SCH (21:50)
[2022-05-08] MEDS: INSULIN SLIDING SCALE (NOVOLOG) 1 VIAL SQ SCH ×3 (06:35→18:33)
[2022-05-08 07:21] LABS: HEMATOCRIT 36.9 % (32.4-45.2); HEMOGLOBIN 12.5 GM/dL (10.7-15.3); MCH 29.8 pg (25.7-33.7); MCHC 33.9 g/dl (32.0-36.0); MEAN PLT VOLUME 9.5 fl (7.5-11.1); PLATELET COUNT 135 10^3/uL (134-434); RBC 4.19 M/mm3 (3.60-5.2); RDW 14.6 % (11.6-15.6); WHITE BLOOD COUNT 5.7 K/mm3 (4.0-10.0)
[2022-05-08 07:46] LABS: ALBUMIN 3.2 g/dl (3.4-5.0); BLOOD UREA NITROGEN 20.6 mg/dL (7-18)
[2022-05-08 07:50] LABS: CREATININE 0.9 mg/dL (0.55-1.3)
[2022-05-08 07:51] LABS: BILIRUBIN,TOTAL 0.6 mg/dL (0.2-1); TOT PROT 6.1 g/dl (6.4-8.2)
[2022-05-08] MEDS: APIXABAN 5 MG TABLET PO SCH ×2 (11:14→21:35)
[2022-05-08] MEDS: LIDOCAINE 5% TOPICAL PATCH TP SCH (11:14)
[2022-05-08] MEDS: HYDROCHLOROTHIAZIDE 12.5 MG CAPSULE (FP) PO SCH (11:14)
[2022-05-08] MEDS: LOSARTAN POTASSIUM 50 MG TABLET PO SCH (11:15)
[2022-05-08] MEDS: ROSUVASTATIN CA 20 MG TABLET PO SCH (21:35)
[2022-05-08] MEDS: LIDOCAINE PATCH REMOVAL MC SCH (21:35)
[2022-05-09] MEDS: INSULIN SLIDING SCALE (NOVOLOG) 1 VIAL SQ SCH ×2 (06:05→12:59)
[2022-05-09 07:45] LABS: HEMATOCRIT 38.9 % (32.4-45.2); MCH 29.8 pg (25.7-33.7); MCHC 33.5 g/dl (32.0-36.0); MEAN PLT VOLUME 10.6 fl (7.5-11.1); PLATELET COUNT 152 10^3/uL (134-434); RBC 4.37 M/mm3 (3.60-5.2); RDW 14.6 % (11.6-15.6); WHITE BLOOD COUNT 5.7 K/mm3 (4.0-10.0)
[2022-05-09 08:16] LABS: ALBUMIN 3.4 g/dl (3.4-5.0); CALCIUM 9.3 mg/dL (8.5-10.1); MAGNESIUM 2.2 mg/dL (1.8-2.4)
[2022-05-09 08:17] LABS: BLOOD UREA NITROGEN 22.5 mg/dL (7-18)
[2022-05-09 08:20] LABS: PHOSPHOROUS 3.5 mg/dL (2.5-4.9)
[2022-05-09 08:21] LABS: BILIRUBIN,TOTAL 0.7 mg/dL (0.2-1); TOT PROT 6.6 g/dl (6.4-8.2)
[2022-05-09] MEDS ORDERED: SACUBITRIL/VALSARTAN 24 MG-26 MG TABLET PO SCH (10:00)
[2022-05-09] MEDS ORDERED: SPIRONOLACTONE 25 MG TABLET PO SCH (10:00)
[2022-05-09 10:03] VITALS: RESP 22; TEMP 98.2
[2022-05-09] MEDS: APIXABAN 5 MG TABLET PO SCH (10:08)
[2022-05-09] MEDS: LIDOCAINE 5% TOPICAL PATCH TP SCH (10:08)
[2022-05-09 15:12] VITALS: BP 102/68; PULSE 77
== END 2022-05-09 16:00 | disposition home health service (06) | DRG 309 ==
LOC: JER 13:13 → JERBED 15:36 → UNDOADMOB 15:36 → INTOOBSV 15:36 → JERBED 16:00 → J4W 20:39 → JERBED 05-07 02:41 → J4W 05-07 02:42 → OBSVTOIN 05-08 14:37
PROVIDERS: ADMIT Internal Medicine; ATTEND Internal Medicine
DX: I48.91 Unspecified atrial fibrillation (principal); I50.42 Chronic combined systolic (congestive) and diastolic (congestive) heart failure; E78.5 Hyperlipidemia, unspecified; J45.909 Unspecified asthma, uncomplicated; I42.8 Other cardiomyopathies; E11.9 Type 2 diabetes mellitus without complications; E66.9 Obesity, unspecified; Z68.34 Body mass index [BMI] 34.0-34.9, adult; I25.10 Atherosclerotic heart disease of native coronary artery without angina pectoris; I11.0 Hypertensive heart disease with heart failure; M48.02 Spinal stenosis, cervical region; E04.2 Nontoxic multinodular goiter; M54.2 Cervicalgia; Z86.718 Personal history of other venous thrombosis and embolism
CPT/HCPCS: 0241U-QW; 36415; 71045-TC-FY; 71275-TC; 72125-TC; 80048; 80053; 82962; 83735; 83880; 84100; 84443; 84484; 85025; 85027; 85610; 85730; 86850; 86900; 86901; 93005; 93010; 93306-TC; 97116-GP; 97161-GP; 99285-25; G0378; Q9967

== ENCOUNTER 2022-06-19 12:21 | Observation (INO) | payer MEDICARE, OTHER ==
[2022-06-19] MEDS ORDERED: methylPREDNISolone NA SUCC 125 MG/2 ML VIAL IVPUSH ONE (12:29)
[2022-06-19] MEDS ORDERED: ALBUTEROL SO4 2.5/IPRATROPIUM 0.5 INH SOL 3 ML VIAL.NEB. NEB SCH (12:30)
[2022-06-19] MEDS ORDERED: AZITHROMYCIN IVPB 500 MG in DEXTROSE 5%-WATER - 250 ML IVPB ONE (12:30)
[2022-06-19] MEDS ORDERED: MAGNESIUM SULF 50% (8.12 MEQ/2 ML-1 GM VIAL) IVPB ONE (12:31)
[2022-06-19] MEDS ORDERED: ASPIRIN 325 MG TABLET PO ONE (12:42)
[2022-06-19] MEDS ORDERED: ASPIRIN 325 MG TABLET ONE (13:32)
[2022-06-19 14:32] LABS: BASO % 0.8 % (0-2.0); EOS % 5.7 % (0-4.5); HEMATOCRIT 40.6 % (32.4-45.2); HEMOGLOBIN 13.3 GM/dL (10.7-15.3); LYMPH % 25.2 % (8-40); MCH 29.1 pg (25.7-33.7); MCHC 32.9 g/dl (32.0-36.0); MEAN CELL VOLUME 88.6 fl (80-96); MEAN PLT VOLUME 10.2 fl (7.5-11.1); MONO % 6.6 % (3.8-10.2); NEUT % 61.7 % (42.8-82.8); PLATELET COUNT 116 10^3/uL (134-434); RBC 4.58 M/mm3 (3.60-5.2); RDW 14.4 % (11.6-15.6); WHITE BLOOD COUNT 5.1 K/mm3 (4.0-10.0)
[2022-06-19 14:40] LABS: INR 1.02 (0.83-1.09); PROTHROMBIN TIME (PATIENT) 11.8 SEC (9.7-13.0)
[2022-06-19 14:43] LABS: ACTIVATED PTT 28.3 SECONDS (25.2-36.5)
[2022-06-19 14:47] LABS: POTASSIUM 4.1 mmol/L (3.5-5.1)
[2022-06-19 14:48] LABS: BLOOD UREA NITROGEN 15.4 mg/dL (7-18)
[2022-06-19 14:49] LABS: CALCIUM 9.2 mg/dL (8.5-10.1)
[2022-06-19 14:50] LABS: ALBUMIN 3.6 g/dl (3.4-5.0); MAGNESIUM 2.1 mg/dL (1.8-2.4)
[2022-06-19 14:58] LABS: N-TERMINAL BNP 927.8 pg/ml (5-125)
[2022-06-19 20:18] VITALS: RESP 20
[2022-06-19 20:32] VITALS: BMI 36.8
[2022-06-19] MEDS: APIXABAN 5 MG TABLET PO SCH (22:02)
[2022-06-19] MEDS: SACUBITRIL/VALSARTAN 24 MG-26 MG TABLET PO SCH (22:02)
[2022-06-19] MEDS: INSULIN SLIDING SCALE (NOVOLOG) 1 VIAL SQ SCH (22:30)
[2022-06-20] MEDS ORDERED: ACETAMINOPHEN 325 MG TABLET (FP) PO PRN (05:45)
[2022-06-20] MEDS ORDERED: INSULIN (NOVOLOG) ASPART 100 UNITS/ML 10ML VIAL ONE (05:53)
[2022-06-20] MEDS: INSULIN SLIDING SCALE (NOVOLOG) 1 VIAL SQ SCH ×2 (06:46→12:09)
[2022-06-20 07:19] LABS: BASO % 0.3 % (0-2.0); EOS % 5.9 % (0-4.5); HEMATOCRIT 39.2 % (32.4-45.2); HEMOGLOBIN 13.3 GM/dL (10.7-15.3); LYMPH % 31.5 % (8-40); MCH 29.9 pg (25.7-33.7); MCHC 33.9 g/dl (32.0-36.0); MEAN CELL VOLUME 88.2 fl (80-96); MEAN PLT VOLUME 10.6 fl (7.5-11.1); MONO % 7.9 % (3.8-10.2); NEUT % 54.4 % (42.8-82.8); PLATELET COUNT 122 10^3/uL (134-434); RBC 4.44 M/mm3 (3.60-5.2); RDW 14.3 % (11.6-15.6); WHITE BLOOD COUNT 5.5 K/mm3 (4.0-10.0)
[2022-06-20 07:46] LABS: CALCIUM 9.2 mg/dL (8.5-10.1)
[2022-06-20 07:47] LABS: ALBUMIN 3.4 g/dl (3.4-5.0); BLOOD UREA NITROGEN 15.3 mg/dL (7-18); MAGNESIUM 1.8 mg/dL (1.8-2.4)
[2022-06-20 07:49] LABS: PHOSPHOROUS 3.3 mg/dL (2.5-4.9)
[2022-06-20 07:50] LABS: CREATININE 0.8 mg/dL (0.55-1.3)
[2022-06-20 07:51] LABS: BILIRUBIN,TOTAL 0.9 mg/dL (0.2-1); TOT PROT 6.4 g/dl (6.4-8.2)
[2022-06-20] MEDS: SACUBITRIL/VALSARTAN 24 MG-26 MG TABLET PO SCH (09:14)
[2022-06-20] MEDS: APIXABAN 5 MG TABLET PO SCH (09:14)
[2022-06-20] MEDS ORDERED: ASPIRIN 81 MG CHEWABLE TABLETS PO SCH (10:00)
[2022-06-20] MEDS ORDERED: SPIRONOLACTONE 25 MG TABLET PO SCH (10:00)
[2022-06-20 10:47] VITALS: BP 122/74; PULSE 94; TEMP 97.7
[2022-06-20] MEDS ORDERED: ATORVASTATIN CA 80 MG TABLET (FP) PO SCH (22:00)
== END 2022-06-20 15:56 | disposition home or self-care (01) ==
LOC: JER 12:21 → JERBED 13:45 → J4W 19:05
PROVIDERS: ADMIT Internal Medicine; ATTEND Internal Medicine
PROC: 3E013VG Introduction of Insulin into Subcutaneous Tissue, Percutaneous Approach (ICD-10-PCS; principal; 2022-06-19)
DX: I50.40 Unspecified combined systolic (congestive) and diastolic (congestive) heart failure (principal); I48.91 Unspecified atrial fibrillation; E78.5 Hyperlipidemia, unspecified; E11.9 Type 2 diabetes mellitus without complications; E66.8 Other obesity; Z68.36 Body mass index [BMI] 36.0-36.9, adult; Z95.5 Presence of coronary angioplasty implant and graft; Z87.891 Personal history of nicotine dependence
CPT/HCPCS: 0241U-QW; 36415; 71045-TC-FY; 80053; 82962; 83735; 83880; 84100; 84484; 85025; 85610; 85730; 93005; 93010; 96372; 99285-25; G0378

== ENCOUNTER 2022-07-30 20:03 | Inpatient (IN) | payer MEDICARE, OTHER ==
[2022-07-30] MEDS ORDERED: ALBUTEROL SO4 2.5/IPRATROPIUM 0.5 INH SOL 3 ML VIAL.NEB. NEB ONE ×2 (20:11→20:18)
[2022-07-30] MEDS ORDERED: MAGNESIUM SULF 50% (8.12 MEQ/2 ML-1 GM VIAL) IVPB ONE (20:18)
[2022-07-30] MEDS ORDERED: methylPREDNISolone NA SUCC 125 MG/2 ML VIAL ONE (20:18)
[2022-07-30] MEDS ORDERED: MAGNESIUM 2GM/50ML STERILE WATER IVPB IVPB ONE (20:30)
[2022-07-30] MEDS: ALBUTEROL SO4 2.5/IPRATROPIUM 0.5 INH SOL 3 ML VIAL.NEB. NEB SCH ×2 (20:36→20:43)
[2022-07-30 21:17] LABS: POTASSIUM 4.3 mmol/L (3.5-5.1)
[2022-07-30 21:19] LABS: CALCIUM 9.6 mg/dL (8.5-10.1)
[2022-07-30 21:20] LABS: ALBUMIN 3.5 g/dl (3.4-5.0); BLOOD UREA NITROGEN 20.5 mg/dL (7-18); EOS % 3.2 % (0-4.5); HEMOGLOBIN 12.9 GM/dL (10.7-15.3); LYMPH % 20.4 % (8-40); MAGNESIUM 1.9 mg/dL (1.8-2.4); MCH 29.3 pg (25.7-33.7); MCHC 33.1 g/dl (32.0-36.0); MEAN CELL VOLUME 88.6 fl (80-96); MEAN PLT VOLUME 10.3 fl (7.5-11.1); MONO % 6.3 % (3.8-10.2); NEUT % 69.1 % (42.8-82.8); PLATELET COUNT 169 10^3/uL (134-434); RDW 14.6 % (11.6-15.6); WHITE BLOOD COUNT 7.5 K/mm3 (4.0-10.0)
[2022-07-30 21:23] LABS: CREATININE 1.1 mg/dL (0.55-1.3)
[2022-07-30 21:24] LABS: TOT PROT 6.7 g/dl (6.4-8.2)
[2022-07-30 21:25] LABS: BILIRUBIN,TOTAL 0.6 mg/dL (0.2-1)
[2022-07-30 21:28] LABS: N-TERMINAL BNP 1772.7 pg/ml (5-125)
[2022-07-30 21:29] LABS: INR 1.15 (0.83-1.09); PROTHROMBIN TIME (PATIENT) 13.3 SEC (9.7-13.0)
[2022-07-30 21:31] LABS: ACTIVATED PTT 32.9 SECONDS (25.2-36.5)
[2022-07-30] MEDS ORDERED: FUROSEMIDE 40 MG/4 ML INJECTABLE VIAL IVPUSH ONE ×2 (21:39→22:59)
[2022-07-30] MEDS ORDERED: FUROSEMIDE 40 MG/4 ML INJECTABLE VIAL ONE (21:52)
[2022-07-31] MEDS ORDERED: FUROSEMIDE 40 MG/4 ML INJECTABLE VIAL IVPUSH ONE (00:20)
[2022-07-31] MEDS ORDERED: methylPREDNISolone NA SUCC 40 MG/1 ML VIAL ONE (00:46)
[2022-07-31] MEDS ORDERED: MONTELUKAST NA 10 MG TABLET ONE (00:46)
[2022-07-31] MEDS: MONTELUKAST NA 10 MG TABLET PO SCH ×2 (01:01→21:28)
[2022-07-31] MEDS: methylPREDNISolone NA SUCC 40 MG/1 ML VIAL IVPUSH SCH ×4 (01:02→17:13)
[2022-07-31 01:50] VITALS: BMI 38.0
[2022-07-31 08:06] LABS: HEMATOCRIT 38.9 % (32.4-45.2); HEMOGLOBIN 12.5 GM/dL (10.7-15.3); MCH 28.9 pg (25.7-33.7); MCHC 32.1 g/dl (32.0-36.0); MEAN PLT VOLUME 10.9 fl (7.5-11.1); PLATELET COUNT 179 10^3/uL (134-434); RBC 4.33 M/mm3 (3.60-5.2); RDW 14.1 % (11.6-15.6); WHITE BLOOD COUNT 6.6 K/mm3 (4.0-10.0)
[2022-07-31 08:22] LABS: POTASSIUM 4.5 mmol/L (3.5-5.1)
[2022-07-31 08:24] LABS: CALCIUM 9.7 mg/dL (8.5-10.1)
[2022-07-31 08:25] LABS: ALBUMIN 3.8 g/dl (3.4-5.0); BLOOD UREA NITROGEN 19.9 mg/dL (7-18); MAGNESIUM 2.1 mg/dL (1.8-2.4)
[2022-07-31 08:28] LABS: CREATININE 1.1 mg/dL (0.55-1.3); PHOSPHOROUS 4.8 mg/dL (2.5-4.9)
[2022-07-31 08:30] LABS: BILIRUBIN,TOTAL 0.6 mg/dL (0.2-1)
[2022-07-31] MEDS: LEVALBUTEROL HCL 0.31 MG/3 ML VIAL.NEB IH SCH ×3 (09:11→20:36)
[2022-07-31] MEDS: APIXABAN 5 MG TABLET PO SCH ×2 (09:41→21:28)
[2022-07-31] MEDS: SACUBITRIL/VALSARTAN 24 MG-26 MG TABLET PO SCH ×2 (09:41→21:28)
[2022-07-31] MEDS: LORATADINE 10 MG TABLET PO SCH (09:41)
[2022-07-31] MEDS ORDERED: FAMOTIDINE 40 MG TABLET PO SCH (10:00)
[2022-07-31] MEDS ORDERED: FAMOTIDINE 20 MG TABLET PO SCH (10:43)
[2022-07-31] MEDS: FUROSEMIDE 40 MG/4 ML INJECTABLE VIAL IVPUSH SCH (11:27)
[2022-07-31] MEDS: FAMOTIDINE 20 MG TABLET PO SCH (11:58)
[2022-07-31] MEDS ORDERED: INSULIN (NOVOLOG) ASPART 100 UNITS/ML 10ML VIAL ONE ×2 (17:26→21:20)
[2022-07-31] MEDS: INSULIN SLIDING SCALE (NOVOLOG) 1 VIAL SQ SCH ×2 (17:27→21:28)
[2022-07-31] MEDS: ATORVASTATIN CA 80 MG TABLET (FP) PO SCH (21:28)
[2022-08-01] MEDS: methylPREDNISolone NA SUCC 40 MG/1 ML VIAL IVPUSH SCH ×3 (01:30→17:01)
[2022-08-01] MEDS ORDERED: INSULIN (NOVOLOG) ASPART 100 UNITS/ML 10ML VIAL ONE ×5 (05:56→23:36)
[2022-08-01] MEDS: INSULIN SLIDING SCALE (NOVOLOG) 1 VIAL SQ SCH ×4 (06:30→23:37)
[2022-08-01 07:36] LABS: HEMATOCRIT 37.5 % (32.4-45.2); HEMOGLOBIN 12.6 GM/dL (10.7-15.3); MCH 29.3 pg (25.7-33.7); MCHC 33.6 g/dl (32.0-36.0); MEAN CELL VOLUME 87.1 fl (80-96); MEAN PLT VOLUME 10.6 fl (7.5-11.1); PLATELET COUNT 174 10^3/uL (134-434); RBC 4.31 M/mm3 (3.60-5.2); RDW 14.3 % (11.6-15.6); WHITE BLOOD COUNT 11.4 K/mm3 (4.0-10.0)
[2022-08-01] MEDS: LEVALBUTEROL HCL 0.31 MG/3 ML VIAL.NEB IH SCH ×3 (07:40→21:01)
[2022-08-01 07:56] LABS: POTASSIUM 4.5 mmol/L (3.5-5.1)
[2022-08-01 08:02] LABS: BLOOD UREA NITROGEN 30.3 mg/dL (7-18); CALCIUM 9.6 mg/dL (8.5-10.1); MAGNESIUM 2.1 mg/dL (1.8-2.4)
[2022-08-01 08:05] LABS: CREATININE 1.1 mg/dL (0.55-1.3)
[2022-08-01 08:06] LABS: PHOSPHOROUS 3.2 mg/dL (2.5-4.9)
[2022-08-01 09:05] LABS: ANISOCYTOSIS 2+; MACROCYTOSIS 0
[2022-08-01] MEDS: APIXABAN 5 MG TABLET PO SCH ×2 (09:14→23:26)
[2022-08-01] MEDS: FUROSEMIDE 40 MG/4 ML INJECTABLE VIAL IVPUSH SCH (09:14)
[2022-08-01] MEDS: FAMOTIDINE 20 MG TABLET PO SCH (09:14)
[2022-08-01] MEDS: SACUBITRIL/VALSARTAN 24 MG-26 MG TABLET PO SCH ×2 (09:14→23:26)
[2022-08-01] MEDS: LORATADINE 10 MG TABLET PO SCH (09:14)
[2022-08-01] MEDS: MONTELUKAST NA 10 MG TABLET PO SCH (23:26)
[2022-08-01] MEDS: ATORVASTATIN CA 80 MG TABLET (FP) PO SCH (23:26)
[2022-08-02] MEDS ORDERED: INSULIN (NOVOLOG) ASPART 100 UNITS/ML 10ML VIAL ONE ×2 (06:12→11:42)
[2022-08-02] MEDS: INSULIN SLIDING SCALE (NOVOLOG) 1 VIAL SQ SCH ×2 (06:27→11:44)
[2022-08-02] MEDS: LEVALBUTEROL HCL 0.31 MG/3 ML VIAL.NEB IH SCH ×2 (08:04→14:55)
[2022-08-02 08:38] LABS: HEMATOCRIT 40.8 % (32.4-45.2); HEMOGLOBIN 12.9 GM/dL (10.7-15.3); MCH 28.5 pg (25.7-33.7); MCHC 31.6 g/dl (32.0-36.0); MEAN CELL VOLUME 90.2 fl (80-96); MEAN PLT VOLUME 11.5 fl (7.5-11.1); PLATELET COUNT 151 10^3/uL (134-434); RBC 4.52 M/mm3 (3.60-5.2); RDW 14.5 % (11.6-15.6)
[2022-08-02 08:41] LABS: POTASSIUM 4.5 mmol/L (3.5-5.1)
[2022-08-02 08:43] LABS: CALCIUM 9.3 mg/dL (8.5-10.1)
[2022-08-02 08:44] LABS: ALBUMIN 3.3 g/dl (3.4-5.0); BLOOD UREA NITROGEN 30.3 mg/dL (7-18)
[2022-08-02 08:48] LABS: BILIRUBIN,TOTAL 0.5 mg/dL (0.2-1); TOT PROT 6.6 g/dl (6.4-8.2)
[2022-08-02] MEDS: FUROSEMIDE 40 MG/4 ML INJECTABLE VIAL IVPUSH SCH (09:24)
[2022-08-02] MEDS: FAMOTIDINE 20 MG TABLET PO SCH (09:25)
[2022-08-02] MEDS: SACUBITRIL/VALSARTAN 24 MG-26 MG TABLET PO SCH (09:25)
[2022-08-02] MEDS: LORATADINE 10 MG TABLET PO SCH (09:25)
[2022-08-02] MEDS: APIXABAN 5 MG TABLET PO SCH (09:25)
[2022-08-02] MEDS ORDERED: predniSONE 20 MG TABLET (UD) PO SCH (10:00)
[2022-08-02 10:40] VITALS: BP 119/65; PULSE 96; RESP 18; TEMP 97.8
[2022-08-02 10:43] LABS: ANISOCYTOSIS 0; HELMET CELLS 0; HOWELL-JOLLY BODIES 0; MACROCYTOSIS 0; OVALOCYTE 0; ROULEAU 0; SICKELED CELLS 0; TARGET CELLS 0; TEAR DROP CELLS 0; TOXIC GRANULATION 0
== END 2022-08-02 15:39 | disposition home or self-care (01) | DRG 291 ==
LOC: JER 20:03 → JERBED 22:04 → J4W 07-31 01:36 → OBSVTOIN 08-01 08:44
PROVIDERS: ADMIT Internal Medicine; ATTEND Internal Medicine
DX: I11.0 Hypertensive heart disease with heart failure (principal); I50.23 Acute on chronic systolic (congestive) heart failure; J45.901 Unspecified asthma with (acute) exacerbation; E11.65 Type 2 diabetes mellitus with hyperglycemia; I48.91 Unspecified atrial fibrillation; E78.5 Hyperlipidemia, unspecified; E87.70 Fluid overload, unspecified
CPT/HCPCS: 0241U-QW; 36415; 71045-TC-FY; 71250-TC; 80048; 80053; 82962; 83735; 83880; 84100; 84484; 85025; 85027; 85610; 85730; 93005; 93010; 94150; 99285-25; G0378

== ENCOUNTER 2022-09-24 09:53 | Emergency (ER) | payer MEDICARE, OTHER ==
[2022-09-24] MEDS ORDERED: morphine CARPU-JECT 4 MG/1 ML DISP.SYRIN IVPUSH ONE (10:13)
[2022-09-24] MEDS ORDERED: morphine SULFATE 4 MG/ML VIAL ONE (10:51)
[2022-09-24 11:14] VITALS: TEMP 97.8
[2022-09-24 11:17] LABS: EOS % 4.6 % (0-4.5); HEMATOCRIT 39.5 % (32.4-45.2); HEMOGLOBIN 13.1 GM/dL (10.7-15.3); MCH 28.9 pg (25.7-33.7); MCHC 33.1 g/dl (32.0-36.0); MEAN CELL VOLUME 87.5 fl (80-96); MEAN PLT VOLUME 9.7 fl (7.5-11.1); MONO % 7.3 % (3.8-10.2); NEUT % 63.1 % (42.8-82.8); PLATELET COUNT 155 10^3/uL (134-434); RBC 4.51 M/mm3 (3.60-5.2); RDW 14.5 % (11.6-15.6); URINE APPEARANCE CLEAR; URINE BILIRUBIN NEGATIVE (NEGATIVE); URINE COLOR YELLOW; URINE GLUCOSE (UA) NEGATIVE (NEGATIVE); URINE KETONE NEGATIVE (NEGATIVE); URINE LEUK ESTERASE NEGATIVE (NEGATIVE); URINE NITRITE NEGATIVE (NEGATIVE); URINE PROTEIN TRACE (NEGATIVE); WHITE BLOOD COUNT 5.7 K/mm3 (4.0-10.0)
[2022-09-24 11:25] VITALS: BMI 34.4
[2022-09-24 11:47] LABS: ALBUMIN 3.5 g/dl (3.4-5.0); CALCIUM 9.5 mg/dL (8.5-10.1)
[2022-09-24 11:48] LABS: BLOOD UREA NITROGEN 13.6 mg/dL (7-18)
[2022-09-24 11:52] LABS: BILIRUBIN,TOTAL 0.6 mg/dL (0.2-1)
[2022-09-24 14:04] VITALS: BP 145/79; PULSE 54; RESP 16
== END 2022-09-24 15:17 | disposition home or self-care (01) ==
LOC: JER 09:53
PROC: 3E033NZ Introduction of Analgesics, Hypnotics, Sedatives into Peripheral Vein, Percutaneous Approach (ICD-10-PCS; principal; 2022-09-24)
DX: R10.31 Right lower quadrant pain (principal); D25.9 Leiomyoma of uterus, unspecified
CPT/HCPCS: 36415; 74177-TC; 80053; 81003; 83605; 83690; 85025; 87086; 93005; 93010; 99285-25; Q9967

== ENCOUNTER 2022-10-01 15:06 | Observation (INO) | payer MEDICARE, OTHER ==
[2022-10-01 15:19] VITALS: BMI 34.4
[2022-10-01] MEDS ORDERED: ACETAMINOPHEN 1000 MG/100 ML BAG IVPB ONE (16:21)
[2022-10-01] MEDS ORDERED: SODIUM CHLORIDE 0.9% 500 ML INFUS.BAG IV ONE (16:34)
[2022-10-01 16:58] LABS: BASO % 1.1 % (0-2.0); HEMATOCRIT 40.2 % (32.4-45.2); HEMOGLOBIN 12.8 GM/dL (10.7-15.3); MCH 28.7 pg (25.7-33.7); MCHC 31.9 g/dl (32.0-36.0); MEAN CELL VOLUME 89.9 fl (80-96); MONO % 7.3 % (3.8-10.2); NEUT % 61.6 % (42.8-82.8); RBC 4.47 M/mm3 (3.60-5.2); RDW 14.5 % (11.6-15.6); WHITE BLOOD COUNT 8.6 K/mm3 (4.0-10.0)
[2022-10-01 17:25] LABS: POTASSIUM 4.1 mmol/L (3.5-5.1)
[2022-10-01 17:28] LABS: BLOOD UREA NITROGEN 15.9 mg/dL (7-18); CALCIUM 9.2 mg/dL (8.5-10.1)
[2022-10-01 17:29] LABS: ALBUMIN 3.4 g/dl (3.4-5.0)
[2022-10-01 17:33] LABS: BILIRUBIN,TOTAL 0.5 mg/dL (0.2-1); TOT PROT 6.8 g/dl (6.4-8.2)
[2022-10-01 17:34] LABS: LACTIC ACID 2.1 mmol/L (0.4-2.0)
[2022-10-01] MEDS ORDERED: ACETAMINOPHEN INJECTION 100 ML IVPB ONE (18:08)
[2022-10-01] MEDS ORDERED: morphine CARPU-JECT 2 MG/1 ML DISP.SYRIN IVPUSH ONE (21:58)
[2022-10-01] MEDS ORDERED: morphine SULFATE 4 MG/ML VIAL ONE (22:15)
[2022-10-02] MEDS ORDERED: ALBUTEROL SO4 HFA INHALER IH PRN (04:20)
[2022-10-02] MEDS: INSULIN SLIDING SCALE (NOVOLOG) 1 VIAL SQ SCH ×4 (06:14→21:20)
[2022-10-02 06:54] VITALS: RESP 18
[2022-10-02 09:25] LABS: PH,URINE 5.5 (5.0-8.0); URINE APPEARANCE CLEAR; URINE BILIRUBIN NEGATIVE (NEGATIVE); URINE COLOR YELLOW; URINE GLUCOSE (UA) NEGATIVE (NEGATIVE); URINE KETONE NEGATIVE (NEGATIVE); URINE LEUK ESTERASE NEGATIVE (NEGATIVE); URINE NITRITE NEGATIVE (NEGATIVE); URINE PROTEIN NEGATIVE (NEGATIVE)
[2022-10-02] MEDS ORDERED: ACETAMINOPHEN 325 MG TABLET (FP) PO PRN (09:42)
[2022-10-02] MEDS: APIXABAN 5 MG TABLET PO SCH ×2 (09:48→21:16)
[2022-10-02] MEDS: LOSARTAN POTASSIUM 50 MG TABLET PO SCH (09:48)
[2022-10-02] MEDS: FAMOTIDINE 40 MG TABLET PO SCH (09:49)
[2022-10-02] MEDS: BUDESONIDE/FORMETEROL FUMARATE 160/4.5 mcg INHALER IH SCH ×2 (09:49→21:16)
[2022-10-02] MEDS: AMIODARONE HCL 200 MG TABLET PO SCH (09:49)
[2022-10-02 11:59] LABS: HEMATOCRIT 37.8 % (32.4-45.2); HEMOGLOBIN 12.7 GM/dL (10.7-15.3); MCH 29.2 pg (25.7-33.7); MCHC 33.5 g/dl (32.0-36.0); MEAN PLT VOLUME 9.8 fl (7.5-11.1); PLATELET COUNT 155 10^3/uL (134-434); RBC 4.35 M/mm3 (3.60-5.2); RDW 14.4 % (11.6-15.6)
[2022-10-02 12:24] LABS: ALBUMIN 3.3 g/dl (3.4-5.0)
[2022-10-02 12:27] LABS: CREATININE 0.8 mg/dL (0.55-1.3)
[2022-10-02 12:29] LABS: BILIRUBIN,TOTAL 0.6 mg/dL (0.2-1); TOT PROT 6.2 g/dl (6.4-8.2)
[2022-10-02] MEDS ORDERED: ACETAMINOPHEN 1000 MG/100 ML BAG IVPB PRN (16:16)
[2022-10-02] MEDS ORDERED: ATORVASTATIN CA 80 MG TABLET (FP) PO SCH (22:00)
[2022-10-03] MEDS: INSULIN SLIDING SCALE (NOVOLOG) 1 VIAL SQ SCH ×2 (06:24→12:05)
[2022-10-03 08:33] VITALS: BP 138/65; PULSE 47; TEMP 98.4
[2022-10-03 09:55] LABS: HEMOGLOBIN 12.5 GM/dL (10.7-15.3); MCHC 32.9 g/dl (32.0-36.0); MEAN CELL VOLUME 88.1 fl (80-96); PLATELET COUNT 142 10^3/uL (134-434); RBC 4.31 M/mm3 (3.60-5.2); RDW 14.5 % (11.6-15.6); WHITE BLOOD COUNT 5.3 K/mm3 (4.0-10.0)
[2022-10-03] MEDS ORDERED: metoPROLOL SUCCINATE 25 MG TAB.SR.24H (FP) PO SCH (10:00)
[2022-10-03 10:12] LABS: POTASSIUM 4.4 mmol/L (3.5-5.1)
[2022-10-03 10:21] LABS: ALBUMIN 3.2 g/dl (3.4-5.0); BLOOD UREA NITROGEN 11.6 mg/dL (7-18)
[2022-10-03 10:24] LABS: CREATININE 0.9 mg/dL (0.55-1.3)
[2022-10-03 10:26] LABS: BILIRUBIN,TOTAL 0.6 mg/dL (0.2-1); TOT PROT 6.1 g/dl (6.4-8.2)
[2022-10-03] MEDS: APIXABAN 5 MG TABLET PO SCH (12:04)
[2022-10-03] MEDS: FAMOTIDINE 40 MG TABLET PO SCH (12:04)
[2022-10-03] MEDS: LOSARTAN POTASSIUM 50 MG TABLET PO SCH (12:04)
[2022-10-03] MEDS: AMIODARONE HCL 200 MG TABLET PO SCH (12:04)
[2022-10-03] MEDS: BUDESONIDE/FORMETEROL FUMARATE 160/4.5 mcg INHALER IH SCH (12:31)
== END 2022-10-03 14:37 | disposition home or self-care (01) ==
LOC: JER 15:06 → INTOOBSV 21:59 → JERBED 21:59 → UNDOADMOB 21:59 → JERBED 10-02 03:38 → J5S 10-02 03:38 → JERBED 10-02 09:58 → J5S 10-02 09:58
PROVIDERS: ADMIT Internal Medicine; ATTEND Internal Medicine
PROC: 3E033NZ Introduction of Analgesics, Hypnotics, Sedatives into Peripheral Vein, Percutaneous Approach (ICD-10-PCS; principal; 2022-10-02)
PROC: 3E013VG Introduction of Insulin into Subcutaneous Tissue, Percutaneous Approach (ICD-10-PCS; 2022-10-02)
PROC: 3E0337Z Introduction of Electrolytic and Water Balance Substance into Peripheral Vein, Percutaneous Approach (ICD-10-PCS; 2022-10-02)
DX: K57.90 Diverticulosis of intestine, part unspecified, without perforation or abscess without bleeding (principal); I48.91 Unspecified atrial fibrillation; Z79.01 Long term (current) use of anticoagulants; E78.00 Pure hypercholesterolemia, unspecified; D25.9 Leiomyoma of uterus, unspecified; E11.9 Type 2 diabetes mellitus without complications; I25.10 Atherosclerotic heart disease of native coronary artery without angina pectoris; I11.9 Hypertensive heart disease without heart failure; J45.909 Unspecified asthma, uncomplicated; I11.0 Hypertensive heart disease with heart failure; I50.9 Heart failure, unspecified; E03.9 Hypothyroidism, unspecified; Z87.891 Personal history of nicotine dependence
CPT/HCPCS: 36415; 71045-TC-FY; 74174-TC; 74177-TC; 80053; 81003; 82962; 83605; 83690; 84484; 85025; 85027; 87086; 93005; 93010; 96372; 96374; 96375; 99285-25; G0378; Q9967

== ENCOUNTER 2022-10-16 11:43 | Observation (INO) | payer MEDICARE, OTHER ==
[2022-10-16 12:11] VITALS: BMI 34.4
[2022-10-16] MEDS ORDERED: MECLIZINE HCL 25 MG TABLET (FP) PO ONE (12:39)
[2022-10-16] MEDS ORDERED: METOCLOPRAMIDE HCL INJECTION 10 MG/2 ML VIAL IVPUSH ONE (12:39)
[2022-10-16] MEDS ORDERED: MECLIZINE HCL 25 MG TABLET (FP) ONE (12:50)
[2022-10-16] MEDS ORDERED: METOCLOPRAMIDE HCL INJECTION 10 MG/2 ML VIAL ONE (12:50)
[2022-10-16 13:44] LABS: VENOUS BASE EXCESS 1.2 mmol/L (-2-2); VENOUS O2 SATURATION 92.4 % (70-80); VENOUS PCO2 40.8 mmHg (38-52); VENOUS PH 7.419 (7.310-7.410)
[2022-10-16 13:47] LABS: BASO % 0.7 % (0-2.0); HEMATOCRIT 36.2 % (32.4-45.2); HEMOGLOBIN 11.7 GM/dL (10.7-15.3); LYMPH % 21.7 % (8-40); MCH 28.4 pg (25.7-33.7); MCHC 32.4 g/dl (32.0-36.0); MEAN CELL VOLUME 87.5 fl (80-96); MEAN PLT VOLUME 9.9 fl (7.5-11.1); NEUT % 65.6 % (42.8-82.8); PLATELET COUNT 162 10^3/uL (134-434); RBC 4.13 M/mm3 (3.60-5.2); RDW 14.6 % (11.6-15.6); WHITE BLOOD COUNT 5.3 K/mm3 (4.0-10.0)
[2022-10-16 13:54] LABS: INR 1.07 (0.83-1.09); PROTHROMBIN TIME (PATIENT) 12.4 SEC (9.7-13.0)
[2022-10-16 13:55] LABS: PH,URINE 5.5 (5.0-8.0); URINE APPEARANCE CLEAR; URINE BILIRUBIN NEGATIVE (NEGATIVE); URINE COLOR YELLOW; URINE GLUCOSE (UA) NEGATIVE (NEGATIVE); URINE KETONE NEGATIVE (NEGATIVE); URINE LEUK ESTERASE NEGATIVE (NEGATIVE); URINE NITRITE NEGATIVE (NEGATIVE); URINE PROTEIN NEGATIVE (NEGATIVE)
[2022-10-16 14:08] LABS: POTASSIUM 4.1 mmol/L (3.5-5.1)
[2022-10-16 14:10] LABS: CALCIUM 8.9 mg/dL (8.5-10.1)
[2022-10-16 14:11] LABS: ALBUMIN 3.3 g/dl (3.4-5.0); BLOOD UREA NITROGEN 12.8 mg/dL (7-18)
[2022-10-16 14:14] LABS: CREATININE 0.9 mg/dL (0.55-1.3)
[2022-10-16 14:16] LABS: BILIRUBIN,TOTAL 0.7 mg/dL (0.2-1); TOT PROT 6.5 g/dl (6.4-8.2)
[2022-10-16] MEDS ORDERED: LORazepam 2 MG/ML SDV VIAL IM ONE (15:55)
[2022-10-17] MEDS: INSULIN SLIDING SCALE (NOVOLOG) 1 VIAL SQ SCH ×4 (07:22→22:07)
[2022-10-17] MEDS ORDERED: PATIENT'S OWN MEDICATION (NON-FORMULARY) (Olmesartan Medoxomil [Olmesartan Medoxomil] 40 M PO SCH (10:00)
[2022-10-17] MEDS: ASPIRIN COATED 81 MG TABLET.EC PO SCH (10:06)
[2022-10-17] MEDS: SUCRALFATE 1 GM TABLET (FP) PO SCH ×2 (10:06→22:03)
[2022-10-17] MEDS ORDERED: VALSARTAN 40 MG TABLET PO SCH (11:00)
[2022-10-17] MEDS ORDERED: LOSARTAN POTASSIUM 50 MG TABLET PO SCH ×2 (11:00→11:08)
[2022-10-17] MEDS ORDERED: ALBUTEROL SO4 HFA INHALER IH PRN ×2 (12:03→12:07)
[2022-10-17 12:57] LABS: BASO % 0.8 % (0-2.0); EOS % 3.7 % (0-4.5); HEMATOCRIT 39.8 % (32.4-45.2); HEMOGLOBIN 12.6 GM/dL (10.7-15.3); LYMPH % 20.8 % (8-40); MCH 28.2 pg (25.7-33.7); MCHC 31.8 g/dl (32.0-36.0); MEAN CELL VOLUME 88.8 fl (80-96); MEAN PLT VOLUME 10.6 fl (7.5-11.1); MONO % 6.5 % (3.8-10.2); NEUT % 68.2 % (42.8-82.8); PLATELET COUNT 187 10^3/uL (134-434); RBC 4.48 M/mm3 (3.60-5.2); RDW 14.3 % (11.6-15.6); WHITE BLOOD COUNT 6.6 K/mm3 (4.0-10.0)
[2022-10-17 13:19] LABS: POTASSIUM 4.4 mmol/L (3.5-5.1)
[2022-10-17 13:22] LABS: CALCIUM 9.1 mg/dL (8.5-10.1)
[2022-10-17 13:23] LABS: MAGNESIUM 2.1 mg/dL (1.8-2.4)
[2022-10-17 13:25] LABS: ALBUMIN 3.5 g/dl (3.4-5.0); BLOOD UREA NITROGEN 10.9 mg/dL (7-18)
[2022-10-17 13:26] LABS: CREATININE 0.9 mg/dL (0.55-1.3)
[2022-10-17 13:28] LABS: PHOSPHOROUS 3.9 mg/dL (2.5-4.9); TOT PROT 6.8 g/dl (6.4-8.2)
[2022-10-17 13:29] LABS: BILIRUBIN,TOTAL 1.1 mg/dL (0.2-1)
[2022-10-17] MEDS ORDERED: CYCLOBENZAPRINE HCL 5 MG TABLET PO SCH (14:00)
[2022-10-17] MEDS ORDERED: ATORVASTATIN CA 80 MG TABLET (FP) PO SCH (22:00)
[2022-10-17] MEDS: APIXABAN 5 MG TABLET PO SCH (22:03)
[2022-10-17] MEDS: TOPIRAMATE 25 MG TABLET PO SCH (22:03)
[2022-10-17] MEDS: BUDESONIDE/FORMETEROL FUMARATE 160/4.5 mcg INHALER IH SCH (22:04)
[2022-10-17] MEDS: PRAMIPEXOLE DIHYDROCHLORIDE 0.125 MG TABLET PO SCH (22:12)
[2022-10-18 01:18] VITALS: RESP 18
[2022-10-18] MEDS: PRAMIPEXOLE DIHYDROCHLORIDE 0.125 MG TABLET PO SCH ×2 (06:16→14:36)
[2022-10-18] MEDS: INSULIN SLIDING SCALE (NOVOLOG) 1 VIAL SQ SCH ×2 (06:16→11:09)
[2022-10-18] MEDS ORDERED: INSULIN (NOVOLOG) ASPART 100 UNITS/ML 10ML VIAL ONE (06:34)
[2022-10-18 09:17] LABS: POTASSIUM 4.1 mmol/L (3.5-5.1)
[2022-10-18 09:20] LABS: CALCIUM 8.9 mg/dL (8.5-10.1)
[2022-10-18 09:24] LABS: CREATININE 0.8 mg/dL (0.55-1.3); PHOSPHOROUS 3.1 mg/dL (2.5-4.9)
[2022-10-18 09:26] LABS: BILIRUBIN,TOTAL 0.7 mg/dL (0.2-1); MAGNESIUM 1.8 mg/dL (1.8-2.4); TOT PROT 6.1 g/dl (6.4-8.2)
[2022-10-18 09:29] LABS: HEMATOCRIT 36.2 % (32.4-45.2); HEMOGLOBIN 11.6 GM/dL (10.7-15.3); MCH 28.4 pg (25.7-33.7); MCHC 32.1 g/dl (32.0-36.0); MEAN CELL VOLUME 88.5 fl (80-96); MEAN PLT VOLUME 10.5 fl (7.5-11.1); PLATELET COUNT 181 10^3/uL (134-434); RBC 4.09 M/mm3 (3.60-5.2); RDW 14.1 % (11.6-15.6); WHITE BLOOD COUNT 5.4 K/mm3 (4.0-10.0)
[2022-10-18 09:34] LABS: ALBUMIN 2.5 g/dl (3.4-5.0)
[2022-10-18] MEDS: APIXABAN 5 MG TABLET PO SCH (09:42)
[2022-10-18] MEDS: TOPIRAMATE 25 MG TABLET PO SCH (09:42)
[2022-10-18] MEDS: ASPIRIN COATED 81 MG TABLET.EC PO SCH (09:42)
[2022-10-18] MEDS: SUCRALFATE 1 GM TABLET (FP) PO SCH (09:42)
[2022-10-18] MEDS: BUDESONIDE/FORMETEROL FUMARATE 160/4.5 mcg INHALER IH SCH (09:43)
[2022-10-18] MEDS ORDERED: AMIODARONE HCL 200 MG TABLET PO SCH ×2 (10:00→15:05)
[2022-10-18 15:31] VITALS: BP 134/78; PULSE 52; TEMP 98.4
== END 2022-10-18 17:13 | disposition home or self-care (01) ==
LOC: JER 11:43 → JERBED 17:55 → J4W 20:35
PROVIDERS: ADMIT Internal Medicine; ATTEND Internal Medicine
PROC: 3E013VG Introduction of Insulin into Subcutaneous Tissue, Percutaneous Approach (ICD-10-PCS; principal; 2022-10-16)
PROC: 3E033NZ Introduction of Analgesics, Hypnotics, Sedatives into Peripheral Vein, Percutaneous Approach (ICD-10-PCS; 2022-10-16)
PROC: 3E033GC Introduction of Other Therapeutic Substance into Peripheral Vein, Percutaneous Approach (ICD-10-PCS; 2022-10-16)
DX: G43.909 Migraine, unspecified, not intractable, without status migrainosus (principal); I48.91 Unspecified atrial fibrillation; I50.20 Unspecified systolic (congestive) heart failure; I25.10 Atherosclerotic heart disease of native coronary artery without angina pectoris; E78.5 Hyperlipidemia, unspecified; J45.909 Unspecified asthma, uncomplicated; I11.0 Hypertensive heart disease with heart failure; Z79.01 Long term (current) use of anticoagulants; E11.9 Type 2 diabetes mellitus without complications; G25.81 Restless legs syndrome
CPT/HCPCS: 36415; 70450-TC; 70551-TC; 71046-TC-FY; 80053; 80061; 81003; 82803; 82962; 83036; 83735; 84100; 84484; 85025; 85027; 85610; 86850; 86900; 86901; 93005; 93010; 93306-TC; 93880-TC; 96372; 96374; 99285-25; G0378

== ENCOUNTER 2023-03-01 05:09 | Inpatient (IN) | payer MEDICARE, OTHER ==
[2023-03-01] MEDS ORDERED: FUROSEMIDE 40 MG/4 ML INJECTABLE VIAL ONE (05:39)
[2023-03-01] MEDS: FUROSEMIDE 40 MG/4 ML INJECTABLE VIAL IVPUSH ONE (05:42)
[2023-03-01 05:54] LABS: BASO % 0.4 % (0-2.0); EOS % 2.2 % (0-4.5); HEMATOCRIT 36.7 % (32.4-45.2); HEMOGLOBIN 12.1 GM/dL (10.7-15.3); LYMPH % 10.3 % (8-40); MCH 29.8 pg (25.7-33.7); MEAN CELL VOLUME 90.2 fl (80-96); MEAN PLT VOLUME 9.6 fl (7.5-11.1); MONO % 6.7 % (3.8-10.2); NEUT % 80.4 % (42.8-82.8); PLATELET COUNT 142 10^3/uL (134-434); RBC 4.07 M/mm3 (3.60-5.2); RDW 14.2 % (11.6-15.6); WHITE BLOOD COUNT 8.9 K/mm3 (4.0-10.0)
[2023-03-01 06:08] LABS: INR 1.13 (0.83-1.09); PROTHROMBIN TIME (PATIENT) 13.1 SEC (9.7-13.0)
[2023-03-01 06:11] LABS: ACTIVATED PTT 30.9 SECONDS (25.2-36.5)
[2023-03-01 06:14] LABS: POTASSIUM 3.8 mmol/L (3.5-5.1)
[2023-03-01 06:15] LABS: CALCIUM 9.2 mg/dL (8.5-10.1)
[2023-03-01 06:16] LABS: ALBUMIN 3.3 g/dl (3.4-5.0); BLOOD UREA NITROGEN 13.9 mg/dL (7-18); MAGNESIUM 1.9 mg/dL (1.8-2.4); VENOUS BASE EXCESS -0.8 mmol/L (-2-2); VENOUS O2 SATURATION 71.5 % (70-80); VENOUS PCO2 58.6 mmHg (38-52); VENOUS PH 7.28 (7.310-7.410)
[2023-03-01 06:21] LABS: BILIRUBIN,TOTAL 0.7 mg/dL (0.2-1)
[2023-03-01 06:24] LABS: N-TERMINAL BNP 770.7 pg/ml (5-125)
[2023-03-01 08:36] LABS: URINE APPEARANCE CLEAR; URINE BILIRUBIN NEGATIVE (NEGATIVE); URINE COLOR YELLOW; URINE GLUCOSE (UA) 2+ (NEGATIVE); URINE KETONE NEGATIVE (NEGATIVE); URINE LEUK ESTERASE NEGATIVE (NEGATIVE); URINE NITRITE NEGATIVE (NEGATIVE); URINE PROTEIN TRACE (NEGATIVE)
[2023-03-01] MEDS ORDERED: ASPIRIN 81 MG CHEWABLE TABLETS ONE (08:44)
[2023-03-01] MEDS: ASPIRIN 81 MG CHEWABLE TABLETS PO ONE (08:49)
[2023-03-01] MEDS ORDERED: PATIENT'S OWN MEDICATION (NON-FORMULARY) (Oxycodone Hcl [Oxycodone Hcl] 10 MG Tablet) PO PRN (09:53)
[2023-03-01] MEDS ORDERED: ALBUTEROL SO4 0.083% IH SOL 2.5 MG/3 ML VIAL.NEB. NEB PRN (09:57)
[2023-03-01] MEDS ORDERED: APIXABAN 5 MG TABLET ONE (10:11)
[2023-03-01] MEDS ORDERED: ALBUTEROL SO4 0.083% IH SOL 2.5 MG/3 ML VIAL.NEB. NEB ONE ×2 (10:11→11:37)
[2023-03-01] MEDS ORDERED: ATORVASTATIN CA 80 MG TABLET (FP) ONE (10:11)
[2023-03-01] MEDS ORDERED: AMIODARONE HCL 200 MG TABLET ONE (10:11)
[2023-03-01] MEDS ORDERED: TOPIRAMATE 25 MG TABLET ONE (10:12)
[2023-03-01] MEDS ORDERED: methylPREDNISolone NA SUCC 40 MG/1 ML VIAL ONE (10:13)
[2023-03-01] MEDS ORDERED: LOSARTAN POTASSIUM 50 MG TABLET ONE (10:19)
[2023-03-01] MEDS: methylPREDNISolone NA SUCC 40 MG/1 ML VIAL IVPUSH SCH (10:38)
[2023-03-01] MEDS: AMIODARONE HCL 200 MG TABLET PO SCH (10:38)
[2023-03-01] MEDS: ATORVASTATIN CA 80 MG TABLET (FP) PO SCH (10:38)
[2023-03-01] MEDS: APIXABAN 5 MG TABLET PO SCH (10:38)
[2023-03-01] MEDS: ALBUTEROL SO4 0.083% IH SOL 2.5 MG/3 ML VIAL.NEB. NEB SCH ×2 (10:38→11:45)
[2023-03-01] MEDS: TOPIRAMATE 25 MG TABLET PO SCH (10:38)
[2023-03-01] MEDS: LOSARTAN POTASSIUM 50 MG TABLET PO SCH (10:38)
[2023-03-01] MEDS: HYDROCHLOROTHIAZIDE 12.5 MG CAPSULE (FP) PO SCH (12:39)
[2023-03-01 15:18] VITALS: BMI 35.4
[2023-03-01] MEDS: FUROSEMIDE 40 MG/4 ML INJECTABLE VIAL IVPUSH SCH (15:35)
[2023-03-01] MEDS: PRAMIPEXOLE DIHYDROCHLORIDE 0.125 MG TABLET PO SCH (15:35)
[2023-03-01] MEDS: guaiFENesin 200 MG/10 ML 10 ML UNIT-DOSE CUPS PO PRN (15:35)
[2023-03-01] MEDS: INSULIN ASPART SLIDING SCALE (NOVOLOG) 1 VIAL SQ SCH (17:39)
[2023-03-01] MEDS: SENNOSIDES 8.6MG TABLET (FP) PO SCH (21:55)
[2023-03-02 07:55] LABS: HEMATOCRIT 35.5 % (32.4-45.2); HEMOGLOBIN 12.2 GM/dL (10.7-15.3); MCH 31.2 pg (25.7-33.7); MCHC 34.4 g/dl (32.0-36.0); MEAN CELL VOLUME 90.6 fl (80-96); MEAN PLT VOLUME 10.2 fl (7.5-11.1); PLATELET COUNT 148 10^3/uL (134-434); RBC 3.92 M/mm3 (3.60-5.2); RDW 14.1 % (11.6-15.6)
[2023-03-02 08:27] LABS: POTASSIUM 4.7 mmol/L (3.5-5.1)
[2023-03-02 08:29] LABS: BLOOD UREA NITROGEN 24.1 mg/dL (7-18)
[2023-03-02 08:32] LABS: CREATININE 1.1 mg/dL (0.55-1.3)
[2023-03-02] MEDS: HYDROCHLOROTHIAZIDE 12.5 MG CAPSULE (FP) PO SCH (10:07)
[2023-03-02 10:16] LABS: ANISOCYTOSIS 0; HELMET CELLS 0; HOWELL-JOLLY BODIES 0; MACROCYTOSIS 0; OVALOCYTE 0; ROULEAU 0; SICKELED CELLS 0; TARGET CELLS 0; TEAR DROP CELLS 0; TOXIC GRANULATION 0
[2023-03-02] MEDS: ALBUTEROL SO4 2.5/IPRATROPIUM 0.5 INH SOL 3 ML VIAL.NEB. NEB SCH (11:35)
[2023-03-02] MEDS: methylPREDNISolone NA SUCC 40 MG/1 ML VIAL IVPUSH SCH (17:27)
[2023-03-02] MEDS: BUDESONIDE/FORMETEROL FUMARATE 80/4.5 mcg INHALER IH SCH (22:38)
[2023-03-02] MEDS: SACUBITRIL/VALSARTAN 49 MG-51 MG TABLET PO SCH (22:39)
[2023-03-03] MEDS: TORSEMIDE 20 MG TABLET (FP) PO SCH (06:15)
[2023-03-03] MEDS ORDERED: EMPAGLIFLOZIN (JARDIANCE) 10 MG TABLET PO SCH (07:00)
[2023-03-03 07:49] LABS: HEMATOCRIT 36.9 % (32.4-45.2); HEMOGLOBIN 11.7 GM/dL (10.7-15.3); MCH 27.6 pg (25.7-33.7); MCHC 31.8 g/dl (32.0-36.0); MEAN CELL VOLUME 86.8 fl (80-96); MEAN PLT VOLUME 9.4 fl (7.5-11.1); PLATELET COUNT 170 10^3/uL (134-434); RBC 4.25 M/mm3 (3.60-5.2); RDW 13.9 % (11.6-15.6); WHITE BLOOD COUNT 14.5 K/mm3 (4.0-10.0)
[2023-03-03 08:05] LABS: POTASSIUM 3.9 mmol/L (3.5-5.1)
[2023-03-03 08:15] LABS: CALCIUM 9.4 mg/dL (8.5-10.1)
[2023-03-03 08:16] LABS: ALBUMIN 3.1 g/dl (3.4-5.0); MAGNESIUM 2.2 mg/dL (1.8-2.4); PHOSPHOROUS 3.4 mg/dL (2.5-4.9)
[2023-03-03 08:17] LABS: CREATININE 1.1 mg/dL (0.55-1.3)
[2023-03-03 08:18] LABS: BILIRUBIN,TOTAL 0.3 mg/dL (0.2-1)
[2023-03-03] MEDS ORDERED: SACUBITRIL/VALSARTAN 24 MG-26 MG TABLET PO SCH (10:00)
[2023-03-03] MEDS ORDERED: TORSEMIDE 20 MG TABLET (FP) PO SCH (10:00)
[2023-03-03] MEDS: SPIRONOLACTONE 25 MG TABLET PO SCH (10:03)
[2023-03-03] MEDS ORDERED: guaiFENesin/CODEINE 5 ML UNIT-DOSE CUPS PO PRN (11:09)
[2023-03-03 12:11] LABS: ANISOCYTOSIS 0; HELMET CELLS 0; HOWELL-JOLLY BODIES 0; MACROCYTOSIS 0; OVALOCYTE 0; ROULEAU 0; SICKELED CELLS 0; TARGET CELLS 0; TEAR DROP CELLS 0; TOXIC GRANULATION 0
[2023-03-03] MEDS ORDERED: guaiFENesin/CODEINE 10 ML UNIT-DOSE CUPS PO PRN (13:09)
[2023-03-03] MEDS: guaiFENesin/CODEINE 5 ML UNIT-DOSE CUPS PO SCH (14:44)
[2023-03-03] MEDS: FUROSEMIDE 40 MG/4 ML INJECTABLE VIAL IVPUSH SCH (14:45)
[2023-03-03] MEDS ORDERED: guaiFENesin/CODEINE 10 ML UNIT-DOSE CUPS PO SCH (22:00)
[2023-03-04] MEDS: INSULIN (NOVOLOG) ASPART 100 UNITS/ML 10ML VIAL SQ SCH (06:16)
[2023-03-04 08:10] LABS: HEMATOCRIT 39.5 % (32.4-45.2); HEMOGLOBIN 12.9 GM/dL (10.7-15.3); MCH 28.5 pg (25.7-33.7); MCHC 32.6 g/dl (32.0-36.0); MEAN CELL VOLUME 87.6 fl (80-96); MEAN PLT VOLUME 10.5 fl (7.5-11.1); PLATELET COUNT 184 10^3/uL (134-434); RBC 4.51 M/mm3 (3.60-5.2); RDW 14.1 % (11.6-15.6); WHITE BLOOD COUNT 15.1 K/mm3 (4.0-10.0)
[2023-03-04 08:24] LABS: POTASSIUM 4.2 mmol/L (3.5-5.1)
[2023-03-04 08:30] LABS: ALBUMIN 3.3 g/dl (3.4-5.0); CALCIUM 10.1 mg/dL (8.5-10.1)
[2023-03-04 08:31] LABS: BLOOD UREA NITROGEN 37.7 mg/dL (7-18); CREATININE 1.2 mg/dL (0.55-1.3); MAGNESIUM 2.4 mg/dL (1.8-2.4)
[2023-03-04 08:33] LABS: BILIRUBIN,TOTAL 0.4 mg/dL (0.2-1)
[2023-03-04 08:34] LABS: PHOSPHOROUS 3.1 mg/dL (2.5-4.9)
[2023-03-04 08:37] LABS: TOT PROT 7.2 g/dl (6.4-8.2)
[2023-03-04 11:05] LABS: ANISOCYTOSIS 0; HELMET CELLS 0; HOWELL-JOLLY BODIES 0; MACROCYTOSIS 0; OVALOCYTE 0; ROULEAU 0; SICKELED CELLS 0; TARGET CELLS 0; TEAR DROP CELLS 0; TOXIC GRANULATION 0
[2023-03-05 08:01] LABS: HEMATOCRIT 41.7 % (32.4-45.2); HEMOGLOBIN 13.3 GM/dL (10.7-15.3); MCH 27.8 pg (25.7-33.7); MCHC 31.8 g/dl (32.0-36.0); MEAN CELL VOLUME 87.3 fl (80-96); MEAN PLT VOLUME 9.8 fl (7.5-11.1); PLATELET COUNT 212 10^3/uL (134-434); RBC 4.78 M/mm3 (3.60-5.2); RDW 14.2 % (11.6-15.6); WHITE BLOOD COUNT 16.9 K/mm3 (4.0-10.0)
[2023-03-05 08:23] LABS: ALBUMIN 3.2 g/dl (3.4-5.0); BLOOD UREA NITROGEN 39.8 mg/dL (7-18); CALCIUM 9.7 mg/dL (8.5-10.1); CREATININE 1.1 mg/dL (0.55-1.3)
[2023-03-05 08:24] LABS: BILIRUBIN,TOTAL 0.4 mg/dL (0.2-1); TOT PROT 7.1 g/dl (6.4-8.2)
[2023-03-05] MEDS: guaiFENesin/CODEINE 10 ML UNIT-DOSE CUPS PO SCH (21:52)
[2023-03-06] MEDS: guaiFENesin/CODEINE 10 ML UNIT-DOSE CUPS PO SCH (20:42)
[2023-03-06] MEDS ORDERED: INSULIN (NOVOLOG) ASPART 100 UNITS/ML 10ML VIAL ONE (21:17)
[2023-03-07 07:25] LABS: HEMATOCRIT 40.5 % (32.4-45.2); HEMOGLOBIN 12.8 GM/dL (10.7-15.3); MCH 27.9 pg (25.7-33.7); MCHC 31.7 g/dl (32.0-36.0); MEAN CELL VOLUME 88.1 fl (80-96); MEAN PLT VOLUME 9.6 fl (7.5-11.1); PLATELET COUNT 197 10^3/uL (134-434); RDW 14.5 % (11.6-15.6); WHITE BLOOD COUNT 16.9 K/mm3 (4.0-10.0)
[2023-03-07 07:34] LABS: POTASSIUM 4.3 mmol/L (3.5-5.1)
[2023-03-07 07:36] LABS: ALBUMIN 2.8 g/dl (3.4-5.0); BLOOD UREA NITROGEN 55.4 mg/dL (7-18); CALCIUM 9.3 mg/dL (8.5-10.1)
[2023-03-07 07:39] LABS: CREATININE 1.3 mg/dL (0.55-1.3)
[2023-03-07 07:41] LABS: TOT PROT 6.3 g/dl (6.4-8.2)
[2023-03-07 08:26] LABS: BILIRUBIN,TOTAL 0.5 mg/dL (0.2-1)
[2023-03-07] MEDS: TORSEMIDE 20 MG TABLET (FP) PO SCH (10:30)
[2023-03-07] MEDS: POLYETHYLENE GLYCOL (HEALTHYLAX) 3350 17 GM PACKET PO SCH (12:35)
[2023-03-07] MEDS: guaiFENesin/CODEINE 10 ML UNIT-DOSE CUPS PO PRN (14:05)
[2023-03-07] MEDS: DOCUSATE SODIUM 100 MG CAPSULE (FP) PO SCH (21:25)
[2023-03-07] MEDS: methylPREDNISolone NA SUCC 40 MG/1 ML VIAL IVPUSH SCH (21:25)
[2023-03-08] MEDS: hydrOXYzine PAMOATE 25 MG CAPSULE (FP) PO ONE (01:22)
[2023-03-08] MEDS: FUROSEMIDE 40 MG TABLET (FP) PO SCH (09:15)
[2023-03-08 15:10] VITALS: BP 121/79; PULSE 90; RESP 15; TEMP 98.8
[2023-03-08] MEDS ORDERED: INSULIN (LEVEMIR) 100 UNITS/ML UNITS SQ SCH (22:00)
[2023-03-09] MEDS ORDERED: INSULIN (LEVEMIR) 100 UNITS/ML UNITS SQ SCH (07:00)
== END 2023-03-08 15:08 | disposition home or self-care (01) | DRG 291 ==
LOC: JER 05:09 → JERBED 07:09 → OBSVTOIN 10:06 → J4W 15:06 → UNDODISIN 03-05 14:45
PROVIDERS: ADMIT Internal Medicine; ATTEND Internal Medicine
DX: I11.0 Hypertensive heart disease with heart failure (principal); I50.23 Acute on chronic systolic (congestive) heart failure; I24.89 Other forms of acute ischemic heart disease; J45.901 Unspecified asthma with (acute) exacerbation; I47.20 Ventricular tachycardia, unspecified; I25.10 Atherosclerotic heart disease of native coronary artery without angina pectoris; K57.90 Diverticulosis of intestine, part unspecified, without perforation or abscess without bleeding; E03.9 Hypothyroidism, unspecified; K76.0 Fatty (change of) liver, not elsewhere classified; E11.9 Type 2 diabetes mellitus without complications; I48.0 Paroxysmal atrial fibrillation; G25.81 Restless legs syndrome; G43.909 Migraine, unspecified, not intractable, without status migrainosus; E66.9 Obesity, unspecified; Z68.35 Body mass index [BMI] 35.0-35.9, adult; Z95.5 Presence of coronary angioplasty implant and graft
CPT/HCPCS: 0241U-QW; 36415; 71045-TC-FY; 80048; 80053; 81003; 82803; 82962; 83036; 83735; 83880; 84100; 84484; 85025; 85027; 85610; 85730; 87070; 87086; 87205; 93005; 93010; 94010; 94150; 94640; 97116-GP; 97162-GP; 99285-25; G0378

== ENCOUNTER 2023-03-20 19:03 | Emergency (ER) | payer MEDICARE, OTHER ==
[2023-03-20 19:08] VITALS: TEMP 97.7; BMI 34.4
[2023-03-20] MEDS ORDERED: ALBUTEROL SO4 2.5/IPRATROPIUM 0.5 INH SOL 3 ML VIAL.NEB. NEB ONE (19:54)
[2023-03-20] MEDS ORDERED: DEXAMETHASONE SOD PHOSPHATE 10 MG/1 ML VIAL ONE (19:54)
[2023-03-20] MEDS: DEXAMETHASONE 4 MG TABLET (FP) PO ONE (20:00)
[2023-03-20] MEDS: ALBUTEROL SO4 2.5/IPRATROPIUM 0.5 INH SOL 3 ML VIAL.NEB. NEB ONE (20:00)
[2023-03-20 21:48] LABS: BASO % 0.6 % (0-2.0); EOS % 1.5 % (0-4.5); HEMATOCRIT 37.7 % (32.4-45.2); LYMPH % 12.1 % (8-40); MCH 27.8 pg (25.7-33.7); MCHC 31.9 g/dl (32.0-36.0); MEAN CELL VOLUME 87.1 fl (80-96); MEAN PLT VOLUME 9.7 fl (7.5-11.1); MONO % 2.3 % (3.8-10.2); NEUT % 83.5 % (42.8-82.8); PLATELET COUNT 93 10^3/uL (134-434); RBC 4.33 M/mm3 (3.60-5.2); RDW 14.8 % (11.6-15.6); WHITE BLOOD COUNT 7.9 K/mm3 (4.0-10.0)
[2023-03-20 22:02] LABS: POTASSIUM 3.4 mmol/L (3.5-5.1)
[2023-03-20 22:04] LABS: CALCIUM 9.2 mg/dL (8.5-10.1); MAGNESIUM 1.7 mg/dL (1.8-2.4)
[2023-03-20 22:05] LABS: INR 1.18 (0.83-1.09); PROTHROMBIN TIME (PATIENT) 13.7 SEC (9.7-13.0)
[2023-03-20 22:07] LABS: ACTIVATED PTT 36.2 SECONDS (25.2-36.5)
[2023-03-20 22:09] LABS: BILIRUBIN,TOTAL 0.7 mg/dL (0.2-1); TOT PROT 6.7 g/dl (6.4-8.2)
[2023-03-20 22:12] LABS: N-TERMINAL BNP 670.8 pg/ml (5-125)
[2023-03-20 22:13] LABS: ALBUMIN 3.4 g/dl (3.4-5.0); BLOOD UREA NITROGEN 10.1 mg/dL (7-18)
[2023-03-20 23:10] VITALS: BP 112/50; PULSE 78
[2023-03-20 23:11] VITALS: RESP 20
[2023-03-20] MEDS ORDERED: ALBUTEROL SO4 0.083% IH SOL 2.5 MG/3 ML VIAL.NEB. NEB ONE (23:11)
[2023-03-20] MEDS ORDERED: FUROSEMIDE 20 MG TABLET (FP) ONE (23:12)
[2023-03-20] MEDS ORDERED: ALBUTEROL SO4 2.5/IPRATROPIUM 0.5 INH SOL 3 ML VIAL.NEB. NEB SCH (23:15)
[2023-03-20] MEDS: ALBUTEROL SULFATE 0.021% (0.63 MG/3 ML) VIAL.NEB NEB ONE (23:22)
[2023-03-20] MEDS: FUROSEMIDE 20 MG TABLET (FP) PO ONE (23:22)
[2023-03-20] MEDS: ALBUTEROL SO4 0.083% IH SOL 2.5 MG/3 ML VIAL.NEB. NEB ONE (23:22)
[2023-03-21] MEDS: ALBUTEROL SULFATE 0.021% (0.63 MG/3 ML) VIAL.NEB NEB ONE (00:46)
[2023-03-21] MEDS ORDERED: ALBUTEROL SO4 0.083% IH SOL 2.5 MG/3 ML VIAL.NEB. NEB ONE (00:47)
[2023-03-21] MEDS: ALBUTEROL SO4 0.083% IH SOL 2.5 MG/3 ML VIAL.NEB. NEB ONE (01:00)
[2023-03-21] MEDS ORDERED: ALBUTEROL SO4 HFA INHALER IH ONE (01:32)
[2023-03-21] MEDS: ALBUTEROL SO4 HFA INHALER IH ONE (01:32)
== END 2023-03-21 01:37 | disposition home or self-care (01) ==
LOC: JER 19:03
PROC: 3E0F7GC Introduction of Other Therapeutic Substance into Respiratory Tract, Via Natural or Artificial Opening (ICD-10-PCS; principal; 2023-03-20)
PROC: 3E0F7GC Introduction of Other Therapeutic Substance into Respiratory Tract, Via Natural or Artificial Opening (ICD-10-PCS; 2023-03-20)
PROC: 3E0F7GC Introduction of Other Therapeutic Substance into Respiratory Tract, Via Natural or Artificial Opening (ICD-10-PCS; 2023-03-21)
PROC: 3E0F7GC Introduction of Other Therapeutic Substance into Respiratory Tract, Via Natural or Artificial Opening (ICD-10-PCS; 2023-03-21)
DX: R06.02 Shortness of breath (principal); R09.81 Nasal congestion; R05.9 Cough, unspecified; R60.0 Localized edema; J45.909 Unspecified asthma, uncomplicated; Z20.822 Contact with and (suspected) exposure to COVID-19
CPT/HCPCS: 0241U-QW; 36415; 71045-TC-FY; 80053; 83735; 83880; 84484; 85025; 85610; 85730; 93005; 93010; 94640; 99285-25

== ENCOUNTER 2023-06-15 13:57 | Observation (INO) | payer MEDICARE, OTHER ==
[2023-06-15 15:31] LABS: BASO % 1.2 % (0-2.0); EOS % 2.8 % (0-4.5); HEMATOCRIT 37.6 % (32.4-45.2); HEMOGLOBIN 12.5 GM/dL (10.7-15.3); LYMPH % 20.1 % (8-40); MCH 28.7 pg (25.7-33.7); MCHC 33.2 g/dl (32.0-36.0); MEAN CELL VOLUME 86.4 fl (80-96); MEAN PLT VOLUME 8.9 fl (7.5-11.1); MONO % 7.4 % (3.8-10.2); NEUT % 68.5 % (42.8-82.8); PLATELET COUNT 151 10^3/uL (134-434); RBC 4.35 M/mm3 (3.60-5.2); RDW 15.2 % (11.6-15.6); WHITE BLOOD COUNT 6.4 K/mm3 (4.0-10.0)
[2023-06-15 15:44] LABS: ACTIVATED PTT 35.4 SECONDS (25.2-36.5); INR 1.13 (0.83-1.09); PROTHROMBIN TIME (PATIENT) 12.7 SEC (9.7-13.0)
[2023-06-15 15:55] LABS: CHLORIDE 105 mmol/L (98-107); SODIUM 140 mmol/L (136-145)
[2023-06-15 15:57] LABS: ANION GAP 2 mmol/L (4-13); CALCIUM 9.7 mg/dL (8.5-10.1); CO2 33 mmol/L (21-32); GLUCOSE,RANDOM 147 mg/dL (74-106)
[2023-06-15 15:58] LABS: ALBUMIN 3.3 g/dl (3.4-5.0); BLOOD UREA NITROGEN 15.3 mg/dL (7-18); MAGNESIUM 2.2 mg/dL (1.8-2.4)
[2023-06-15 16:01] LABS: CREATININE 0.8 mg/dL (0.55-1.3); SGOT/AST 15 U/L (15-37); SGPT/ALT 14 U/L (13-61)
[2023-06-15 16:03] LABS: BILIRUBIN,TOTAL 0.7 mg/dL (0.2-1); TOT PROT 6.8 g/dl (6.4-8.2)
[2023-06-15 16:04] LABS: ALK PHOS 93 U/L (45-117)
[2023-06-15 16:06] LABS: N-TERMINAL BNP 672.3 pg/ml (5-125)
[2023-06-15 16:09] LABS: ERYTHROCYTE SEDIMENTATION RATE 20 mm/hr (0-30)
[2023-06-15] MEDS ORDERED: HEPARIN INFUSION - 25,000 UNITS/500 ML INFUS.BAG IVPB ONE (18:42)
[2023-06-15] MEDS ORDERED: HEPARIN NA (PORCINE) 5,000 UNITS/ML 1ML VIAL ONE (18:42)
[2023-06-15] MEDS: HEPARIN INFUSION - 25,000 UNITS/500 ML INFUS.BAG IVPB SCH (18:49)
[2023-06-15] MEDS: HEPARIN NA (PORCINE) 5,000 UNITS/ML 1ML VIAL IVPUSH ONE (18:49)
[2023-06-15] MEDS ORDERED: ACETAMINOPHEN INJECTION 100 ML IVPB ONE (20:05)
[2023-06-15] MEDS: ACETAMINOPHEN 1000 MG/100 ML BAG IVPB ONE (20:32)
[2023-06-15] MEDS ORDERED: ALBUTEROL SO4 HFA INHALER IH PRN (21:04)
[2023-06-15] MEDS ORDERED: ceFAZolin SODIUM 1 GM VIAL ONE (22:14)
[2023-06-15] MEDS ORDERED: ATORVASTATIN CA 80 MG TABLET (FP) ONE (22:14)
[2023-06-15] MEDS ORDERED: SACUBITRIL/VALSARTAN 49 MG-51 MG TABLET ONE (22:14)
[2023-06-15] MEDS ORDERED: INSULIN (NOVOLOG) ASPART 100 UNITS/ML 10ML VIAL ONE (22:15)
[2023-06-15] MEDS: INSULIN ASPART SLIDING SCALE (NOVOLOG) 1 VIAL SQ SCH (22:35)
[2023-06-15] MEDS: CEFAZOLIN 1 GM in DEXTROSE 5%-WATER - 50 ML IVPB ONE (22:35)
[2023-06-15] MEDS: ATORVASTATIN CA 80 MG TABLET (FP) PO SCH (22:35)
[2023-06-15] MEDS: SACUBITRIL/VALSARTAN 49 MG-51 MG TABLET PO SCH (22:35)
[2023-06-16 01:09] VITALS: BMI 36.3
[2023-06-16 07:58] LABS: HEMATOCRIT 36.7 % (32.4-45.2); MCH 28.3 pg (25.7-33.7); MCHC 32.6 g/dl (32.0-36.0); MEAN CELL VOLUME 86.8 fl (80-96); MEAN PLT VOLUME 9.8 fl (7.5-11.1); PLATELET COUNT 134 10^3/uL (134-434); RBC 4.23 M/mm3 (3.60-5.2); WHITE BLOOD COUNT 4.8 K/mm3 (4.0-10.0)
[2023-06-16 08:19] LABS: POTASSIUM 3.7 mmol/L (3.5-5.1)
[2023-06-16 08:33] LABS: CALCIUM 9.2 mg/dL (8.5-10.1)
[2023-06-16 08:34] LABS: MAGNESIUM 1.9 mg/dL (1.8-2.4)
[2023-06-16 08:36] LABS: BLOOD UREA NITROGEN 13.1 mg/dL (7-18)
[2023-06-16 08:37] LABS: CREATININE 0.7 mg/dL (0.55-1.3); PHOSPHOROUS 3.4 mg/dL (2.5-4.9)
[2023-06-16 08:38] LABS: TOT PROT 6.1 g/dl (6.4-8.2)
[2023-06-16 08:39] LABS: BILIRUBIN,TOTAL 0.8 mg/dL (0.2-1)
[2023-06-16] MEDS: FUROSEMIDE 40 MG TABLET (FP) PO SCH (09:40)
[2023-06-16] MEDS: CEFAZOLIN 1 GM in DEXTROSE 5%-WATER - 50 ML IVPB SCH (09:40)
[2023-06-16] MEDS: ASPIRIN COATED 81 MG TABLET.EC PO SCH (09:40)
[2023-06-16] MEDS: AMIODARONE HCL 200 MG TABLET PO SCH (09:40)
[2023-06-16] MEDS: SPIRONOLACTONE 25 MG TABLET PO SCH (09:40)
[2023-06-16] MEDS ORDERED: PATIENT'S OWN MEDICATION (NON-FORMULARY) (Aspirin [Vazalore] 81 MG Capsule) PO SCH (10:00)
[2023-06-16] MEDS ORDERED: INSULIN (NOVOLOG) ASPART 100 UNITS/ML 10ML VIAL ONE ×2 (11:53→21:00)
[2023-06-16] MEDS: FLUTICASONE/UMECLIDIN/VILANTER(100-62.5-25 TRELEGY ELLIPTA) INAHLER IH SCH (13:13)
[2023-06-17 08:47] LABS: HEMATOCRIT 37.6 % (32.4-45.2); HEMOGLOBIN 12.6 GM/dL (10.7-15.3); MCH 28.8 pg (25.7-33.7); MCHC 33.5 g/dl (32.0-36.0); MEAN CELL VOLUME 85.8 fl (80-96); PLATELET COUNT 148 10^3/uL (134-434); RBC 4.38 M/mm3 (3.60-5.2); WHITE BLOOD COUNT 5.6 K/mm3 (4.0-10.0)
[2023-06-17 08:53] LABS: POTASSIUM 4.2 mmol/L (3.5-5.1)
[2023-06-17 08:58] LABS: CALCIUM 9.3 mg/dL (8.5-10.1)
[2023-06-17 09:00] LABS: CREATININE 0.8 mg/dL (0.55-1.3)
[2023-06-17] MEDS ORDERED: INSULIN (NOVOLOG) ASPART 100 UNITS/ML 10ML VIAL ONE ×2 (11:35→21:12)
[2023-06-17] MEDS: ENOXAPARIN NA (PORCINE) 120 MG/0.8 ML DISP.SYRIN SQ SCH (13:45)
[2023-06-17] MEDS: ACETAMINOPHEN 325 MG TABLET (FP) PO PRN (21:13)
[2023-06-18 06:39] VITALS: TEMP 97.7
[2023-06-18 07:51] LABS: BASO % 0.8 % (0-2.0); EOS % 3.8 % (0-4.5); HEMATOCRIT 37.6 % (32.4-45.2); HEMOGLOBIN 12.6 GM/dL (10.7-15.3); LYMPH % 31.7 % (8-40); MCH 28.8 pg (25.7-33.7); MCHC 33.6 g/dl (32.0-36.0); MEAN CELL VOLUME 85.9 fl (80-96); MEAN PLT VOLUME 9.7 fl (7.5-11.1); MONO % 8.2 % (3.8-10.2); NEUT % 55.5 % (42.8-82.8); PLATELET COUNT 152 10^3/uL (134-434); RBC 4.38 M/mm3 (3.60-5.2); RDW 15.1 % (11.6-15.6); WHITE BLOOD COUNT 5.3 K/mm3 (4.0-10.0)
[2023-06-18 08:10] LABS: POTASSIUM 4.1 mmol/L (3.5-5.1)
[2023-06-18 08:16] LABS: CALCIUM 9.1 mg/dL (8.5-10.1)
[2023-06-18 08:18] LABS: BLOOD UREA NITROGEN 18.1 mg/dL (7-18)
[2023-06-18 08:20] LABS: CREATININE 0.8 mg/dL (0.55-1.3)
[2023-06-18 11:14] VITALS: BP 123/77; PULSE 53; RESP 18
[2023-06-19 20:08] LABS: DRVVT - 36.7 sec (0.0-47.0); HEXAGONAL PHASE PHOSPHOLIPID 3 sec (0-11)
== END 2023-06-18 11:50 | disposition home health service (06) ==
LOC: JER 13:57 → UNDOADMOB 18:38 → JERBED 18:38 → INTOOBSV 21:07 → OBSVTOIN 21:07 → JERBED 06-16 00:43 → J7W 06-16 00:43 → JERBED 06-17 15:02 → J7W 06-17 15:02
PROVIDERS: ADMIT Internal Medicine; ATTEND Internal Medicine
PROC: 3E033NZ Introduction of Analgesics, Hypnotics, Sedatives into Peripheral Vein, Percutaneous Approach (ICD-10-PCS; principal; 2023-06-17)
PROC: 3E03329 Introduction of Other Anti-infective into Peripheral Vein, Percutaneous Approach (ICD-10-PCS; 2023-06-17)
PROC: 3E023GC Introduction of Other Therapeutic Substance into Muscle, Percutaneous Approach (ICD-10-PCS; 2023-06-17)
PROC: 3E033GC Introduction of Other Therapeutic Substance into Peripheral Vein, Percutaneous Approach (ICD-10-PCS; 2023-06-17)
PROC: 3E013VG Introduction of Insulin into Subcutaneous Tissue, Percutaneous Approach (ICD-10-PCS; 2023-06-17)
DX: I82.432 Acute embolism and thrombosis of left popliteal vein (principal); Z29.89 Encounter for other specified prophylactic measures; J45.909 Unspecified asthma, uncomplicated; I25.10 Atherosclerotic heart disease of native coronary artery without angina pectoris; I11.0 Hypertensive heart disease with heart failure; E03.9 Hypothyroidism, unspecified; E11.9 Type 2 diabetes mellitus without complications; L53.8 Other specified erythematous conditions; I48.91 Unspecified atrial fibrillation; I47.20 Ventricular tachycardia, unspecified; Z95.5 Presence of coronary angioplasty implant and graft; Z79.01 Long term (current) use of anticoagulants; K59.00 Constipation, unspecified; Z90.49 Acquired absence of other specified parts of digestive tract; K76.0 Fatty (change of) liver, not elsewhere classified
CPT/HCPCS: 36415; 73562-TC-LT-FY; 73590-TC-LT-FY; 73610-TC-LT-FY; 73630-TC-LT; 80048; 80053; 82962; 83735; 83880; 84100; 85025; 85027; 85610; 85613; 85651; 85730; 85732; 86140; 86146; 86850; 86900; 86901; 93005; 93010; 93970-TC; 96365; 96366; 96367; 96372; 96375; 97116-GP; 97161-GP; 99285-25; G0378; J0131; J1644

== ENCOUNTER 2023-07-14 11:46 | Inpatient (IN) | payer MEDICARE, OTHER ==
[2023-07-14] MEDS ORDERED: ALBUTEROL SO4 2.5/IPRATROPIUM 0.5 INH SOL 3 ML VIAL.NEB. NEB ONE ×2 (12:07→16:17)
[2023-07-14] MEDS: ALBUTEROL SO4 2.5/IPRATROPIUM 0.5 INH SOL 3 ML VIAL.NEB. NEB ONE (12:10)
[2023-07-14] MEDS ORDERED: methylPREDNISolone NA SUCC 125 MG/2 ML VIAL ONE (12:26)
[2023-07-14] MEDS: methylPREDNISolone NA SUCC 125 MG/2 ML VIAL IVPUSH ONE (12:35)
[2023-07-14 12:55] LABS: VENOUS BASE EXCESS 2.4 mmol/L (-2-2); VENOUS O2 SATURATION 69.2 % (70-80); VENOUS PCO2 50.5 mmHg (38-52); VENOUS PH 7.369 (7.310-7.410)
[2023-07-14 13:01] LABS: BASO % 1.2 % (0-2.0); EOS % 2.9 % (0-4.5); HEMATOCRIT 35.1 % (32.4-45.2); HEMOGLOBIN 11.6 GM/dL (10.7-15.3); LYMPH % 18.7 % (8-40); MCH 28.5 pg (25.7-33.7); MCHC 32.9 g/dl (32.0-36.0); MEAN CELL VOLUME 86.6 fl (80-96); MEAN PLT VOLUME 9.6 fl (7.5-11.1); NEUT % 67.2 % (42.8-82.8); PLATELET COUNT 164 10^3/uL (134-434); RBC 4.06 M/mm3 (3.60-5.2); RDW 14.7 % (11.6-15.6); WHITE BLOOD COUNT 7.6 K/mm3 (4.0-10.0)
[2023-07-14 13:08] LABS: INR 1.08 (0.83-1.09); PROTHROMBIN TIME (PATIENT) 12.4 SEC (9.7-13.0)
[2023-07-14 13:11] LABS: ACTIVATED PTT 37.4 SECONDS (25.2-36.5)
[2023-07-14 13:25] LABS: POTASSIUM 4.1 mmol/L (3.5-5.1)
[2023-07-14 13:27] LABS: BLOOD UREA NITROGEN 14.2 mg/dL (7-18); CALCIUM 8.9 mg/dL (8.5-10.1)
[2023-07-14 13:28] LABS: ALBUMIN 3.2 g/dl (3.4-5.0)
[2023-07-14 13:31] LABS: CREATININE 0.8 mg/dL (0.55-1.3)
[2023-07-14 13:32] LABS: BILIRUBIN,TOTAL 0.6 mg/dL (0.2-1); TOT PROT 6.7 g/dl (6.4-8.2)
[2023-07-14] MEDS ORDERED: CEFTRIAXONE 1 GM/50 ML BAG ONE (15:45)
[2023-07-14] MEDS ORDERED: AZITHROMYCIN IVPB 500 MG/250 ML BAG IVPB ONE (15:45)
[2023-07-14] MEDS ORDERED: FUROSEMIDE 40 MG/4 ML INJECTABLE VIAL ONE (15:45)
[2023-07-14] MEDS: FUROSEMIDE 40 MG/4 ML INJECTABLE VIAL IVPUSH SCH (15:55)
[2023-07-14] MEDS: ALBUTEROL SO4 2.5/IPRATROPIUM 0.5 INH SOL 3 ML VIAL.NEB. NEB SCH (16:22)
[2023-07-14] MEDS: AZITHROMYCIN IVPB 500 MG in DEXTROSE 5%-WATER - 250 ML IVPB ONE (17:14)
[2023-07-14] MEDS: INSULIN ASPART SLIDING SCALE (NOVOLOG) 1 VIAL SQ SCH (17:47)
[2023-07-14] MEDS: ENOXAPARIN NA (PORCINE) 120 MG/0.8 ML DISP.SYRIN SQ SCH (17:49)
[2023-07-14] MEDS: TOPIRAMATE 25 MG TABLET PO SCH (22:03)
[2023-07-14] MEDS: SACUBITRIL/VALSARTAN 49 MG-51 MG TABLET PO SCH (22:03)
[2023-07-14] MEDS: PRAMIPEXOLE DIHYDROCHLORIDE 0.125 MG TABLET PO SCH (22:38)
[2023-07-15 03:06] VITALS: RESP 18
[2023-07-15] MEDS: ALBUTEROL SO4 0.083% IH SOL 2.5 MG/3 ML VIAL.NEB. NEB PRN (03:46)
[2023-07-15] MEDS: BENZOCAINE/MENTH/CETYLPYRD CL 1 EACH LOZENGE MM PRN (04:11)
[2023-07-15] MEDS: methylPREDNISolone NA SUCC 40 MG/1 ML VIAL IVPUSH SCH ×2 (08:01→17:07)
[2023-07-15 08:55] LABS: BASO % 0.2 % (0-2.0); HEMATOCRIT 34.9 % (32.4-45.2); HEMOGLOBIN 11.8 GM/dL (10.7-15.3); LYMPH % 7.9 % (8-40); MCHC 33.8 g/dl (32.0-36.0); MEAN CELL VOLUME 85.7 fl (80-96); NEUT % 85.9 % (42.8-82.8); PLATELET COUNT 169 10^3/uL (134-434); RBC 4.07 M/mm3 (3.60-5.2); RDW 14.6 % (11.6-15.6); WHITE BLOOD COUNT 10.8 K/mm3 (4.0-10.0)
[2023-07-15 09:10] LABS: POTASSIUM 3.9 mmol/L (3.5-5.1)
[2023-07-15 09:17] LABS: CALCIUM 9.1 mg/dL (8.5-10.1)
[2023-07-15 09:18] LABS: BLOOD UREA NITROGEN 20.9 mg/dL (7-18)
[2023-07-15 09:21] LABS: CREATININE 0.9 mg/dL (0.55-1.3)
[2023-07-15] MEDS: ASPIRIN COATED 81 MG TABLET.EC PO SCH (09:56)
[2023-07-15] MEDS: SPIRONOLACTONE 25 MG TABLET PO SCH (09:56)
[2023-07-15] MEDS: AMIODARONE HCL 200 MG TABLET PO SCH (09:56)
[2023-07-15] MEDS: ATORVASTATIN CA 80 MG TABLET (FP) PO SCH (09:56)
[2023-07-15] MEDS ORDERED: AZITHROMYCIN IVPB 500 MG in DEXTROSE 5%-WATER - 250 ML IVPB SCH (10:00)
[2023-07-15] MEDS ORDERED: CEFTRIAXONE 1 GM in DEXTROSE 5%-WATER - 50 ML IVPB SCH (10:00)
[2023-07-15 10:03] VITALS: BMI 35.6
[2023-07-15] MEDS: FLUTICASONE/UMECLIDIN/VILANTER(100-62.5-25 TRELEGY ELLIPTA) INAHLER IH SCH (11:43)
[2023-07-15] MEDS: AZITHROMYCIN 500 MG TABLET PO SCH (13:23)
[2023-07-15] MEDS: ACETAMINOPHEN 325 MG TABLET (FP) PO PRN (15:40)
[2023-07-16 08:42] LABS: HEMATOCRIT 35.8 % (32.4-45.2); HEMOGLOBIN 11.9 GM/dL (10.7-15.3); MCH 28.5 pg (25.7-33.7); MCHC 33.3 g/dl (32.0-36.0); MEAN CELL VOLUME 85.5 fl (80-96); MEAN PLT VOLUME 9.9 fl (7.5-11.1); PLATELET COUNT 169 10^3/uL (134-434); RBC 4.18 M/mm3 (3.60-5.2); RDW 14.3 % (11.6-15.6); WHITE BLOOD COUNT 15.2 K/mm3 (4.0-10.0)
[2023-07-16 08:48] LABS: POTASSIUM 4.1 mmol/L (3.5-5.1)
[2023-07-16 08:52] LABS: ALBUMIN 3.2 g/dl (3.4-5.0)
[2023-07-16 08:53] LABS: CALCIUM 9.6 mg/dL (8.5-10.1)
[2023-07-16 08:55] LABS: CREATININE 0.8 mg/dL (0.55-1.3)
[2023-07-16 08:56] LABS: BILIRUBIN,TOTAL 0.8 mg/dL (0.2-1); TOT PROT 6.8 g/dl (6.4-8.2)
[2023-07-16 10:03] LABS: ANISOCYTOSIS 0; MACROCYTOSIS 0
[2023-07-16 15:18] VITALS: BP 108/76; PULSE 63; TEMP 98.8
== END 2023-07-16 15:30 | disposition home or self-care (01) | DRG 291 ==
LOC: JER 11:46 → JERBED 14:00 → OBSVTOIN 14:20 → J6S 17:45
PROVIDERS: ADMIT Internal Medicine; ATTEND Internal Medicine
DX: I11.0 Hypertensive heart disease with heart failure (principal); I50.43 Acute on chronic combined systolic (congestive) and diastolic (congestive) heart failure; J18.9 Pneumonia, unspecified organism; J45.41 Moderate persistent asthma with (acute) exacerbation; J44.0 Chronic obstructive pulmonary disease with (acute) lower respiratory infection; J44.1 Chronic obstructive pulmonary disease with (acute) exacerbation; I25.10 Atherosclerotic heart disease of native coronary artery without angina pectoris; I48.91 Unspecified atrial fibrillation; E78.5 Hyperlipidemia, unspecified; E03.9 Hypothyroidism, unspecified; Z86.718 Personal history of other venous thrombosis and embolism; Z79.01 Long term (current) use of anticoagulants; E11.9 Type 2 diabetes mellitus without complications; Z79.84 Long term (current) use of oral hypoglycemic drugs
CPT/HCPCS: 0241U-QW; 36415; 71045-TC-FY; 80048; 80053; 82803; 82962; 83880; 84484; 85025; 85610; 85730; 86850; 86900; 86901; 87070; 87077; 87184; 87205; 93005; 93010; 94640; 97116-GP; 97162-GP; 99285-25; G0378

== ENCOUNTER 2023-09-22 18:32 | Inpatient (IN) | payer MEDICARE, OTHER ==
[2023-09-22] MEDS ORDERED: ACETAMINOPHEN INJECTION 100 ML IVPB ONE (20:25)
[2023-09-22] MEDS: ACETAMINOPHEN 1000 MG/100 ML BAG IVPB ONE (21:00)
[2023-09-22 21:30] LABS: BASO % 0.9 % (0-2.0); EOS % 2.8 % (0-4.5); HEMATOCRIT 34.7 % (32.4-45.2); HEMOGLOBIN 11.3 GM/dL (10.7-15.3); LYMPH % 23.1 % (8-40); MCH 28.3 pg (25.7-33.7); MCHC 32.7 g/dl (32.0-36.0); MEAN CELL VOLUME 86.5 fl (80-96); MEAN PLT VOLUME 9.5 fl (7.5-11.1); MONO % 6.8 % (3.8-10.2); NEUT % 66.4 % (42.8-82.8); PLATELET COUNT 157 10^3/uL (134-434); RBC 4.01 M/mm3 (3.60-5.2); RDW 14.7 % (11.6-15.6); WHITE BLOOD COUNT 6.5 K/mm3 (4.0-10.0)
[2023-09-22] MEDS ORDERED: PIPERACILLIN/TAZOB 4.5 GM 4.5 GM/100 ML BAG IVPB ONE (21:37)
[2023-09-22] MEDS: PIPERACILLIN/TAZOB 4.5 GM 4.5 GM in DEXTROSE 5%-WATER 100 ML IVPB ONE (21:46)
[2023-09-22 21:47] LABS: PROTHROMBIN TIME (PATIENT) 50.4 SEC (9.7-13.0)
[2023-09-22 21:49] LABS: ACTIVATED PTT 62.5 SECONDS (25.2-36.5)
[2023-09-22 22:04] LABS: POTASSIUM 3.9 mmol/L (3.5-5.1)
[2023-09-22 22:06] LABS: ALBUMIN 3.4 g/dl (3.4-5.0); BLOOD UREA NITROGEN 17.5 mg/dL (7-18)
[2023-09-22 22:11] LABS: BILIRUBIN,TOTAL 0.5 mg/dL (0.2-1); TOT PROT 6.6 g/dl (6.4-8.2)
[2023-09-22 22:29] LABS: INR 4.66 (0.83-1.09)
[2023-09-22] MEDS: VANCOMYCIN PREMIX 1.75 GM 1,750 MG/350 ML PIGGYBACK IVPB ONE (23:05)
[2023-09-23] MEDS: INSULIN ASPART SLIDING SCALE (NOVOLOG) 1 VIAL SQ SCH (01:10)
[2023-09-23] MEDS ORDERED: ALBUTEROL SO4 HFA INHALER IH PRN (03:19)
[2023-09-23 03:43] VITALS: BMI 36.1
[2023-09-23] MEDS: CEFAZOLIN SODIUM 2 GM in DEXTROSE 5%-WATER - 50 ML IVPB SCH (06:07)
[2023-09-23 08:29] LABS: BASO % 0.9 % (0-2.0); EOS % 3.7 % (0-4.5); HEMATOCRIT 33.3 % (32.4-45.2); HEMOGLOBIN 10.9 GM/dL (10.7-15.3); MCH 28.5 pg (25.7-33.7); MCHC 32.6 g/dl (32.0-36.0); MEAN CELL VOLUME 87.3 fl (80-96); MEAN PLT VOLUME 9.5 fl (7.5-11.1); NEUT % 61.4 % (42.8-82.8); PLATELET COUNT 144 10^3/uL (134-434); RBC 3.81 M/mm3 (3.60-5.2); RDW 14.5 % (11.6-15.6); WHITE BLOOD COUNT 5.2 K/mm3 (4.0-10.0)
[2023-09-23 08:34] LABS: PROTHROMBIN TIME (PATIENT) 63.3 SEC (9.7-13.0)
[2023-09-23 08:53] LABS: POTASSIUM 3.8 mmol/L (3.5-5.1)
[2023-09-23 09:00] LABS: ALBUMIN 3.2 g/dl (3.4-5.0); BLOOD UREA NITROGEN 15.6 mg/dL (7-18); MAGNESIUM 2.1 mg/dL (1.8-2.4)
[2023-09-23 09:03] LABS: CREATININE 0.9 mg/dL (0.55-1.3); PHOSPHOROUS 3.3 mg/dL (2.5-4.9)
[2023-09-23 09:05] LABS: BILIRUBIN,TOTAL 0.9 mg/dL (0.2-1); TOT PROT 6.2 g/dl (6.4-8.2)
[2023-09-23 09:18] LABS: INR 5.9 (0.83-1.09)
[2023-09-23] MEDS ORDERED: ENOXAPARIN NA (PORCINE) 40 MG/0.4 ML DISP.SYRIN SQ SCH (10:00)
[2023-09-23] MEDS: FUROSEMIDE 40 MG TABLET (FP) PO SCH (11:04)
[2023-09-23] MEDS: SACUBITRIL/VALSARTAN 49 MG-51 MG TABLET PO SCH (11:04)
[2023-09-23] MEDS: SPIRONOLACTONE 25 MG TABLET PO SCH (11:05)
[2023-09-23] MEDS: ASPIRIN COATED 81 MG TABLET.EC PO SCH (11:06)
[2023-09-23] MEDS: AMIODARONE HCL 200 MG TABLET PO SCH (11:06)
[2023-09-23] MEDS: TOPIRAMATE 25 MG TABLET PO SCH (11:07)
[2023-09-23] MEDS: APIXABAN 2.5 MG TABLET PO SCH (11:07)
[2023-09-23] MEDS: FLUTICASONE/UMECLIDIN/VILANTER(100-62.5-25 TRELEGY ELLIPTA) INAHLER IH SCH (11:10)
[2023-09-23 16:43] LABS: HIV INTERPRETATION NEGATIVE (NEGATIVE)
[2023-09-23] MEDS: PHYTONADIONE 5 MG TABLET PO ONE (17:04)
[2023-09-23] MEDS: oxyCODONE HCL 5 MG TABLET PO PRN (20:45)
[2023-09-23] MEDS: ATORVASTATIN CA 80 MG TABLET (FP) PO SCH (21:27)
[2023-09-23] MEDS: CEFTRIAXONE 2 GM in DEXTROSE 5%-WATER 100 ML IVPB SCH (22:08)
[2023-09-24 09:49] LABS: BASO % 0.9 % (0-2.0); HEMATOCRIT 35.4 % (32.4-45.2); HEMOGLOBIN 11.8 GM/dL (10.7-15.3); LYMPH % 23.2 % (8-40); MCH 28.7 pg (25.7-33.7); MCHC 33.3 g/dl (32.0-36.0); MEAN CELL VOLUME 86.1 fl (80-96); MEAN PLT VOLUME 10.2 fl (7.5-11.1); MONO % 7.7 % (3.8-10.2); NEUT % 64.2 % (42.8-82.8); PLATELET COUNT 152 10^3/uL (134-434); RBC 4.12 M/mm3 (3.60-5.2); WHITE BLOOD COUNT 5.1 K/mm3 (4.0-10.0)
[2023-09-24 09:55] LABS: INR 2.16 (0.83-1.09); PROTHROMBIN TIME (PATIENT) 24.3 SEC (9.7-13.0)
[2023-09-24 10:10] LABS: POTASSIUM 4.2 mmol/L (3.5-5.1)
[2023-09-24 10:13] LABS: CALCIUM 8.9 mg/dL (8.5-10.1)
[2023-09-24 10:14] LABS: BLOOD UREA NITROGEN 15.3 mg/dL (7-18)
[2023-09-24 10:17] LABS: CREATININE 0.8 mg/dL (0.55-1.3)
[2023-09-24] MEDS: ENOXAPARIN NA (PORCINE) 120 MG/0.8 ML DISP.SYRIN SQ SCH (17:17)
[2023-09-24] MEDS ORDERED: WARFARIN NA 7.5 MG TABLET PO ONE (18:00)
[2023-09-24] MEDS: WARFARIN PO ONE (18:43)
[2023-09-24] MEDS: CEFTRIAXONE 1 GM in DEXTROSE 5%-WATER - 50 ML IVPB SCH (18:43)
[2023-09-25 07:16] VITALS: TEMP 97.5
[2023-09-25 08:40] LABS: EOS % 4.9 % (0-4.5); HEMATOCRIT 38.4 % (32.4-45.2); HEMOGLOBIN 12.7 GM/dL (10.7-15.3); LYMPH % 25.9 % (8-40); MCH 28.8 pg (25.7-33.7); MCHC 33.1 g/dl (32.0-36.0); MEAN CELL VOLUME 86.9 fl (80-96); MEAN PLT VOLUME 9.6 fl (7.5-11.1); MONO % 7.1 % (3.8-10.2); NEUT % 61.1 % (42.8-82.8); PLATELET COUNT 170 10^3/uL (134-434); RBC 4.41 M/mm3 (3.60-5.2); RDW 14.7 % (11.6-15.6); WHITE BLOOD COUNT 5.3 K/mm3 (4.0-10.0)
[2023-09-25 08:42] LABS: INR 1.37 (0.83-1.09); PROTHROMBIN TIME (PATIENT) 15.3 SEC (9.7-13.0)
[2023-09-25 09:03] LABS: POTASSIUM 4.3 mmol/L (3.5-5.1)
[2023-09-25 09:07] LABS: CALCIUM 9.3 mg/dL (8.5-10.1)
[2023-09-25 09:08] LABS: BLOOD UREA NITROGEN 17.4 mg/dL (7-18)
[2023-09-25 09:11] LABS: CREATININE 0.9 mg/dL (0.55-1.3)
[2023-09-25 10:38] VITALS: BP 143/83; PULSE 55; RESP 17
== END 2023-09-25 19:52 | disposition home or self-care (01) | DRG 813 ==
LOC: JERFT 18:32 → JER 18:32 → JERBED 22:05 → OBSVTOIN 23:38 → J7W 09-23 03:26
PROVIDERS: ADMIT Internal Medicine; ATTEND Internal Medicine
DX: D68.32 Hemorrhagic disorder due to extrinsic circulating anticoagulants (principal); I50.22 Chronic systolic (congestive) heart failure; L03.115 Cellulitis of right lower limb; L03.116 Cellulitis of left lower limb; S80.12XA Contusion of left lower leg, initial encounter; I25.10 Atherosclerotic heart disease of native coronary artery without angina pectoris; I48.91 Unspecified atrial fibrillation; I11.0 Hypertensive heart disease with heart failure; E78.5 Hyperlipidemia, unspecified; E11.9 Type 2 diabetes mellitus without complications; E03.9 Hypothyroidism, unspecified; J45.909 Unspecified asthma, uncomplicated; E66.9 Obesity, unspecified; Z68.36 Body mass index [BMI] 36.0-36.9, adult; X58.XXXA Exposure to other specified factors, initial encounter; Y93.9 Activity, unspecified; Y92.89 Other specified places as the place of occurrence of the external cause; Y99.9 Unspecified external cause status
CPT/HCPCS: 36415; 73700-TC-RT; 80048; 80053; 82962; 83735; 84100; 85025; 85610; 85651; 85730; 86140; 86803; 87040; 87389; 93005; 93010; 93971-TC; 97116-GP; 97161-GP; 99285-25; G0378; J0131; J3370

== ENCOUNTER 2023-12-02 11:00 | Emergency (ER) | payer MEDICARE, OTHER ==
[2023-12-02 11:13] VITALS: BP 126/75; PULSE 68; RESP 18; TEMP 97.7
[2023-12-02] MEDS ORDERED: ACETAMINOPHEN 325 MG TABLET (FP) ONE (11:43)
[2023-12-02] MEDS: ACETAMINOPHEN 325 MG TABLET (FP) PO ONE (11:45)
== END 2023-12-02 15:07 | disposition home or self-care (01) ==
LOC: JER 11:00
DX: M71.22 Synovial cyst of popliteal space [Baker], left knee (principal); R06.02 Shortness of breath
CPT/HCPCS: 93005; 93010; 93971-TC; 99284-25

== ENCOUNTER 2024-01-17 02:31 | Emergency (ER) | payer MEDICARE, OTHER ==
[2024-01-17 02:53] VITALS: BMI 31.5
[2024-01-17] MEDS ORDERED: FAMOTIDINE 20 MG/50 ML IVPB 20 MG/50 ML MG IVPB ONE (04:16)
[2024-01-17] MEDS ORDERED: ONDANSETRON 4 MG/2 ML VIAL ONE ×2 (04:16→09:00)
[2024-01-17] MEDS: FAMOTIDINE 20 MG/50 ML IVPB 20 MG/50 ML MG IVPB ONE (04:21)
[2024-01-17] MEDS: ONDANSETRON 4 MG/2 ML VIAL IVPUSH ONE ×2 (04:21→09:10)
[2024-01-17 04:22] LABS: BASO % 0.7 % (0-2.0); EOS % 1.2 % (0-4.5); HEMATOCRIT 37.5 % (32.4-45.2); HEMOGLOBIN 12.3 GM/dL (10.7-15.3); LYMPH % 9.4 % (8-40); MCH 28.1 pg (25.7-33.7); MCHC 32.8 g/dl (32.0-36.0); MEAN CELL VOLUME 85.6 fl (80-96); MEAN PLT VOLUME 9.5 fl (7.5-11.1); MONO % 4.3 % (3.8-10.2); NEUT % 84.4 % (42.8-82.8); PLATELET COUNT 150 10^3/uL (134-434); RBC 4.38 M/mm3 (3.60-5.2); WHITE BLOOD COUNT 8.5 K/mm3 (4.0-10.0)
[2024-01-17 04:42] LABS: POTASSIUM 3.9 mmol/L (3.5-5.1)
[2024-01-17 04:44] LABS: CALCIUM 9.3 mg/dL (8.5-10.1)
[2024-01-17 04:45] LABS: ALBUMIN 3.6 g/dl (3.4-5.0); BLOOD UREA NITROGEN 12.8 mg/dL (7-18)
[2024-01-17 04:48] LABS: CREATININE 0.9 mg/dL (0.55-1.3)
[2024-01-17 04:49] LABS: BILIRUBIN,TOTAL 0.6 mg/dL (0.2-1); INR 1.29 (0.83-1.09); PROTHROMBIN TIME (PATIENT) 14.5 SEC (9.7-13.0); TOT PROT 6.8 g/dl (6.4-8.2)
[2024-01-17 04:51] LABS: ACTIVATED PTT 36.3 SECONDS (25.2-36.5); LACTIC ACID 2.1 mmol/L (0.4-2.0)
[2024-01-17] MEDS: SODIUM CHLORIDE 0.9% 500 ML INFUS.BAG IV ONE (06:02)
[2024-01-17 06:34] VITALS: RESP 16; TEMP 97.6
[2024-01-17] MEDS ORDERED: morphine SULFATE 4 MG/ML VIAL ONE (09:00)
[2024-01-17] MEDS: morphine CARPU-JECT 4 MG/1 ML DISP.SYRIN IVPUSH ONE (09:10)
[2024-01-17 11:25] LABS: EPI CELLS >36 /uL (0-25.1); HYALINE CASTS 5 /uL (0-3.1); URINE APPEARANCE CLEAR; URINE BACTERIA 1349 /uL (0-1359); URINE BILIRUBIN NEGATIVE (NEGATIVE); URINE COLOR YELLOW; URINE GLUCOSE (UA) 2+ (NEGATIVE); URINE KETONE NEGATIVE (NEGATIVE); URINE LEUK ESTERASE NEGATIVE (NEGATIVE); URINE NITRITE NEGATIVE (NEGATIVE); URINE PROTEIN 1+ (NEGATIVE); URINE RBC 10 /uL (0-23.9); URINE WBC 16 /uL (0-25.8)
[2024-01-17 12:56] VITALS: BP 131/80; PULSE 60
[2024-01-17] MEDS ORDERED: CEFPODOXIME PROXETIL 100 MG TABLET PO ONE (13:00)
== END 2024-01-17 12:55 | disposition home or self-care (01) ==
LOC: JER 02:31
PROC: 3E033GC Introduction of Other Therapeutic Substance into Peripheral Vein, Percutaneous Approach (ICD-10-PCS; principal; 2024-01-17)
PROC: 3E033NZ Introduction of Analgesics, Hypnotics, Sedatives into Peripheral Vein, Percutaneous Approach (ICD-10-PCS; 2024-01-17)
PROC: 3E033GC Introduction of Other Therapeutic Substance into Peripheral Vein, Percutaneous Approach (ICD-10-PCS; 2024-01-17)
PROC: 3E033GC Introduction of Other Therapeutic Substance into Peripheral Vein, Percutaneous Approach (ICD-10-PCS; 2024-01-17)
DX: N12 Tubulo-interstitial nephritis, not specified as acute or chronic (principal); N39.0 Urinary tract infection, site not specified; R10.30 Lower abdominal pain, unspecified; R11.2 Nausea with vomiting, unspecified
CPT/HCPCS: 36415; 71045-TC-FY; 74177-TC; 76705-TC; 80053; 81003; 83605; 83690; 84484; 85025; 85610; 85730; 86850; 86900; 86901; 87086; 93005; 93010; 96365; 96375; 96376; 99285-25; Q9967

== ENCOUNTER 2024-02-18 11:50 | Emergency (ER) | payer MEDICARE, OTHER ==
[2024-02-18 12:17] VITALS: RESP 18; BMI 34.8
[2024-02-18 12:22] VITALS: TEMP 97.5
[2024-02-18] MEDS ORDERED: FAMOTIDINE 20 MG/50 ML IVPB 20 MG/50 ML MG IVPB ONE (12:40)
[2024-02-18] MEDS ORDERED: ACETAMINOPHEN INJECTION 100 ML ONE (12:40)
[2024-02-18] MEDS ORDERED: ONDANSETRON 4 MG/2 ML VIAL ONE (12:40)
[2024-02-18 12:46] VITALS: PULSE 72
[2024-02-18] MEDS: FAMOTIDINE 20 MG/50 ML IVPB 20 MG/50 ML MG IVPB ONE (13:00)
[2024-02-18] MEDS: ONDANSETRON 4 MG/2 ML VIAL IVPUSH ONE (13:00)
[2024-02-18] MEDS: ACETAMINOPHEN 1000 MG/100 ML BAG IVPB ONE (13:00)
[2024-02-18 13:17] LABS: BASO % 0.8 % (0-2.0); EOS % 2.2 % (0-4.5); HEMATOCRIT 42.4 % (32.4-45.2); HEMOGLOBIN 13.8 GM/dL (10.7-15.3); LYMPH % 20.8 % (8-40); MCH 28.3 pg (25.7-33.7); MCHC 32.5 g/dl (32.0-36.0); MEAN CELL VOLUME 87.1 fl (80-96); MEAN PLT VOLUME 9.8 fl (7.5-11.1); MONO % 6.6 % (3.8-10.2); NEUT % 69.6 % (42.8-82.8); PLATELET COUNT 147 10^3/uL (134-434); RBC 4.87 M/mm3 (3.60-5.2); WHITE BLOOD COUNT 6.3 K/mm3 (4.0-10.0)
[2024-02-18 13:20] VITALS: BP 124/74
[2024-02-18 13:24] LABS: INR 0.96 (0.83-1.09); PROTHROMBIN TIME (PATIENT) 11.1 SEC (9.7-13.0)
[2024-02-18 13:27] LABS: ACTIVATED PTT 34.8 SECONDS (25.2-36.5)
[2024-02-18 13:43] LABS: POTASSIUM 4.5 mmol/L (3.5-5.1)
[2024-02-18 13:45] LABS: ALBUMIN 3.6 g/dl (3.4-5.0); BLOOD UREA NITROGEN 12.5 mg/dL (7-18); CALCIUM 9.4 mg/dL (8.5-10.1)
[2024-02-18 13:46] LABS: MAGNESIUM 2.2 mg/dL (1.8-2.4)
[2024-02-18 13:49] LABS: CREATININE 0.9 mg/dL (0.55-1.3)
[2024-02-18 13:50] LABS: BILIRUBIN,TOTAL 0.6 mg/dL (0.2-1); TOT PROT 7.2 g/dl (6.4-8.2)
[2024-02-18 14:34] LABS: URINE APPEARANCE CLEAR; URINE BILIRUBIN NEGATIVE (NEGATIVE); URINE COLOR YELLOW; URINE GLUCOSE (UA) 3+ (NEGATIVE); URINE KETONE NEGATIVE (NEGATIVE); URINE LEUK ESTERASE NEGATIVE (NEGATIVE); URINE NITRITE NEGATIVE (NEGATIVE); URINE PROTEIN NEGATIVE (NEGATIVE)
[2024-02-18] MEDS ORDERED: IBUPROFEN 600 MG TABLET (FP) PO ONE (15:35)
[2024-02-18] MEDS: IBUPROFEN 600 MG TABLET (FP) PO ONE (15:37)
== END 2024-02-18 15:40 | disposition home or self-care (01) ==
LOC: JER 11:50
PROC: 3E033GC Introduction of Other Therapeutic Substance into Peripheral Vein, Percutaneous Approach (ICD-10-PCS; principal; 2024-02-18)
PROC: 3E033NZ Introduction of Analgesics, Hypnotics, Sedatives into Peripheral Vein, Percutaneous Approach (ICD-10-PCS; 2024-02-18)
PROC: 3E033GC Introduction of Other Therapeutic Substance into Peripheral Vein, Percutaneous Approach (ICD-10-PCS; 2024-02-18)
DX: R10.84 Generalized abdominal pain (principal); D21.9 Benign neoplasm of connective and other soft tissue, unspecified; Z20.822 Contact with and (suspected) exposure to COVID-19
CPT/HCPCS: 0241U-QW; 36415; 71045-TC-FY; 74177-TC; 80053; 81003; 82962; 83605; 83690; 83735; 84484; 85025; 85610; 85730; 87086; 93005; 93010; 96365; 96375; 99285-25; J0131; Q9967

== ENCOUNTER 2024-05-03 03:18 | Observation (INO) | payer MEDICARE, OTHER ==
[2024-05-03 03:24] VITALS: BMI 34.4
[2024-05-03] MEDS ORDERED: ALBUTEROL SO4 2.5/IPRATROPIUM 0.5 INH SOL 3 ML VIAL.NEB. NEB ONE (03:30)
[2024-05-03] MEDS: ALBUTEROL SO4 2.5/IPRATROPIUM 0.5 INH SOL 3 ML VIAL.NEB. NEB ONE (03:50)
[2024-05-03 03:53] LABS: ABSOLUTE IMMATURE GRANULOCYTES 0.02 x10^3/uL (0.0-0.031); BASOPHILS # 0.06 x10^3/uL (0.01-0.08); EOSINOPHIL % 0.4 % (0.7-5.8); EOSINOPHILS # 0.03 x10^3/uL (0.04-0.36); HEMATOCRIT 47.3 % (34.1-44.9); HEMOGLOBIN 14.5 g/dL (11.2-15.7); MCHC 30.7 g/dl (32.2-35.5); MEAN CELL VOLUME 87.9 fl (79.4-94.8); MONOCYTE # 0.81 x10^3/uL (0.24-0.86); MONOCYTE % 10.6 % (4.7-12.5); RDW 14.3 % (12.4-16.6)
[2024-05-03] MEDS ORDERED: DEXAMETHASONE 4 MG TABLET (FP) ONE ×2 (03:53→03:54)
[2024-05-03 03:56] LABS: VENOUS BASE EXCESS 1.2 mmol/L (-2-2); VENOUS O2 SATURATION 69.4 % (70-80); VENOUS PCO2 44.9 mmHg (38-52); VENOUS PH 7.391 (7.310-7.410)
[2024-05-03 04:07] LABS: POTASSIUM 3.4 mmol/L (3.5-5.1)
[2024-05-03 04:08] LABS: CALCIUM 9.4 mg/dL (8.5-10.1); MEAN PLT VOLUME 11.6 fl (9.4-12.3); PLATELET COUNT 117 x10^3/uL (182-369)
[2024-05-03 04:09] LABS: ALBUMIN 3.7 g/dl (3.4-5.0); BLOOD UREA NITROGEN 16.4 mg/dL (7-18)
[2024-05-03] MEDS: DEXAMETHASONE 4 MG TABLET (FP) PO ONE (04:09)
[2024-05-03 04:13] LABS: CREATININE 1.4 mg/dL (0.55-1.3)
[2024-05-03 04:14] LABS: BILIRUBIN,TOTAL 1.4 mg/dL (0.2-1); TOT PROT 7.7 g/dl (6.4-8.2)
[2024-05-03] MEDS ORDERED: ALBUTEROL SO4 HFA INHALER IH PRN (06:03)
[2024-05-03] MEDS ORDERED: HEPARIN NA (PORCINE) 5,000 UNITS/ML 1ML VIAL ONE (06:08)
[2024-05-03] MEDS: HEPARIN NA (PORCINE) 5,000 UNITS/ML 1ML VIAL SQ SCH (06:12)
[2024-05-03] MEDS: REMDESIVIR 200 MG in SODIUM CHLORIDE 250 ML IVPB ONE (06:38)
[2024-05-03] MEDS: INSULIN ASPART SLIDING SCALE (NOVOLOG) 1 VIAL SQ SCH (06:38)
[2024-05-03] MEDS ORDERED: KCL 10 MEQ IVPB 30 MEQ/300 ML INFUS.BAG IVPB ONE (07:42)
[2024-05-03] MEDS: KCL 10 MEQ IVPB 10 MEQ/100 ML INFUS.BAG IVPB SCH ×2 (08:20→11:26)
[2024-05-03 08:36] LABS: HEMATOCRIT 43.8 % (34.1-44.9); HEMOGLOBIN 13.7 g/dL (11.2-15.7); MCHC 31.3 g/dl (32.2-35.5); MEAN CELL VOLUME 87.8 fl (79.4-94.8); MEAN PLT VOLUME 12.1 fl (9.4-12.3); PLATELET COUNT 120 x10^3/uL (182-369); RDW 14.3 % (12.4-16.6)
[2024-05-03 08:42] LABS: POTASSIUM 3.4 mmol/L (3.5-5.1)
[2024-05-03 08:45] LABS: ALBUMIN 3.3 g/dl (3.4-5.0); BLOOD UREA NITROGEN 18.3 mg/dL (7-18); CALCIUM 8.9 mg/dL (8.5-10.1)
[2024-05-03 08:49] LABS: BILIRUBIN,TOTAL 1.2 mg/dL (0.2-1); CREATININE 1.2 mg/dL (0.55-1.3); PHOSPHOROUS 3.5 mg/dL (2.5-4.9); TOT PROT 7.1 g/dl (6.4-8.2)
[2024-05-03] MEDS ORDERED: SACUBITRIL/VALSARTAN 49 MG-51 MG TABLET PO SCH (10:00)
[2024-05-03] MEDS ORDERED: SPIRONOLACTONE 25 MG TABLET PO SCH (10:00)
[2024-05-03] MEDS ORDERED: FUROSEMIDE 40 MG TABLET (FP) PO SCH (10:00)
[2024-05-03] MEDS: DEXAMETHASONE 4 MG TABLET (FP) PO SCH (10:52)
[2024-05-03] MEDS: ASPIRIN COATED 81 MG TABLET.EC PO SCH (10:53)
[2024-05-03] MEDS: ACETAMINOPHEN 325 MG TABLET (FP) PO PRN (10:53)
[2024-05-03] MEDS: APIXABAN 5 MG TABLET PO SCH (10:53)
[2024-05-03] MEDS: FLUTICASONE/UMECLIDIN/VILANTER(100-62.5-25 TRELEGY ELLIPTA) INAHLER IH SCH (11:26)
[2024-05-03] MEDS: FUROSEMIDE 40 MG/4 ML INJECTABLE VIAL IVPUSH SCH (15:05)
[2024-05-03] MEDS: POTASSIUM CHLORIDE TABS 20 MEQ TABLET.ER (FP) PO SCH (22:24)
[2024-05-03] MEDS: ATORVASTATIN CA 10 MG TABLET (FP) PO SCH (22:24)
[2024-05-04 08:31] LABS: POTASSIUM 4.2 mmol/L (3.5-5.1)
[2024-05-04 08:41] LABS: CALCIUM 9.1 mg/dL (8.5-10.1)
[2024-05-04 08:43] LABS: ALBUMIN 3.3 g/dl (3.4-5.0); BLOOD UREA NITROGEN 26.5 mg/dL (7-18)
[2024-05-04 08:45] LABS: ABSOLUTE IMMATURE GRANULOCYTES 0.02 x10^3/uL (0.0-0.031); BASOPHILS # 0.02 x10^3/uL (0.01-0.08); HEMATOCRIT 42.9 % (34.1-44.9); HEMOGLOBIN 13.7 g/dL (11.2-15.7); MCHC 31.9 g/dl (32.2-35.5); MEAN CELL VOLUME 88.3 fl (79.4-94.8); MEAN PLT VOLUME 12.9 fl (9.4-12.3); MONOCYTE % 3.4 % (4.7-12.5); PLATELET COUNT 118 x10^3/uL (182-369); RDW 14.1 % (12.4-16.6)
[2024-05-04 08:46] LABS: MAGNESIUM 2.1 mg/dL (1.8-2.4)
[2024-05-04 08:48] LABS: BILIRUBIN,TOTAL 0.9 mg/dL (0.2-1)
[2024-05-04] MEDS: REMDESIVIR 100 MG in SODIUM CHLORIDE 250 ML IVPB SCH (10:39)
[2024-05-04] MEDS: LOSARTAN POTASSIUM 25 MG TABLET PO ONE (16:55)
[2024-05-05 07:49] LABS: ABSOLUTE IMMATURE GRANULOCYTES 0.05 x10^3/uL (0.0-0.031); BASOPHILS # 0.01 x10^3/uL (0.01-0.08); HEMATOCRIT 43.8 % (34.1-44.9); HEMOGLOBIN 13.6 g/dL (11.2-15.7); MCHC 31.1 g/dl (32.2-35.5); MEAN CELL VOLUME 86.9 fl (79.4-94.8); MEAN PLT VOLUME 12.2 fl (9.4-12.3); MONOCYTE # 0.32 x10^3/uL (0.24-0.86); MONOCYTE % 2.7 % (4.7-12.5); PLATELET COUNT 117 x10^3/uL (182-369); RDW 14.2 % (12.4-16.6)
[2024-05-05 08:06] LABS: CHLORIDE 101 mmol/L (98-107); SODIUM 134 mmol/L (136-145)
[2024-05-05 08:09] LABS: ALBUMIN 3.1 g/dl (3.4-5.0); BLOOD UREA NITROGEN 31.2 mg/dL (7-18); CO2 28 mmol/L (21-32); GLUCOSE,RANDOM 130 mg/dL (74-106); MAGNESIUM 2.3 mg/dL (1.8-2.4)
[2024-05-05 08:12] LABS: CREATININE 0.9 mg/dL (0.55-1.3); SGOT/AST 49 U/L (15-37); SGPT/ALT 21 U/L (13-61)
[2024-05-05 08:13] LABS: BILIRUBIN,TOTAL 0.7 mg/dL (0.2-1)
[2024-05-05 08:14] LABS: TOT PROT 7.1 g/dl (6.4-8.2)
[2024-05-05 08:15] LABS: ALK PHOS 75 U/L (45-117)
[2024-05-05 08:40] LABS: ANION GAP 5 mmol/L (4-13); POTASSIUM 6.3 mmol/L (3.5-5.1)
[2024-05-05] MEDS: FUROSEMIDE 40 MG TABLET (FP) PO SCH (10:31)
[2024-05-05] MEDS: LOSARTAN POTASSIUM 50 MG TABLET PO SCH (11:44)
[2024-05-05] MEDS: ALBUTEROL SO4 2.5/IPRATROPIUM 0.5 INH SOL 3 ML VIAL.NEB. NEB PRN (20:31)
[2024-05-06 06:04] VITALS: RESP 18
[2024-05-06 06:55] LABS: ABSOLUTE IMMATURE GRANULOCYTES 0.05 x10^3/uL (0.0-0.031); BASOPHILS # 0.02 x10^3/uL (0.01-0.08); EOSINOPHIL % 0.1 % (0.7-5.8); EOSINOPHILS # 0.01 x10^3/uL (0.04-0.36); HEMATOCRIT 42.3 % (34.1-44.9); HEMOGLOBIN 12.9 g/dL (11.2-15.7); MCHC 30.5 g/dl (32.2-35.5); MEAN CELL VOLUME 88.5 fl (79.4-94.8); MEAN PLT VOLUME 12.4 fl (9.4-12.3); MONOCYTE # 0.61 x10^3/uL (0.24-0.86); PLATELET COUNT 119 x10^3/uL (182-369); RDW 14.2 % (12.4-16.6)
[2024-05-06 07:22] LABS: POTASSIUM 3.9 mmol/L (3.5-5.1)
[2024-05-06 07:28] LABS: BLOOD UREA NITROGEN 27.6 mg/dL (7-18); CALCIUM 8.6 mg/dL (8.5-10.1)
[2024-05-06 07:29] LABS: ALBUMIN 2.9 g/dl (3.4-5.0); MAGNESIUM 2.3 mg/dL (1.8-2.4)
[2024-05-06 07:32] LABS: CREATININE 0.9 mg/dL (0.55-1.3)
[2024-05-06 07:34] LABS: BILIRUBIN,TOTAL 0.5 mg/dL (0.2-1); TOT PROT 6.1 g/dl (6.4-8.2)
[2024-05-07 09:06] VITALS: BP 104/81; PULSE 69; TEMP 97.7
[2024-05-07 09:36] LABS: ABSOLUTE IMMATURE GRANULOCYTES 0.06 x10^3/uL (0.0-0.031); BASOPHILS # 0.02 x10^3/uL (0.01-0.08); HEMATOCRIT 44.7 % (34.1-44.9); HEMOGLOBIN 13.6 g/dL (11.2-15.7); MCHC 30.4 g/dl (32.2-35.5); MEAN CELL VOLUME 88.7 fl (79.4-94.8); MEAN PLT VOLUME 12.5 fl (9.4-12.3); MONOCYTE # 0.68 x10^3/uL (0.24-0.86); MONOCYTE % 4.9 % (4.7-12.5); PLATELET COUNT 143 x10^3/uL (182-369); RDW 14.4 % (12.4-16.6)
[2024-05-07 09:56] LABS: POTASSIUM 4.2 mmol/L (3.5-5.1)
[2024-05-07 10:01] LABS: ALBUMIN 3.1 g/dl (3.4-5.0); CALCIUM 9.1 mg/dL (8.5-10.1)
[2024-05-07 10:02] LABS: MAGNESIUM 2.5 mg/dL (1.8-2.4)
[2024-05-07 10:05] LABS: BILIRUBIN,TOTAL 0.5 mg/dL (0.2-1); CREATININE 0.9 mg/dL (0.55-1.3); TOT PROT 6.7 g/dl (6.4-8.2)
[2024-05-07] MEDS: AMOX TR/POT CLAV 500MG/125MG TABLETS (FP) PO SCH (11:36)
[2024-05-07] MEDS: guaiFENesin 600 MG TABLET.ER (FP) PO SCH (11:36)
== END 2024-05-07 15:29 | disposition home or self-care (01) ==
LOC: JER 03:18 → INTOOBSV 04:54 → JERBED 04:54 → UNDOADMOB 04:54 → JERBED 08:45 → J4S 08:45 → JERBED 14:51
PROVIDERS: ADMIT Hospitalist; ATTEND Nurse Practitioner Family
PROC: 3E0F7GC Introduction of Other Therapeutic Substance into Respiratory Tract, Via Natural or Artificial Opening (ICD-10-PCS; principal; 2024-05-03)
PROC: 3E033GC Introduction of Other Therapeutic Substance into Peripheral Vein, Percutaneous Approach (ICD-10-PCS; 2024-05-03)
PROC: 3E023GC Introduction of Other Therapeutic Substance into Muscle, Percutaneous Approach (ICD-10-PCS; 2024-05-03)
PROC: 3E013VG Introduction of Insulin into Subcutaneous Tissue, Percutaneous Approach (ICD-10-PCS; 2024-05-03)
PROC: 3E033GC Introduction of Other Therapeutic Substance into Peripheral Vein, Percutaneous Approach (ICD-10-PCS; 2024-05-03)
DX: U07.1 COVID-19 (principal); J45.901 Unspecified asthma with (acute) exacerbation; I11.0 Hypertensive heart disease with heart failure; E11.9 Type 2 diabetes mellitus without complications; E78.5 Hyperlipidemia, unspecified; R00.0 Tachycardia, unspecified; I48.91 Unspecified atrial fibrillation; E03.9 Hypothyroidism, unspecified; Z95.810 Presence of automatic (implantable) cardiac defibrillator; Z90.49 Acquired absence of other specified parts of digestive tract; Z90.79 Acquired absence of other genital organ(s); Z72.0 Tobacco use
CPT/HCPCS: 0241U-QW; 36415; 71045-TC-FY; 80053; 82248; 82803; 82962; 83036; 83735; 83880; 84100; 84132; 84484; 85025; 86850; 86900; 86901; 93005; 93010; 93306-TC; 94640; 96365; 96366; 96372; 96375; 99285-25; G0378; J0248; J1644

== ENCOUNTER 2024-12-05 14:32 | Inpatient (IN) | payer MEDICARE, OTHER ==
[2024-12-05 14:47] VITALS: BMI 34.4
[2024-12-05] MEDS: morphine CARPU-JECT 4 MG/1 ML DISP.SYRIN IVPUSH ONE (19:01)
[2024-12-05 19:09] LABS: ABSOLUTE IMMATURE GRANULOCYTES 0.03 x10^3/uL (0.0-0.031); BASOPHILS # 0.05 x10^3/uL (0.01-0.08); EOSINOPHIL % 2.3 % (0.7-5.8); EOSINOPHILS # 0.16 x10^3/uL (0.04-0.36); MCHC 31.6 g/dl (32.2-35.5); MEAN CELL VOLUME 91.5 fl (79.4-94.8); MEAN PLT VOLUME 12.6 fl (9.4-12.3); MONOCYTE # 0.47 x10^3/uL (0.24-0.86); MONOCYTE % 6.9 % (4.7-12.5); RDW 13.5 % (12.4-16.6)
[2024-12-05 19:53] LABS: GLUCOSE,RANDOM 125.0 mg/dL (74-106); TOT PROT 7.1 g/dl (6.4-8.2)
[2024-12-05 19:54] LABS: CO2 23.0 mmol/L (21-32)
[2024-12-05 19:56] LABS: ALK PHOS 90.0 U/L (40-150)
[2024-12-05 19:58] LABS: SGPT/ALT 7.0 U/L (0-55)
[2024-12-05 19:59] LABS: CREATININE 1.07 mg/dL (0.55-1.3); SGOT/AST 24.0 U/L (5-34)
[2024-12-05 20:19] LABS: HCV DIAGNOSTIC IN-HOUSE W/RFLX NON-REACTIVE (NONREACTIVE)
[2024-12-05 20:20] LABS: HIV INTERPRETATION NEGATIVE (NEGATIVE)
[2024-12-05] MEDS ORDERED: ACETAMINOPHEN INJECTION 100 ML ONE (23:10)
[2024-12-05] MEDS ORDERED: LIDOCAINE 4% PATCH TP ONE (23:10)
[2024-12-05] MEDS: ACETAMINOPHEN 1000 MG/100 ML BAG IVPB ONE (23:15)
[2024-12-05] MEDS: LIDOCAINE 5% TOPICAL PATCH TP ONE (23:15)
[2024-12-06] MEDS ORDERED: ALBUTEROL SO4 HFA INHALER IH PRN (00:32)
[2024-12-06] MEDS ORDERED: APIXABAN 5 MG TABLET PO SCH (00:45)
[2024-12-06] MEDS: ACETAMINOPHEN 1000 MG/100 ML BAG IVPB SCH (05:00)
[2024-12-06] MEDS: TORSEMIDE 20 MG TABLET (FP) PO SCH (06:18)
[2024-12-06] MEDS: EMPAGLIFLOZIN (JARDIANCE) 25 MG TABLET PO SCH (06:18)
[2024-12-06 08:10] LABS: IMMATURE PLATELET FRACTION # 10.10 x10^3/uL; MCHC 31.6 g/dl (32.2-35.5); MEAN CELL VOLUME 91.4 fl (79.4-94.8); MEAN PLT VOLUME 12.1 fl (9.4-12.3); RDW 13.4 % (12.4-16.6)
[2024-12-06 09:05] LABS: GLUCOSE,RANDOM 129.0 mg/dL (74-106)
[2024-12-06 09:07] LABS: CO2 25.0 mmol/L (21-32)
[2024-12-06 09:11] LABS: CREATININE 1.01 mg/dL (0.55-1.3)
[2024-12-06] MEDS: SPIRONOLACTONE 25 MG TABLET PO SCH (09:39)
[2024-12-06] MEDS: DIGOXIN 0.125 MG TABLET PO SCH (09:40)
[2024-12-06] MEDS: APIXABAN 5 MG TABLET PO SCH (09:40)
[2024-12-06] MEDS: SACUBITRIL/VALSARTAN 49 MG-51 MG TABLET PO SCH (09:41)
[2024-12-06] MEDS: LIDOCAINE PATCH REMOVAL MC ONE (09:42)
[2024-12-06 13:39] VITALS: BP 109/74; PULSE 65; RESP 18; TEMP 97.2
[2024-12-06] MEDS ORDERED: LIDOCAINE 5% TOPICAL PATCH TP SCH (20:00)
[2024-12-06] MEDS ORDERED: LIDOCAINE PATCH REMOVAL MC SCH (22:00)
[2024-12-06] MEDS ORDERED: ATORVASTATIN CA 20 MG TABLET (FP) PO SCH (22:00)
[2024-12-07] MEDS ORDERED: LIDOCAINE PATCH REMOVAL MC SCH (08:00)
== END 2024-12-06 15:37 | disposition home or self-care (01) | DRG 554 ==
LOC: JER 14:32 → JERBED 18:47 → J5S 12-06 00:20 → OBSVTOIN 12-06 00:23
PROVIDERS: ADMIT Student in an Organized Health Care Education/Training Program; ATTEND Internal Medicine
DX: M17.12 Unilateral primary osteoarthritis, left knee (principal); I50.22 Chronic systolic (congestive) heart failure; I11.0 Hypertensive heart disease with heart failure; E11.9 Type 2 diabetes mellitus without complications; E78.5 Hyperlipidemia, unspecified; M25.462 Effusion, left knee; D69.6 Thrombocytopenia, unspecified
CPT/HCPCS: 36415; 71045-TC-FY; 73562-TC-LT-FY; 80048; 80053; 83735; 84100; 85025; 85027; 86803; 87389; 93005; 93010; 93971-TC-RT; 97116-GP; 97161-GP; 99285-25; G0378